=== PATIENT | female | born 1950 | race Caucasian/White ===

== ENCOUNTER 2019-03-30 08:56 | Outpatient (RCR) | payer MEDICARE, SELFPAY ==
--- NOTE | 2019-03-30 10:13 | PTOPEVAL ---
Thank you for referring this patient to [facility] [place]. Please review, sign, date and return this plan of care [facility]. I agree with and certify that the following plan of care is medically necessary. Referring Physician Date Admitting Provider: Attending Provider: Diomedes Ron MD Referring Provider: *PT Outpatient Evaluation Start: 03/30/19 09:13 Freq: Status: Active Protocol: Document 03/30/19 09:10 [facility] (Rec: 03/30/19 09:49 [facility] [id number]) Therapy Assessment Status Assessment Status Assessment Status Evaluation Evaluation Information Problem Diagnosis low back pain Onset 03/09/19 Additional Evaluation Detail oswestry = 26% Subjective Information patient reports she has been Query Text:As Reported By Patient/ having increased weakness in Family the low back since before her knee surgery back in August. she reports she had a great recovery, but has since been weak in the back with mild icnreased pain. she reports she has no symptoms in the low back. she reports she used to go to [email or web address], but was not going prior to her knee surgery due to the curves moving from town. Prior Level of Function Comments Additional Prior Level of Function patient has been noticing pain Comments since a little after August. she reports no imaging as of this date. she reports she has great difficulty standing and doing dishes/cooking. she reports she also has trouble keeping up with a 2 year old at home. Pain Assessment Timing of Pain Assessment Timing of Pain Assessment Assessment Pain Scale Pain Scale Used Numeric (1 - 10) Self Report Pain Assessment Lower Back Reported Pain Level 0 Greatest Pain Intensity 4 Pain Aggravating Factors Prolonged Position,Weight Bearing/Standing Upper Back Reported Pain Level 1 Pain Description Aching Greatest Pain Intensity 4 Pain Aggravating Factors Prolonged Position,Weight Bearing/Standing Pain Score Pain Score 1,0: Self Report Cervical and Lumbar ROM Lumbar ROM Lumbar Flexion Active Ankle Query Text:Hands to:
== END 2019-04-21 15:49 | disposition home or self-care (01) ==
LOC: CHSPT 08:56
PROVIDERS: PCP Internal Medicine; Visit Provider Internal Medicine
DX: M54.5 Low back pain (principal)
CPT/HCPCS: 97014; 97110; 97140; 97161; G0283

== ENCOUNTER 2020-11-29 08:50 | Outpatient (CLI) | payer MEDICARE, SELFPAY ==
--- NOTE | ~2020-11-29 | MR_ITS ---
EXAMINATION: MR lumbar spine wo con DATE: 11/29/2020 10:29 INDICATION: Chronic low back pain. TECHNIQUE: Magnetic resonance imaging (MRI) of the lumbar spine was performed without intravenous con trast. Sequences included sagittal T2-weighted FSE, sagittal T2-weighted FS FSE, sagittal T1-weighted FSE, and axial T2-weighted FSE. COMPARISON: Lumbar spine radiographs 11/29/2020 FINDINGS: There is 23 degrees levoscoliosis of lumbar spine. There is 4 mm anterolisthesis of L5 on S 1. There is mild chronic anterior wedging of T11 vertebral body. There is severely decreased disc hei ght from L1-L2 through L5-S1 with endplate remodeling. The distal spinal cord signal intensity is nor mal. The conus medullaris is at T12-L1. There is a 13 mm hemorrhagic cyst in right kidney. The follow ing disc levels are specifically discussed: L1-L2: The disc is bulging and has an annular fissure. There is severe right and mild left facet join t osteoarthritis. There is mild bilateral neural foraminal stenosis. There is mild central canal sten osis. L2-L3: The disc is bulging and has an annular fissure. There is severe bilateral facet joint osteoart hritis. There is mild bilateral neural foraminal stenosis. There is mild central canal stenosis. L3-L4: The disc is bulging and has an annular fissure. There is severe bilateral facet joint osteoart hritis. There is mild bilateral neural foraminal stenosis. There is mild central canal stenosis. L4-L5: The disc is bulging and has an annular fissure. There is moderate right and severe left facet joint osteoarthritis. There is mild right and moderate left neural foraminal stenosis. There is mild central canal stenosis. L5-S1: The disc is bulging and has an annular fissure. There is severe bilateral facet joint osteoart hritis. There is mild bilateral neural foraminal stenosis. There is mild central canal stenosis. IMPRESSION: 1. Severe lumbar spondylosis. 2. Lumbar levoscoliosis. Reviewed, dictated and finalized at location A.
--- NOTE | ~2020-11-29 | XR_ITS ---
EXAMINATION: XR lumbar spine 2-3V DATE: 11/29/2020 10:22 INDICATION: Chronic back pain. TECHNIQUE: 3 views of lumbar spine were obtained. COMPARISON: Lumbar spine MRI 11/29/2020 FINDINGS: There is 23 degrees levoscoliosis of lumbar spine. There is 4 mm anterolisthesis of L5 on S 1. There is mild chronic anterior wedging of T11 vertebral body. There is severely decreased disc hei ght from L1-L2 through L5-S1 with endplate remodeling. There is multilevel severe facet joint osteoar thritis. There are surgical clips in right abdomen. IMPRESSION: 1. Severe lumbar spondylosis. 2. Lumbar levoscoliosis. Reviewed, dictated and finalized at location A.
== END 2020-11-29 08:51 | disposition home or self-care (01) ==
LOC: CHSIMG 08:53
PROVIDERS: PCP Internal Medicine; Visit Provider Internal Medicine
DX: M54.50 Low back pain, unspecified (principal)
CPT/HCPCS: 72100; 72148

== ENCOUNTER 2020-12-06 09:09 | Outpatient (CLI) | payer MEDICARE, SELFPAY ==
--- NOTE | ~2020-12-06 | DEXA_ITS ---
Bone Density Report Name: Berenice Long Age: 70 Sex: Female Ethnicity: White Date of : 1950 Indication: postmenopausal; screening for osteoporosis; height loss; Referring Provider: Diomedes Ron Study: Bone densitometry was performed. Exam Date: December 06, 2020 Accession number: [id number] There is hypertrophic degenerative change of the lumbar spine, which results in higher than expected spine bone mineral density measurements. These spine BMD and T score and Z score measurements are not reflective of the patient's true general bone mineral density Bone Density: Region BMD T-score Z-score Classification AP Spine(L1, L2, L3) 0.973 -0.4 1.7 Normal Femoral Neck (Left) 0.555 -2.6 -0.8 Osteoporosis Total Hip (Left) 0.701 -2.0 -0.4 Osteopenia Femoral Neck (Right) 0.585 -2.4 -0.5 Osteopenia Total Hip (Right) 0.722 -1.8 -0.3 Osteopenia Femoral Neck Mean 0.570 -2.5 -0.7 Osteoporosis Total Hip Mean 0.711 -1.9 -0.4 Osteopenia World Health Organization criteria for BMD impression classify patients as: Normal (T-score at or above -1.0), Osteopenia (T-score between -1.0 and -2.5), or Osteoporosis (T-score at or below -2.5). 10-year Fracture Risk: FRAX not reported because: Some T-score for Spine Total or Hip Total or Femoral Neck at or below -2.5 Clinical Information Provided by Patient: Has used the following medications: Vitamin D, multi vit Patient maximum height was 64 Menopause Age: 56 No regular weight bearing exercise Drinks caffeinated beverages Onset of menses at age 12 Number of children 2 Impression: The patient has osteoporosis, based on the Left Femoral Neck T-score. There is hypertrophic degenerative change of the lumbar spine, which results in higher than expected spine bone mineral density measurements. These spine BMD and T score and Z score measurements are not reflective of the patient's true general bone mineral density. Discussion: INCREASED RISK OF FRACTURE. BONE DENSITY IS UNDESIRABLY LOW AT ONE OR MORE SKELETAL SITES, CONSISTENT WITH POSTMENOPAUSAL OSTEOPOROSIS. This patient's lowest T-score meets the World Health Organization's (WHO) criteria for osteoporosis at one or more sites (T-score -2.5 or below). In untreated patients, the risk of osteoporotic fracture increases approximately two-fold for each 1.0 SD decrease in T-score. Low bone density is not the only risk factor for fracture; also consider factors such as patient's age, frailty or poor health, risk of falling, risk of injury, previous osteoporotic fracture, family history of osteoporosis, cigarette smoking, low body weight, etc. Not everyone with low bone mineral density has osteoporosis; osteomalacia and other metabolic bone disorders should also be considered. Patients who have osteoporosis should be evaluated fo
--- NOTE | ~2020-12-06 | XR_ITS ---
EXAMINATION: XR wrist LT min 3V DATE: 12/06/2020 09:37 INDICATION: Ulnar sided left wrist pain. TECHNIQUE: 4 views of left wrist were obtained. COMPARISON: None. FINDINGS: Bone alignment is normal. No fracture. There are erosions of ulnar styloid. There is mild o steoarthritis of triscaphe joint and first carpometacarpal joint. There is degenerative cystic change in proximal lunate. There is chondrocalcinosis involving triangular fibrocartilage. There are periar ticular calcifications at radiocarpal joint. IMPRESSION: 1. Erosions of ulnar styloid, which may be seen with inflammatory arthropathy such as gout or rheumat oid arthritis. 2. Polyarticular osteoarthritis. Reviewed, dictated and finalized at location A. IMPRESSION: 1. Erosions of ulnar styloid, which may be seen with inflammatory arthropathy s uch as gout or rheumatoid arthritis. 2. Polyarticular osteoarthritis.
--- NOTE | ~2020-12-06 | MM_ITS ---
EXAMINATION: MM screening elvin BI w kirt HISTORY: Screening mammogram TECHNIQUE: Craniocaudal and mediolateral oblique 3-D tomosynthesis images were obtained and synthetic 2-D images were generated. CAD analysis was submitted and interpreted. COMPARISON: 01/2019, 05/2017, to bilateral digital screening mammogram examinations BREAST PARENCHYMAL COMPOSITION: There are scattered areas of fibroglandular density. FINDINGS: Scattered bilateral benign calcifications. There is no evidence of suspicious mass, calcifi cation, or architectural distortion to suggest malignancy in either breast. There has been no suspici ous interval change. IMPRESSION: 1. No mammographic evidence of malignancy. 2. Recommend routine screening mammography in one year. BI-RADS Category 2: Benign finding(s). Reviewed, dictated and finalized at location A.
== END 2020-12-06 09:10 | disposition home or self-care (01) ==
PROVIDERS: PCP Internal Medicine; Visit Provider Internal Medicine
DX: Z12.31 Encounter for screening mammogram for malignant neoplasm of breast (principal); M81.0 Age-related osteoporosis without current pathological fracture; M25.532 Pain in left wrist
CPT/HCPCS: 73110; 77063; 77067; 77080

== ENCOUNTER 2021-08-08 16:56 | Outpatient (RCR) | payer MEDICARE, SELFPAY ==
--- NOTE | 2021-08-09 09:14 | PTOPEVAL ---
Thank you for referring Berenice Long to [facility].? The patient is scheduled to be seen for therapy? ____x/week for ___ weeks. Please review, sign, date and return this plan of care JAREK. I agree with and certify that the following plan of care is medically necessary. Referring Physician Date Admitting Provider: Attending Provider: Diomedes Ron MD Referring Provider: *PT Outpatient Evaluation Start: 08/08/21 16:31 Freq: Status: Active Protocol: Document 08/08/21 17:00 [facility] (Rec: 08/08/21 18:03 [facility] [id number]) Therapy Assessment Status Assessment Status Assessment Status Evaluation Evaluation Information Problem Diagnosis Lumbar Spondylosis Onset 06/25/21 Additional Evaluation Detail Oswestry = 22% Functionally Declined Subjective Information Pt reports that in November, Query Text:As Reported By Patient/ she had a bit of back pain so Family she got an XRAY and MRI, which revealed severe arthritis. She has been having a grabbing feeling in the back of her L leg when walking for a prolonged period of time. When using stairs, she goes up the stairs sideways, with her R LE first. When going down the stairs, she uses her L LE first. She walks with a single point cane primarily due to her lack of confidence with her balance. Pain Assessment Timing of Pain Assessment Timing of Pain Assessment Pre-Treatment Pain Scale Pain Scale Used Numeric (1 - 10) Self Report Pain Assessment Lower Back Reported Pain Level 2 Lowest Pain Intensity 0 Greatest Pain Intensity 5 Pain Score Pain Score 2: Self Report Interventions Used Interventions Used By Clinicians Activity or ADL's,Education, Exercise Cervical and Lumbar ROM Lumbar ROM Lumbar Flexion Active Floor Query Text:Hands to: Lumbar Extension (0-40) 20 Query Text:Active in Degrees Lateral Flexion knee Query Text:Active Hands to: Lateral Rotation Right (0-45) 25 Query Text:Active in Degrees Lateral Rotation Left (0-45) 30 Query Text:Active in Degrees Lower Extremity Range of Motion Hip Range of Motion Right Hip Medial Rotation - Passive 30 Hip Lateral Rotation - Passive 45 Hip Range of Motion Comments ne
--- NOTE | 2021-09-19 21:07 | PTOPEVAL ---
Thank you for referring Berenice Long to [facility].? The patient is scheduled to be seen for therapy? ____x/week for ___ weeks. Please review, sign, date and return this plan of care JAREK. I agree with and certify that the following plan of care is medically necessary. Referring Physician Date Admitting Provider: Attending Provider: Diomedes Ron MD Referring Provider: *PT Outpatient Evaluation Start: 08/08/21 16:31 Freq: Status: Active Protocol: Document 09/12/21 11:00 [facility] (Rec: 09/19/21 21:07 [facility] filej) Therapy Assessment Status Assessment Status Assessment Status Discharge Evaluation Information Problem Diagnosis Lumbar Spondylosis Onset 06/25/21 Additional Evaluation Detail oswestry = 14% functionally declined Subjective Information patient reports she feels Query Text:As Reported By Patient/ Better overall. however, she Family reports she continues to feel the need to carry a cane with her for safety and stability. she reports improvements in standing, and lifting of mild to moderate weight around her house. she reports she is compliant with her exercise, and looking into continuing her exercise at a gym or a group class. she reports she used to attend [employer] frequently. Pain Assessment Timing of Pain Assessment Timing of Pain Assessment Assessment Pain Scale Pain Scale Used Numeric (1 - 10) Self Report Pain Assessment Lower Back Reported Pain Level 1 Pain Score Pain Score 1: Self Report Interventions Used Interventions Used By Clinicians Activity or ADL's,Electrical Stimulation,Exercise,Heat Cervical and Lumbar ROM Lumbar ROM Lumbar Flexion Active Floor Query Text:Hands to: Lumbar Extension (0-40) 25 Query Text:Active in Degrees Lumbar Lateral Flexion Right (0-40) 30 Query Text:Active in Degrees Lumbar Lateral Flexion Left (0-40) 30 Query Text:Active in Degrees Lateral Rotation Right (0-45) 35 Query Text:Active in Degrees Lateral Rotation Left (0-45) 35 Query Text:Active in Degrees Cervical and Lumbar Muscle Testing Lumbar Strength Upper Abdominal Strength 3+Fair+ Lower Abdominal Strength 3+Fair+ Lower Extremity Muscle Strength Testing Hip Strength Right Hip Flexion Strength 4+ Good +
== END 2021-09-12 10:02 | disposition home or self-care (01) ==
LOC: CHSPT 16:56
PROVIDERS: PCP Internal Medicine; Visit Provider Internal Medicine
DX: M54.50 Low back pain, unspecified (principal)
CPT/HCPCS: 97014; 97110; 97161; 97530; G0283

== ENCOUNTER 2022-06-17 09:03 | Outpatient (RCR) | payer MEDICARE, SELFPAY ==
--- NOTE | 2022-06-17 09:54 | PTOPEVAL1 ---
Assessment and note entered by Librado Levi Evaluation Information Assessment Status Evaluation Diagnosis impaired gait, impaird balance Onset 05/11/22 Subjective Information Pt. reports that she has been having difficulty since May. she states that she has a hx of severe arthritis in her back. She reports that since being diagnosed with arthritis she has noticed difficulty with walking. she reports she is uisng a cane on outdoor surface currently. she states that she does not use a cane in the home. She denies any recent falls, but notices that she will have an occasional LOB. She reports that she does have constant pain, but it is more severe with standing in one position. She reports that she does not do any formal exercise currently. She states that her goal is to be able to walk better. Reported Pain Level Pain Score 2: Self Report Assessment PT Clinical Summary Pt. is a 72 year old female who enters the clinic with impaired gait and balance, as well as low back pain. She presents with impaired gait, impaired balance, impaired postural awareness, l.e . weakness and pain. Continued skilled PT is indicated in order to improve these areas to allow the pt. to complete all IADL's with improved safety and comfrot. Plan of Care Interventions Electrical Stimulation,Gait Training,Hot Pack/Cold Pack,Manual Therapy,Therapeutic Activities, Therapeutic Exercise PT Services Indicated Yes Treatment Frequency and 2x/week x 10 visits Duration These treatments will address the objective and functional deficits as defined above. The patient will be advanced safely and appropriately in order for the patient to progress towards his/her prior level of function. Additional exercises will be introduced and as well as a comprehensive home exercise program upon discharge, if needed, ?to ensure carryover of functional gains achieved in the clinic. This treatment plan has been reviewed and agreement upon by the patient.
--- NOTE | 2022-07-19 11:47 | PTOPDC ---
Assessment and note entered by Aneta Titus, PT Evaluation Information Assessment Status Evaluation Diagnosis impaired gait and balance Onset 05/11/22 Subjective Information Berenice Long reports that she had increased pain yesterday [place] and then she did some housework as well. She notes low back pain will range from 0-5/10 and is usually provoked with standing to wash dishes. She does feel like she is improving with PT however, she is still fearful of falling and is limited with how long she can walk. She would like to continue PT for another 2 weeks to improve a little more before going on vacation in early August . Reported Pain Level Pain Score 1: Self Report Assessment PT Clinical Summary Berenice Long has completed 10 skilled PT visits for impaired gait and balance. She is reporting overall improvements since initiating PT however, she is still fearful of falling and notes weakness. She objectively demonstrates improved knee and ankle strength, improved lumbar flexion AROM, and improved Tinetti balance score. She continues to demonstrate bilateral hip and core weakness, impaired gait, decreased balance, and decreased endurance. She will continue to benefit from skilled PT to further address these limitations. Plan of Care PT Services Indicated Yes
--- NOTE | 2022-07-19 11:50 | PTOPPROG ---
Assessment and note entered by Aneta Titus, PT Evaluation Information Assessment Status Evaluation Diagnosis impaired gait and balance Onset 05/11/22 Subjective Information Berenice Long reports that she had increased pain yesterday after [place] and then she did some housework as well. She notes low back pain will range from 0-5/10 and is usually provoked with standing to wash dishes. She does feel like she is improving with PT however, she is still fearful of falling and is limited with how long she can walk. She would like to continue PT for another 2 weeks to improve a little more before going on vacation in early August . Assessment PT Clinical Summary Berenice Long has completed 10 skilled PT visits for impaired gait and balance. She is reporting overall improvements since initiating PT however, she is still fearful of falling and notes weakness. She objectively demonstrates improved knee and ankle strength, improved lumbar flexion AROM, and improved Tinetti balance score. She continues to demonstrate bilateral hip and core weakness, impaired gait, decreased balance, and decreased endurance. She will continue to benefit from skilled PT to further address these limitations. Plan of Care Interventions Neuro Re-education,Patient/Caregiver Educati, Therapeutic Activities,Therapeutic Exercise PT Services Indicated Yes Treatment Frequency and 2 times a week for 6 visits Duration These treatments will address the objective and functional deficits as defined above. The patient will be advanced safely and appropriately in order for the patient to progress towards his/her prior level of function. Additional exercises will be introduced and as well as a comprehensive home exercise program upon discharge, if needed, ?to ensure carryover of functional gains achieved in the clinic. This treatment plan has been reviewed and agreement upon by the patient.
--- NOTE | 2022-09-04 11:56 | PTOPDC ---
Assessment and note entered by JT File, PT Evaluation Information Assessment Status Discharge Diagnosis impaired gait and balance Onset 05/11/22 Subjective Information Pt reports no pain currently, she notes she has not experienced pain greater than 1/10 in the past week. She does note that she experiences weakness , particularly in the L knee today. She reports that during her recent trip to [place] she was able to use a scooter for mobility, but she also walked quite a bit which she noted difficulty with endurance for this activity. Reported Pain Level Pain Score 0: Self Report Assessment PT Clinical Summary Mrs. Long demonstrated improvement in LE strength today from previous assessments. Patient reports overall improvements in her gait and balance since start of physical therapy. Patient has fully met goals for pain levels and partially met goals for strength and balance. She continues to show impairments with overall endurance and high level balance activities. Patient to be discharged at this time with independent HEP and recommendation to attend a fall prevention class. Plan of Care PT Services Indicated No
== END 2022-09-04 20:00 | disposition home or self-care (01) ==
LOC: CHSPT 09:03
PROVIDERS: PCP Internal Medicine; Visit Provider Internal Medicine
DX: M54.50 Low back pain, unspecified (principal); R26.81 Unsteadiness on feet
CPT/HCPCS: 97110; 97112; 97150; 97161; 97530; 97750

== ENCOUNTER 2022-10-17 09:07 | Outpatient (CLI) | payer MEDICARE, SELFPAY ==
--- NOTE | ~2022-10-17 | MM_ITS ---
EXAMINATION: MM screening elvin BI w kirt HISTORY: Screening mammogram TECHNIQUE: Craniocaudal and mediolateral oblique 3-D tomosynthesis images were obtained and synthetic 2-D images were generated. CAD analysis was submitted and interpreted. COMPARISON: 12/06/2020, 01/2019 bilateral screening mammogram examinations BREAST PARENCHYMAL COMPOSITION: There are scattered areas of fibroglandular density. FINDINGS: Again noted are scattered bilateral benign calcifications. There is no evidence of suspicio us mass, calcification, or architectural distortion to suggest malignancy in either breast. There has been no suspicious interval change. IMPRESSION: 1. No mammographic evidence of malignancy. 2. Recommend routine screening mammography in one year. BI-RADS Category 2: Benign finding(s). Reviewed, dictated and finalized at location A.
--- NOTE | ~2022-10-17 | MR_ITS ---
MRI of the lumbar spine Clinical History: Back pain Technique: Axial T2-weighted images, and sagittal T1-weighted, T2-weighted, and T2 fat-sat images wer e acquired. COMPARISON: 11/29/2020 Findings: There is 26 degrees levoscoliosis of the lumbar spine. No fracture or suspicious bone marro w signal abnormality seen. Osseous alignment is similar to prior exam. At L1-L2, there is advanced degenerative disc narrowing. There is mild disc bulge with severe facet a rthropathy. No central canal stenosis. There is mild right neural foraminal narrowing. Left neural fo ramen preserved. At L2-L3, there is advanced degenerative disc narrowing. There is mild disc bulge with moderate to se luis facet arthropathy. No central canal stenosis. There is minimal right neural foraminal narrowing. At L3-L4, there is severe degenerative disc narrowing. There is disc bulge with severe facet arthropa thy. No candida central canal stenosis. There is severe right neural foraminal narrowing, and mild left neural foraminal narrowing. At L4-L5, there is advanced degenerative disc narrowing. There is disc bulge and moderate to severe f acet arthropathy, with left lateral recess stenosis. There is moderate to severe left neural foramina l narrowing. No candida central canal stenosis. Right neural foramen preserved. At L5-S1, there is diffuse disc bulge with severe facet arthropathy. There is mild to moderate bilate ral neural foraminal narrowing, left worse than right. Paravertebral soft tissues are unremarkable. Impression: Moderate degenerative spondylosis, as detailed above, with associated 26 degrees of levoscoliosis. Reviewed, dictated and finalized at location . Impression: Moderate degenerative spondylosis, as detailed above, with associated 26 degree s of levoscoliosis.
== END 2022-10-17 09:08 | disposition home or self-care (01) ==
LOC: CHSIMG 09:10
PROVIDERS: PCP Internal Medicine; Visit Provider Internal Medicine
DX: Z12.31 Encounter for screening mammogram for malignant neoplasm of breast (principal); M54.50 Low back pain, unspecified; M43.06 Spondylolysis, lumbar region; M41.86 Other forms of scoliosis, lumbar region
CPT/HCPCS: 72148; 77063; 77067

== ENCOUNTER 2023-02-25 10:39 | Outpatient (CLI) | payer MEDICARE, SELFPAY ==
--- NOTE | ~2023-02-25 | DEXA_ITS ---
Bone Density Report Name: XAVIER TSAI Age: 72 Sex: Female Ethnicity: White Date of : 1950 Indication: postmenopausal; screening for osteoporosis; height loss; hysterectomy; Referring Provider: Diomedes Ron Study: Bone densitometry was performed. Exam Date: February 25, 2023 Accession number: [id number] Bone Density: Region BMD T-score Z-score Classification AP Spine(L1, L2, L3) 1.025 0.1 2.3 Normal Femoral Neck (Left) 0.575 -2.5 -0.5 Osteoporosis Total Hip (Left) 0.679 -2.2 -0.5 Osteopenia Femoral Neck (Right) 0.634 -1.9 0.0 Osteopenia Total Hip (Right) 0.769 -1.4 0.2 Osteopenia Femoral Neck Mean 0.605 -2.2 -0.2 Osteopenia Total Hip Mean 0.724 -1.8 -0.1 Osteopenia World Health Organization criteria for BMD impression classify patients as: Normal (T-score at or above -1.0), Osteopenia (T-score between -1.0 and -2.5), or Osteoporosis (T-score at or below -2.5). 10-year Fracture Risk: FRAX not reported because: Some T-score for Spine Total or Hip Total or Femoral Neck at or below -2.5 Clinical Information Provided by Patient: Has used the following medications: Vitamin D, multi vit Has the following medical conditions: Hysterectomy Patient maximum height was 64 Menopause Age: 56 No regular weight bearing exercise Does not regularly consume dairy products Drinks caffeinated beverages Onset of menses at age 12 Number of children 2 Impression: The patient has osteoporosis, based on the Left Femoral Neck T-score. Discussion: INCREASED RISK OF FRACTURE. BONE DENSITY IS UNDESIRABLY LOW AT ONE OR MORE SKELETAL SITES, CONSISTENT WITH POSTMENOPAUSAL OSTEOPOROSIS. This patient's lowest T-score meets the World Health Organization's (WHO) criteria for osteoporosis at one or more sites (T-score -2.5 or below). In untreated patients, the risk of osteoporotic fracture increases approximately two-fold for each 1.0 SD decrease in T-score. Low bone density is not the only risk factor for fracture; also consider factors such as patient's age, frailty or poor health, risk of falling, risk of injury, previous osteoporotic fracture, family history of osteoporosis, cigarette smoking, low body weight, etc. Not everyone with low bone mineral density has osteoporosis; osteomalacia and other metabolic bone disorders should also be considered. Patients who have osteoporosis should be evaluated for specific diseases and conditions (secondary causes) that may cause or contribute to bone loss. The [place] [employer] (AACE) and National Osteoporosis Foundation (NOF) recommend pharmacologic intervention for all postmenopausal women whose T-score is in this range. The patient should follow a healthful lifestyle (good nutrition with adequate calcium and vitamin D, and appropriate weight-bearing exercise). Follow-Up: Consider a repeat BMD and Vertebral Fr
== END 2023-02-25 10:40 | disposition home or self-care (01) ==
PROVIDERS: PCP Internal Medicine; Visit Provider Internal Medicine
DX: Z78.0 Asymptomatic menopausal state (principal); M81.0 Age-related osteoporosis without current pathological fracture; M85.89 Other specified disorders of bone density and structure, multiple sites
CPT/HCPCS: 77080

== ENCOUNTER 2023-04-01 09:52 | Outpatient (CLI) | payer MEDICARE, SELFPAY ==
--- NOTE | ~2023-04-01 | CT_ITS ---
CT of the Abdomen and Pelvis: Indication: Abdominal pain Technique: 2.5 mm axial scans were obtained through the abdomen and pelvis following intravenous adm inistration of 100 cc of Omnipaque 350. Dose reduction technique was used on this scan by utilizing a utomated exposure control and iterative reconstruction technique. The dose-length product (DLP) was 7 67.05 mGy-cm. Findings: Scans through the lung bases are unremarkable. Probable diffuse fatty infiltration of liver noted. Cholecystectomy clips are present. The spleen, pa ncreas, adrenals and kidneys are within normal limits. There are atherosclerotic calcifications of th e aorta. No lymphadenopathy. No bowel obstruction or bowel wall thickening. There is a large, inferior ventral hernia containing m ultiple small bowel loops and large amount of mesenteric fat.. Images through the pelvis were performed. Urinary bladder unremarkable. No pelvic mass evident. No as cites. Impression: Very large inferior ventral hernia containing multiple small bowel loops and mesenteric fat. No bowel obstruction or bowel wall thickening evident. Probable diffuse fatty infiltration of the liver. Reviewed, dictated and finalized at location M. [facility] Impression: Very large inferior ventral hernia containing multiple small bowel loops and me senteric fat. No bowel obstruction or bowel wall thickening evident. Probable diffuse fatty infiltration of the liver.
[2023-04-01 10:30] LABS: Estimated Glomerular Filt Rate > 60
== END 2023-04-01 09:53 | disposition home or self-care (01) ==
LOC: CHSIMG 09:55
PROVIDERS: PCP Internal Medicine; Visit Provider Internal Medicine
DX: K43.9 Ventral hernia without obstruction or gangrene (principal); R10.9 Unspecified abdominal pain
CPT/HCPCS: 74177; Q9967

== ENCOUNTER 2023-04-30 09:15 | Outpatient (CLI) | payer MEDICARE, SELFPAY ==
--- NOTE | 2023-04-30 11:30 | NEURO_ITS ---
Impression: # Known mild diabetic complains of numbness of hands. # Mild sensory Carpal Tunnel Syndrome. # No ulnar neuropathy. # Normal needle/EMG exam. # Patient does have ulnar to median cross innervation. Nerve Conduction Studies Anti Sensory Summary Table Stim Site NR Peak (ms) P-T Amp (?V) Site1 Site2 Delta-P (ms) Dist (cm) Sathish (m/s) Left Median Anti Sensory (2-3nd Digit) Wrist 3.6 47.8 Wrist 2-3nd Digit 3.6 14.0 39 Wrist 3.6 17.2 Wrist 2-3nd Digit 3.6 14.0 39 Right Median Anti Sensory (2-3nd Digit) Wrist 3.0 54.8 Wrist 2-3nd Digit 3.0 14.0 47 Wrist 3.6 56.4 Wrist 2-3nd Digit 3.0 14.0 47 Left Radial Anti Sensory (Base 1st Digit) Wrist 1.8 23.9 Wrist Base 1st Digit 1.8 0.0 Right Radial Anti Sensory (Base 1st Digit) Wrist 2.1 25.9 Wrist Base 1st Digit 2.1 0.0 Left Ulnar Anti Sensory (5th Digit) Wrist 2.5 57.9 Wrist 5th Digit 2.5 14.0 56 Right Ulnar Anti Sensory (5th Digit) Wrist 2.3 32.9 Wrist 5th Digit 2.3 14.0 61 Motor Summary Table Stim Site NR Onset (ms) O-P Amp (mV) Site1 Site2 Delta-0 (ms) Dist (cm) Sathish (m/s) Left Median Motor (Abd Poll Brev) Wrist 3.1 6.7 Elbow Wrist 4.9 29.0 59 Elbow 8.0 6.3 Right Median Motor (Abd Poll Brev) Wrist 3.1 3.2 Elbow Wrist 5.3 29.0 55 Elbow 8.4 1.7 Left Ulnar Motor (Abd Dig Minimi) Wrist 2.5 8.2 A Elbow Wrist 4.9 29.0 59 A Elbow 7.4 6.6 B Elbow Wrist 5.5 0.0 B Elbow 8.0 1.3 Right Ulnar Motor (Abd Dig Minimi) Wrist 2.5 9.2 A Elbow Wrist 4.8 28.0 58 A Elbow 7.3 7.8 F Wave Studies NR F-Lat (ms) L-R F-Lat (ms) Left Median (Mrkrs) (Abd Poll Brev) 26.88 0.97 Right Median (Mrkrs) (Abd Poll Brev) 25.91 0.97 Left Ulnar (Mrkrs) (Abd Dig Min) 26.57 0.99 Right Ulnar (Mrkrs) (Abd Dig Min) 25.58 0.99 EMG Side Muscle Nerve Root Ins Act Fibs Amp Dur Recrt Comment Right 1stDorInt Ulnar C8-T1 Nml Nml Nml Nml Nml Right Ext Indicis Radial (Post Int) C7-8 Nml Nml Nml Nml Nml Right Ext Digitorum Radial (Post Int) C7-8 Nml Nml Nml Nml Nml Right BrachioRad Radial C5-6 Nml Nml Nml Nml Nml Right PronatorTeres Median C6-7 Nml Nml Nml Nml Nml Right Abd Poll Brev Median C8-T1 Nml Nml Nml Nml Nml Right ABD Dig Min Ulnar C8-T1 Nml Nml Nml Nml Nml Left 1stDorInt Ulnar C8-T1 Nml Nml Nml Nml Nml Left Ext Indicis Radial (Post Int) C7-8 Nml Nml Nml Nml Nml Left Ext Digitorum Radial (Post Int) C7-8 Nml Nml Nml Nml Nml Left BrachioRad Radial C5-6 Nml Nml Nml Nml Nml Left PronatorTeres Median C6-7 Nml Nml Nml Nml Nml Left Abd Poll Brev Median C8-T1 Nml Nml Nml Nml Nml Left ABD Dig Min Ulnar C8-T1 Nml Nml Nml Nml Nml MTDD
== END 2023-04-30 09:16 | disposition home or self-care (01) ==
LOC: ANHNEURO 09:21
PROVIDERS: PCP Internal Medicine; Visit Provider Plastic Surgery
DX: G56.03 Carpal tunnel syndrome, bilateral upper limbs (principal)
CPT/HCPCS: 95886; 95911

== ENCOUNTER 2023-05-08 09:58 | Outpatient (CLI) | payer MEDICARE, SELFPAY ==
--- NOTE | 2023-05-08 11:08 | ECG_ITS ---
Measurements Intervals [place] Rate: 73 P: 36 FL: 156 QRS: -33 QRSD: 134 T: 0 QT: 396 QTc: 437 Interpretive Statements SINUS RHYTHM WITH SINUS ARRHYTHMIA LEFT AXIS DEVIATION RIGHT BUNDLE BRANCH BLOCK VOLTAGE CRITERIA FOR LVH MINIMAL Q WAVES- HIGH LATERAL LEADS ABNORMAL ECG NO PREVIOUS ECG AVAILABLE FOR COMPARISON Electronically Signed On 05-08-2023 11:25:19 CDT by Xu Amaya D.O.
[2023-05-08 11:42] LABS: Hematocrit 41.7 % (37.0-47.0); Hemoglobin 13.8 g/dL (12.0-15.0)
[2023-05-08 11:54] LABS: Anion Gap 8 mmol/L (4-12); Blood Urea Nitrogen 28 mg/dL (7-17); Calcium 9.6 mg/dL (8.4-10.2); Carbon Dioxide 28 mmol/L (22-30); Chloride 104 mmol/L (98-107); Estimated Glomerular Filt Rate > 60; Glucose 109 mg/dL (65-110); Potassium 4.4 mmol/L (3.4-5.0); Sodium 140 mmol/L (137-145)
== END 2023-05-08 09:59 | disposition home or self-care (01) ==
LOC: ANHSURGERY 10:06
PROVIDERS: Anesthesiology; PCP Internal Medicine; Visit Provider Surgery
DX: E78.00 Pure hypercholesterolemia, unspecified (principal); E11.9 Type 2 diabetes mellitus without complications; K43.0 Incisional hernia with obstruction, without gangrene; Z01.818 Encounter for other preprocedural examination; I45.10 Unspecified right bundle-branch block
CPT/HCPCS: 36415; 80048; 85014; 85018; 93005

== ENCOUNTER 2023-05-19 17:56 | Inpatient (IN) | payer MEDICARE, SELFPAY ==
[2023-05-08 10:14] VITALS: BMI 33.0
--- NOTE | 2023-05-08 10:46 | PC.NURSE ---
Report to the Outpatient Waiting Room, entrance under the green pavilion located off [facility], at time _1000 on date __05/19/23 . Planned Procedure Time: ___1200 . Time changes happen often and if your time is changed the preop area will call you the afternoon before. - You and your visitor will be asked to self-screen and do not enter if you have any COVID symptoms. - A mask is optional within the hospital at this time. Patients may have clear liquids (water, carbonated beverages, clear teas, apple juice) until 3 hours prior to surgery (9:00 AM)with a maximum of 20 ounces. - No food from midnight until time of surgery - Infants may have breast milk until 4 hours before surgery, formula 6 hours prior to surgery. - Children will be allowed to drink immediately following surgery. If applicable, please bring a bottle or sippy cup to assist with drinking. Juice, water, soda, and popsicles are readily available. For infants on formula, please bring formula the day of surgery. Pacifiers are allowed. Take the following medications with a SIP of water the morning of surgery: __NONE DO NOT STOP ANY OF YOUR OTHER PRESCRIPTION MEDICATIONS PRIOR TO SURGERY ?EXCEPT THE FOLLOWING Medications to discontinue per physician ____HOLD VITAMINS AND SUPPLEMENTS 3 DAYS PRE OP.LAST DOSE 05/15/[address] LAGUNAS Please no make-up, nail solomon islander, hairspray, perfume, deodorant, or body powder the day of surgery. No jewelry (including any body piercings) or valuables the day of surgery, leave them at home. Please take a shower or bath the night before, or the morning of, surgery with an antibacterial soap. Wear comfortable, loose fitting clothing. Children are encouraged to wear pajamas. - Jewelry must be removed prior to entering the operating room. Rings and piercings that are not removed may be cut off. - The hospital will not accept responsibility for valuables. - Please leave all valuables, including medications, at home the day of surgery. If you are going home after surgery, a licensed tower truck driver must drive you home. - NO public transportation without another adult if you receive anesthesia. - We recommend that an adult stay with you for 24 hours following discharge. - We also recommend that you do not drive, make important decision, drink alcoholic beverages, or take any drugs that were not prescribed by your health care provider for at least 24 hours after your discharge time. Follow any additional instructions given to you from your surgeon. If you or anyone in your household have experienced Covid symptoms in the past week, please notify your surgeon or the nurse liaison at the phone number below for possible testing. VERBAL AND WRITTEN instructions given to __PATIENT AND SPOUSE and asked if any additional questions and then verbalized understanding. Patient advised to call surgeon office or pre surgery nurse liaison [phone] if any additional questions.
[2023-05-08 11:04] VITALS: BP 156/79; PULSE 82; RESP 18; TEMP 37.1; O2SAT 97
[2023-05-19] VITALS (12 sets, daily range): BP systolic 128–174; BP diastolic 61–81; PULSE 91–108; RESP 16–25; TEMP 36.8–37.1; O2SAT 92–96
--- NOTE | ~2023-05-19 | XR_ITS ---
EXAMINATION: XR chest 1V portable DATE: 05/24/2023 16:01 INDICATION: Worsening oxygenation. TECHNIQUE: A single frontal view of the chest was obtained. COMPARISON: Chest 2 views 05/21/2023, chest CT 05/22/2023 FINDINGS: The lung volumes are small. Again seen is relative elevation of right hemidiaphragm. There are airspace opacities in the mid and lower lung zones. No pleural effusion or pneumothorax. The hear t size is normal. IMPRESSION: 1. Stable small lung volumes with airspace opacities in the mid and lower lung zones, consistent with atelectasis versus pneumonia. Reviewed, dictated and finalized at location E.
--- NOTE | ~2023-05-19 | MR_ITS ---
EXAMINATION: MRA brain wo con DATE: 05/22/2023 12:50 INDICATION: Possible stroke with right-sided hemiparesis TECHNIQUE: Magnetic resonance angiography (MRA) of the brain was performed without intravenous contrast by the 3 D [id number] technique. COMPARISON: Brain CT angiogram dated 05/22/2023 FINDINGS: There is normal flow related signal seen within the vertebral, basilar and internal carotid arteries. Bilateral vertebral arteries are codominant. There is no proximal stenosis. There are no aneurysms identified. Both A1 and P1 segments are patent. Flow in the cerebral arteries is symmetric. IMPRESSION: 1. Normal cerebral MR angiogram. Reviewed, dictated and finalized at location B.
--- NOTE | ~2023-05-19 | CT_ITS ---
EXAMINATION: CT brain wo con DATE: 05/22/2023 09:41 INDICATION: Right-sided weakness TECHNIQUE: Computed tomography (CT) of the head was performed without intravenous contrast. Sagittal and coronal reconstructions were performed. The mA was adjusted according to patient size. Iterative reconstruction technique was employed. The dose-length product was 681.00 mGy-cm. COMPARISON: None FINDINGS: No acute intracranial hemorrhage, acute infarction or abnormal extra axial fluid collection. There is moderate scattered white matter hypoattenuation consistent with chronic small vessel ischemic diseas e. Ventricles are normal and symmetric. No mass/mass effect. The orbits, paranasal sinuses and masto id air cells are normal. IMPRESSION: 1. Moderate scattered white matter hypoattenuation consistent with chronic small vessel ischemic dise ase. No other acute intracranial process. Reviewed, dictated and finalized at location B. IMPRESSION: 1. Moderate scattered white matter hypoattenuation consistent with chronic smal l vessel ischemic disease. No other acute intracranial process.
--- NOTE | ~2023-05-19 | XR_ITS ---
Portable chest x-ray Comparison: 05/26/2023 Clinical History: Respiratory failure Findings: Discoid right basilar atelectasis is present. There is probable central congestive change and possible mild pulmonary edema pattern. Cardiomediastinal silhouette is stable. Bones and soft ti ssues are unremarkable. Impression: Central congestive change and possible minimal pulmonary edema pattern. Discoid right basilar atelect asis. Reviewed, dictated and finalized at location . Impression: Central congestive change and possible minimal pulmonary edema pattern. Discoid right basilar atelectasis.
--- NOTE | ~2023-05-19 | CT_ITS ---
EXAMINATION: CTA BRAIN/CAROTID DATE: 05/22/2023 13:10 INDICATION: Strokelike symptoms with right-sided hemiparesis TECHNIQUE: Computed tomographic angiography (CTA) of the head and neck was performed with 100 mL Omni paque-350 intravenous contrast. Multiplanar reconstructions and maximum intensity projection 3D-recon structions of the carotid arteries and of the intracranial arteries were created by the technologist on a separate workstation. Automated exposure control and iterative reconstruction technique were emp loyed.The dose-length product was 825.03 mGy-cm. COMPARISON: Head CT and brain MR dated 05/22/2023 FINDINGS: Carotid arteries: Small amount of nonhemodynamically significant atherosclerotic plaque along the visualized portion of the aortic arch which appears normal in caliber with no dissection. Portions of the great vessels ar ising from the arch are partially obscured by dense streak artifact from residual contrast in the lef t subclavian and brachiocephalic veins. There is small amount of atherosclerotic plaque with 0% steno sis of the right carotid bulb relative to normal distal artery lumen diameter (NASCET criteria). Ther e is also a small amount of atherosclerotic plaque with 0% stenosis of the left carotid bulb relative to normal distal artery lumen diameter. There is additional streak artifact resulting from multiple dental restorations which limits evaluation of portions of the bilateral cervical internal carotid ar teries distal to the level of the carotid bulbs resulting. Intracranial arteries Vertebral arteries are codominant. Scattered atherosclerosis at the bilateral carotid siphons without hemodynamically significant stenosis. There is no hemodynamically significant stenosis in the verteb ral, basilar and internal carotid arteries. There are no aneurysms identified. Both A1 and P1 segmen ts are patent. Cerebral arterial arborization appears symmetric. No abnormally enhancing brain lesion s. IMPRESSION: 1. 0% stenosis of the right and left carotid bulbs relative to normal distal artery lumen diameter (N ASCET criteria). 2. Small amount of nonhemodynamically significant atherosclerotic plaque at the bilateral carotid sip hons. Otherwise unremarkable cerebral CT angiogram with no hemodynamically significant stenosis or an eurysm. Reviewed, dictated and finalized at location B. IMPRESSION: 1. 0% stenosis of the right and left carotid bulbs relative to normal distal ar gus lumen diameter (NASCET criteria). 2. Small amount of nonhemodynamically significant atherosclerotic plaque at the bilateral carotid siphons. Otherwise unremarkable cerebral CT angiogram with n o hemodynamically significant stenosis or aneurysm.
--- NOTE | ~2023-05-19 | XR_ITS ---
XR abdomen/kub 1V 05/26/2023 08:23 Indication: Evaluate for obstruction. Procedure: KUB Comparison: CT dated 04/01/2023 Findings: Mildly dilated small bowel loops. There is moderate gas throughout the colon. There are lap arotomy staple lines. There are surgical clips in the right upper and lower abdomen as well. Impression: 1: Mildly dilated small bowel with moderate gas throughout the colon which may represent postoperativ e ileus or less likely partial obstruction. Reviewed, dictated and finalized at location A. Impression: 1: Mildly dilated small bowel with moderate gas throughout the colon which may represent postoperative ileus or less likely partial obstruction.
--- NOTE | ~2023-05-19 | XR_ITS ---
XR chest 2V 05/21/2023 17:39 Indication: Shortness of breath Procedure: 2 view chest Comparison: No prior studies for comparison. Findings: Shallow inspiration. Bibasilar airspace disease. Cardiomegaly. No pneumothorax. No acute os seous abnormality. No significant effusion. Impression: 1: Bibasilar airspace disease may represent pneumonia and/or atelectasis. Reviewed, dictated and finalized at location A. Impression: 1: Bibasilar airspace disease may represent pneumonia and/or atelectasis.
--- NOTE | ~2023-05-19 | MR_ITS ---
EXAMINATION: MRA neck wo/w con DATE: 05/22/2023 12:50 INDICATION: Possible stroke with right hemiparesis TECHNIQUE: Magnetic resonance angiography (MRA) of the neck was performed without and with 17 mL Mult ihance intravenous contrast. Sequences included axial 2D-time of flight T1-weighted FSPGR and coronal T1-weighted FSPGR without and with intravenous contrast. COMPARISON: None. FINDINGS: There is 0% stenosis of the right carotid bulb relative to normal distal artery lumen diameter (NASCE T criteria). There is 0% stenosis of the left carotid bulb relative to normal distal artery lumen di ameter. There appears to 20-30% stenosis of the cervical portion of the left vertebral artery immedia tely distal to the carotid bulb. Assessment of this region was limited on the prior CT angiogram due to significant streak artifact at this level. IMPRESSION: 1. 0% stenosis of the right and left carotid bulbs relative to normal distal artery lumen diameter (N ASCET criteria). 2. 20-30% stenosis along the cervical portion of the left vertebral artery immediately distal to the carotid bulb. Reviewed, dictated and finalized at location B. IMPRESSION: 1. 0% stenosis of the right and left carotid bulbs relative to normal distal ar gus lumen diameter (NASCET criteria). 2. 20-30% stenosis along the cervical portion of the left vertebral artery imme diately distal to the carotid bulb.
--- NOTE | ~2023-05-19 | XR_ITS ---
Portable chest x-ray Comparison: 05/24/2023 Clinical History: Pneumonia Findings: There is patchy bilateral airspace disease. No definite pleural effusion. Cardiomediastin al silhouette is stable. Bones and soft tissues are unremarkable. Impression: Patchy bilateral airspace disease. Correlate for bilateral pulmonary edema/atelectasis versus pneumon ia. Reviewed, dictated and finalized at [facility]. Impression: Patchy bilateral airspace disease. Correlate for bilateral pulmonary edema/atel ectasis versus pneumonia.
--- NOTE | ~2023-05-19 | MR_ITS ---
EXAMINATION: MR brain/brain stem wo/w con DATE: 05/22/2023 12:49 INDICATION: Possible stroke with right-sided hemiparesis TECHNIQUE: Magnetic resonance imaging (MRI) of the brain and brainstem was performed without and with 17 mL Multihance intravenous contrast. Sequences included sagittal and axial T1-weighted SE, axial d iffusion-weighted FS SE, axial T2*-weighted GRE, axial T2-weighted FLAIR, and axial T2-weighted FSE. Postcontrast axial and coronal T1-weighted SE was obtained. Apparent diffusion coefficient (ADC) maps were created. COMPARISON: Head CT dated 05/22/2023 FINDINGS: There are no areas of restricted diffusion to suggest acute infarction. No intracranial hemorrhage or abnormal intracranial mass lesion. There are scattered areas of nonspecific increased T2-weighted si gnal intensity in the cerebral white matter, predominantly involving the deep and periventricular whi te matter. There are no intraparenchymal signal abnormalities seen on the other pulse sequences. The ventricles are symmetric and normal in size. There are no abnormal extra-axial fluid collections. Shorty w voids are seen in the cerebral arteries on the T2-weighted sequences consistent with their expected patency. Visualized orbits and soft tissues are unremarkable. There are no areas of abnormal enhance ment on the post contrast images. IMPRESSION: 1. No acute intracranial process or abnormally enhancing brain lesions. 2. Moderate scattered nonspecific periventricular predominant white matter T2 hyperintensity which is within normal limits for age and likely sequela of chronic small vessel ischemic disease. Reviewed, dictated and finalized at location B. IMPRESSION: 1. No acute intracranial process or abnormally enhancing brain lesions. 2. Moderate scattered nonspecific periventricular predominant white matter T2 h yperintensity which is within normal limits for age and likely sequela of chron ic small vessel ischemic disease.
--- NOTE | ~2023-05-19 | CT_ITS ---
EXAMINATION: CT abdomen pelvis w con DATE: 05/26/2023 09:42 INDICATION: Nausea and vomiting TECHNIQUE: Computed tomography (CT) of the abdomen and pelvis was performed with 100 mL Omnipaque-350 intravenous contrast. Automated exposure control and iterative reconstruction technique were employe d. The dose-length product was 1209.55 mGy-cm. COMPARISON: 04/01/2023 FINDINGS: Lung volumes are decreased with peripheral consolidation in all lobes in the visualized lower lungs w ith appearance favoring atelectasis over pneumonia. Heart size is normal. Atherosclerotic coronary ar gus calcifications. No pericardial or pleural effusion. Visualized portion of the thoracic aorta is normal in caliber with no dissection. Cholecystectomy clips the gallbladder fossa. There is relativel y decreased attenuation the liver relative to the spleen consistent with diffuse hepatic steatosis al though specificities decreased by the presence of intravenous contrast. Small splenic calcific locati on consistent with old granulomatous disease. Pancreas, bilateral adrenal glands and left kidney are normal. 1.7 cm exophytic cyst at the lower pole of the right kidney. Bladder is normal. The uterus is not identified and has likely been surgically resected. There is prominent colonic diverticulosis wi th a sigmoid descending colon predominance but without adjacent inflammatory change to suggest divert iculitis. There multiple surgical clips in the right lower quadrant predominantly along the cecum pot entially related to prior appendectomy. Interval infraumbilical ventral hernia repair with surgical d rain within the subcutaneous fat at the operative bed in the anterior pelvic wall. There is an additi onal surgical drain extending into the anterior peritoneal cavity of the pelvis. Several fluid-filled loops of small bowel without candida dilation or transition point to suggest obstruction but which cou ld be seen with postoperative ileus. There is a small amount of ascites in the deep pelvis and along the anterior liver. S-shaped thoracic and lumbar scoliosis with severe spondylosis. IMPRESSION: 1. Several fluid-filled but not frankly dilated loops of small bowel likely related to postoperative ileus given the postoperative change of recent infraumbilical ventral hernia repair. 2. Diffuse hepatic steatosis. 3. Diverticulosis. 4. Volume loss and lungs with scattered peripheral consolidation in all lobes of the/lower lungs with appearance favoring atelectasis over pneumonia. Reviewed, dictated and finalized at location A. IMPRESSION: 1. Several fluid-filled but not frankly dilated loops of small bowel likely rel ated to postoperative ileus given the postoperative change of recent infraumbil ical ventral hernia repair. 2. Diffuse hepatic steatosis. 3. Diverticulosis. 4. Volume loss and lungs with scattered peripheral consolidation in all lobes o f the/lower lungs with appearance favoring atelectasis over pneumonia.
--- NOTE | ~2023-05-19 | CT_ITS ---
EXAMINATION: CTA chest PE protocol DATE: 05/22/2023 09:42 INDICATION: Shortness of breath. TECHNIQUE: Computed tomography angiography (CTA) of the chest was performed with 100 mL Omnipaque-350 intravenous contrast timed to evaluate the pulmonary arteries. Coronal maximum intensity projection 3D-reconstructions were created by the technologist. Automated exposure control and iterative reconst ruction technique were employed. The dose-length product was 836.09 mGy-cm. COMPARISON: None. FINDINGS: The lung volumes are small. There is moderate atelectasis bilaterally. No pleural effusion. The heart size is normal. There are coronary artery calcifications. No pericardial effusion. Calcifi ed left hilar and mediastinal lymph nodes are consistent with old granulomatous disease. There is no pulmonary embolus. There are changes of cholecystectomy. There is severe cervical and thoracic spondy losis. There is levoscoliosis of thoracic spine and dextroscoliosis of thoracolumbar spine. IMPRESSION: 1. No pulmonary embolus. Sensitivity is severely decreased by motion artifact. 2. Small lung volumes with moderate atelectasis bilaterally. Reviewed, dictated and finalized at location A.
[2023-05-19] MEDS: ACETAMINOPHEN 500 MG TABLET 1000 MG PO (10:49)
[2023-05-19] MEDS: KETOROLAC 15 MG/ML VIAL (*BKC) IV PUSH (11:00)
[2023-05-19 11:15] LABS: Glucose Point of Care 85 mg/dl (65-105)
--- NOTE | 2023-05-19 11:24 | WPDHPUPDATE1 ---
History and Physical Update Update Date/Time: 05/19/23 11:24 History and Physical has been reviewed, including an updated exam of the patient. There are NO changes in the patient's condition. Risks, benefits, and alternatives have been discussed and questions answered. Patient agrees to proceed with procedure.
--- NOTE | 2023-05-19 11:24 | PM.IMHP ---
H&P: HPI History of Present Illness Date/Time: 05/19/23 11:24 Chief Complaint: incisional hernia Narrative: 73 yo woman presents for incisional hernia repair. She has a large incisional hernia from hx of hysterectomy and through low Pfannenstiel incisions. A CT showed evidence of a large incisional hernia containing bowel. She now presents for repair. Review of Systems Review of Systems: All systems reviewed & are unremarkable except as noted in HPI and below Constitutional: Constitutional: Denies chills, Denies fever(s), Denies headache(s) and Denies weight loss Eyes: Eyes: Denies change in vision ENT: Denies dizziness, Denies headache(s), Denies neck mass and Denies throat swelling Cardiovascular: Cardiovascular: Denies chest pain, Denies lightheadedness and Denies dyspnea Respiratory: Respiratory: Denies cough, Denies dyspnea and Denies wheezing Gastrointestinal: Gastrointestinal: Denies abdominal pain, Denies change in bowel habits, Denies nausea and Denies vomiting Genitourinary: Genitourinary: Denies hematuria and Denies dysuria Musculoskeletal: Musculoskeletal: Reports as per HPI Integumentary/Breasts: Skin/Breast: Reports as per HPI Neurologic: Denies dizziness and Denies headache(s) Allergic/Immunologic: Allergic/Immunologic: Denies throat swelling and Denies wheezing [facility] Past Medical History Medical History (Updated 04/10/23 @ 09:43 by Mary Lou Neal Flor) Diabetes High cholesterol Surgical History Surgical History History of cholecystectomy History of hysterectomy History of knee replacement History of left inguinal hernia repair Previous section x2 Status post creation of urethral sling by suprapubic approach Family History Family History Father Pancreatic cancer Heart disease Mother Heart disease Diabetes mellitus Sibling Diabetes mellitus Social History Social History Smoking status: Never smoker Alcohol intake: never Substance use: never Substance use type: does not use Lack of Transportation: No Lack of Food: Never True Current Housing: I Have Housing Concerned About Future Housing: No Difficulty Paying Gas/Electric Bills: No Difficulty Paying for Meds: No Currently Unemployed: No Education: High School Diploma/GED Difficulty w/ Childcare or Family Care: No Living arrangements: with family Occupation/Education: 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: No Meds Home Medications and Allergies Home Medications Medication Instructions Recorded Confirmed Type hydrocodone 10 mg-acetaminophen 1 tablet PO Q8H PRN Pain 01/13/23 05/08/23 History 325 mg tablet meloxicam 15 mg tablet 15 mg PO DAILY 01/13/23 05/19/23 History metformin 500 mg tablet,extended 500 mg PO DAILY 01/13/23 05/19/23 History release 24 hr pantoprazole 40 mg tablet,delayed 40 mg PO QAM 01/13/23 05/19/23 History release pravastatin 20 mg tablet 20 mg PO QHS 01/13/23 05/19/23 History cinnamon 100 mg-chromium 100 1 cap PO DAILY 04/07/23 05/19/23 History ikz-NFR-egykpsa-ginseng-green tea capsule hjzqnalg-wbsl-buhlatl gluconate 9 15 ml PO DAILY 04/07/23 05/19/23 History mg iron/15 mL (15 mL) oral liquid (Centrum) alendronate 70 mg tablet 70 mg PO WEEKLY 05/08/23 05/19/23 History ascorbic acid (vitamin C) 500 mg 500 mg PO DAILY 05/08/23 05/19/23 History tablet cholecalciferol (vitamin D3) 25 25 mcg PO 2XW 05/08/23 05/19/23 History mcg (1,000 unit) tablet cranberry 400 mg capsule 400 mg PO DAILY 05/08/23 05/19/23 History cyanocobalamin (vitamin B-12) 1,000 mcg PO DAILY 05/08/23 05/19/23 History 1,000 mcg tablet glucosamine 750 jw-ftmpgzbudsl-aip 1 tablet PO BID 05/08/23 05/19/23 History no1 644 mg-C 30 mg-poncho 1 mg tablet (Osteo Bi-Flex Triple Strength) magnesium 500 mg tablet 500 mg PO DAILY 05/08/23 05/19/23 History potassium 99 mg tablet 99 mg PO DAILY 05/08/23 05/19/23 History travoprost 0.004 % eye drops 1 drp EACH EYE HS 05/08/23 05/19/23 History Allergies Allergy/AdvReac Type Severity Reaction Status Date / Time No Known Allergies Allergy Unknown Verified 05/19/23 10:44 Exam Const: General: no acute distress and alert Orientation/consciousness: patient oriented x3 HENMT: Head: normocephalic and atraumatic Ears: hearing grossly normal bilaterally Face/Nose/Sinus: Normal nares present Mouth: Yes Normal oral and palatal mucosa present Eyes: Periorbital: periorbital findings normal Sclera: sclerae normal EOM: EOMs intact bilaterally Neck: Neck: normal visual inspection, no lymphadenopathy and trachea midline Chest: Chest palpation & inspection: normal inspection of the chest Resp: Effort & Inspection: normal respiratory effort Auscultation: clear to auscultation bilaterally Cardio: Jugular venous distension: no JVD Rate: regular rate Rhythm: regular rhythm Heart sounds: S1 normal heart sound present and S2 normal heart sound present Peripheral pulses: Peripheral pulses 2+ throughout GI: Inspection: normal to inspection GI Palp: Yes Soft to palpation, No Tenderness to palpation present (GI), No Guarding due to palpation present (GI), Yes Hernia present incisional > 10 cm (12-14cm lower midline incisional hernia) and No Rebound tenderness present Percussion: Yes normal to percussion Auscultation: normal bowel sounds : General: Yes no CVA tenderness Back/Spine/Pelvis: Back: no CVA tenderness Neuro: General: patient oriented x3, no focal motor deficits and CN's II-XI intact bilaterally Cognition (Neuro): normal cognition Speech: normal speech Motor exam (neuro): 5/5 motor strength present throughout Extrem: General: capillary refill normal and no clubbing, cyanosis or edema Assessment and Plan Assessment and plan (1) Incarcerated incisional hernia: Code(s): K43.0 - Incisional hernia with obstruction, without gangrene Status: Acute Assessment and Plan: I have recommended open incarcerated incisional hernia repair with mesh, bilateral component separation. I have discussed the procedure, risks, benefits, and alternatives with the patient. All questions answered. No changes since last seen in office.
--- NOTE | 2023-05-19 11:49 | WPDANESEPPF ---
Anes - Initial Pre Proc Eval Procedure: Operation Date: 05/19/23 12:00 Proposed Procedures p Open Incarcerated Incisional Hernia Repair with Mesh Bilateral Component Separation - Roberto Durham DO Date/Time: 05/19/23 11:49 Surgeon: Roberto Durham DO Pre Op Diagnosis: Incarcerated Incisional Hernia Patient Data Age: 73 Gender: F Height: 1.6 m Weight: 84.7 kg Last Vital Signs Temp 98.2 F 05/19/23 10:02 Pulse 91 05/19/23 10:02 Resp 20 05/19/23 10:02 BP 174/81 H 05/19/23 10:02 Pulse Ox 95 05/19/23 10:02 O2 Del Method Room Air 05/19/23 10:02 Allergies Allergy/AdvReac Type Severity Reaction Status Date / Time No Known Allergies Allergy Unknown Verified 05/19/23 10:44 Home Medications Medication Instructions Recorded Confirmed Type hydrocodone 10 mg-acetaminophen 1 tablet PO Q8H PRN Pain 01/13/23 05/08/23 History 325 mg tablet meloxicam 15 mg tablet 15 mg PO DAILY 01/13/23 05/19/23 History metformin 500 mg tablet,extended 500 mg PO DAILY 01/13/23 05/19/23 History release 24 hr pantoprazole 40 mg tablet,delayed 40 mg PO QAM 01/13/23 05/19/23 History release pravastatin 20 mg tablet 20 mg PO QHS 01/13/23 05/19/23 History cinnamon 100 mg-chromium 100 1 cap PO DAILY 04/07/23 05/19/23 History vcb-NQG-bboqyyx-ginseng-green tea capsule epkneflx-bamc-fltsweh gluconate 9 15 ml PO DAILY 04/07/23 05/19/23 History mg iron/15 mL (15 mL) oral liquid (Centrum) alendronate 70 mg tablet 70 mg PO WEEKLY 05/08/23 05/19/23 History ascorbic acid (vitamin C) 500 mg 500 mg PO DAILY 05/08/23 05/19/23 History tablet cholecalciferol (vitamin D3) 25 25 mcg PO 2XW 05/08/23 05/19/23 History mcg (1,000 unit) tablet cranberry 400 mg capsule 400 mg PO DAILY 05/08/23 05/19/23 History cyanocobalamin (vitamin B-12) 1,000 mcg PO DAILY 05/08/23 05/19/23 History 1,000 mcg tablet glucosamine 750 uc-psjkfdhwusc-htt 1 tablet PO BID 05/08/23 05/19/23 History no1 644 mg-C 30 mg-poncho 1 mg tablet (Osteo Bi-Flex Triple Strength) magnesium 500 mg tablet 500 mg PO DAILY 05/08/23 05/19/23 History potassium 99 mg tablet 99 mg PO DAILY 05/08/23 05/19/23 History travoprost 0.004 % eye drops 1 drp EACH EYE HS 05/08/23 05/19/23 History Laboratory Tests 05/19/23 10:58 POC Capillary Glucose 85 mg/dl (65-105) Patient hx anesthesia problems: post op nausea/vomiting Family hx anesthesia problems: none Results Review: All pre-operative results and documents have been reviewed as part of the pre-operative evaluation. REPLACED BY [facility] Past Medical History Medical History (Updated 04/10/23 @ 09:43 by VALERY Ortiz) Diabetes High cholesterol Surgical History Surgical History History of cholecystectomy History of hysterectomy History of knee replacement History of left inguinal hernia repair Previous section x2 Status post creation of urethral sling by suprapubic approach Family History Family History Father Pancreatic cancer Heart disease Mother Heart disease Diabetes mellitus Sibling Diabetes mellitus Social History Social History Smoking status: Never smoker Alcohol intake: never Substance use: never Substance use type: does not use Lack of Transportation: No Lack of Food: Never True Current Housing: I Have Housing Concerned About Future Housing: No Difficulty Paying Gas/Electric Bills: No Difficulty Paying for Meds: No Currently Unemployed: No Education: High School Diploma/GED Difficulty w/ Childcare or Family Care: No Living arrangements: with family Occupation/Education: 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 Informed Consent: The patient's anesthetic plan and its attendant risks and benefits were discussed with the patient/family/POA. Questions were solicited and answers provided to the satisfaction of the patient/family/POA.
[2023-05-19] MEDS: SCOPOLAMINE 1 MG PATCH 1 PATCH TRANSDERM (11:50)
[2023-05-19] MEDS: ceFAZolin 2 GM/D5W 50 ML 2 GM/50 ML BAG IVPB (11:56)
[2023-05-19] MEDS: BUPIVACAINE/EPINEPHRINE 0.5% 10 ML VIAL 30 ML INFILTRATE (12:28)
[2023-05-19] MEDS: ceFAZolin SODIUM 1 GM VIAL 2 GM IV PUSH (15:58)
[2023-05-19] MEDS: LACTATED RINGERS 1,000 ML 30 ML IV CONT ×2 (16:46)
--- NOTE | 2023-05-19 16:56 | PM.OP ---
Procedure Note - Brief Procedure Note - Brief Date of procedure: 05/19/23 Incarcerated Incisional Hernia Post-op diagnosis: Other (Recurrent incarcerated incisional hernia) Procedure performed: Open recurrent incarcerated incisional hernia repair with mesh Bilateral myofascial release (Transversus abdominus release--5cm on right and 5cm on left) Removal of mesh foreign body Extensive adhesiolysis Surgeon: Roberto Durham DO Running Rigger: Long Mckeon MD Findings: Extensive adhesions involving the small bowel within the hernia. Adhesiolysis took greater than 50% of operative time. Bilateral component separation was performed to bring the fascia together in the midline. Implants: Bard soft mesh 30cm by 30cm Estimated blood loss (mL): 200 Pathology: Yes (hernia sac and mesh foreign body) Complications: No immediate complications Condition: Stable Disposition: Floor
[2023-05-19 17:03] LABS: Glucose Point of Care 193 mg/dl (65-105)
--- NOTE | 2023-05-19 17:58 | ADMGEN ---
This patient, Berenice Long, was admitted to [facility] Surg Room 326-01. Patient/family oriented to hospital policies and general routines including ID bracelet, bed and alarms, visiting hours, pain management, procedures, bathroom and other care routines, personal items, smoking policy, room service/diet, and visiting hours. Information on how to activate the Rapid Response Team has been discussed. Patient/Family are encouraged to report perceived risks to care and to ask questions if they do not understand what they are told or what they should do.
[2023-05-19] MEDS: IBUPROFEN IV 800 MG/200 ML 800 MG/200 ML BAG 400 MG IVPB (18:55)
[2023-05-19 20:44] LABS: Glucose Point of Care 209 mg/dl (65-105)
[2023-05-19] MEDS: oxyCODONE HCL (*CRX) 5 MG TAB IR PO (20:45)
[2023-05-19] MEDS: PRAVASTATIN SODIUM 20 MG TABLET PO (20:45)
[2023-05-19] MEDS: LACTATED RINGERS 1,000 ML 100 ML IV CONT (20:46)
[2023-05-19] MEDS: HYDROmorphone HCL INJ (*CRX) 1 MG/ML SYR IV PUSH (22:59)
[2023-05-20] VITALS (8 sets, daily range): BP systolic 108–138; BP diastolic 57–74; PULSE 92–103; RESP 18–26; TEMP 36.2–37.3; O2SAT 92–94
[2023-05-20] MEDS: IBUPROFEN IV 800 MG/200 ML 800 MG/200 ML BAG 400 MG IVPB ×3 (05:50→17:05)
[2023-05-20] MEDS: LACTATED RINGERS 1,000 ML 100 ML IV CONT (05:50)
[2023-05-20 06:25] LABS: Hematocrit 38.1 % (37.0-47.0); Hemoglobin 12.1 g/dL (12.0-15.0); Mean Corpuscular HGB Conc 31.8 g/dl (32-36); Mean Corpuscular Hemoglobin 33.4 pg (26-34); Mean Corpuscular Volume 105.2 fl (80-100); Mean Platelet Volume 10.3 fl (7.4-10.4); Platelet Count Result 244 k/mm3 (150-375); Red Blood Count 3.62 M/mm3 (4.2-5.4); Red Cell Distribution Width 12.7 % (11.5-14.5)
[2023-05-20 06:38] LABS: Anion Gap 10 mmol/L (4-12); Blood Urea Nitrogen 19 mg/dL (7-17); Calcium 8.5 mg/dL (8.4-10.2); Carbon Dioxide 24 mmol/L (22-30); Chloride 105 mmol/L (98-107); Estimated CRCL calculation 64 ml/min; Estimated Glomerular Filt Rate > 60; Glucose 191 mg/dL (65-110); Potassium 4.1 mmol/L (3.4-5.0); Sodium 139 mmol/L (137-145)
[2023-05-20] MEDS: metFORMIN HCL XR 500 MG TAB.SR.24H PO (08:04)
[2023-05-20] MEDS: MAGNESIUM 27 MG TABLET (500 MG MAG GLUCONATE) PO (08:04)
[2023-05-20] MEDS: PANTOPRAZOLE 40 MG TABLET PO (08:04)
[2023-05-20] MEDS: polyethylene glycoL 3350 17 GM POWD.PACK PO (08:04)
[2023-05-20] MEDS: ENOXAPARIN 40 MG/0.4 ML SYRINGE SUB-Q (08:14)
[2023-05-20 08:44] LABS: Glucose Point of Care 173 mg/dl (65-105)
--- NOTE | 2023-05-20 08:57 | W.PM.PROC2 ---
Procedure Note - Detailed Date of Procedure 05/20/23 Pre-op Diagnosis Incarcerated Incisional Hernia Post-op Diagnosis Other (12 cm Incarcerated recurrent incisional hernia) Procedure Performed 1. Open 12 cm incarcerated recurrent incisional hernia repair with mesh 2. Bilateral myofascial release (transversus abdominis release--5 cm on right and 5 cm on left) 3. Removal of mesh foreign body 4. Extensive adhesiolysis requiring greater than 50% of total operating time Surgeon Roberto Durham DO Parasitology Teacher Robert Mckeon M.D. Anesthesia General and Local (0.5% bupivacaine with epinephrine) Indications This is a 73-year-old woman who presented with a large bulge on her abdomen that had been present for about 10 years. Recently this has become larger and she is complaining of some discomfort with activity. She has a history of some sort of lower abdominal hernia repair with mesh that might have been an inguinal hernia or an incisional hernia. The surgery was done 24 years ago and the records are not available for review. She has a history of and hysterectomy through a low Pfannenstiel incisions. A CT of her abdomen and pelvis was performed and this showed a large lower midline hernia containing bowel and mesenteric fat. The rectus muscle appeared about 10-12 cm wide at the hernia on the CT. Discussions were made with the patient about treatment options and decision was made to proceed with open incisional hernia repair with mesh, bilateral component separation. Findings The patient was found to have a recurrent incisional hernia incarcerated with small bowel. Old mesh from a prior hernia repair was identified within the hernia defect. The hernia sac was very large extending along the lateral subcutaneous lower abdominal region. It extended much further lateral the left side than the right. The hernia sac contained multiple loops of small bowel which were densely adherent within the hernia sac. Extensive adhesiolysis requiring about 2-1/2 hours was performed. Some of this small bowel was densely adherent to the old mesh that was within the hernia sac. Once the bowel was dissected free I was then able to excise the old mesh as well as the hernia sac. The hernia defect measured about 12 cm wide. A retrorectus space was initially created but the fascia appeared too tight to bring together the midline therefore I had to perform a bilateral transversus abdominis release to mobilize enough fascia to bring together in midline. After performing a bilateral transversus abdominis release this allowed for about 5 cm of mobilization of the fascia towards midline on each side. This then allowed me to close the posterior rectus sheath without any significant tension. I then placed a Bard soft mesh 30 cm x 30 cm wide within the retrorectus space. The corners of the mesh were trimmed to allow for adequate placement within this space. I then closed the anterior fascia and hernia defect over the mesh. A retrorectus drain was placed as well as a subcutaneous drain. Dr. Mckeon assisted with the adhesiolysis, old mesh foreign body removal, retrorectus space development, transversus abdominis muscle release, and mesh placement. Description of Procedure Procedure as well as risks, benefits, and alternatives were discussed with the patient. Written consent was obtained and placed in chart prior to procedure. Patient was brought back to surgical suite. She was placed supine on operating table. Time-out was done to confirm patient and procedure. Patient was intubated by the anesthesia department. Her abdomen was was prepped and draped in sterile fashion using chlorhexidine prep. A 20 cm vertical midline incision was made in the lower abdomen extending just cephalad to the umbilicus using a 10 blade scalpel. Electrocautery was used for hemostasis and for dissection down through the subcutaneous tissue. The hernia defect was encountered and the hernia sac was carefully dissected free from the surrounding subcutaneous adhesions using electrocautery. The hernia sac was very wide and extended far to the left lower quadrant and partially over to the right lower quadrant as well. The midline linea alba was entered just cephalad to the hernia defect using electrocautery. I then entered in through the peritoneal cavity using electrocautery as well. I then finger swept underneath the fascia and ensured there were no loops of bowel adherent to the fascial edge at the hernia defect. The fascia was then incised all the way down to the hernia defect using electrocautery. I then carefully dissected the small bowel out from the hernia sac using electrocautery and sharp dissection with Metzenbaum scissors. Care was taken to carefully dissect all of the loops of small bowel out of the hernia defect and reduce it back into the abdominal cavity. I did not identify any bowel injuries after performing all of the adhesiolysis. Some of the small bowel was densely adherent to a piece of mesh within the hernia sac. The bowel was carefully dissected off of the old mesh and then the mesh was excised from the hernia sac using electrocautery. I then excised the remainder of the hernia sac using electrocautery. The fascial edges appeared very wide at the hernia defect. I was not able to bring the fascial edges together without tension. I then began performing a retrorectus release by incising the posterior rectus sheath over the rectus muscle. The retrorectus space was developed on each side using careful dissection with blunt dissection and electrocautery. This was then extended down into the space of Retzius to allow for adequate space for mesh placement. I then performed a transversus abdominis release on each side to allow for adequate mobilization of the fascia to midline. I started in the right lower quadrant about 1 cm medial to the lateral edge of the rectus muscle. A right angle clamp was carefully used to dissect within this space and transect the transversus abdominis muscle fibers and aponeurosis. This was extended up towards the costal margin. I then performed the same dissection and the left lower quadrant again using the right angle clamp and electrocautery. Once the transversus abdominis muscle fibers were dissected I was then able to mobilize the posterior rectus sheath more towards midline. This also allowed adequate mobilization of the anterior fascia towards the midline. I did have to transect the round ligament on each side to allow for adequate space for the mesh placement. This was performed using electrocautery and hemostasis appeared adequate. I now was able to bring the fascia together in midline without too much tension. There was about 5 cm of myofascial release on each side. There was 1 small hole in the peritoneum on the left lower side and this was closed using a 3-0 Vicryl [id number] suture. I then closed the posterior rectus sheath using 0 PDS running suture starting from each end and meeting in the middle. I then placed a 30 cm x 30 cm Bard soft mesh within the retrorectus space. The corners of the mesh were trimmed to allow for the mesh to be laying flat within the space. The mesh appeared to be in proper position centered on the hernia defect with adequate overlap beyond the pubic arch and up towards the xiphoid. A 19 round Justin drain was then placed within the retrorectus place and secured to the right lower quadrant skin using a 3-0 nylon drain stitch. The anterior fascia was then closed over the mesh using 0 PDS running suture starting from each end and meeting in the middle. A 15 round Justin drain was then placed in the left lower quadrant within the subcutaneous space and this was secured to the skin using a 3-0 nylon drain stitch. The skin edges were then closed using a skin stapler. Telfa, 4 x 4 gauze, drain sponge, and Medipore tape were then applied. The patient was then awakened from anesthesia, extubated, and transferred to recovery. Implants Bard soft mesh 30 cm x 30 cm Estimated Blood Loss 200 Drains Yes (19 round Justin drain retrorectus, 15 round Justin drain SQ) Pathology Yes (Hernia sac and mesh foreign body) Complications No immediate complications Condition Stable Disposition Floor [facility] Billing Surgery - Charge Forward: Surgery Billing
[2023-05-20 11:54] LABS: Glucose Point of Care 180 mg/dl (65-105)
--- NOTE | 2023-05-20 14:18 | P.PNGS_ITS ---
Progress Note: A&P Assessment and Plan (1) Incarcerated incisional hernia: Code(s): K43.0 - Incisional hernia with obstruction, without gangrene Status: Acute Assessment and Plan: * Postop day 1 and doing well * Advance to full liquids * Monitor TAYE drains * Up to chair and start increasing activity as tolerated. Hopefully, we can remove the Crabtree catheter once up and tolerating activity. Plan I have discussed the patient's case and plan of care with Dr. Durham. Subjective Subjective Date/Time Seen: 05/20/23 14:18 Post Op day: 1 (Open incarcerated recurrent incisional hernia repair with mesh, Bilateral myofascial release, Removal of mesh foreign body, Extensive adhesiolysis) Patient reports: tolerating liquids well, flatus and no bowel movement Interval history: Patient doing well today. She reports some postop incisional pain that is controlled. No nausea or vomiting. Doing well with clear liquids but eager to advance to fulls as she does not like the clears. Exam Const: General: comfortable and no acute distress GI: Inspection: non-distended, incision (dressing dry and intact) and other (TAYE drains x 2 with bloody drainage) GI Palp: Yes Soft to palpation, Yes Tenderness to palpation present (GI) (incisional) and No Guarding due to palpation present (GI) Auscultation: normal bowel sounds Neuro: General: moves all extremities and no focal motor deficits Extrem: General: no calf tenderness and no edema Psych: Mental Status: mental status grossly normal Insight: Good insight present (Psych) Objective Data Vital Signs Vital Signs: Vital Signs - 24 hr 05/19/23 16:46 05/19/23 17:00 05/19/23 17:15 Temperature 98.7 F Pulse Rate 94 94 99 Respiratory Rate 20 20 20 Blood Pressure 136/77 138/70 128/64 Pulse Oximetry 94 96 94 Oxygen Delivery Simple Face Mask Simple Face Mask Nasal Cannula Oxygen Flow Rate 8 8 2 Fraction of Inspired Oxygen 05/19/23 17:30 05/19/23 17:45 05/19/23 17:55 Temperature Pulse Rate 99 99 101 H Respiratory Rate 20 20 25 H Blood Pressure 133/63 141/71 H 144/72 H Pulse Oximetry 94 94 92 Oxygen Delivery Nasal Cannula Nasal Cannula Nasal Cannula Oxygen Flow Rate 2 2 2 Fraction of Inspired Oxygen 05/19/23 18:10 04/08/24 18:25 05/19/23 18:00 Temperature 98.6 F 98.3 F Pulse Rate 99 97 Respiratory Rate 16 18 Blood Pressure 137/70 139/67 Pulse Oximetry 92 93 94 Oxygen Delivery Nasal Cannula Oxygen Flow Rate 2 Fraction of Inspired Oxygen 05/19/23 19:55 05/19/23 23:44 05/20/23 04:22 Temperature 98.6 F 98.4 F 99.1 F Pulse Rate 104 H 108 H 100 Respiratory Rate 20 18 20 Blood Pressure 156/72 H 128/61 118/62 Pulse Oximetry 94 93 93 Oxygen Delivery Oxygen Flow Rate Fraction of Inspired Oxygen 05/20/23 09:19 05/20/23 08:05 05/20/23 07:41 Temperature 97.2 F L Pulse Rate 98 Respiratory Rate 18 Blood Pressure 115/66 Pulse Oximetry 93 93 94 Oxygen Delivery Nasal Cannula Nasal Cannula Oxygen Flow Rate 2 2 Fraction of Inspired Oxygen 28 05/20/23 11:41 Temperature 97.3 F L Pulse Rate 92 Respiratory Rate 18 Blood Pressure 122/66 Pulse Oximetry 94 Oxygen Delivery Oxygen Flow Rate Fraction of Inspired Oxygen Intake/Output Intake/Output: Intake & Output 05/17/23 05/18/23 05/19/23 05/20/23 23:59 23:59 23:59 23:59 Intake Total 450 1456.7 Output Total 392 505 Balance 58 951.7 Meds/Results Medications: Active Medications Generic Name Dose Route Start Last Admin Trade Name Freq PRN Reason Stop Dose Admin Acetaminophen 650 mg 05/19/23 17:56 Acetaminophen 325 Mg Tablet PO Q6H PRN Mild Pain (1-3) or Fever Enoxaparin Sodium 40 mg 05/20/23 09:00 05/20/23 08:14 Enoxaparin 40 Mg/0.4 Ml Syringe SUB-Q 40 mg DAILY BRANT Administration Hydromorphone HCl 0.5 mg 05/19/23 17:56 Hydromorphone Hcl Inj (*Crx) 1 Mg/Ml Syr IV PUSH Q2H PRN Pain Rated 4-6 Hydromorphone HCl 1 mg 05/19/23 17:56 05/19/23 22:59 Hydromorphone Hcl Inj (*Crx) 1 Mg/Ml Syr IV PUSH 1 mg Q2H PRN Administration Pain Rated 7-10 Lactated Ringer's 1,000 mls @ 100 mls/hr 05/19/23 17:56 05/20/23 05:50 Lr - Lactated Ringers Iv IV CONT 100 mls/hr .Q10H BRANT Administration Ibuprofen 800 mg in 200 mls @ 400 mls/hr 05/19/23 18:00 05/20/23 11:59 Caldolor 800 Mg/200 Ml IVPB 400 mls/hr Q6H [facility] Administration Latanoprost 1 drop 05/19/23 21:00 05/19/23 20:46 Latanoprost 0.005% Op Soln 2.5 Ml Btl EACH EYE Not Given HS BRANT Magnesium Gluconate 27 mg 05/20/23 09:00 05/20/23 08:04 Magnesium 27 Mg Tablet (500 Mg Mag Gluconate) PO 27 mg DAILY BRANT Administration Metformin HCl 500 mg 05/20/23 09:00 05/20/23 08:04 Metformin Hcl Xr 500 Mg Tab.Sr.24h PO 500 mg DAILY BRANT Administration Naloxone HCl 0.1 mg 05/19/23 17:56 Naloxone Hcl 0.4 Mg/Ml Vial IV PUSH Q2M PRN Opiate Reversal Ondansetron HCl 4 mg 05/19/23 17:56 Ondansetron Inj 4 Mg/2 Ml Vial IV PUSH Q4H PRN Nausea And Vomiting Oxycodone HCl 2.5 mg 05/19/23 17:56 Oxycodone Hcl (*Crx) 2.5 Mg Tab Ir PO Q4H PRN Pain Rated 4-6 Oxycodone HCl 5 mg 05/19/23 17:56 05/19/23 20:45 Oxycodone Hcl (*Crx) 5 Mg Tab Ir PO 5 mg Q4H PRN Administration Pain Rated 7-10 Pantoprazole Sodium 40 mg 05/20/23 09:00 05/20/23 08:04 Pantoprazole 40 Mg Tablet PO 40 mg QAM [facility] Administration Polyethylene Glycol 17 gm 05/20/23 09:00 05/20/23 08:04 Polyethylene Glycol 3350 17 Gm Powd.Pack PO 17 gm QAM [facility] Administration Pravastatin Sodium 20 mg 05/19/23 21:00 05/19/23 20:45 Pravastatin Sodium 20 Mg Tablet PO 20 mg QHS [facility] Administration Labs Labs: Laboratory Results - last 24 hr 05/19/23 05/19/23 05/20/23 17:01 19:53 05:54 WBC 19.0 H RBC 3.62 L Hgb 12.1 Hct 38.1 MCV 105.2 H MCH 33.4 MCHC 31.8 L RDW 12.7 Plt Count 244 MPV 10.3 Sodium 139 Potassium 4.1 Chloride 105 Carbon Dioxide 24 Anion Gap 10 BUN 19 H Creatinine 0.70 Estim Creat Clear Calc 64 Estimated GFR > 60 Glucose 191 H POC Capillary Glucose 193 H 209 H Calcium 8.5 05/20/23 05/20/23 08:06 11:51 WBC RBC Hgb Hct MCV MCH MCHC RDW Plt Count MPV Sodium Potassium Chloride Carbon Dioxide Anion Gap BUN Creatinine Estim Creat Clear Calc Estimated GFR Glucose POC Capillary Glucose 173 H 180 H Calcium
[2023-05-20] MEDS: ONDANSETRON INJ 4 MG/2 ML VIAL IV PUSH (15:18)
[2023-05-20] MEDS: oxyCODONE HCL (*CRX) 2.5 MG TAB IR PO (16:49)
[2023-05-20 16:57] LABS: Glucose Point of Care 202 mg/dl (65-105)
[2023-05-20 20:14] LABS: Glucose Point of Care 180 mg/dl (65-105)
[2023-05-20] MEDS: LATANOPROST 0.005% OP SOLN 2.5 ML BTL 1 DROP EACH EYE (21:32)
[2023-05-20] MEDS: PRAVASTATIN SODIUM 20 MG TABLET PO (21:32)
[2023-05-20] MEDS: HYDROmorphone HCL INJ (*CRX) 1 MG/ML SYR IV PUSH (22:16)
[2023-05-21 00:50] VITALS: BP 166/71; PULSE 99; RESP 24; TEMP 36.8; O2SAT 91
[2023-05-21 05:41] VITALS: BP 146/70; PULSE 114; RESP 22; TEMP 36.8; O2SAT 93
[2023-05-21] MEDS: IBUPROFEN IV 800 MG/200 ML 800 MG/200 ML BAG 400 MG IVPB ×3 (05:49→18:58)
[2023-05-21 06:15] LABS: Hematocrit 39.7 % (37.0-47.0); Hemoglobin 12.6 g/dL (12.0-15.0); Mean Corpuscular HGB Conc 31.7 g/dl (32-36); Mean Corpuscular Hemoglobin 33.5 pg (26-34); Mean Corpuscular Volume 105.6 fl (80-100); Platelet Count Result 276 k/mm3 (150-375); Red Blood Count 3.76 M/mm3 (4.2-5.4); Red Cell Distribution Width 12.7 % (11.5-14.5)
[2023-05-21 07:56] LABS: Glucose Point of Care 186 mg/dl (65-105)
[2023-05-21 08:55] LABS: Anion Gap 8 mmol/L (4-12); Blood Urea Nitrogen 24 mg/dL (7-17); Calcium 9.3 mg/dL (8.4-10.2); Carbon Dioxide 26 mmol/L (22-30); Chloride 104 mmol/L (98-107); Estimated CRCL calculation 56 ml/min; Estimated Glomerular Filt Rate > 60; Glucose 210 mg/dL (65-110); Potassium 3.9 mmol/L (3.4-5.0); Sodium 138 mmol/L (137-145)
[2023-05-21] MEDS: polyethylene glycoL 3350 17 GM POWD.PACK PO (10:26)
[2023-05-21] MEDS: ENOXAPARIN 40 MG/0.4 ML SYRINGE SUB-Q (10:26)
[2023-05-21] MEDS: metFORMIN HCL XR 500 MG TAB.SR.24H PO (10:28)
[2023-05-21] MEDS: MAGNESIUM 27 MG TABLET (500 MG MAG GLUCONATE) PO (10:28)
[2023-05-21] MEDS: PANTOPRAZOLE 40 MG TABLET PO (10:28)
[2023-05-21 10:30] VITALS: O2SAT 93
[2023-05-21 12:13] LABS: Glucose Point of Care 167 mg/dl (65-105)
[2023-05-21 14:05] VITALS: BP 143/70; PULSE 100; RESP 18; TEMP 36.6; O2SAT 93
--- NOTE | 2023-05-21 15:57 | P.PNGS_ITS ---
Progress Note: A&P Assessment and Plan (1) Incarcerated incisional hernia: Code(s): K43.0 - Incisional hernia with obstruction, without gangrene Status: Acute Assessment and Plan: * Patient needs to be up moving more and working with incentive spirometer. Will order PT Eval and ambulate with assistance 4 times per day. * Will consult Hospitalist as well. * Await return of bowel function. Subjective Subjective Date/Time Seen: 05/21/23 15:57 Interval history: Patient short of breath. Not using incentive spirometer. Not getting up much. Still has Crabtree. Passing flatus. No BM yet. Exam GI: Inspection: distended and other (TAYE's serosanguinous) GI Palp: Yes Soft to palpation, Yes Tenderness to palpation present (GI) (incisional) and No Guarding due to palpation present (GI) Auscultation: Hypoactive bowel sounds present Objective Data Vital Signs Vital Signs: Vital Signs - 24 hr 05/20/23 19:41 05/20/23 20:00 05/21/23 00:50 Temperature 36.8 C 36.8 C Pulse Rate 103 H 99 Respiratory Rate 26 H 24 H Blood Pressure 138/74 166/71 H Pulse Oximetry 92 92 91 Oxygen Delivery Nasal Cannula Oxygen Flow Rate 2 05/21/23 05:41 05/21/23 14:05 Temperature 36.8 C 36.6 C Pulse Rate 114 H 100 Respiratory Rate 22 H 18 Blood Pressure 146/70 H 143/70 H Pulse Oximetry 93 93 Oxygen Delivery Oxygen Flow Rate Intake/Output Intake/Output: Intake & Output 05/18/23 05/19/23 05/20/23 05/21/23 23:59 23:59 23:59 23:59 Intake Total 450 3096.7 320 Output Total 392 905 620 Balance 58 2191.7 -300 Meds/Results Medications: Active Medications Generic Name Dose Route Start Last Admin Trade Name Freq PRN Reason Stop Dose Admin Acetaminophen 650 mg 05/19/23 17:56 Acetaminophen 325 Mg Tablet PO Q6H PRN Mild Pain (1-3) or Fever Enoxaparin Sodium 40 mg 05/20/23 09:00 05/21/23 10:26 Enoxaparin 40 Mg/0.4 Ml Syringe SUB-Q 40 mg DAILY BRANT Administration Hydromorphone HCl 0.5 mg 05/19/23 17:56 Hydromorphone Hcl Inj (*Crx) 1 Mg/Ml Syr IV PUSH Q2H PRN Pain Rated 4-6 Hydromorphone HCl 1 mg 05/19/23 17:56 05/20/23 22:16 Hydromorphone Hcl Inj (*Crx) 1 Mg/Ml Syr IV PUSH 1 mg Q2H PRN Administration Pain Rated 7-10 Ibuprofen 800 mg in 200 mls @ 400 mls/hr 05/19/23 18:00 05/21/23 12:34 Caldolor 800 Mg/200 Ml IVPB 400 mls/hr Q6H [facility]ANT Administration Latanoprost 1 drop 05/19/23 21:00 05/20/23 21:32 Latanoprost 0.005% Op Soln 2.5 Ml Btl EACH EYE 1 drop HS BRANT Administration Magnesium Gluconate 27 mg 05/20/23 09:00 05/21/23 10:28 Magnesium 27 Mg Tablet (500 Mg Mag Gluconate) PO 27 mg DAILY BRANT Administration Metformin HCl 500 mg 05/20/23 09:00 05/21/23 10:28 Metformin Hcl Xr 500 Mg Tab.Sr.24h PO 500 mg DAILY BRANT Administration Naloxone HCl 0.1 mg 05/19/23 17:56 Naloxone Hcl 0.4 Mg/Ml Vial IV PUSH Q2M PRN Opiate Reversal Ondansetron HCl 4 mg 05/19/23 17:56 05/20/23 15:18 Ondansetron Inj 4 Mg/2 Ml Vial IV PUSH 4 mg Q4H PRN Administration Nausea And Vomiting Oxycodone HCl 2.5 mg 05/19/23 17:56 05/20/23 16:49 Oxycodone Hcl (*Crx) 2.5 Mg Tab Ir PO 2.5 mg Q4H PRN Administration Pain Rated 4-6 Oxycodone HCl 5 mg 05/19/23 17:56 05/19/23 20:45 Oxycodone Hcl (*Crx) 5 Mg Tab Ir PO 5 mg Q4H PRN Administration Pain Rated 7-10 Pantoprazole Sodium 40 mg 05/20/23 09:00 05/21/23 10:28 Pantoprazole 40 Mg Tablet PO 40 mg QAM [facility]ANT Administration Polyethylene Glycol 17 gm 05/20/23 09:00 05/21/23 10:26 Polyethylene Glycol 3350 17 Gm Powd.Pack PO 17 gm QAM [facility] Administration Pravastatin Sodium 20 mg 05/19/23 21:00 05/20/23 21:32 Pravastatin Sodium 20 Mg Tablet PO 20 mg QHS [facility] Administration Labs Labs: Laboratory Results - last 24 hr 05/20/23 05/20/23 05/21/23 16:52 20:12 05:59 WBC 19.0 H RBC 3.76 L Hgb 12.6 Hct 39.7 MCV 105.6 H MCH 33.5 MCHC 31.7 L RDW 12.7 Plt Count 276 MPV 10.0 Sodium 138 Potassium 3.9 Chloride 104 Carbon Dioxide 26 Anion Gap 8 BUN 24 H Creatinine 0.80 Estim Creat Clear Calc 56 Estimated GFR > 60 Glucose 210 H POC Capillary Glucose 202 H 180 H Calcium 9.3 05/21/23 05/21/23 07:54 12:10 WBC RBC Hgb Hct MCV MCH MCHC RDW Plt Count MPV Sodium Potassium Chloride Carbon Dioxide Anion Gap BUN Creatinine Estim Creat Clear Calc Estimated GFR Glucose POC Capillary Glucose 186 H 167 H Calcium
[2023-05-21 17:18] LABS: Glucose Point of Care 181 mg/dl (65-105)
[2023-05-21] MEDS: CEFEPIME 2 GM/NS 50 ML 2 GM/50 ML BAG IVPB (18:15)
[2023-05-21 19:36] LABS: Glucose Point of Care 203 mg/dl (65-105)
[2023-05-21 20:00] VITALS: O2SAT 92
[2023-05-21] MEDS: VANCOMYCIN 2,000 MG/NS 500 ML 2,000 MG/500 ML BAG 250 MG IVPB (20:33)
[2023-05-21] MEDS: PRAVASTATIN SODIUM 20 MG TABLET PO (20:33)
[2023-05-21] MEDS: LATANOPROST 0.005% OP SOLN 2.5 ML BTL 1 DROP EACH EYE (20:33)
[2023-05-21] MEDS: oxyCODONE HCL (*CRX) 5 MG TAB IR PO (20:33)
[2023-05-21 20:46] VITALS: BP 154/66; PULSE 103; RESP 26; TEMP 37.2; O2SAT 92
[2023-05-21] MEDS: ALPRAZolam (*CRX) 0.125 MG TABLET PO (23:59)
[2023-05-22] VITALS (9 sets, daily range): BP systolic 130–186; BP diastolic 50–74; PULSE 101–110; RESP 16–24; TEMP 35.7–36.6; O2SAT 91–99
[2023-05-22] MEDS: HYDROmorphone HCL INJ (*CRX) 1 MG/ML SYR 0.5 MG IV PUSH ×2 (02:49→22:50)
[2023-05-22] MEDS: CEFEPIME 2 GM/NS 50 ML 2 GM/50 ML BAG IVPB ×2 (05:21→17:28)
[2023-05-22] MEDS: IBUPROFEN IV 800 MG/200 ML 800 MG/200 ML BAG 400 MG IVPB ×3 (05:56→18:05)
[2023-05-22 07:26] LABS: Hematocrit 40.4 % (37.0-47.0); Hemoglobin 12.5 g/dL (12.0-15.0); Mean Corpuscular HGB Conc 30.9 g/dl (32-36); Mean Corpuscular Hemoglobin 33.6 pg (26-34); Mean Corpuscular Volume 108.6 fl (80-100); Platelet Count Result 280 k/mm3 (150-375); Red Blood Count 3.72 M/mm3 (4.2-5.4); Red Cell Distribution Width 12.5 % (11.5-14.5); White Blood Count 13.5 K/mm3 (4.5-10.0)
[2023-05-22 07:42] LABS: Glucose Point of Care 194 mg/dl (65-105)
[2023-05-22 07:55] LABS: Anion Gap 8 mmol/L (4-12); Blood Urea Nitrogen 31 mg/dL (7-17); Calcium 9.3 mg/dL (8.4-10.2); Carbon Dioxide 26 mmol/L (22-30); Chloride 103 mmol/L (98-107); Estimated CRCL calculation 64 ml/min; Estimated Glomerular Filt Rate > 60; Glucose 191 mg/dL (65-110); Potassium 4.2 mmol/L (3.4-5.0); Sodium 137 mmol/L (137-145)
--- NOTE | 2023-05-22 07:55 | ECG_ITS ---
SEE SCANNED COPY FOR CONFIRMED REPORT MTDD
[2023-05-22 08:25] LABS: Troponin I < 0.012 ng/mL (0.000-0.034)
--- NOTE | 2023-05-22 08:28 | PCPTNOTE ---
per RN, hold therapy for now, pt going for stat CT and acting funny , will follow
[2023-05-22 09:06] LABS: INR 1.1; Prothrombin Time 14.6 Seconds (11.1-14.7)
[2023-05-22] MEDS: PANTOPRAZOLE 40 MG TABLET PO (10:01)
[2023-05-22] MEDS: ENOXAPARIN 40 MG/0.4 ML SYRINGE SUB-Q (10:01)
[2023-05-22] MEDS: metFORMIN HCL XR 500 MG TAB.SR.24H PO (10:01)
[2023-05-22] MEDS: MAGNESIUM 27 MG TABLET (500 MG MAG GLUCONATE) PO (10:01)
[2023-05-22] MEDS: polyethylene glycoL 3350 17 GM POWD.PACK PO (10:01)
--- NOTE | 2023-05-22 10:37 | P.PNGS_ITS ---
Progress Note: A&P Assessment and Plan (1) Incarcerated incisional hernia: Code(s): K43.0 - Incisional hernia with obstruction, without gangrene Status: Acute Assessment and Plan: * Patient with shortness of breath and diaphoresis. She is also tachycardic. Troponin negative, but EKG not yet done. On exam, heart rate is slightly tachycardic but regular rhythm. CTA chest was ordered to rule out PE. Also added CT head given her right-sided weakness. * Discussed the case with the Hospitalist after my evaluation. Abdominal exam fairly benign. She is not having any nausea or vomiting and started passing flatus last night. She is tolerating her diet. Still awaiting return of bowel function. Labs this morning are unremarkable with her WBC count trending down. She is hemodynamically stable. Will await CT head and CTA chest and closely monitor. Plan I have discussed the patient's case and plan of care with Dr. Durham. Subjective Subjective Date/Time Seen: 05/22/23 08:37 Patient reports: no new complaints, flatus, no bowel movement and afebrile Interval history: Called to the patient's room by nursing this morning with concerns of diaphoresis, shortness of breath. Nursing also reports she was having a hard time grasping a pen this morning and was unable to write for consent. I came to the room and the patient was sitting in the chair. She was slightly diaphoretic, but appeared comfortable. She was alert and oriented x3. She reports feeling tired, but no other specific complaints. She denies abdominal pain, nausea, vomiting, bloating, chest pain, or any feelings of shortness of breath. She is on 1 L nasal cannula. She reports getting up to the chair well with standby assist. She reports only having some incisional pain when getting up out of bed, but otherwise has been comfortable. She has been tachycardic with a heart rate in the low 100s to 110s. Blood pressure stable. She is afebrile. She has good urine output with the Crabtree catheter still in place. She reports some flatus last night. No BM yet since surgery. Review of Systems Review of Systems: All systems reviewed & are unremarkable except as noted in HPI and below Exam Const: General: comfortable, alert, awake and diaphoretic Orientation/consciousness: patient oriented x3 HENMT: Ears: hearing grossly normal bilaterally Eyes: General: appearance normal, both eyes and all related structures Pupils: Equal, round and reactive pupils present EOM: EOMs intact bilaterally Neck: Neck: normal visual inspection and full ROM Chest: Chest palpation & inspection: normal inspection of the chest Resp: Effort & Inspection: no respiratory distress Auscultation: clear to auscultation bilaterally Cardio: Rate: tachycardic Rhythm: regular rhythm Heart sounds: S1 normal heart sound present and S2 normal heart sound present GI: Inspection: incision (Dry and bhargavi intact with no erythema) and other (Mildly distended) GI Palp: Yes Soft to palpation, Yes Tenderness to palpation present (GI) (Incisional), No Guarding due to palpation present (GI) and No Hernia present Auscultation: normal bowel sounds Other: TAYE drains with scant serosanguineous drainage Urinary Catheter: Urinary Catheter: patent and draining and urine clear Skin: General skin exam: pallor Neuro: General: moves all extremities Cranial nerves: Yes Equal, round and reactive pupils present, Yes Bilaterally intact EOM present, Yes Nystagmus not present, Yes Normal facial strength present, Yes facial symmetry and Yes Midline tongue present Speech: normal speech Gait exam (Neuro): Unable to assess gait Motor exam (neuro): Other motor observations present (Mild right upper extremity weakness) Extrem: General: no calf tenderness and edema bilateral (Trace bilateral pedal edema) Objective Data Vital Signs Vital Signs: Vital Signs - 24 hr 05/21/23 14:05 05/21/23 20:46 05/21/23 20:00 Temperature 97.8 F 99.0 F Pulse Rate 100 103 H Respiratory Rate 18 26 H Blood Pressure 143/70 H 154/66 H Pulse Oximetry 93 92 92 Oxygen Delivery Nasal Cannula Oxygen Flow Rate 2 05/22/23 03:33 05/22/23 06:00 05/22/23 08:34 Temperature 97.3 F L Pulse Rate 110 H 104 H Respiratory Rate 24 H Blood Pressure 180/74 H 130/50 L Pulse Oximetry 96 91 95 Oxygen Delivery Oxygen Flow Rate 1 Intake/Output Intake/Output: Intake & Output 05/19/23 05/20/23 05/21/23 05/22/23 23:59 23:59 23:59 23:59 Intake Total 450 3096.7 1110 250 Output Total 957 965 6419 520 Balance 58 2191.7 90 -270 Meds/Results Medications: Active Medications Generic Name Dose Route Start Last Admin Trade Name Freq PRN Reason Stop Dose Admin Acetaminophen 650 mg 05/19/23 17:56 Acetaminophen 325 Mg Tablet PO Q6H PRN Mild Pain (1-3) or Fever Enoxaparin Sodium 40 mg 05/20/23 09:00 05/22/23 10:01 Enoxaparin 40 Mg/0.4 Ml Syringe SUB-Q 40 mg DAILY BRANT Administration Hydromorphone HCl 0.5 mg 05/19/23 17:56 05/22/23 02:49 Hydromorphone Hcl Inj (*Crx) 1 Mg/Ml Syr IV PUSH 0.5 mg Q2H PRN Administration Pain Rated 4-6 Hydromorphone HCl 1 mg 05/19/23 17:56 05/20/23 22:16 Hydromorphone Hcl Inj (*Crx) 1 Mg/Ml Syr IV PUSH 1 mg Q2H PRN Administration Pain Rated 7-10 Ibuprofen 800 mg in 200 mls @ 400 mls/hr 05/19/23 18:00 05/22/23 05:56 Caldolor 800 Mg/200 Ml IVPB 400 mls/hr Q6H BRANT Administration Cefepime HCl 2 gm in 50 mls @ 100 mls/hr 05/21/23 18:00 05/22/23 05:21 Maxipime 2 Gm/Ns 50 Ml IVPB 100 mls/hr Q12H BRANT Administration Vancomycin HCl 1,500 mg in 500 mls @ 250 mls/hr 05/22/23 15:00 Vancomycin 1,500 Mg/Ns 500 Ml IVPB Q18H BRANT Latanoprost 1 drop 05/19/23 21:00 05/21/23 20:33 Latanoprost 0.005% Op Soln 2.5 Ml Btl EACH EYE 1 drop HS BRANT Administration Magnesium Gluconate 27 mg 05/20/23 09:00 05/22/23 10:01 Magnesium 27 Mg Tablet (500 Mg Mag Gluconate) PO 27 mg DAILY BRANT Administration Metformin HCl 500 mg 05/20/23 09:00 05/22/23 10:01 Metformin Hcl Xr 500 Mg Tab.Sr.24h PO 500 mg DAILY BRANT Administration Naloxone HCl 0.1 mg 05/19/23 17:56 Naloxone Hcl 0.4 Mg/Ml Vial IV PUSH Q2M PRN Opiate Reversal Ondansetron HCl 4 mg 05/19/23 17:56 05/20/23 15:18 Ondansetron Inj 4 Mg/2 Ml Vial IV PUSH 4 mg Q4H PRN Administration Nausea And Vomiting Oxycodone HCl 2.5 mg 05/19/23 17:56 05/20/23 16:49 Oxycodone Hcl (*Crx) 2.5 Mg Tab Ir PO 2.5 mg Q4H PRN Administration Pain Rated 4-6 Oxycodone HCl 5 mg 05/19/23 17:56 05/21/23 20:33 Oxycodone Hcl (*Crx) 5 Mg Tab Ir PO 5 mg Q4H PRN Administration Pain Rated 7-10 Pantoprazole Sodium 40 mg 05/20/23 09:00 05/22/23 10:01 Pantoprazole 40 Mg Tablet PO 40 mg QAM [facility] Administration Polyethylene Glycol 17 gm 05/20/23 09:00 05/22/23 10:01 Polyethylene Glycol 3350 17 Gm Powd.Pack PO 17 gm QAM [facility] Administration Pravastatin Sodium 20 mg 05/19/23 21:00 05/21/23 20:33 Pravastatin Sodium 20 Mg Tablet PO 20 mg QHS [facility] Administration Radiology Results: ITS Impressions Chest X-Ray 05/21/23 17:41 Impression: 1: Bibasilar airspace disease may represent pneumonia and/or atelectasis. Head CT 05/22/23 09:50 IMPRESSION: 1. Moderate scattered white matter hypoattenuation consistent with chronic small vessel ischemic disease. No other acute intracranial process. Chest CTA 05/22/23 09:51 IMPRESSION: 1. No pulmonary embolus. Sensitivity is severely decreased by motion artifact. 2. Small lung volumes with moderate atelectasis bilaterally. Labs Labs: Laboratory Results - last 24 hr 05/21/23 05/21/23 05/21/23 12:10 17:14 19:33 WBC RBC Hgb Hct MCV MCH MCHC RDW Plt Count MPV PT INR APTT Sodium Potassium Chloride Carbon Dioxide Anion Gap BUN Creatinine Estim Creat Clear Calc Estimated GFR Glucose POC Capillary Glucose 167 H 181 H 203 H Calcium Troponin I 05/22/23 05/22/23 05/22/23 07:11 07:33 08:36 WBC 13.5 H RBC 3.72 L Hgb 12.5 Hct 40.4 MCV 108.6 H MCH 33.6 MCHC 30.9 L RDW 12.5 Plt Count 280 MPV 10.0 PT 14.6 INR 1.1 APTT 25.0 Sodium 137 Potassium 4.2 Chloride 103 Carbon Dioxide 26 Anion Gap 8 BUN 31 H Creatinine 0.70 Estim Creat Clear Calc 64 Estimated GFR > 60 Glucose 191 H POC Capillary Glucose 194 H Calcium 9.3 Troponin I < 0.012
[2023-05-22 11:37] LABS: Glucose Point of Care 136 mg/dl (65-105)
[2023-05-22 11:50] LABS: Alveolar/Arterial O2 Gradient 49.1 mmHg; Base Excess ABG 1.7 mEq/l (+/-2.0); Fractional Inspired Oxygen 26 %; HCO3 ABG 28.9 mEq/l (22.0-26.0); Oxygen Content ABG 16.6 %vol (16.0-22.0); Oxyhemoglobin 91.6 % THb (90.0-100.0); PCO2 ABG 57.2 mmHg (35.0-45.0); PO2 ABG 68.5 mmHg (80.0-100.0); PO2 FiO2 Ratio Arterial Blood 2.63 %; Total Hemoglobin 12.9 g/dL (12.0-18.0); pH ABG 7.322 (7.350-7.450)
[2023-05-22 11:52] LABS: Device NASAL CANNULA; Liters per Minute 1.5 LPM; Modified Allen's Test Pass; Site Drawn LEFT RADIAL
[2023-05-22] MEDS: VANCOMYCIN 1,500 MG/NS 500 ML 1,500 MG/500 ML BAG 250 MG IVPB (14:34)
--- NOTE | 2023-05-22 15:10 | P.CONIM_ITS ---
Assessment and Plan Assessment and plan (1) Incarcerated incisional hernia: Code(s): K43.0 - Incisional hernia with obstruction, without gangrene Status: Acute Assessment and Plan: -Management per surgical team (2) Dyspnea: Code(s): R06.00 - Dyspnea, unspecified Status: Acute Assessment and Plan: 05/21: -patient had tachycardia tachypnea decreased oxygen sats and hypertension this morning. -Troponin was negative. -EKG showed sinus tachycardia rate 102 with left axis deviation QRS axis -35 and right bundle branch block QRS duration 133 QTC 397 no STEMI -chest x-ray atelectasis versus pneumonia -CTA small lung volumes with moderate atelectasis bilaterally, no PE -patient on supplemental oxygen titrated between 1 and 2 liters/minute -encourage use of incentive spirometer, continue IV antibiotics, and DC vancomycin if MRSA nares is negative -mobilize, ambulate with therapy tomorrow if at all possible (3) Acute respiratory failure with hypoxia and hypercapnia: Code(s): J96.01 - Acute respiratory failure with hypoxia; J96.02 - Acute respiratory failure with hypercapnia Status: Acute Assessment and Plan: -See Dyspnea above. -ABG pCO2 to 57.2, PO2 68.5 on 1.5 liters/minute nasal cannula -no history of respiratory failure, asthma, COPD, smoking -negative CTA PE protocol -possibly obesity related hypoventilation syndrome verses abdominal distension causing diaphragmatic compression -ApneaLink ordered (4) Diabetes: Qualifiers: Diabetes mellitus type: type 2 Diabetes mellitus long-term insulin use: without long-term use Diabetes mellitus complication status: with hyperglycemia Qualified Code(s): E11.65 - Type 2 diabetes mellitus with hyperglycemia Code(s): E11.9 - Type 2 diabetes mellitus without complications Status: Acute Assessment and Plan: 05/21: -ACHS fingerstick glucose with Moderate dose SSI. -Stop metformin due to IV contrast for CTA x2 on 05/21 -Recheck labs this afternoon as patient is on several medications that can be Neprhotoxic (5) Stroke-like symptoms: Code(s): R29.90 - Unspecified symptoms and signs involving the nervous system Status: Acute Assessment and Plan: 05/21: -Patient with confusion right upper extremity weakness word-finding difficulties repetitive vocalizations but negative CT, CTA, MRI/MRA of head neck. -described confusion has been present since at least 05/20 -Neurology is consulted as well -Consider metabolic encephalopathy or prolonged recovery from anesthesia HPI Date of Consult Consult date: 05/22/23 Requesting Physician: Roberto Durham DO Primary Care Provider: Diomedes Ron MD Consult Narrative Reason for consult: Shortness of Breath Narrative: Berenice Long is a 73 year old female admitted to the hospital by General surgery on 05/18 status post: 1. Open 12 cm incarcerated recurrent incisional hernia repair with mesh 2. Bilateral myofascial release (transversus abdominis release--5 cm on right and 5 cm on left) 3. Removal of mesh foreign body 4. Extensive adhesiolysis requiring greater than 50% of total operating time On 05/21/2023 patient developed shortness of breath and had not been using incentive spirometer. At that time a consult request to Hospitalist was entered. No hospitalist was able to see her until today. This morning nursing staff stated patient wasn't acting right. Surgery team saw patient and was concerned for Stroke. CT Brain, CTA chest, MRI Brain, MRA Brain and Neck ordered and Neurology consulted. Neurology also ordered CTA Head/Neck which led to double dose of IV contrast today. Patient appears confused and is repeating herself and seems to have some word finding difficulties. She also appears dyspneic on low flow nasal cannula. Patient has history of diabetes but is otherwise quite healthy. She was started on cefepime and vancomycin for concern for hospital acquired pneumonia last night. MRSA swab was ordered but not resulted. Ordered this as a repeat. Review of Systems Review of Systems: All systems reviewed & are unremarkable except as noted in HPI and below [facility] Past Medical History Medical History Diabetes High cholesterol Surgical History Surgical History History of cholecystectomy History of hysterectomy History of knee replacement History of left inguinal hernia repair Previous section x2 Status post creation of urethral sling by suprapubic approach Family History Family History Father Pancreatic cancer Heart disease Mother Heart disease Diabetes mellitus Sibling Diabetes mellitus Social History Social History Smoking status: Never smoker Alcohol intake: never Substance use: never Substance use type: does not use Do You Feel Safe in your Home?: Yes Lack of Transportation: No Lack of Food: Never True Current Housing: I Have Housing Concerned About Future Housing: No Difficulty Paying Gas/Electric Bills: No Difficulty Paying for Meds: No Currently Unemployed: No Education: High School Diploma/GED Difficulty w/ Childcare or Family Care: No Living arrangements: with family Occupation/Education: 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: No Meds Home Medications and Allergies Home Medications Medication Instructions Recorded Confirmed Type hydrocodone 10 mg-acetaminophen 1 tablet PO Q8H PRN Pain 01/13/23 05/08/23 History 325 mg tablet meloxicam 15 mg tablet 15 mg PO DAILY 01/13/23 05/19/23 History metformin 500 mg tablet,extended 500 mg PO DAILY 01/13/23 05/19/23 History release 24 hr pantoprazole 40 mg tablet,delayed 40 mg PO QAM 01/13/23 05/19/23 History release pravastatin 20 mg tablet 20 mg PO QHS 01/13/23 05/19/23 History cinnamon 100 mg-chromium 100 1 cap PO DAILY 04/07/23 05/19/23 History ncy-TAX-hjfoazr-ginseng-green tea capsule qsanuaqd-pxag-dltvdfs gluconate 9 15 ml PO DAILY 04/07/23 05/19/23 History mg iron/15 mL (15 mL) oral liquid (Centrum) alendronate 70 mg tablet 70 mg PO WEEKLY 05/08/23 05/19/23 History ascorbic acid (vitamin C) 500 mg 500 mg PO DAILY 05/08/23 05/19/23 History tablet cholecalciferol (vitamin D3) 25 25 mcg PO 2XW 05/08/23 05/19/23 History mcg (1,000 unit) tablet cranberry 400 mg capsule 400 mg PO DAILY 05/08/23 05/19/23 History cyanocobalamin (vitamin B-12) 1,000 mcg PO DAILY 05/08/23 05/19/23 History 1,000 mcg tablet glucosamine 750 st-ehqsnwqwfmo-ngk 1 tablet PO BID 05/08/23 05/19/23 History no1 644 mg-C 30 mg-poncho 1 mg tablet (Osteo Bi-Flex Triple Strength) magnesium 500 mg tablet 500 mg PO DAILY 05/08/23 05/19/23 History potassium 99 mg tablet 99 mg PO DAILY 05/08/23 05/19/23 History travoprost 0.004 % eye drops 1 drp EACH EYE HS 05/08/23 05/19/23 History Allergies Allergy/AdvReac Type Severity Reaction Status Date / Time No Known Allergies Allergy Unknown Verified 05/19/23 10:44 Vital Signs Vital Signs - 24 hr 05/21/23 20:46 05/21/23 20:00 05/22/23 03:33 Temperature 37.2 C Pulse Rate 103 H Respiratory Rate 26 H Blood Pressure 154/66 H Pulse Oximetry 92 92 96 Oxygen Delivery Nasal Cannula Oxygen Flow Rate 2 1 05/22/23 06:00 05/22/23 08:34 05/22/23 08:00 Temperature 36.3 C L Pulse Rate 110 H 104 H Respiratory Rate 24 H Blood Pressure 180/74 H 130/50 L Pulse Oximetry 91 95 95 Oxygen Delivery Nasal Cannula Oxygen Flow Rate 1.5 05/22/23 13:10 05/22/23 14:00 Temperature 35.7 C L Pulse Rate 101 H 104 H Respiratory Rate 20 16 Blood Pressure 172/56 H Pulse Oximetry 97 99 Oxygen Delivery Nasal Cannula Oxygen Flow Rate 1.5 Exam Narrative: GENERAL: Well-appearing, well-nourished, and in no acute distress. HEAD: Normocephalic, atraumatic. ENT:? Mucous membranes moist. CHEST: Mild increased work of breathing but clear to auscultation lung sounds, mild tachypnea, supplemental oxygen 1.5 liters/minute by nasal cannula HEART: Borderline tachycardic rate and regular rhythm. ? Normal peripheral pulses. ABDOMEN: Mildly distended appearing, TAYE drains in place, incision bandaged mildly tender to palpation along the incision line EXTREMITIES: Normal range of motion. No peripheral edema. SKIN: Warm dry normal color NEURO: Alert and oriented x3. Slight right upper extremity weakness, repeats herself seems to word-finding problems PSYCH: Normal mood and anxious affect Results Labs 05/22/23 07:11 05/22/23 07:11 Labs: Short CBC 05/22/23 Range/Units 07:11 WBC 13.5 H (4.5-10.0) K/mm3 Hgb 12.5 (12.0-15.0) g/dL Hct 40.4 (37.0-47.0) % Plt Count 280 (150-375) k/mm3 BMP 05/22/23 07:11 Sodium 137 Potassium 4.2 Chloride 103 Carbon Dioxide 26 BUN 31 H Creatinine 0.70 Glucose 191 H Calcium 9.3 Cardiac Enzymes 05/22/23 Range/Units 07:11 Troponin I < 0.012 (0.000-0.034) ng/mL ABG ABG results: PH 7.32, pCO2 57.2, PO2 68.5, HC03 28.9, oxyhemoglobin 91.6 on 1.5 liters/minute nasal cannula Interpretation: Respiratory acidosis with partial compensation and hypoxemia Pulse Oximetry SpO2 results: 95-99% on 1.5 liters/minute nasal cannula Attestation: I personally reviewed and interpreted this pulse oximetry as follows: Interpretation: Continue attempts to wean to room air Imaging Radiologist's impression: EXAMINATION: CT brain wo con DATE: 05/22/2023 09:41 INDICATION: Right-sided weakness TECHNIQUE: Computed tomography (CT) of the head was performed without intravenous contrast. Sagittal and coronal reconstructions were performed. The mA was adjusted according to patient size. Iterative reconstruction technique was employed. The dose-length product was 681.00 mGy-cm. COMPARISON: None FINDINGS: No acute intracranial hemorrhage, acute infarction or abnormal extra axial fluid collection. There is moderate scattered white matter hypoattenuation consistent with chronic small vessel ischemic disease.? Ventricles are normal and symmetric. No mass/mass effect. The orbits, paranasal sinuses and mastoid air cells are normal. IMPRESSION: 1. Moderate scattered white matter hypoattenuation consistent with chronic small vessel ischemic disease. No other acute intracranial process. Reviewed, dictated and finalized at location B. EXAMINATION: CTA chest PE protocol DATE: 05/22/2023 09:42 INDICATION: Shortness of breath. TECHNIQUE: Computed tomography angiography (CTA) of the chest was performed with 100 mL Omnipaque-350 intravenous contrast timed to evaluate the pulmonary arteries. Coronal maximum intensity projection 3D-reconstructions were created by the technologist. Automated exposure control and iterative reconstruction technique were employed. The dose-length product was 836.09 mGy-cm. COMPARISON: None. FINDINGS: The lung volumes are small. There is moderate atelectasis bilaterally. No pleural effusion. The heart size is normal. There are coronary artery calcifications. No pericardial effusion. Calcified left hilar and mediastinal lymph nodes are consistent with old granulomatous disease. There is no pulmonary embolus. There are changes of cholecystectomy. There is severe cervical and thoracic spondylosis. There is levoscoliosis of thoracic spine and dextroscoliosis of thoracolumbar spine. IMPRESSION: 1. No pulmonary embolus. Sensitivity is severely decreased by motion artifact. 2. Small lung volumes with moderate atelectasis bilaterally. Reviewed, dictated and finalized at location A. EXAMINATION: MR brain/brain stem wo/w con DATE: 05/22/2023 12:49 INDICATION: Possible stroke with right-sided hemiparesis TECHNIQUE: Magnetic resonance imaging (MRI) of the brain and brainstem was performed without and with 17 mL Multihance intravenous contrast. Sequences included sagittal and axial T1-weighted SE, axial diffusion-weighted FS SE, axial T2*-weighted GRE, axial T2-weighted FLAIR, and axial T2-weighted FSE. Postcontrast axial and coronal T1-weighted SE was obtained. Apparent diffusion coefficient (ADC) maps were created. COMPARISON: Head CT dated 05/22/2023 FINDINGS: There are no areas of restricted diffusion to suggest acute infarction. No intracranial hemorrhage or abnormal intracranial mass lesion. There are scattered areas of nonspecific increased T2-weighted signal intensity in the cerebral white matter, predominantly involving the deep and periventricular white matter. There are no intraparenchymal signal abnormalities seen on the other pulse sequences. The ventricles are symmetric and normal in size. There are no abnormal extra-axial fluid collections. Flow voids are seen in the cerebral arteries on the T2-weighted sequences consistent with their expected patency. Visualized orbits and soft tissues are unremarkable. There are no areas of abnormal enhancement on the post contrast images. IMPRESSION: 1. No acute intracranial process or abnormally enhancing brain lesions. 2. Moderate scattered nonspecific periventricular predominant white matter T2 hyperintensity which is within normal limits for age and likely sequela of chronic small vessel ischemic disease. Reviewed, dictated and finalized at location B. EXAMINATION: CTA BRAIN/CAROTID DATE: 05/22/2023 13:10 INDICATION: Strokelike symptoms with right-sided hemiparesis TECHNIQUE: Computed tomographic angiography (CTA) of the head and neck was performed with 100 mL Omnipaque-350 intravenous contrast. Multiplanar reconstructions and maximum intensity projection 3D-reconstructions of the carotid arteries and of the intracranial arteries were created by the technologist on a separate workstation. Automated exposure control and iterative reconstruction technique were employed.The dose-length product was 825.03 mGy- cm. COMPARISON: Head CT and brain MR dated 05/22/2023 ? FINDINGS: Carotid arteries: Small amount of nonhemodynamically significant atherosclerotic plaque along the visualized portion of the aortic arch which appears normal in caliber with no dissection. Portions of the great vessels arising from the arch are partially obscured by dense streak artifact from residual contrast in the left subclavian and brachiocephalic veins. There is small amount of atherosclerotic plaque with 0% stenosis of the right carotid bulb relative to normal distal artery lumen diameter (NASCET criteria). There is also a small amount of atherosclerotic plaque with 0% stenosis of the left carotid bulb relative to normal distal artery lumen diameter. There is additional streak artifact resulting from multi ple dental restorations which limits evaluation of portions of the bilateral cervical internal carotid arteries distal to the level of the carotid bulbs resulting. Intracranial arteries Vertebral arteries are codominant. Scattered atherosclerosis at the bilateral carotid siphons without hemodynamically significant stenosis. There is no hemodynamically significant stenosis in the vertebral, basilar and internal carotid arteries. There are no aneurysms identified.? Both A1 and P1 segments are patent. Cerebral arterial arborization appears symmetric. No abnormally enhancing brain lesions. IMPRESSION: 1. 0% stenosis of the right and left carotid bulbs relative to normal distal artery lumen diameter (NASCET criteria). 2. Small amount of nonhemodynamically significant atherosclerotic plaque at the bilateral carotid siphons. Otherwise unremarkable cerebral CT angiogram with no hemodynamically significant stenosis or aneurysm. Reviewed, dictated and finalized at location B. EXAMINATION: MRA brain wo con DATE: 05/22/2023 12:50 INDICATION: Possible stroke with right-sided hemiparesis TECHNIQUE: Magnetic resonance angiography (MRA) of the brain was performed without intravenous contrast by the 3D edbb-es-wzqewe technique. COMPARISON: Brain CT angiogram dated 05/22/2023 FINDINGS: There is normal flow related signal seen within the vertebral, basilar and internal carotid arteries. Bilateral vertebral arteries are codominant. There is no proximal stenosis.? There are no aneurysms identified.? Both A1 and P1 segments are patent.? Flow in the cerebral arteries is symmetric. IMPRESSION: 1. Normal cerebral MR angiogram. Reviewed, dictated and finalized at location B. EXAMINATION: MRA neck wo/w con DATE: 05/22/2023 12:50 INDICATION: Possible stroke with right hemiparesis TECHNIQUE: Magnetic resonance angiography (MRA) of the neck was performed without and with 17 mL Multihance intravenous contrast. Sequences included axial 2D-time of flight T1-weighted FSPGR and coronal T1-weighted FSPGR without and with intravenous contrast. COMPARISON: None. FINDINGS: There is 0% stenosis of the right carotid bulb relative to normal distal artery lumen diameter (NASCET criteria).? There is 0% stenosis of the left carotid bulb relative to normal distal artery lumen diameter. There appears to 20-30% stenosis of the cervical portion of the left vertebral artery immediately distal to the carotid bulb. Assessment of this region was limited on the prior CT angiogram due to significant streak artifact at this level. IMPRESSION: 1. 0% stenosis of the right and left carotid bulbs relative to normal distal artery lumen diameter (NASCET criteria). 2. 20-30% stenosis along the cervical portion of the left vertebral artery immediately distal to the carotid bulb. Reviewed, dictated and finalized at location B. Quality VTE Prophylaxis VTE prophylaxis: pharmacologic ordered Total time 85 minutes
[2023-05-22] MEDS: LIDOCAINE HCL 1% LOCAL INJ 2 ML AMPUL 5 ML INFILTRATE (15:45)
[2023-05-22 16:33] LABS: Glucose Point of Care 154 mg/dl (65-105)
[2023-05-22 19:09] LABS: MRSA (PCR) NOT DETECTED (NOT DETECTE)
[2023-05-22 20:08] LABS: Ammonia < 9 umol/L (9-30)
[2023-05-22 20:12] LABS: Alanine Aminotransferase 33 U/L (6-35); Albumin Level 4.1 g/dL (3.5-5.1); Alkaline Phosphatase 90 U/L (38-126); Anion Gap 9 mmol/L (4-12); Aspartate Amino Transferase 24 U/L (14-36); Bilirubin,Total 0.7 mg/dL (0.2-1.3); Blood Urea Nitrogen 30 mg/dL (7-17); Calcium 8.8 mg/dL (8.4-10.2); Carbon Dioxide 24 mmol/L (22-30); Chloride 102 mmol/L (98-107); Estimated CRCL calculation 56 ml/min; Estimated Glomerular Filt Rate > 60; Glucose 165 mg/dL (65-110); Sodium 135 mmol/L (137-145)
[2023-05-22 21:36] LABS: Glucose Point of Care 167 mg/dl (65-105)
[2023-05-22] MEDS: LATANOPROST 0.005% OP SOLN 2.5 ML BTL 1 DROP EACH EYE (21:37)
[2023-05-22] MEDS: PRAVASTATIN SODIUM 20 MG TABLET PO (21:37)
[2023-05-22] MEDS: SALINE LOCK FLUSH 10 ML IV PUSH (21:37)
[2023-05-22 21:46] LABS: Hemoglobin A1C 6.2 % (<5.7)
[2023-05-22] MEDS: ONDANSETRON INJ 4 MG/2 ML VIAL IV PUSH (21:58)
--- NOTE | 2023-05-23 | ECHO_ITS ---
Patient Info Name: Berenice Long Age: 73 years : 1950 Gender: Female Ht: 63 in Wt: 186 lbs BSA: 1.97 m2 HR: 94 bpm BP: 155 / 68 mmHg Technical Quality: Fair Exam Date: 05/23/2023 3:20 PM Exam Location: Echo Lab Patient Status: Inpatient Admit Date: 05/19/2023 Staff Ordering Physician: Blane Herman APRN [place]iver: Yg Deleon RDCS Attending Provider: Roberto Durham DO Referring Physician: Virgil LOBATO; Exam Type: CA echo doppler w bubble study Study Info Complete two-dimensional, color flow and Doppler transthoracic echocardiogram is performed. Summary 1. Complete two-dimensional, color flow and Doppler transthoracic echocardiogram is performed. 2. Left ventricular chamber dimension is normal. 3. Left ventricular systolic function is normal, estimated at 60-65%. 4. The left ventricular diastolic function is grade I diastolic dysfunction. 5. E/e' 13 is mildly elevated. 6. There is mild aortic valve sclerosis. 7. The mitral valve has mildly calcified annulus. 8. There is mild tricuspid valve regurgitation. 9. Mild pulmonary hypertension, estimated pulmonary arterial systolic pressure is 47 mmHg. 10. There is trace pulmonic regurgitation. Left Ventricle E/e' 13 is mildly elevated. Left ventricular chamber dimension is normal. Left ventricular systolic function is normal, estimated at 60-65%. The left ventricular diastolic function is grade I diastolic dysfunction. Right Ventricle Right ventricular systolic function is normal and with normal TAPSE 2.2 cm. Right ventricular chamber dimension is normal. Left Atria Left atrial chamber dimension is normal. Right Atria Right atrial chamber dimension is normal. Atrial Septum Agitated saline injection with and without valsalva maneuver opacified right side cardiac chambers without shunt to left side cardiac chambers. Intact interatrial septum visualized by 2D and agitated saline imaging. Aortic Valve The aortic valve is trileaflet. There is mild aortic valve sclerosis. There is no aortic valve stenosis. There is no aortic valve regurgitation. Pulmonic Valve There is trace pulmonic regurgitation. Mitral Valve The mitral valve has mildly calcified annulus. There is no mitral valve stenosis. There is no mitral valve regurgitation. Tricuspid Valve There is mild tricuspid valve regurgitation. Mild pulmonary hypertension, estimated pulmonary arterial systolic pressure is 47 mmHg. Pericardium/Pleural There is no pericardial effusion. Inferior Vena Cava Normal inferior vena cava with >50% collapse upon inspiration consistent with normal right atrial pressure, 5 mmHg. Aorta The aortic root size at the sinus of Valsalva is normal. Left Ventricular Outflow Tract Name Value Normal LVOT 2D LVOT Diameter 1.9 cm LVOT Doppler LVOT Peak Gradient 9 mmHg LVOT Mean Gradient 4 mmHg LVOT VTI 23 cm LVOT VTI/AV VTI Ratio 0.7 LVOT Stroke Volume 66 ml LVOT CO 5.9 l/min LVOT CI 3.0 l/min/m2 Pulmonic Valve Name Value Normal PV Doppler PV Peak Gradient 4 mmHg Mitral Valve Name Value Normal MV Doppler MV Decel [place] 561 cm/s2 MV PHT 59 ms MV Area (PHT) 3.7 cm2 4.0-5.0 MV Diastolic Function MV E Peak Velocity 114 cm/s MV A Peak Velocity 152 cm/s MV E/A 0.8 MV Decel Time 203 ms Tricuspid Valve Name Value Normal TV Regurgitation Doppler TR Peak Velocity 322 cm/s TR Peak Gradient 42 mmHg Estimated PAP/RSVP RA Pressure 5 mmHg <=5 PA Systolic Pressure 47 mmHg <36 RV Systolic Pressure 47 mmHg <36 Aorta Name Value Normal Ascending Aorta Ao Root Diameter (MM) 3.2 cm Ao Root Diam Index (MM) 1.6 cm/m2 Aortic Valve Name Value Normal AV Doppler AV Peak Velocity 190 cm/s AV Peak Gradient 14 mmHg AV Mean Gradient 7 mmHg AV VTI 32 cm AV Area (Cont Eq VTI) 2.1 cm2 >=3.0 AV Area (Cont Eq Sathish) 2.3 cm2 AV Regurgitation 2D LVOT Area 2.9 cm2 Ventricles Name Value Normal LV Dimensions 2D/MM IVS Diastolic Thickness (2D) 1.0 cm 0.6-1.0 IVS Diastole Thickness (MM) 1.0 cm 0.6-0.9 LVID Diastole (2D) 3.9 cm 3.8-5.2 LVID Diastole (MM) 5.3 cm 3.8-5.2 LVIW Diastolic Thickness (2D) 0.9 cm 0.6-0.9 LVIW Diastolic Thickness (MM) 1.0 cm 0.6-0.9 LVID Systole (2D) 2.5 cm 2.2-3.5 LVID Systole (MM) 3.5 cm 2.2-3.5 LVOT Diameter 1.9 cm LV Mass (2D Cubed) 115.91 g 67.00-162.00 LV Mass Index (2D Cubed) 59 g/m2 43-95 Relative Wall Thickness (2D) 0.46 LV Mass (MM Cubed) 195.43 g 67.00-162.00 LV Mass Index (MM Cubed) 99 g/m2 43-95 Relative Wall Thickness (MM) 0.36 LV Fractional Shortening/Ejection Fraction 2D/MM LV Fractional Shortening (2D) 37 % 27-45 LV Fractional Shortening (MM) 35 % 27-45 LV EF (MM Teicholz) 64 % 54-74 LV EF (2D Teicholz) 67 % 54-74 LV Diastolic Volume (4C MOD) 77 ml LV EF (4C MOD) 74 % LV Diastolic Volume (2C MOD) 39 ml LV EF (2C MOD) 41 % LV Diastolic Volume (BP MOD) 56 ml 46-106 LV Diastolic Volume Index (BP MOD) 28 ml/m2 29-61 LV Systolic Volume (BP MOD) 22 ml 14-42 LV Systolic Volume Index (BP MOD) 11 ml/m2 8-24 LV EF (BP MOD) 61 % 54-74 LV Diastolic Length (4C) 7.3 cm LV Systolic Length (4C) 6.1 cm LV Stroke Volume (4C MOD) 57 ml Atria Name Value Normal LA Dimensions LA Dimension (MM) 3.7 cm 2.7-3.8 LA Volume (4C A-L) 44 ml LA Volume (BP A-L) 43 ml RA Dimensions RA Area (4C) 10.3 cm2 <=18.0 Report Signatures
[2023-05-23] MEDS: IBUPROFEN IV 800 MG/200 ML 800 MG/200 ML BAG 400 MG IVPB ×5 (01:12→22:54)
[2023-05-23] MEDS: SALINE LOCK FLUSH 10 ML IV PUSH ×3 (05:11→21:05)
[2023-05-23 06:00] VITALS: BP 155/68; PULSE 103; RESP 24; TEMP 36.7; O2SAT 96
[2023-05-23] MEDS: CEFEPIME 2 GM/NS 50 ML 2 GM/50 ML BAG IVPB ×2 (06:16→17:13)
[2023-05-23 08:01] LABS: Glucose Point of Care 147 mg/dl (65-105)
[2023-05-23] MEDS: PANTOPRAZOLE 40 MG TABLET PO (08:29)
[2023-05-23] MEDS: ENOXAPARIN 40 MG/0.4 ML SYRINGE SUB-Q (08:29)
[2023-05-23] MEDS: MAGNESIUM 27 MG TABLET (500 MG MAG GLUCONATE) PO (08:29)
[2023-05-23] MEDS: polyethylene glycoL 3350 17 GM POWD.PACK PO (08:29)
[2023-05-23 08:30] VITALS: O2SAT 96
[2023-05-23 08:50] VITALS: O2SAT 95
--- NOTE | 2023-05-23 08:58 | PM.IMPN ---
Progress Note: A&P Assessment and Plan (1) Incarcerated incisional hernia: Code(s): K43.0 - Incisional hernia with obstruction, without gangrene Status: Acute Assessment and Plan: -Management per surgical team (2) Dyspnea: Code(s): R06.00 - Dyspnea, unspecified Status: Acute Assessment and Plan: 05/21: -patient had tachycardia tachypnea decreased oxygen sats and hypertension this morning. -Troponin was negative. -EKG showed sinus tachycardia rate 102 with left axis deviation QRS axis -35 and right bundle branch block QRS duration 133 QTC 397 no STEMI -chest x-ray atelectasis versus pneumonia -CTA small lung volumes with moderate atelectasis bilaterally, no PE -patient on supplemental oxygen titrated between 1 and 2 liters/minute -encourage use of incentive spirometer, continue IV antibiotics, and DC vancomycin if MRSA nares is negative -mobilize, ambulate with therapy tomorrow if at all possible 05/22: not significantly improved (3) Acute respiratory failure with hypoxia and hypercapnia: Code(s): J96.01 - Acute respiratory failure with hypoxia; J96.02 - Acute respiratory failure with hypercapnia Status: Acute Assessment and Plan: -See Dyspnea above. -ABG pCO2 to 57.2, PO2 68.5 on 1.5 liters/minute nasal cannula -no history of respiratory failure, asthma, COPD, smoking -negative CTA PE protocol -possibly obesity related hypoventilation syndrome verses abdominal distension causing diaphragmatic compression -ApneaLink ordered 05/22: ApneaLink indicates likely sleep apnea (4) Diabetes: Qualifiers: Diabetes mellitus type: type 2 Diabetes mellitus exterminator helper insulin use: without exterminator helper use Diabetes mellitus complication status: with hyperglycemia Qualified Code(s): E11.65 - Type 2 diabetes mellitus with hyperglycemia Code(s): E11.9 - Type 2 diabetes mellitus without complications Status: Acute Assessment and Plan: 05/21: -ACHS fingerstick glucose with Moderate dose SSI. -Stop metformin due to IV contrast for CTA x2 on 05/21 -Recheck labs this afternoon as patient is on several medications that can be Neprhotoxic (5) Stroke-like symptoms: Code(s): R29.90 - Unspecified symptoms and signs involving the nervous system Status: Acute Assessment and Plan: 05/21: -Patient with confusion right upper extremity weakness word-finding difficulties repetitive vocalizations but negative CT, CTA, MRI/MRA of head neck. -described confusion has been present since at least 05/20 -Neurology is consulted as well -Consider metabolic encephalopathy or prolonged recovery from anesthesia 05/22: added echocardiogram with bubble study lipid panel as requested by Neurology. Daily aspirin 81 mg when okay with surgery Time Spent With Patient Time with patient: Greater than 35 minutes Subjective Date/time seen: 05/23/23 08:58 Interval history: Patient still having confusion and dyspnea. Instructed physical therapy to work with patient, consulted OT. Neurology recommended echocardiogram with bubble study which has been ordered and lipid panel which has been ordered. Confusion seems to be encephalopathy post anesthesia that is lingering. Ammonia was low/normal. Patient believes this is intermittent panic attack. Review of Systems Review of Systems: All systems reviewed & are unremarkable except as noted in HPI and below Exam Narrative: GENERAL: Unwell appearing supplemental oxygen in place dyspnea noted HEAD: Normocephalic, atraumatic. ENT:? Mucous membranes moist. CHEST: Mild increased work of breathing but clear to auscultation lung sounds, mild tachypnea, supplemental oxygen 1.5 liters/minute by nasal cannula HEART: Borderline tachycardic rate and regular rhythm. ? Normal peripheral pulses. ABDOMEN: Mildly distended appearing, TAYE drains in place, incision bandaged mildly tender to palpation along the incision line EXTREMITIES: Normal range of motion. No peripheral edema. SKIN: Warm dry normal color NEURO: Alert and oriented x3. Slight right upper extremity weakness, not always following commands properly, confusion noted PSYCH: Normal mood and anxious affect Objective Data Vital Signs Vital Signs: Vital Signs - 24 hr 05/22/23 13:10 05/22/23 14:00 05/22/23 22:00 Temperature 35.7 C L 36.6 C Pulse Rate 101 H 104 H 104 H Respiratory Rate 20 16 24 H Blood Pressure 172/56 H 186/61 H Pulse Oximetry 97 99 94 Oxygen Delivery Nasal Cannula Oxygen Flow Rate 1.5 05/22/23 20:00 05/22/23 23:00 05/23/23 06:00 Temperature 36.7 C Pulse Rate 103 H Respiratory Rate 24 H Blood Pressure 155/68 H Pulse Oximetry 94 92 96 Oxygen Delivery Nasal Cannula Nasal Cannula Oxygen Flow Rate 1.5 1 05/23/23 08:50 Temperature Pulse Rate Respiratory Rate Blood Pressure Pulse Oximetry 95 Oxygen Delivery Nasal Cannula Oxygen Flow Rate 1 Intake/Output Intake/Output: Intake & Output 05/20/23 05/21/23 05/22/23 05/23/23 23:59 23:59 23:59 23:59 Intake Total 3096.7 1110 1310 200 Output Total 905 1020 1295 125 Balance 2191.7 90 15 75 Meds/Results Medications: Active Medications Generic Name Dose Route Start Last Admin Trade Name Freq PRN Reason Stop Dose Admin Acetaminophen 650 mg 05/19/23 17:56 Acetaminophen 325 Mg Tablet PO Q6H PRN Mild Pain (1-3) or Fever Dextrose 12.5 gm 05/22/23 17:43 Dextrose 50% 25 Gm/50 Ml Syringe IV PUSH PRN PRN Hypoglycemia Protocol Enoxaparin Sodium 40 mg 05/20/23 09:00 05/23/23 08:29 Enoxaparin 40 Mg/0.4 Ml Syringe SUB-Q 40 mg DAILY BRANT Administration Glucagon 1 mg 05/22/23 17:43 Glucagon For Inj 1 Mg Vial IM PRN PRN Hypoglycemia Protocol Glucose 15 gm 05/22/23 17:43 Glucose Oral Gel 15 Gm Of Glucse In 37.5 Gm Tube PO PRN PRN Hypoglycemia Protocol Hydromorphone HCl 0.5 mg 05/19/23 17:56 05/22/23 22:50 Hydromorphone Hcl Inj (*Crx) 1 Mg/Ml Syr IV PUSH 0.5 mg Q2H PRN Administration Pain Rated 4-6 Hydromorphone HCl 1 mg 05/19/23 17:56 05/20/23 22:16 Hydromorphone Hcl Inj (*Crx) 1 Mg/Ml Syr IV PUSH 1 mg Q2H PRN Administration Pain Rated 7-10 Ibuprofen 800 mg in 200 mls @ 400 mls/hr 05/19/23 18:00 05/23/23 05:11 Caldolor 800 Mg/200 Ml IVPB 400 mls/hr Q6H BRANT Administration Cefepime HCl 2 gm in 50 mls @ 100 mls/hr 05/21/23 18:00 05/23/23 06:16 Maxipime 2 Gm/Ns 50 Ml IVPB 100 mls/hr Q12H BRANT Administration Dextrose 1,000 mls @ 100 mls/hr 05/22/23 17:43 Dextrose 5% 1,000 Ml IVPB PRN PRN Hypoglycemia Protocol Insulin Aspart 1 - 3 units 05/22/23 21:00 05/22/23 21:37 Insulin Aspart (*Bkc) 100 Units/Ml SUB-Q Not Given HS BRANT Protocol Insulin Aspart 3 - 6 units 05/23/23 08:00 05/23/23 08:30 Insulin Aspart (*Bkc) 100 Units/Ml SUB-Q Not Given TIDWM BRANT Protocol Latanoprost 1 drop 05/19/23 21:00 05/22/23 21:37 Latanoprost 0.005% Op Soln 2.5 Ml Btl EACH EYE 1 drop HS BRANT Administration Magnesium Gluconate 27 mg 05/20/23 09:00 05/23/23 08:29 Magnesium 27 Mg Tablet (500 Mg Mag Gluconate) PO 27 mg DAILY BRANT Administration Naloxone HCl 0.1 mg 05/19/23 17:56 Naloxone Hcl 0.4 Mg/Ml Vial IV PUSH Q2M PRN Opiate Reversal Ondansetron HCl 4 mg 05/19/23 17:56 05/22/23 21:58 Ondansetron Inj 4 Mg/2 Ml Vial IV PUSH 4 mg Q4H PRN Administration Nausea And Vomiting Oxycodone HCl 2.5 mg 05/19/23 17:56 05/20/23 16:49 Oxycodone Hcl (*Crx) 2.5 Mg Tab Ir PO 2.5 mg Q4H PRN Administration Pain Rated 4-6 Oxycodone HCl 5 mg 05/19/23 17:56 05/21/23 20:33 Oxycodone Hcl (*Crx) 5 Mg Tab Ir PO 5 mg Q4H PRN Administration Pain Rated 7-10 Pantoprazole Sodium 40 mg 05/20/23 09:00 05/23/23 08:29 Pantoprazole 40 Mg Tablet PO 40 mg QAM BRANT Administration Polyethylene Glycol 17 gm 05/20/23 09:00 05/23/23 08:29 Polyethylene Glycol 3350 17 Gm Powd.Pack PO 17 gm QAM BRANT Administration Pravastatin Sodium 20 mg 05/19/23 21:00 05/22/23 21:37 Pravastatin Sodium 20 Mg Tablet PO 20 mg QHS BRANT Administration Sodium Chloride 10 ml 05/22/23 22:00 05/23/23 05:11 Saline Lock Flush IV PUSH 10 ml Q8HR BRANT Administration Sodium Chloride 10 ml 05/22/23 16:07 Saline Lock Flush IV PUSH PRN PRN Flush Sodium Chloride 20 ml 05/22/23 16:07 Saline Lock Flush IV PUSH PRN PRN after blood draws Radiology Results: ITS Impressions Chest X-Ray 05/21/23 17:41 Impression: 1: Bibasilar airspace disease may represent pneumonia and/or atelectasis. Head CT 05/22/23 09:50 IMPRESSION: 1. Moderate scattered white matter hypoattenuation consistent with chronic small vessel ischemic disease. No other acute intracranial process. Chest CTA 05/22/23 09:51 IMPRESSION: 1. No pulmonary embolus. Sensitivity is severely decreased by motion artifact. 2. Small lung volumes with moderate atelectasis bilaterally. Brain MRI 05/22/23 13:08 IMPRESSION: 1. No acute intracranial process or abnormally enhancing brain lesions. 2. Moderate scattered nonspecific periventricular predominant white matter T2 hyperintensity which is within normal limits for age and likely sequela of chronic small vessel ischemic disease. Head/Neck CTA 05/22/23 13:14 IMPRESSION: 1. 0% stenosis of the right and left carotid bulbs relative to normal distal artery lumen diameter (NASCET criteria). 2. Small amount of nonhemodynamically significant atherosclerotic plaque at the bilateral carotid siphons. Otherwise unremarkable cerebral CT angiogram with no hemodynamically significant stenosis or aneurysm. Brain MRA 05/22/23 13:36 IMPRESSION: 1. Normal cerebral MR angiogram. Neck MRA 05/22/23 13:37 IMPRESSION: 1. 0% stenosis of the right and left carotid bulbs relative to normal distal artery lumen diameter (NASCET criteria). 2. 20-30% stenosis along the cervical portion of the left vertebral artery immediately distal to the carotid bulb. Labs Labs: Laboratory Results - last 24 hr 05/22/23 05/22/23 05/22/23 08:36 11:34 11:35 PT 14.6 INR 1.1 APTT 25.0 Puncture Site Left radial ABG pH 7.322 L ABG pCO2 57.2 H ABG pO2 68.5 L ABG PO2/FiO2 Ratio 2.63 ABG HCO3 28.9 H ABG O2 Saturation 92.0 L ABG O2 Content 16.6 ABG Base Excess 1.7 A-a Gradient 49.1 Oxyhemoglobin 91.6 Total Hemoglobin 12.9 O2 Delivery Device Nasal cannula O2 Liters/Min 1.5 FiO2 26 Sodium Potassium Chloride Carbon Dioxide Anion Gap BUN Creatinine Estim Creat Clear Calc Estimated GFR Glucose POC Capillary Glucose 136 H Hemoglobin A1c Calcium Total Bilirubin AST ALT Alkaline Phosphatase Ammonia Total Protein Albumin Nasal MRSA (PCR) 05/22/23 05/22/23 05/22/23 16:25 17:19 19:47 PT INR APTT Puncture Site ABG pH ABG pCO2 ABG pO2 ABG PO2/FiO2 Ratio ABG HCO3 ABG O2 Saturation ABG O2 Content ABG Base Excess A-a Gradient Oxyhemoglobin Total Hemoglobin O2 Delivery Device O2 Liters/Min FiO2 Sodium 135 L Potassium 4.0 Chloride 102 Carbon Dioxide 24 Anion Gap 9 BUN 30 H Creatinine 0.80 Estim Creat Clear Calc 56 Estimated GFR > 60 Glucose 165 H POC Capillary Glucose 154 H Hemoglobin A1c 6.2 H Calcium 8.8 Total Bilirubin 0.7 AST 24 ALT 33 Alkaline Phosphatase 90 Ammonia < 9 L Total Protein 7.0 Albumin 4.1 Nasal MRSA (PCR) Not detected 05/22/23 05/23/23 21:31 07:58 PT INR APTT Puncture Site ABG pH ABG pCO2 ABG pO2 ABG PO2/FiO2 Ratio ABG HCO3 ABG O2 Saturation ABG O2 Content ABG Base Excess A-a Gradient Oxyhemoglobin Total Hemoglobin O2 Delivery Device O2 Liters/Min FiO2 Sodium Potassium Chloride Carbon Dioxide Anion Gap BUN Creatinine Estim Creat Clear Calc Estimated GFR Glucose POC Capillary Glucose 167 H 147 H Hemoglobin A1c Calcium Total Bilirubin AST ALT Alkaline Phosphatase Ammonia Total Protein Albumin Nasal MRSA (PCR) Pulse Oximetry SpO2 results: 95-96% on 1.5 liters/minute Attestation: I personally reviewed and interpreted this pulse oximetry as follows: Interpretation: continue to attempt to wean oxygen Quality VTE Prophylaxis VTE prophylaxis: pharmacologic ordered
[2023-05-23 10:05] LABS: Alanine Aminotransferase 30 U/L (6-35); Albumin Level 3.5 g/dL (3.5-5.1); Alkaline Phosphatase 79 U/L (38-126); Anion Gap 8 mmol/L (4-12); Aspartate Amino Transferase 24 U/L (14-36); Bilirubin,Total 0.6 mg/dL (0.2-1.3); Blood Urea Nitrogen 33 mg/dL (7-17); Calcium 8.2 mg/dL (8.4-10.2); Carbon Dioxide 24 mmol/L (22-30); Chloride 105 mmol/L (98-107); Estimated CRCL calculation 50 ml/min; Estimated Glomerular Filt Rate > 60; Glucose 144 mg/dL (65-110); Magnesium 2.5 mg/dL (1.6-2.3); Potassium 3.8 mmol/L (3.4-5.0); Sodium 137 mmol/L (137-145)
[2023-05-23 10:06] LABS: Basophils Absolute Auto 0.1 K/mm3 (0.0-0.1); Basophils Percent Auto 0.5 % (0.2-1.2); Eosinophils Absolute Auto 0.5 K/mm3 (0-0.3); Eosinophils Percent Auto 3.8 % (0-4.4); Hematocrit 38.5 % (37.0-47.0); Hemoglobin 11.6 g/dL (12.0-15.0); Immature Granulocyte Absolute 0.05 K/mm3 (0.00-0.031); Immature Granulocyte Percent A 0.4 % (0-0.5); Lymphocytes Absolute Auto 1.18 K/mm3 (0.9-3.2); Lymphocytes Percent Auto 9.5 % (18.3-44.2); Mean Corpuscular HGB Conc 30.1 g/dl (32-36); Mean Corpuscular Hemoglobin 33.2 pg (26-34); Mean Corpuscular Volume 110.3 fl (80-100); Mean Platelet Volume 10.2 fl (7.4-10.4); Monocytes Absolute Auto 1.7 K/mm3 (0.1-0.6); Monocytes Percent Auto 13.3 % (2.6-8.5); Neutrophils Absolute Auto 9.1 K/mm3 (1.3-6.7); Neutrophils Percent Auto 72.5 % (45.5-73.1); Platelet Count Result 253 k/mm3 (150-375); Red Blood Count 3.49 M/mm3 (4.2-5.4); Red Cell Distribution Width 12.2 % (11.5-14.5); White Blood Count 12.5 K/mm3 (4.5-10.0)
[2023-05-23 10:25] LABS: Anisocytosis 1+; Macrocytosis 1+ (NORMAL); Platelet Estimate Adequate (Adequate); Schistocytes None Seen
--- NOTE | 2023-05-23 11:19 | P.CONNEU_ITS ---
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 During admission developed transient episode of R hand weakness. 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 However, this would not explain speech/mental status changes. Considering TIA vs post surgical delirium. MRI brain and vessel imaging was unrevealing. - Obtain surface echo with bubble study - Check LDL and HgbA1c; goal LDL is <70 in setting of TIA. Statin will need to be adjusted accordingly - When safe from surgical standpoint, would consider starting aspirin 81mg daily Consult date: 05/23/23 Reason for consult: Concern for stroke HPI: Berenice Long is a 73 year old female with a history of diabetes, R carpal tunnel syndrome currently admitted for icarcerated hernia. Patient underwent surgery for this on 05/18. Yesterday, on 05/21 in the morning, patient was diaphoretic and short of breath per nurse. She was taken for Chest CTA to evalu ate for PE. While in CT, patient appeared to have weakness of the right hand. It's unclear exactly how long the weakness lasted, but it did eventually resolve. There were also reports that patient was confused, repeating herself, and having word finding difficulties. Her LKW is sometime the night prior to the episode. Per chart review, there is a history of carpal tunnel syndrome. She saw plastic surgery in Mar 2023 for R hand numbness/weakness with plans to do EMG/NCS for carpal tunnel/cubital tunnel syndrome. Her EMG/NCS from last month showed mild sensory R carpal tunnel syndrome. MRI brain, CTA brain/carotid were unrevealing. She is not on any antiplatelets. She does take pravastatin 20mg daily. Review of Systems Review of Systems: All systems reviewed & are unremarkable except as noted in HPI and below PMFSH Past Medical History Medical History Diabetes High cholesterol Surgical History Surgical History History of cholecystectomy History of hysterectomy History of knee replacement History of left inguinal hernia repair Previous section x2 Status post creation of urethral sling by suprapubic approach Family History Family History Father Pancreatic cancer Heart disease Mother Heart disease Diabetes mellitus Sibling Diabetes mellitus Social History Social History Smoking status: Never smoker Alcohol intake: never Substance use: never Substance use type: does not use Do You Feel Safe in your Home?: Yes Lack of Transportation: No Lack of Food: Never True Current Housing: I Have Housing Concerned About Future Housing: No Difficulty Paying Gas/Electric Bills: No Difficulty Paying for Meds: No Currently Unemployed: No Education: High School Diploma/GED Difficulty w/ Childcare or Family Care: No Living arrangements: with family Occupation/Education: 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: No Meds Home Medications and Allergies Home Medications Medication Instructions Recorded Confirmed Type hydrocodone 10 mg-acetaminophen 1 tablet PO Q8H PRN Pain 01/13/23 05/08/23 History 325 mg tablet meloxicam 15 mg tablet 15 mg PO DAILY 01/13/23 05/19/23 History metformin 500 mg tablet,extended 500 mg PO DAILY 01/13/23 05/19/23 History release 24 hr pantoprazole 40 mg tablet,delayed 40 mg PO QAM 01/13/23 05/19/23 History release pravastatin 20 mg tablet 20 mg PO QHS 01/13/23 05/19/23 History cinnamon 100 mg-chromium 100 1 cap PO DAILY 04/07/23 05/19/23 History vjm-XUM-ghkayva-ginseng-green tea capsule fieqwfye-jytz-pjxadoa gluconate 9 15 ml PO DAILY 04/07/23 05/19/23 History mg iron/15 mL (15 mL) oral liquid (Centrum) alendronate 70 mg tablet 70 mg PO WEEKLY 05/08/23 05/19/23 History ascorbic acid (vitamin C) 500 mg 500 mg PO DAILY 05/08/23 05/19/23 History tablet cholecalciferol (vitamin D3) 25 25 mcg PO 2XW 05/08/23 05/19/23 History mcg (1,000 unit) tablet cranberry 400 mg capsule 400 mg PO DAILY 05/08/23 05/19/23 History cyanocobalamin (vitamin B-12) 1,000 mcg PO DAILY 05/08/23 05/19/23 History 1,000 mcg tablet glucosamine 750 uf-dhtuzklcimk-bgf 1 tablet PO BID 05/08/23 05/19/23 History no1 644 mg-C 30 mg-poncho 1 mg tablet (Osteo Bi-Flex Triple Strength) magnesium 500 mg tablet 500 mg PO DAILY 05/08/23 05/19/23 History potassium 99 mg tablet 99 mg PO DAILY 05/08/23 05/19/23 History travoprost 0.004 % eye drops 1 drp EACH EYE HS 05/08/23 05/19/23 History Allergies Allergy/AdvReac Type Severity Reaction Status Date / Time No Known Allergies Allergy Unknown Verified 05/19/23 10:44 Vital Signs Vital Signs - 24 hr 05/22/23 13:10 05/22/23 14:00 05/22/23 22:00 Temperature 35.7 C L 36.6 C Pulse Rate 101 H 104 H 104 H Respiratory Rate 20 16 24 H Blood Pressure 172/56 H 186/61 H Pulse Oximetry 97 99 94 Oxygen Delivery Nasal Cannula Oxygen Flow Rate 1.5 05/22/23 20:00 05/22/23 23:00 05/23/23 06:00 Temperature 36.7 C Pulse Rate 103 H Respiratory Rate 24 H Blood Pressure 155/68 H Pulse Oximetry 94 92 96 Oxygen Delivery Nasal Cannula Nasal Cannula Oxygen Flow Rate 1.5 1 05/23/23 08:19 05/23/23 08:50 Temperature Pulse Rate Respiratory Rate Blood Pressure Pulse Oximetry 95 Oxygen Delivery Nasal Cannula Nasal Cannula Oxygen Flow Rate 1.5 1 Exam Const: General: comfortable and no acute distress HENMT: Mouth: Yes moist mucous membranes Eyes: Pupils: Equal, round and reactive pupils present EOM: EOMs intact bilaterally Resp: Effort & Inspection: normal respiratory effort Skin: General skin exam: normal color Neuro: Other: Alert, awake, Pupils equal and reactive bilaterally, EOMI, face symmetric, facial sensation intact, tongue protrudes midline, Strength is normal and symmetrical in the upper extremities, strength is equal in lower extremities with antigravity movement. Sensation is symmetric throughout. FNF normal bilaterally. Language comprehension and fluency intact. Gait deferred. Extrem: General: normal to inspection Psych: Affect: normal affect Results Labs 05/23/23 09:21 05/23/23 09:21 Labs: Short CBC 05/23/23 Range/Units 09:21 WBC 12.5 H (4.5-10.0) K/mm3 Hgb 11.6 L (12.0-15.0) g/dL Hct 38.5 (37.0-47.0) % Plt Count 253 (150-375) k/mm3 BMP 05/22/23 05/23/23 19:47 09:21 Sodium 135 L 137 Potassium 4.0 3.8 Chloride 102 105 Carbon Dioxide 24 24 BUN 30 H 33 H Creatinine 0.80 0.90 Glucose 165 H 144 H Calcium 8.8 8.2 L Liver Function 05/22/23 05/23/23 Range/Units 19:47 09:21 Total Bilirubin 0.7 0.6 (0.2-1.3) mg/dL AST 24 24 (14-36) U/L ALT 33 30 (6-35) U/L Alkaline Phosphatase 90 79 (38-126) U/L Albumin 4.1 3.5 (3.5-5.1) g/dL AMG Consult Billing Inpatient Consult Inpatient Consults: [id number] Consult Moderate
[2023-05-23 12:02] LABS: Glucose Point of Care 138 mg/dl (65-105)
[2023-05-23 14:00] VITALS: BP 143/61; PULSE 99; RESP 18; TEMP 36.8; O2SAT 98
[2023-05-23 15:54] LABS: Cholesterol 118 mg/dL (0-200); HDL Direct 32 mg/dL; Triglycerides 133 mg/dL (<150)
[2023-05-23 16:04] LABS: LDL Cholesterol Direct 69 mg/dL
[2023-05-23 16:28] LABS: Glucose Point of Care 153 mg/dl (65-105)
[2023-05-23] MEDS: LORazepam INJ (*CRX) 2 MG/ML VIAL 0.5 MG IV PUSH ×2 (17:13→22:54)
--- NOTE | 2023-05-23 17:23 | PM.PNGS ---
Progress Note: A&P Assessment and Plan (1) Incarcerated incisional hernia: Code(s): K43.0 - Incisional hernia with obstruction, without gangrene Status: Acute Assessment and Plan: doing well, cont routine postop care, encourage OOB/IS, add Ativan for anxiety (2) Acute respiratory failure with hypoxia and hypercapnia: Code(s): J96.01 - Acute respiratory failure with hypoxia; J96.02 - Acute respiratory failure with hypercapnia Status: Acute Assessment and Plan: will get pulmonary consult Subjective Subjective Date/Time Seen: 05/23/23 17:23 Interval history: feels ok but somewhat anxious, still c/o trouble breathing Review of Systems Review of Systems: All systems reviewed & are unremarkable except as noted in HPI and below Exam Const: General: cooperative and no acute distress Resp: Auscultation: diminished lung sounds Cardio: Rate: tachycardic Rhythm: regular rhythm GI: Inspection: normal to inspection, distended and incision GI Palp: Yes abdominal tenderness, Yes Soft to palpation, Yes Tenderness to palpation present (GI), No Guarding due to palpation present (GI) and No Rigid due to palpation Other: TAYE x 2 c s/s output Objective Data Vital Signs Vital Signs: Vital Signs - 24 hr 05/22/23 22:00 05/22/23 20:00 05/22/23 23:00 Temperature 36.6 C Pulse Rate 104 H Respiratory Rate 24 H Blood Pressure 186/61 H Pulse Oximetry 94 94 92 Oxygen Delivery Nasal Cannula Nasal Cannula Oxygen Flow Rate 1.5 1 05/23/23 06:00 05/23/23 08:19 05/23/23 08:50 Temperature 36.7 C Pulse Rate 103 H Respiratory Rate 24 H Blood Pressure 155/68 H Pulse Oximetry 96 95 Oxygen Delivery Nasal Cannula Nasal Cannula Oxygen Flow Rate 1.5 1 05/23/23 11:39 05/23/23 08:30 05/23/23 14:00 Temperature 36.8 C Pulse Rate 99 Respiratory Rate 18 Blood Pressure 143/61 H Pulse Oximetry 96 98 Oxygen Delivery Nasal Cannula Nasal Cannula Oxygen Flow Rate 1 1.5 Intake/Output Intake/Output: Intake & Output 05/20/23 05/21/23 05/22/23 05/23/23 23:59 23:59 23:59 23:59 Intake Total 3096.7 1110 1310 750 Output Total 905 1020 1295 625 Balance 2191.7 90 15 125 Meds/Results Medications: Active Medications Generic Name Dose Route Start Last Admin Trade Name Freq PRN Reason Stop Dose Admin Acetaminophen 650 mg 05/19/23 17:56 Acetaminophen 325 Mg Tablet PO Q6H PRN Mild Pain (1-3) or Fever Dextrose 12.5 gm 05/22/23 17:43 Dextrose 50% 25 Gm/50 Ml Syringe IV PUSH PRN PRN Hypoglycemia Protocol Enoxaparin Sodium 40 mg 05/20/23 09:00 05/23/23 08:29 Enoxaparin 40 Mg/0.4 Ml Syringe SUB-Q 40 mg DAILY BRANT Administration Glucagon 1 mg 05/22/23 17:43 Glucagon For Inj 1 Mg Vial IM PRN PRN Hypoglycemia Protocol Glucose 15 gm 05/22/23 17:43 Glucose Oral Gel 15 Gm Of Glucse In 37.5 Gm Tube PO PRN PRN Hypoglycemia Protocol Hydromorphone HCl 0.5 mg 05/19/23 17:56 05/22/23 22:50 Hydromorphone Hcl Inj (*Crx) 1 Mg/Ml Syr IV PUSH 0.5 mg Q2H PRN Administration Pain Rated 4-6 Hydromorphone HCl 1 mg 05/19/23 17:56 05/20/23 22:16 Hydromorphone Hcl Inj (*Crx) 1 Mg/Ml Syr IV PUSH 1 mg Q2H PRN Administration Pain Rated 7-10 Ibuprofen 800 mg in 200 mls @ 400 mls/hr 05/19/23 18:00 05/23/23 17:14 Caldolor 800 Mg/200 Ml IVPB 400 mls/hr Q6H BRANT Administration Cefepime HCl 2 gm in 50 mls @ 100 mls/hr 05/21/23 18:00 05/23/23 17:13 Maxipime 2 Gm/Ns 50 Ml IVPB 100 mls/hr Q12H BRANT Administration Dextrose 1,000 mls @ 100 mls/hr 05/22/23 17:43 Dextrose 5% 1,000 Ml IVPB PRN PRN Hypoglycemia Protocol Insulin Aspart 1 - 3 units 05/22/23 21:00 05/22/23 21:37 Insulin Aspart (*Bkc) 100 Units/Ml SUB-Q Not Given HS BRANT Protocol Insulin Aspart 3 - 6 units 05/23/23 08:00 05/23/23 16:36 Insulin Aspart (*Bkc) 100 Units/Ml SUB-Q Not Given TIDWM BRANT Protocol Latanoprost 1 drop 05/19/23 21:00 05/22/23 21:37 Latanoprost 0.005% Op Soln 2.5 Ml Btl EACH EYE 1 drop HS BRANT Administration Lorazepam 0.5 mg 05/23/23 16:41 05/23/23 17:13 Lorazepam Inj (*Crx) 2 Mg/Ml Vial IV PUSH 0.5 mg Q6H PRN Administration Anxiety Magnesium Gluconate 27 mg 05/20/23 09:00 05/23/23 08:29 Magnesium 27 Mg Tablet (500 Mg Mag Gluconate) PO 27 mg DAILY BRANT Administration Naloxone HCl 0.1 mg 05/19/23 17:56 Naloxone Hcl 0.4 Mg/Ml Vial IV PUSH Q2M PRN Opiate Reversal Ondansetron HCl 4 mg 05/19/23 17:56 05/22/23 21:58 Ondansetron Inj 4 Mg/2 Ml Vial IV PUSH 4 mg Q4H PRN Administration Nausea And Vomiting Oxycodone HCl 2.5 mg 05/19/23 17:56 05/20/23 16:49 Oxycodone Hcl (*Crx) 2.5 Mg Tab Ir PO 2.5 mg Q4H PRN Administration Pain Rated 4-6 Oxycodone HCl 5 mg 05/19/23 17:56 05/21/23 20:33 Oxycodone Hcl (*Crx) 5 Mg Tab Ir PO 5 mg Q4H PRN Administration Pain Rated 7-10 Pantoprazole Sodium 40 mg 05/20/23 09:00 05/23/23 08:29 Pantoprazole 40 Mg Tablet PO 40 mg QAM BRANT Administration Perflutren Lipid Microsphere 0 ml 05/23/23 12:51 Perflutren Lipid Microspheres 1.5 Ml Vial Diluted To 10 Ml Total Volume IV PUSH 05/26/23 12:51 ONCE PRN adequate visualization Protocol Polyethylene Glycol 17 gm 05/20/23 09:00 05/23/23 08:29 Polyethylene Glycol 3350 17 Gm Powd.Pack PO 17 gm QAM BRANT Administration Pravastatin Sodium 20 mg 05/19/23 21:00 05/22/23 21:37 Pravastatin Sodium 20 Mg Tablet PO 20 mg QHS BRANT Administration Sodium Chloride 10 ml 05/22/23 22:00 05/23/23 13:01 Saline Lock Flush IV PUSH 10 ml Q8HR BRANT Administration Sodium Chloride 10 ml 05/22/23 16:07 Saline Lock Flush IV PUSH PRN PRN Flush Sodium Chloride 20 ml 05/22/23 16:07 Saline Lock Flush IV PUSH PRN PRN after blood draws Radiology Results: ITS Impressions Chest X-Ray 05/21/23 17:41 Impression: 1: Bibasilar airspace disease may represent pneumonia and/or atelectasis. Head CT 05/22/23 09:50 IMPRESSION: 1. Moderate scattered white matter hypoattenuation consistent with chronic small vessel ischemic disease. No other acute intracranial process. Chest CTA 05/22/23 09:51 IMPRESSION: 1. No pulmonary embolus. Sensitivity is severely decreased by motion artifact. 2. Small lung volumes with moderate atelectasis bilaterally. Brain MRI 05/22/23 13:08 IMPRESSION: 1. No acute intracranial process or abnormally enhancing brain lesions. 2. Moderate scattered nonspecific periventricular predominant white matter T2 hyperintensity which is within normal limits for age and likely sequela of chronic small vessel ischemic disease. Head/Neck CTA 05/22/23 13:14 IMPRESSION: 1. 0% stenosis of the right and left carotid bulbs relative to normal distal artery lumen diameter (NASCET criteria). 2. Small amount of nonhemodynamically significant atherosclerotic plaque at the bilateral carotid siphons. Otherwise unremarkable cerebral CT angiogram with no hemodynamically significant stenosis or aneurysm. Brain MRA 05/22/23 13:36 IMPRESSION: 1. Normal cerebral MR angiogram. Neck MRA 05/22/23 13:37 IMPRESSION: 1. 0% stenosis of the right and left carotid bulbs relative to normal distal artery lumen diameter (NASCET criteria). 2. 20-30% stenosis along the cervical portion of the left vertebral artery immediately distal to the carotid bulb. Labs Labs: Laboratory Results - last 24 hr 05/22/23 05/22/23 05/22/23 17:19 19:47 21:31 WBC RBC Hgb Hct MCV MCH MCHC RDW Plt Count MPV Immature Gran % (Auto) Neut % (Auto) Lymph % (Auto) [place] % (Auto) Eos % (Auto) Baso % (Auto) Lymph # (Auto) [place] # (Auto) Eos # (Auto) Baso # (Auto) Abs Immat Gran (auto) Absolute Neuts (auto) Absolute Nucleated RBC Nucleated RBC % Platelet Estimate Anisocytosis Macrocytosis Schistocytes Sodium 135 L Potassium 4.0 Chloride 102 Carbon Dioxide 24 Anion Gap 9 BUN 30 H Creatinine 0.80 Estim Creat Clear Calc 56 Estimated GFR > 60 Glucose 165 H POC Capillary Glucose 167 H Hemoglobin A1c 6.2 H Calcium 8.8 Magnesium Total Bilirubin 0.7 AST 24 ALT 33 Alkaline Phosphatase 90 Ammonia < 9 L Total Protein 7.0 Albumin 4.1 Triglycerides Cholesterol LDL Cholesterol Direct HDL Direct Nasal MRSA (PCR) Not detected 05/23/23 05/23/23 05/23/23 07:58 09:21 11:55 WBC 12.5 H RBC 3.49 L Hgb 11.6 L Hct 38.5 MCV 110.3 H MCH 33.2 MCHC 30.1 L RDW 12.2 Plt Count 253 MPV 10.2 Immature Gran % (Auto) 0.4 Neut % (Auto) 72.5 Lymph % (Auto) 9.5 L [place] % (Auto) 13.3 H Eos % (Auto) 3.8 Baso % (Auto) 0.5 Lymph # (Auto) 1.18 [place] # (Auto) 1.7 H Eos # (Auto) 0.5 H Baso # (Auto) 0.1 Abs Immat Gran (auto) 0.05 H Absolute Neuts (auto) 9.1 H Absolute Nucleated RBC 0.000 Nucleated RBC % 0.0 Platelet Estimate Adequate Anisocytosis 1+ Macrocytosis 1+ Schistocytes None seen Sodium 137 Potassium 3.8 Chloride 105 Carbon Dioxide 24 Anion Gap 8 BUN 33 H Creatinine 0.90 Estim Creat Clear Calc 50 Estimated GFR > 60 Glucose 144 H POC Capillary Glucose 147 H 138 H Hemoglobin A1c Calcium 8.2 L Magnesium 2.5 H Total Bilirubin 0.6 AST 24 ALT 30 Alkaline Phosphatase 79 Ammonia Total Protein 6.0 L Albumin 3.5 Triglycerides 133 Cholesterol 118 LDL Cholesterol Direct 69 HDL Direct 32 Nasal MRSA (PCR) 05/23/23 16:23 WBC RBC Hgb Hct MCV MCH MCHC RDW Plt Count MPV Immature Gran % (Auto) Neut % (Auto) Lymph % (Auto) [place] % (Auto) Eos % (Auto) Baso % (Auto) Lymph # (Auto) [place] # (Auto) Eos # (Auto) Baso # (Auto) Abs Immat Gran (auto) Absolute Neuts (auto) Absolute Nucleated RBC Nucleated RBC % Platelet Estimate Anisocytosis Macrocytosis Schistocytes Sodium Potassium Chloride Carbon Dioxide Anion Gap BUN Creatinine Estim Creat Clear Calc Estimated GFR Glucose POC Capillary Glucose 153 H Hemoglobin A1c Calcium Magnesium Total Bilirubin AST ALT Alkaline Phosphatase Ammonia Total Protein Albumin Triglycerides Cholesterol LDL Cholesterol Direct HDL Direct Nasal MRSA (PCR)
[2023-05-23 20:00] VITALS: O2SAT 99
[2023-05-23] MEDS: PRAVASTATIN SODIUM 20 MG TABLET PO (21:05)
[2023-05-23] MEDS: LATANOPROST 0.005% OP SOLN 2.5 ML BTL 1 DROP EACH EYE (21:05)
[2023-05-23 21:12] LABS: Glucose Point of Care 157 mg/dl (65-105)
[2023-05-23 21:19] VITALS: BP 152/58; PULSE 92; RESP 20; TEMP 36.6; O2SAT 99
[2023-05-24] VITALS (17 sets, daily range): BP systolic 142–162; BP diastolic 61–72; PULSE 87–97; RESP 18–35; TEMP 36.4–37; O2SAT 91–100
[2023-05-24] MEDS: IBUPROFEN IV 800 MG/200 ML 800 MG/200 ML BAG 400 MG IVPB (05:22)
[2023-05-24] MEDS: SODIUM CHLORIDE 0.9% IV 250 ML (05:22)
[2023-05-24] MEDS: SALINE LOCK FLUSH 10 ML IV PUSH ×2 (06:18→16:27)
[2023-05-24] MEDS: CEFEPIME 2 GM/NS 50 ML 2 GM/50 ML BAG IVPB ×2 (06:18→17:09)
[2023-05-24 06:40] LABS: Basophils Absolute Auto 0.1 K/mm3 (0.0-0.1); Basophils Percent Auto 0.5 % (0.2-1.2); Eosinophils Absolute Auto 0.6 K/mm3 (0-0.3); Eosinophils Percent Auto 5.2 % (0-4.4); Hematocrit 33.1 % (37.0-47.0); Hemoglobin 10.4 g/dL (12.0-15.0); Immature Granulocyte Absolute 0.06 K/mm3 (0.00-0.031); Immature Granulocyte Percent A 0.5 % (0-0.5); Lymphocytes Absolute Auto 1.49 K/mm3 (0.9-3.2); Lymphocytes Percent Auto 12.4 % (18.3-44.2); Mean Corpuscular HGB Conc 31.4 g/dl (32-36); Mean Corpuscular Hemoglobin 33.8 pg (26-34); Mean Corpuscular Volume 107.5 fl (80-100); Mean Platelet Volume 10.1 fl (7.4-10.4); Monocytes Absolute Auto 1.2 K/mm3 (0.1-0.6); Monocytes Percent Auto 9.7 % (2.6-8.5); Neutrophils Absolute Auto 8.6 K/mm3 (1.3-6.7); Neutrophils Percent Auto 71.7 % (45.5-73.1); Platelet Count Result 257 k/mm3 (150-375); Red Blood Count 3.08 M/mm3 (4.2-5.4); Red Cell Distribution Width 12.3 % (11.5-14.5)
[2023-05-24 06:58] LABS: Alanine Aminotransferase 24 U/L (6-35); Albumin Level 3.2 g/dL (3.5-5.1); Alkaline Phosphatase 80 U/L (38-126); Anion Gap 2 mmol/L (4-12); Aspartate Amino Transferase 24 U/L (14-36); Bilirubin,Total 0.5 mg/dL (0.2-1.3); Blood Urea Nitrogen 36 mg/dL (7-17); Calcium 8.1 mg/dL (8.4-10.2); Carbon Dioxide 30 mmol/L (22-30); Chloride 103 mmol/L (98-107); Estimated CRCL calculation 42 ml/min; Estimated Glomerular Filt Rate 49; Glucose 127 mg/dL (65-110); Magnesium 2.5 mg/dL (1.6-2.3); Potassium 3.6 mmol/L (3.4-5.0); Sodium 135 mmol/L (137-145)
[2023-05-24] MEDS: LORazepam INJ (*CRX) 2 MG/ML VIAL 0.5 MG IV PUSH (07:05)
[2023-05-24] MEDS: SODIUM CHLORIDE 0.9% INJ 10 ML (07:05)
[2023-05-24 07:54] LABS: Platelet Estimate Adequate (Adequate); Schistocytes None Seen
[2023-05-24 08:09] LABS: Glucose Point of Care 144 mg/dl (65-105)
[2023-05-24] MEDS: MAGNESIUM 27 MG TABLET (500 MG MAG GLUCONATE) PO (09:28)
[2023-05-24] MEDS: guaiFENesin 12 HR 600 MG TABCR PO (09:28)
[2023-05-24] MEDS: polyethylene glycoL 3350 17 GM POWD.PACK PO (09:28)
[2023-05-24] MEDS: ENOXAPARIN 40 MG/0.4 ML SYRINGE SUB-Q (09:28)
[2023-05-24] MEDS: PANTOPRAZOLE 40 MG TABLET PO (09:28)
--- NOTE | 2023-05-24 10:10 | PM.IMPN ---
Progress Note: A&P Assessment and Plan (1) Incarcerated incisional hernia: Code(s): K43.0 - Incisional hernia with obstruction, without gangrene Status: Acute Assessment and Plan: -Management per surgical team (2) Dyspnea: Code(s): R06.00 - Dyspnea, unspecified Status: Acute Assessment and Plan: 05/21: -patient had tachycardia tachypnea decreased oxygen sats and hypertension this morning. -Troponin was negative. -EKG showed sinus tachycardia rate 102 with left axis deviation QRS axis -35 and right bundle branch block QRS duration 133 QTC 397 no STEMI -chest x-ray atelectasis versus pneumonia -CTA small lung volumes with moderate atelectasis bilaterally, no PE -patient on supplemental oxygen titrated between 1 and 2 liters/minute -encourage use of incentive spirometer, continue IV antibiotics, and DC vancomycin if MRSA nares is negative -mobilize, ambulate with therapy tomorrow if at all possible 05/22: not significantly improved 05/23: worsening dyspnea, full cycle wheezing and respiratory distress today. DuoNeb, Solu-Medrol, IV magnesium and BiPAP improving work of breathing (3) Acute respiratory failure with hypoxia and hypercapnia: Code(s): J96.01 - Acute respiratory failure with hypoxia; J96.02 - Acute respiratory failure with hypercapnia Status: Acute Assessment and Plan: -See Dyspnea above. -ABG pCO2 to 57.2, PO2 68.5 on 1.5 liters/minute nasal cannula -no history of respiratory failure, asthma, COPD, smoking -negative CTA PE protocol -possibly obesity related hypoventilation syndrome verses abdominal distension causing diaphragmatic compression -ApneaLink ordered 05/22: ApneaLink indicates likely sleep apnea 05/23: worsening dyspnea, full cycle wheezing and respiratory distress today. DuoNeb, Solu-Medrol, IV magnesium and BiPAP improving work of breathing (4) Diabetes: Qualifiers: Diabetes mellitus type: type 2 Diabetes mellitus halfway insulin use: without halfway use Diabetes mellitus complication status: with hyperglycemia Qualified Code(s): E11.65 - Type 2 diabetes mellitus with hyperglycemia Code(s): E11.9 - Type 2 diabetes mellitus without complications Status: Acute Assessment and Plan: 05/21: -ACHS fingerstick glucose with Moderate dose SSI. -Stop metformin due to IV contrast for CTA x2 on 05/21 -Recheck labs this afternoon as patient is on several medications that can be Neprhotoxic (5) Stroke-like symptoms: Code(s): R29.90 - Unspecified symptoms and signs involving the nervous system Status: Acute Assessment and Plan: 05/21: -Patient with confusion right upper extremity weakness word-finding difficulties repetitive vocalizations but negative CT, CTA, MRI/MRA of head neck. -described confusion has been present since at least 05/20 -Neurology is consulted as well -Consider metabolic encephalopathy or prolonged recovery from anesthesia 05/22: added echocardiogram with bubble study lipid panel as requested by Neurology. Daily aspirin 81 mg when okay with surgery Summary ? 1. Complete two-dimensional, color flow and Doppler transthoracic echocardiogram is performed. ? 2. Left ventricular chamber dimension is normal. ? 3. Left ventricular systolic function is normal, estimated at 60-65%. ? 4. The left ventricular diastolic function is grade I diastolic dysfunction. ? 5. E/e' 13 is mildly elevated. ? 6. There is mild aortic valve sclerosis. ? 7. The mitral valve has mildly calcified annulus. ? 8. There is mild tricuspid valve regurgitation. ? 9. Mild pulmonary hypertension, estimated pulmonary arterial systolic pressure is 47 mmHg. ? 10. There is trace pulmonic regurgitation. Plan Pulmonology consult, consider transfer to IMU Time Spent With Patient Time with patient: Greater than 35 minutes Subjective Date/time seen: 05/24/23 10:10 Interval history: Nursing staff notified me that patient was having significant wheezing tachypnea and dyspnea. On evaluation patient appeared to be in more respiratory distress with full cycle wheezing. She remains altered LOC /confused. Pulmonology has been consulted but has not yet seen the patient. Ordered DuoNeb, Solu-Medrol, IV magnesium and ABG. ABG was likely mixed blood per RT that yvonne the sample however there was worsening acidosis and consistently elevated pCO2. Patient placed on at 12/6 and 40%. Repeat ABG showing better oxygenation with slight improvement in pH but essentially unchanged pCO2. Patient appeared more comfortable after starting BiPAP. Review of Systems Review of Systems: All systems reviewed & are unremarkable except as noted in HPI and below Exam Narrative: GENERAL: Patient remains confused with tachypnea and audible wheezing HEAD: Normocephalic, atraumatic. ENT:? Mucous membranes moist. CHEST: increased work of breathing full cycle wheezing diminished air movement. Supplemental oxygenation in place HEART: Borderline tachycardic rate and regular rhythm. ? Normal peripheral pulses. ABDOMEN: Mildly distended appearing, TAYE drains in place-small amount of serous drainage, incision bandaged mildly tender to palpation along the incision line EXTREMITIES: Normal range of motion. No peripheral edema. SKIN: Warm dry normal color NEURO: Alert and oriented x3. Confusion and mild agitation noted moving all extremities but still holding a cup very well with right upper extremity PSYCH: Normal mood and anxious affect Objective Data Vital Signs Vital Signs: Vital Signs - 24 hr 05/23/23 11:39 05/23/23 14:00 05/23/23 21:19 Temperature 36.8 C 36.6 C Pulse Rate 99 92 Respiratory Rate 18 20 Blood Pressure 143/61 H 152/58 H Pulse Oximetry 98 99 Oxygen Delivery Nasal Cannula Oxygen Flow Rate 1 Fraction of Inspired Oxygen 05/23/23 20:00 05/24/23 05:43 Temperature 36.5 C Pulse Rate 91 Respiratory Rate 20 Blood Pressure 152/61 H Pulse Oximetry 99 99 Oxygen Delivery Nasal Cannula Oxygen Flow Rate 1 Fraction of Inspired Oxygen 28 Intake/Output Intake/Output: Intake & Output 05/21/23 05/22/23 05/23/23 05/24/23 23:59 23:59 23:59 23:59 Intake Total 1110 1310 1400 420 Output Total 1020 1295 790 65 Balance 90 15 610 355 Meds/Results Medications: Active Medications Generic Name Dose Route Start Last Admin Trade Name Freq PRN Reason Stop Dose Admin Acetaminophen 650 mg 05/19/23 17:56 Acetaminophen 325 Mg Tablet PO Q6H PRN Mild Pain (1-3) or Fever Dextrose 12.5 gm 05/22/23 17:43 Dextrose 50% 25 Gm/50 Ml Syringe IV PUSH PRN PRN Hypoglycemia Protocol Enoxaparin Sodium 40 mg 05/20/23 09:00 05/24/23 09:28 Enoxaparin 40 Mg/0.4 Ml Syringe SUB-Q 40 mg DAILY BRANT Administration Glucagon 1 mg 05/22/23 17:43 Glucagon For Inj 1 Mg Vial IM PRN PRN Hypoglycemia Protocol Glucose 15 gm 05/22/23 17:43 Glucose Oral Gel 15 Gm Of Glucse In 37.5 Gm Tube PO PRN PRN Hypoglycemia Protocol Guaifenesin 600 mg 05/24/23 09:00 04/13/24 09:28 Guaifenesin 12 Hr 600 Mg Tabcr PO 600 mg Q12HR BRANT Administration Hydromorphone HCl 0.5 mg 05/19/23 17:56 05/22/23 22:50 Hydromorphone Hcl Inj (*Crx) 1 Mg/Ml Syr IV PUSH 0.5 mg Q2H PRN Administration Pain Rated 4-6 Hydromorphone HCl 1 mg 05/19/23 17:56 05/20/23 22:16 Hydromorphone Hcl Inj (*Crx) 1 Mg/Ml Syr IV PUSH 1 mg Q2H PRN Administration Pain Rated 7-10 Ibuprofen 800 mg in 200 mls @ 400 mls/hr 05/19/23 18:00 05/24/23 05:22 Caldolor 800 Mg/200 Ml IVPB 400 mls/hr Q6H BRANT Administration Cefepime HCl 2 gm in 50 mls @ 100 mls/hr 05/21/23 18:00 05/24/23 06:18 Maxipime 2 Gm/Ns 50 Ml IVPB 100 mls/hr Q12H BRANT Administration Dextrose 1,000 mls @ 100 mls/hr 05/22/23 17:43 Dextrose 5% 1,000 Ml IVPB PRN PRN Hypoglycemia Protocol Insulin Aspart 1 - 3 units 05/22/23 21:00 05/23/23 20:57 Insulin Aspart (*Bkc) 100 Units/Ml SUB-Q Not Given HS BRANT Protocol Insulin Aspart 3 - 6 units 05/23/23 08:00 05/24/23 09:29 Insulin Aspart (*Bkc) 100 Units/Ml SUB-Q Not Given TIDWM [facility] Protocol Latanoprost 1 drop 05/19/23 21:00 05/23/23 21:05 Latanoprost 0.005% Op Soln 2.5 Ml Btl EACH EYE 1 drop HS BRANT Administration Lorazepam 0.5 mg 05/23/23 16:41 05/24/23 07:05 Lorazepam Inj (*Crx) 2 Mg/Ml Vial IV PUSH 0.5 mg Q6H PRN Administration Anxiety Magnesium Gluconate 27 mg 05/20/23 09:00 05/24/23 09:28 Magnesium 27 Mg Tablet (500 Mg Mag Gluconate) PO 27 mg DAILY BRANT Administration Naloxone HCl 0.1 mg 05/19/23 17:56 Naloxone Hcl 0.4 Mg/Ml Vial IV PUSH Q2M PRN Opiate Reversal Ondansetron HCl 4 mg 05/19/23 17:56 05/22/23 21:58 Ondansetron Inj 4 Mg/2 Ml Vial IV PUSH 4 mg Q4H PRN Administration Nausea And Vomiting Oxycodone HCl 2.5 mg 05/19/23 17:56 05/20/23 16:49 Oxycodone Hcl (*Crx) 2.5 Mg Tab Ir PO 2.5 mg Q4H PRN Administration Pain Rated 4-6 Oxycodone HCl 5 mg 05/19/23 17:56 05/21/23 20:33 Oxycodone Hcl (*Crx) 5 Mg Tab Ir PO 5 mg Q4H PRN Administration Pain Rated 7-10 Pantoprazole Sodium 40 mg 05/20/23 09:00 05/24/23 09:28 Pantoprazole 40 Mg Tablet PO 40 mg QAM BRANT Administration Perflutren Lipid Microsphere 0 ml 05/23/23 12:51 Perflutren Lipid Microspheres 1.5 Ml Vial Diluted To 10 Ml Total Volume IV PUSH 05/26/23 12:51 ONCE PRN adequate visualization Protocol Polyethylene Glycol 17 gm 05/20/23 09:00 05/24/23 09:28 Polyethylene Glycol 3350 17 Gm Powd.Pack PO 17 gm QAM BRANT Administration Pravastatin Sodium 20 mg 05/19/23 21:00 05/23/23 21:05 Pravastatin Sodium 20 Mg Tablet PO 20 mg QHS BRANT Administration Sodium Chloride 10 ml 05/22/23 22:00 05/24/23 06:18 Saline Lock Flush IV PUSH 10 ml Q8HR BRANT Administration Sodium Chloride 10 ml 05/22/23 16:07 Saline Lock Flush IV PUSH PRN PRN Flush Sodium Chloride 20 ml 05/22/23 16:07 Saline Lock Flush IV PUSH PRN PRN after blood draws Radiology Results: ITS Impressions Chest X-Ray 05/21/23 17:41 Impression: 1: Bibasilar airspace disease may represent pneumonia and/or atelectasis. Head CT 05/22/23 09:50 IMPRESSION: 1. Moderate scattered white matter hypoattenuation consistent with chronic small vessel ischemic disease. No other acute intracranial process. Chest CTA 05/22/23 09:51 IMPRESSION: 1. No pulmonary embolus. Sensitivity is severely decreased by motion artifact. 2. Small lung volumes with moderate atelectasis bilaterally. Brain MRI 05/22/23 13:08 IMPRESSION: 1. No acute intracranial process or abnormally enhancing brain lesions. 2. Moderate scattered nonspecific periventricular predominant white matter T2 hyperintensity which is within normal limits for age and likely sequela of chronic small vessel ischemic disease. Head/Neck CTA 05/22/23 13:14 IMPRESSION: 1. 0% stenosis of the right and left carotid bulbs relative to normal distal artery lumen diameter (NASCET criteria). 2. Small amount of nonhemodynamically significant atherosclerotic plaque at the bilateral carotid siphons. Otherwise unremarkable cerebral CT angiogram with no hemodynamically significant stenosis or aneurysm. Brain MRA 05/22/23 13:36 IMPRESSION: 1. Normal cerebral MR angiogram. Neck MRA 05/22/23 13:37 IMPRESSION: 1. 0% stenosis of the right and left carotid bulbs relative to normal distal artery lumen diameter (NASCET criteria). 2. 20-30% stenosis along the cervical portion of the left vertebral artery immediately distal to the carotid bulb. Labs Labs: Laboratory Results - last 24 hr 05/23/23 05/23/23 05/23/23 09:21 11:55 16:23 WBC 12.5 H RBC 3.49 L Hgb 11.6 L Hct 38.5 MCV 110.3 H MCH 33.2 MCHC 30.1 L RDW 12.2 Plt Count 253 MPV 10.2 Immature Gran % (Auto) 0.4 Neut % (Auto) 72.5 Lymph % (Auto) 9.5 L [place] % (Auto) 13.3 H Eos % (Auto) 3.8 Baso % (Auto) 0.5 Lymph # (Auto) 1.18 [place] # (Auto) 1.7 H Eos # (Auto) 0.5 H Baso # (Auto) 0.1 Abs Immat Gran (auto) 0.05 H Absolute Neuts (auto) 9.1 H Absolute Nucleated RBC 0.000 Nucleated RBC % 0.0 Platelet Estimate Adequate Anisocytosis 1+ Macrocytosis 1+ Schistocytes None seen Sodium Potassium Chloride Carbon Dioxide Anion Gap BUN Creatinine Estim Creat Clear Calc Estimated GFR Glucose POC Capillary Glucose 138 H 153 H Calcium Magnesium Total Bilirubin AST ALT Alkaline Phosphatase Total Protein Albumin Triglycerides 133 Cholesterol 118 LDL Cholesterol Direct 69 HDL Direct 32 05/23/23 05/24/23 05/24/23 20:49 05:59 07:56 WBC 12.0 H RBC 3.08 L Hgb 10.4 L Hct 33.1 L MCV 107.5 H MCH 33.8 MCHC 31.4 L RDW 12.3 Plt Count 257 MPV 10.1 Immature Gran % (Auto) 0.5 Neut % (Auto) 71.7 Lymph % (Auto) 12.4 L [place] % (Auto) 9.7 H Eos % (Auto) 5.2 H Baso % (Auto) 0.5 Lymph # (Auto) 1.49 [place] # (Auto) 1.2 H Eos # (Auto) 0.6 H Baso # (Auto) 0.1 Abs Immat Gran (auto) 0.06 H Absolute Neuts (auto) 8.6 H Absolute Nucleated RBC 0.000 Nucleated RBC % 0.0 Platelet Estimate Adequate Anisocytosis Macrocytosis Schistocytes None seen Sodium 135 L Potassium 3.6 Chloride 103 Carbon Dioxide 30 Anion Gap 2 L BUN 36 H Creatinine 1.10 H Estim Creat Clear Calc 42 Estimated GFR 49 L Glucose 127 H POC Capillary Glucose 157 H 144 H Calcium 8.1 L Magnesium 2.5 H Total Bilirubin 0.5 AST 24 ALT 24 Alkaline Phosphatase 80 Total Protein 6.0 L Albumin 3.2 L Triglycerides Cholesterol LDL Cholesterol Direct HDL Direct Pulse Oximetry SpO2 results: SpO2 not accurately documented but was reported to be in the 80s on room air per respiratory therapy and in the 90s on 2 L prior to initiation BiPAP Attestation: I personally reviewed and interpreted this pulse oximetry as follows: Interpretation: patient continues to need supplemental oxygenation and now noninvasive ventilation Quality VTE Prophylaxis VTE prophylaxis: pharmacologic ordered
[2023-05-24] MEDS: IPRATROPIUM 0.5 MG/ALBUTEROL SULFATE 2.5 MG AMPUL.NEB 3 ML INHALATION ×3 (10:39→20:31)
[2023-05-24 10:46] LABS: Alveolar/Arterial O2 Gradient 33.6 mmHg; Fractional Inspired Oxygen 21 %; HCO3 ABG 25.6 mEq/l (22.0-26.0); Oxygen Content ABG 14.4 %vol (16.0-22.0); PCO2 ABG 56.8 mmHg (35.0-45.0); PO2 FiO2 Ratio Arterial Blood 2.29 %; Total Hemoglobin 12.3 g/dL (12.0-18.0)
[2023-05-24 10:47] LABS: pH ABG 7.272 (7.350-7.450)
[2023-05-24 10:48] LABS: Oxygen Saturation ABG 77.7 % (95.0-100.0); Oxyhemoglobin 83.1 % THb (90.0-100.0); PO2 ABG 48.1 mmHg (80.0-100.0)
[2023-05-24 10:49] LABS: Device ROOM AIR; Site Drawn RIGHT BRACHIAL
[2023-05-24] MEDS: MAGNESIUM SULF 2 GM/WATER 50ML 2 GM/50 ML BAG IVPB (11:16)
[2023-05-24] MEDS: methylPREDNISolone SOD SUCC 125 MG VIAL IV PUSH (11:19)
[2023-05-24 12:04] LABS: Appearance Urine Clear (Clear); Bacteria Urine None Seen /hpf; Bilirubin Urine Negative (Negative); Blood Urine Negative (Negative); Color Urine Yellow (Yellow); Glucose Urine UA Negative (Negative); Granular Casts Urine Present /lpf; Ketones Urine Trace mg/dL (Negative); Leukocyte Esterase Ur Negative LEU/UL (Negative); Nitrate Urine Negative (Negative); Protein Urine 2+ mg/dL (Negative); Specific Grav Ur 1.026 (1.001-1.035); Squamous Epithelial Cell Urine Moderate /hpf (Few); Urobilinogen Urine 0.2 mg/dL (<2.0); pH Urine 5.5 (5.0-9.0)
[2023-05-24 12:05] LABS: Glucose Point of Care 152 mg/dl (65-105)
[2023-05-24 12:09] LABS: Add Urine Microscopic? YES
--- NOTE | 2023-05-24 12:25 | PCPTNOTE ---
RN stated to hold PT for today. Cont per POC
--- NOTE | 2023-05-24 12:44 | PCOTNOTE ---
Per RN, Pt is not medically appropriate at this time. Will continue per poc duration/frequency when medically appropriate.
--- NOTE | 2023-05-24 12:59 | PM.PNGS ---
Progress Note: A&P Assessment and Plan (1) Incarcerated incisional hernia: Code(s): K43.0 - Incisional hernia with obstruction, without gangrene Status: Acute Assessment and Plan: cont routine postop care, exam benign (2) Acute respiratory failure with hypoxia and hypercapnia: Code(s): J96.01 - Acute respiratory failure with hypoxia; J96.02 - Acute respiratory failure with hypercapnia Status: Acute Assessment and Plan: worsening MS likely secondary to hypoxia, await pulmonary input, repeat ABG later today Subjective Subjective Date/Time Seen: 05/24/23 12:59 Interval history: more confused and lethargic, denies abd pain Review of Systems Review of Systems: ROS unobtainable: Yes unobtainable due to mental status Exam Const: General: ill appearing, lethargic and tired appearing Resp: Auscultation: diminished lung sounds Cardio: Rate: regular rate Rhythm: regular rhythm GI: Inspection: normal to inspection, distended and incision GI Palp: Yes abdominal tenderness, Yes Soft to palpation, Yes Tenderness to palpation present (GI), No Guarding due to palpation present (GI) and No Rigid due to palpation Other: TAYE x 2 c s/s output Objective Data Vital Signs Vital Signs: Vital Signs - 24 hr 05/23/23 14:00 05/23/23 21:19 05/23/23 20:00 Temperature 36.8 C 36.6 C Pulse Rate 99 92 Respiratory Rate 18 20 Blood Pressure 143/61 H 152/58 H Pulse Oximetry 98 99 99 Oxygen Delivery Nasal Cannula Oxygen Flow Rate 1 Fraction of Inspired Oxygen 28 05/24/23 05:43 05/24/23 10:40 05/24/23 08:25 Temperature 36.5 C Pulse Rate 91 Respiratory Rate 20 22 H Blood Pressure 152/61 H Pulse Oximetry 99 91 Oxygen Delivery Room Air Oxygen Flow Rate Fraction of Inspired Oxygen 05/24/23 10:46 Temperature Pulse Rate Respiratory Rate 22 H Blood Pressure Pulse Oximetry Oxygen Delivery Oxygen Flow Rate Fraction of Inspired Oxygen Intake/Output Intake/Output: Intake & Output 05/21/23 05/22/23 05/23/23 05/24/23 23:59 23:59 23:59 23:59 Intake Total 1110 1310 1400 420 Output Total 1020 1295 790 125 Balance 90 15 610 295 Meds/Results Medications: Active Medications Generic Name Dose Route Start Last Admin Trade Name Freq PRN Reason Stop Dose Admin Acetaminophen 650 mg 05/19/23 17:56 Acetaminophen 325 Mg Tablet PO Q6H PRN Mild Pain (1-3) or Fever Albuterol/Ipratropium 3 ml 05/24/23 14:00 Ipratropium 0.5 Mg/Albuterol Sulfate 2.5 Mg Ampul.Neb 3 Ml INHALATION Q6HRT [facility] Ascorbic Acid 500 mg 05/25/23 09:00 Ascorbic Acid 500 Mg Tablet PO DAILY [facility] Azithromycin 500 mg 05/25/23 09:00 Azithromycin 250 Mg Tablet PO 05/28/23 10:00 DAILY [facility] Cyanocobalamin 1,000 mcg 05/25/23 09:00 Cyanocobalamin 1,000 Mcg Tablet PO DAILY [facility] Dextrose 12.5 gm 05/22/23 17:43 Dextrose 50% 25 Gm/50 Ml Syringe IV PUSH PRN PRN Hypoglycemia Protocol Enoxaparin Sodium 40 mg 05/20/23 09:00 05/24/23 09:28 Enoxaparin 40 Mg/0.4 Ml Syringe SUB-Q 40 mg DAILY [facility] Administration Glucagon 1 mg 05/22/23 17:43 Glucagon For Inj 1 Mg Vial IM PRN PRN Hypoglycemia Protocol Glucose 15 gm 05/22/23 17:43 Glucose Oral Gel 15 Gm Of Glucse In 37.5 Gm Tube PO PRN PRN Hypoglycemia Protocol Guaifenesin 600 mg 05/24/23 09:00 05/24/23 09:28 Guaifenesin 12 Hr 600 Mg Tabcr PO 600 mg Q12HR [facility] Administration Hydromorphone HCl 0.5 mg 05/19/23 17:56 05/22/23 22:50 Hydromorphone Hcl Inj (*Crx) 1 Mg/Ml Syr IV PUSH 0.5 mg Q2H PRN Administration Pain Rated 4-6 Hydromorphone HCl 1 mg 05/19/23 17:56 05/20/23 22:16 Hydromorphone Hcl Inj (*Crx) 1 Mg/Ml Syr IV PUSH 1 mg Q2H PRN Administration Pain Rated 7-10 Ibuprofen 800 mg in 200 mls @ 400 mls/hr 05/19/23 18:00 05/24/23 05:22 Caldolor 800 Mg/200 Ml IVPB 400 mls/hr Q6H [facility] Administration Cefepime HCl 2 gm in 50 mls @ 100 mls/hr 05/21/23 18:00 05/24/23 06:18 Maxipime 2 Gm/Ns 50 Ml IVPB 100 mls/hr Q12H [facility] Administration Dextrose 1,000 mls @ 100 mls/hr 05/22/23 17:43 Dextrose 5% 1,000 Ml IVPB PRN PRN Hypoglycemia Protocol Insulin Aspart 1 - 3 units 05/22/23 21:00 05/23/23 20:57 Insulin Aspart (*Bkc) 100 Units/Ml SUB-Q Not Given HS [facility] Protocol Insulin Aspart 3 - 6 units 05/23/23 08:00 05/24/23 09:29 Insulin Aspart (*Bkc) 100 Units/Ml SUB-Q Not Given TIDWM [facility] Protocol Latanoprost 1 drop 05/19/23 21:00 05/23/23 21:05 Latanoprost 0.005% Op Soln 2.5 Ml Btl EACH EYE 1 drop HS [facility] Administration Magnesium Gluconate 27 mg 05/20/23 09:00 05/24/23 09:28 Magnesium 27 Mg Tablet (500 Mg Mag Gluconate) PO 27 mg DAILY [facility] Administration Naloxone HCl 0.1 mg 05/19/23 17:56 Naloxone Hcl 0.4 Mg/Ml Vial IV PUSH Q2M PRN Opiate Reversal Ondansetron HCl 4 mg 05/19/23 17:56 05/22/23 21:58 Ondansetron Inj 4 Mg/2 Ml Vial IV PUSH 4 mg Q4H PRN Administration Nausea And Vomiting Oxycodone HCl 2.5 mg 05/19/23 17:56 05/20/23 16:49 Oxycodone Hcl (*Crx) 2.5 Mg Tab Ir PO 2.5 mg Q4H PRN Administration Pain Rated 4-6 Oxycodone HCl 5 mg 05/19/23 17:56 05/21/23 20:33 Oxycodone Hcl (*Crx) 5 Mg Tab Ir PO 5 mg Q4H PRN Administration Pain Rated 7-10 Pantoprazole Sodium 40 mg 05/20/23 09:00 05/24/23 09:28 Pantoprazole 40 Mg Tablet PO 40 mg QAM [facility] Administration Perflutren Lipid Microsphere 0 ml 05/23/23 12:51 Perflutren Lipid Microspheres 1.5 Ml Vial Diluted To 10 Ml Total Volume IV PUSH 05/26/23 12:51 ONCE PRN adequate visualization Protocol Polyethylene Glycol 17 gm 05/20/23 09:00 05/24/23 09:28 Polyethylene Glycol 3350 17 Gm Powd.Pack PO 17 gm QAM [facility] Administration Pravastatin Sodium 20 mg 05/19/23 21:00 05/23/23 21:05 Pravastatin Sodium 20 Mg Tablet PO 20 mg QHS [facility] Administration Sodium Chloride 10 ml 05/22/23 22:00 05/24/23 06:18 Saline Lock Flush IV PUSH 10 ml Q8HR [facility] Administration Sodium Chloride 10 ml 05/22/23 16:07 Saline Lock Flush IV PUSH PRN PRN Flush Sodium Chloride 20 ml 05/22/23 16:07 Saline Lock Flush IV PUSH PRN PRN after blood draws Vitamin D 1,000 units 05/25/23 09:00 Cholecalciferol 1,000 Units Tablet PO [id number]@[id number] [facility] Radiology Results: ITS Impressions Chest X-Ray 05/21/23 17:41 Impression: 1: Bibasilar airspace disease may represent pneumonia and/or atelectasis. Head CT 05/22/23 09:50 IMPRESSION: 1. Moderate scattered white matter hypoattenuation consistent with chronic small vessel ischemic disease. No other acute intracranial process. Chest CTA 05/22/23 09:51 IMPRESSION: 1. No pulmonary embolus. Sensitivity is severely decreased by motion artifact. 2. Small lung volumes with moderate atelectasis bilaterally. Brain MRI 05/22/23 13:08 IMPRESSION: 1. No acute intracranial process or abnormally enhancing brain lesions. 2. Moderate scattered nonspecific periventricular predominant white matter T2 hyperintensity which is within normal limits for age and likely sequela of chronic small vessel ischemic disease. Head/Neck CTA 05/22/23 13:14 IMPRESSION: 1. 0% stenosis of the right and left carotid bulbs relative to normal distal artery lumen diameter (NASCET criteria). 2. Small amount of nonhemodynamically significant atherosclerotic plaque at the bilateral carotid siphons. Otherwise unremarkable cerebral CT angiogram with no hemodynamically significant stenosis or aneurysm. Brain MRA 05/22/23 13:36 IMPRESSION: 1. Normal cerebral MR angiogram. Neck MRA 05/22/23 13:37 IMPRESSION: 1. 0% stenosis of the right and left carotid bulbs relative to normal distal artery lumen diameter (NASCET criteria). 2. 20-30% stenosis along the cervical portion of the left vertebral artery immediately distal to the carotid bulb. Labs Labs: Laboratory Results - last 24 hr 05/23/23 05/23/23 05/23/23 09:21 16:23 20:49 WBC RBC Hgb Hct MCV MCH MCHC RDW Plt Count MPV Immature Gran % (Auto) Neut % (Auto) Lymph % (Auto) [place] % (Auto) Eos % (Auto) Baso % (Auto) Lymph # (Auto) [place] # (Auto) Eos # (Auto) Baso # (Auto) Abs Immat Gran (auto) Absolute Neuts (auto) Absolute Nucleated RBC Nucleated RBC % Platelet Estimate Schistocytes Puncture Site ABG pH ABG pCO2 ABG pO2 ABG PO2/FiO2 Ratio ABG HCO3 ABG O2 Saturation ABG O2 Content ABG Base Excess A-a Gradient Oxyhemoglobin Total Hemoglobin O2 Delivery Device O2 Liters/Min FiO2 Sodium Potassium Chloride Carbon Dioxide Anion Gap BUN Creatinine Estim Creat Clear Calc Estimated GFR Glucose POC Capillary Glucose 153 H 157 H Calcium Magnesium Total Bilirubin AST ALT Alkaline Phosphatase Total Protein Albumin Triglycerides 133 Cholesterol 118 LDL Cholesterol Direct 69 HDL Direct 32 Urine Color Urine Appearance Urine pH Ur Specific [place] Urine Protein Urine Glucose (UA) Urine Ketones Ur Blood (Man) Urine Nitrate Urine Bilirubin Urine Urobilinogen Leukocyte Esterase Rfl Urine RBC Urine WBC Ur Squamous Epith Cells Urine Bacteria Urine Casts Granular Casts 05/24/23 05/24/23 05/24/23 05:59 07:56 10:39 WBC 12.0 H RBC 3.08 L Hgb 10.4 L Hct 33.1 L MCV 107.5 H MCH 33.8 MCHC 31.4 L RDW 12.3 Plt Count 257 MPV 10.1 Immature Gran % (Auto) 0.5 Neut % (Auto) 71.7 Lymph % (Auto) 12.4 L [place] % (Auto) 9.7 H Eos % (Auto) 5.2 H Baso % (Auto) 0.5 Lymph # (Auto) 1.49 [place] # (Auto) 1.2 H Eos # (Auto) 0.6 H Baso # (Auto) 0.1 Abs Immat Gran (auto) 0.06 H Absolute Neuts (auto) 8.6 H Absolute Nucleated RBC 0.000 Nucleated RBC % 0.0 Platelet Estimate Adequate Schistocytes None seen Puncture Site Right brachial ABG pH 7.272 L* ABG pCO2 56.8 H ABG pO2 48.1 L* ABG PO2/FiO2 Ratio 2.29 ABG HCO3 25.6 ABG O2 Saturation 77.7 L* ABG O2 Content 14.4 L ABG Base Excess -2.0 A-a Gradient 33.6 Oxyhemoglobin 83.1 L* Total Hemoglobin 12.3 O2 Delivery Device Room air O2 Liters/Min Not Reportable FiO2 21 Sodium 135 L Potassium 3.6 Chloride 103 Carbon Dioxide 30 Anion Gap 2 L BUN 36 H Creatinine 1.10 H Estim Creat Clear Calc 42 Estimated GFR 49 L Glucose 127 H POC Capillary Glucose 144 H Calcium 8.1 L Magnesium 2.5 H Total Bilirubin 0.5 AST 24 ALT 24 Alkaline Phosphatase 80 Total Protein 6.0 L Albumin 3.2 L Triglycerides Cholesterol LDL Cholesterol Direct HDL Direct Urine Color Urine Appearance Urine pH Ur Specific [place] Urine Protein Urine Glucose (UA) Urine Ketones Ur Blood (Man) Urine Nitrate Urine Bilirubin Urine Urobilinogen Leukocyte Esterase Rfl Urine RBC Urine WBC Ur Squamous Epith Cells Urine Bacteria Urine Casts Granular Casts 05/24/23 05/24/23 11:27 12:00 WBC RBC Hgb Hct MCV MCH MCHC RDW Plt Count MPV Immature Gran % (Auto) Neut % (Auto) Lymph % (Auto) [place] % (Auto) Eos % (Auto) Baso % (Auto) Lymph # (Auto) [place] # (Auto) Eos # (Auto) Baso # (Auto) Abs Immat Gran (auto) Absolute Neuts (auto) Absolute Nucleated RBC Nucleated RBC % Platelet Estimate Schistocytes Puncture Site ABG pH ABG pCO2 ABG pO2 ABG PO2/FiO2 Ratio ABG HCO3 ABG O2 Saturation ABG O2 Content ABG Base Excess A-a Gradient Oxyhemoglobin Total Hemoglobin O2 Delivery Device O2 Liters/Min FiO2 Sodium Potassium Chloride Carbon Dioxide Anion Gap BUN Creatinine Estim Creat Clear Calc Estimated GFR Glucose POC Capillary Glucose 152 H Calcium Magnesium Total Bilirubin AST ALT Alkaline Phosphatase Total Protein Albumin Triglycerides Cholesterol LDL Cholesterol Direct HDL Direct Urine Color Yellow Urine Appearance Clear Urine pH 5.5 Ur Specific [place] 1.026 Urine Protein 2+ H Urine Glucose (UA) Negative Urine Ketones Trace H Ur Blood (Man) Negative Urine Nitrate Negative Urine Bilirubin Negative Urine Urobilinogen 0.2 Leukocyte Esterase Rfl Negative Urine RBC 6-10 H Urine WBC 6-10 H Ur Squamous Epith Cells Moderate Urine Bacteria None seen Urine Casts 3-5 Granular Casts Present
[2023-05-24] MEDS: AZITHROMYCIN 250 MG TABLET 500 MG PO (13:03)
[2023-05-24 14:59] LABS: Alveolar/Arterial O2 Gradient 120.9 mmHg; Base Excess ABG 0.3 mEq/l (+/-2.0); Fractional Inspired Oxygen 40 %; HCO3 ABG 27.2 mEq/l (22.0-26.0); Oxygen Content ABG 16.7 %vol (16.0-22.0); Oxygen Saturation ABG 97.1 % (95.0-100.0); Oxyhemoglobin 96.3 % THb (90.0-100.0); PCO2 ABG 54.2 mmHg (35.0-45.0); PO2 FiO2 Ratio Arterial Blood 2.55 %; Total Hemoglobin 12.2 g/dL (12.0-18.0); pH ABG 7.318 (7.350-7.450)
[2023-05-24 15:01] LABS: Device NON-INVASIVE VENT; Modified Allen's Test Pass; Non-Invasive Expiratory Pressure 6 CMH2O; Non-Invasive Inspiratory Pressure 12 CMH2O; Non-Invasive Vent Rate 18 /MIN; Site Drawn RIGHT RADIAL
--- NOTE | 2023-05-24 15:02 | P.CONPL_ITS ---
Assessment and Plan Assessment and plan (1) Acute respiratory failure with hypoxia and hypercapnia: Code(s): J96.01 - Acute respiratory failure with hypoxia; J96.02 - Acute respiratory failure with hypercapnia Status: Acute Assessment and Plan: This is a combination of multiple factors, large abdominal incision which creates a restrictive impairment due to pain, pressure on the diaphragm, and she had underlying restrictive anatomy due to her dextroscoliosis, she has poor inspiratory effort, increasing atelectasis and she may have pulmonary vascular redistribution. Her chest x-ray from May 20 appears to have less cephalization. Her BUN and creatinine are increasing, her numbers appear dry 36 and 1.1 however her chest x-ray appears wet. Her white blood cell count is lower, does not appear to have pneumonia but she definitely has atelectasis. We will aggressively treat this with mucolytics, expiratory vibratory valve, increase tidal volume on BiPAP, incentive spirometer, and transfer to IMU for more monitoring. Plan Transfer to IMU for more nursing and RT care. Add Mucomyst 20% with lev-albuterol; she just had a nebulized treatment with albuterol, will try levalbuterol to avoid tachycardia. Add Cornet vibratory valve to clear secretions. pCXR, evaluate for atelectasis vs infiltrate; incentive spirometry to increase tidal volume and secretions clearance. Increase IPAP 14, continue EPAP 6, wean O2 35% Repeat ABG after transfer to IMU. Limit medications that alter sensorium. She received Ativan earlier today, family tells me that she was agitated afterwards. Stop hydromorphone and oxycodone. She has acetaminophen ordered. says she has not had pain since operation, has not needed pain meds. Increase mobility when she is not as likely to wobble and fall. She may like to get in a recliner. Increase her position to more upright to help clear secretions. She may need a modified barium swallow if this does not all clear in a few days, make sure she does not aspirate. I discussed with family and patient at the bedside after CXR was taken, 16:10. d/w hospitalist Noé Jimenez APRN, RN, History of Present Illness History of Present Illness Consult date: 05/24/23 Requesting physician: Abraham Farah MD Chief complaint: Incarcerated Incisional Hernia Narrative: patient was seen May 23 at 15:15 Room [address], patient's sister and patient's 2 sons @ bedside, gave history. NEW: Berenice Long is a 73-year-old woman who had an incarcerated incisional hernia repair FridayMay 18; this was an open incarcerated recurrent incisional hernia repair with mesh, Bilateral myofascial release, Removal of mesh foreign body, Extensive adhesiolysis; this lasted 5 hours which was longer than anticipated. She was fairly alert afterwards. 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 No occupational exposure, no ast hma, recurrent pneumonias, no lung disease. Over the next few days, she has had worsening mentation, was agitated today with Ativan, was trying to get out of the bed, was kept in bed by . She is requiring more O2, now on BiPAP 01/15 with 40% with ABG at 14:54 today pH 7.318, pCO2 53, pO2 102, HC03 27.2 saturation 97%. ABG earlier today showed pH 7.272, pCO2 57, PO2 48.1 saturation 99% on room air. This might have been a mixed venous blood gas. She had a cough with little sputum production yesterday, less today. Her mentation is less than optimal. PMH : DM; hyperlipidemia, hypertension, glaucoma, DATA * 05/22/23 CTA- IMPRESSION: No pulmonary embolus. Sensitivity is severely decreased by motion artifact. Small lung volumes with moderate atelectasis bilaterally. * 05/21 and 05/23 ABGs 05/21 05/23 10:39 05/23 14:54 pH 7.322 7.272 7.318 pCO2 57 57 53 pO2 68.5 48.1 102 HCO3 28.9 25.6 27.2 sat 92% 77% 97% O2 delivery nasal cannula bipap O2 1.5 L room air 40% rate IPAP 12 EPAP 6 * WBC initially on 05/20/23 was 19 k, lower now at 12 k on May 23. * 05/20/23 Initial BUN 19 with creatinine 0.7; May 23 BUN 36 creatinine 1.1 * 05/23/23 Complete two-dimensional, color flow and Doppler transthoracic echocardiogram is performed. ? 2. Left ventricular chamber dimension is normal. ? 3. Left ventricular systolic function is normal, estimated at 60-65%. ? 4. The left ventricular diastolic function is grade I diastolic dysfunction. ? 5. E/e' 13 is mildly elevated. ? 6. There is mild aortic valve sclerosis. ? 7. The mitral valve has mildly calcified annulus. ? 8. There is mild tricuspid valve regurgitation. ? 9. Mild pulmonary hypertension, estimated pulmonary arterial systolic pressure is 47 mmHg. ? 10. There is trace pulmonic regurgitation. * 05/24/23 pCXR today 16:02 = . Stable small lung volumes with airspace opacities in the mid and lower lung zones, consistent with atelectasis versus pneumonia. She has marked scoliosis and maybe right diaphragm elevation. This is contributing to her restrictive impairment, maybe was not appreciated before her surgery. * 05/21/23 CXR - Shallow inspiration. Bibasilar airspace disease. Cardiomegaly. No pneumothorax. No acute osseous abnormality. No significant effusion.Impression: IMPRESSION: Bibasilar airspace disease may represent pneumonia and/or atelectasis. Review of Systems Review of Systems: ROS unobtainable: Yes unobtainable due to mental status PMFSH Past Medical History Medical History Diabetes High cholesterol Surgical History Surgical History History of cholecystectomy History of hysterectomy History of knee replacement History of left inguinal hernia repair Previous section x2 Status post creation of urethral sling by suprapubic approach Family History Family History Father Pancreatic cancer Heart disease Mother Heart disease Diabetes mellitus Sibling Diabetes mellitus Social History Social History Smoking status: Never smoker Alcohol intake: never Substance use: never Substance use type: does not use Do You Feel Safe in your Home?: Yes Lack of Transportation: No Lack of Food: Never True Current Housing: I Have Housing Concerned About Future Housing: No Difficulty Paying Gas/Electric Bills: No Difficulty Paying for Meds: No Currently Unemployed: No Education: High School Diploma/GED Difficulty w/ Childcare or Family Care: No Living arrangements: with family Occupation/Education: 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: No Meds Home Medications and Allergies Home Medications Medication Instructions Recorded Confirmed Type hydrocodone 10 mg-acetaminophen 1 tablet PO Q8H PRN Pain 01/13/23 05/08/23 History 325 mg tablet meloxicam 15 mg tablet 15 mg PO DAILY 01/13/23 05/19/23 History metformin 500 mg tablet,extended 500 mg PO DAILY 01/13/23 05/19/23 History release 24 hr pantoprazole 40 mg tablet,delayed 40 mg PO QAM 01/13/23 05/19/23 History release pravastatin 20 mg tablet 20 mg PO QHS 01/13/23 05/19/23 History cinnamon 100 mg-chromium 100 1 cap PO DAILY 04/07/23 05/19/23 History wta-VID-ieppoxj-ginseng-green tea capsule nuzxmghj-vhho-inuwplx gluconate 9 15 ml PO DAILY 04/07/23 05/19/23 History mg iron/15 mL (15 mL) oral liquid (Centrum) alendronate 70 mg tablet 70 mg PO WEEKLY 05/08/23 05/19/23 History ascorbic acid (vitamin C) 500 mg 500 mg PO DAILY 05/08/23 05/19/23 History tablet cholecalciferol (vitamin D3) 25 25 mcg PO 2XW 05/08/23 05/19/23 History mcg (1,000 unit) tablet cranberry 400 mg capsule 400 mg PO DAILY 05/08/23 05/19/23 History cyanocobalamin (vitamin B-12) 1,000 mcg PO DAILY 05/08/23 05/19/23 History 1,000 mcg tablet glucosamine 750 sm-frixalyquip-tos 1 tablet PO BID 05/08/23 05/19/23 History no1 644 mg-C 30 mg-poncho 1 mg tablet (Osteo Bi-Flex Triple Strength) magnesium 500 mg tablet 500 mg PO DAILY 05/08/23 05/19/23 History potassium 99 mg tablet 99 mg PO DAILY 05/08/23 05/19/23 History travoprost 0.004 % eye drops 1 drp EACH EYE HS 05/08/23 05/19/23 History Allergies Allergy/AdvReac Type Severity Reaction Status Date / Time No Known Allergies Allergy Unknown Verified 05/19/23 10:44 Vital Signs Vital Signs - 24 hr 05/23/23 21:19 05/23/23 20:00 05/24/23 05:43 Temperature 36.6 C 36.5 C Pulse Rate 92 91 Respiratory Rate 20 20 Blood Pressure 152/58 H 152/61 H Pulse Oximetry 99 99 99 Oxygen Delivery Nasal Cannula Oxygen Flow Rate 1 Fraction of Inspired Oxygen 05/24/23 10:40 05/24/23 08:25 05/24/23 10:46 Temperature Pulse Rate Respiratory Rate 22 H 22 H Blood Pressure Pulse Oximetry 91 Oxygen Delivery Room Air Oxygen Flow Rate Fraction of Inspired Oxygen 05/24/23 13:30 05/24/23 13:25 05/24/23 13:41 Temperature Pulse Rate 87 Respiratory Rate 18 18 18 Blood Pressure Pulse Oximetry 99 Oxygen Delivery BiPAP Oxygen Flow Rate Fraction of Inspired Oxygen Exam Narrative: GEN: not easily arousable; obtunded, wearing BiPAP 12/6 and 40%, can open eyes, later asked, am I in a long term? HEENT: pupils are equal and reactive, symmetrical face; oral membranes cannot be seen, she is not following request to open her mouth, wearing PAP NECK: Trachea is midline CHEST: Equal air entry, symmetric excursion, harsh crackles both lung rehman CV: Regular S1S2 no m/g/r ABD : (+) bowel sounds Extremities : no clubbing, cyanosis, trace lower extremity edema PSYCH: obtunded, not \following commands, lethargic Results Laboratory Findings 05/24/23 05:59 05/24/23 05:59 ABG, PT/INR, D-dimer: ABG ABG pH 7.318 (7.350-7.450) L 05/24/23 14:54 ABG pCO2 54.2 mmHg (35.0-45.0) H 05/24/23 14:54 ABG pO2 102.0 mmHg (80.0-100.0) H 05/24/23 14:54 ABG O2 Saturation 97.1 % (95.0-100.0) 05/24/23 14:54 PT/INR, D-dimer PT 14.6 Seconds (11.1-14.7) 05/22/23 08:36 INR 1.1 05/22/23 08:36 Abnormal lab findings: Abnormal Labs 05/19/23 05/19/23 05/20/23 17:01 19:53 05:54 WBC 19.0 H RBC 3.62 L Hgb Hct MCV 105.2 H MCHC 31.8 L Lymph % (Auto) [place] % (Auto) Eos % (Auto) [place] # (Auto) Eos # (Auto) Abs Immat Gran (auto) Absolute Neuts (auto) ABG pH ABG pCO2 ABG pO2 ABG HCO3 ABG O2 Saturation ABG O2 Content Oxyhemoglobin Sodium Anion Gap BUN 19 H Creatinine Estimated GFR Glucose 191 H POC Capillary Glucose 193 H 209 H Hemoglobin A1c Calcium Magnesium Ammonia Total Protein Albumin Urine Protein Urine Ketones Urine RBC Urine WBC 05/20/23 05/20/23 05/20/23 08:06 11:51 16:52 WBC RBC Hgb Hct MCV MCHC Lymph % (Auto) [place] % (Auto) Eos % (Auto) [place] # (Auto) Eos # (Auto) Abs Immat Gran (auto) Absolute Neuts (auto) ABG pH ABG pCO2 ABG pO2 ABG HCO3 ABG O2 Saturation ABG O2 Content Oxyhemoglobin Sodium Anion Gap BUN Creatinine Estimated GFR Glucose POC Capillary Glucose 173 H 180 H 202 H Hemoglobin A1c Calcium Magnesium Ammonia Total Protein Albumin Urine Protein Urine Ketones Urine RBC Urine WBC 05/20/23 05/21/23 05/21/23 20:12 05:59 07:54 WBC 19.0 H RBC 3.76 L Hgb Hct MCV 105.6 H MCHC 31.7 L Lymph % (Auto) [place] % (Auto) Eos % (Auto) [place] # (Auto) Eos # (Auto) Abs Immat Gran (auto) Absolute Neuts (auto) ABG pH ABG pCO2 ABG pO2 ABG HCO3 ABG O2 Saturation ABG O2 Content Oxyhemoglobin Sodium Anion Gap BUN 24 H Creatinine Estimated GFR Glucose 210 H POC Capillary Glucose 180 H 186 H Hemoglobin A1c Calcium Magnesium Ammonia Total Protein Albumin Urine Protein Urine Ketones Urine RBC Urine WBC 05/21/23 05/21/23 05/21/23 12:10 17:14 19:33 WBC RBC Hgb Hct MCV MCHC Lymph % (Auto) [place] % (Auto) Eos % (Auto) [place] # (Auto) Eos # (Auto) Abs Immat Gran (auto) Absolute Neuts (auto) ABG pH ABG pCO2 ABG pO2 ABG HCO3 ABG O2 Saturation ABG O2 Content Oxyhemoglobin Sodium Anion Gap BUN Creatinine Estimated GFR Glucose POC Capillary Glucose 167 H 181 H 203 H Hemoglobin A1c Calcium Magnesium Ammonia Total Protein Albumin Urine Protein Urine Ketones Urine RBC Urine WBC 05/22/23 05/22/23 05/22/23 07:11 07:33 11:34 WBC 13.5 H RBC 3.72 L Hgb Hct MCV 108.6 H MCHC 30.9 L Lymph % (Auto) [place] % (Auto) Eos % (Auto) [place] # (Auto) Eos # (Auto) Abs Immat Gran (auto) Absolute Neuts (auto) ABG pH ABG pCO2 ABG pO2 ABG HCO3 ABG O2 Saturation ABG O2 Content Oxyhemoglobin Sodium Anion Gap BUN 31 H Creatinine Estimated GFR Glucose 191 H POC Capillary Glucose 194 H 136 H Hemoglobin A1c Calcium Magnesium Ammonia Total Protein Albumin Urine Protein Urine Ketones Urine RBC Urine WBC 05/22/23 05/22/23 05/22/23 11:35 16:25 19:47 WBC RBC Hgb Hct MCV MCHC Lymph % (Auto) [place] % (Auto) Eos % (Auto) [place] # (Auto) Eos # (Auto) Abs Immat Gran (auto) Absolute Neuts (auto) ABG pH 7.322 L ABG pCO2 57.2 H ABG pO2 68.5 L ABG HCO3 28.9 H ABG O2 Saturation 92.0 L ABG O2 Content Oxyhemoglobin Sodium 135 L Anion Gap BUN 30 H Creatinine Estimated GFR Glucose 165 H POC Capillary Glucose 154 H Hemoglobin A1c 6.2 H Calcium Magnesium Ammonia < 9 L Total Protein Albumin Urine Protein Urine Ketones Urine RBC Urine WBC 05/22/23 05/23/23 05/23/23 21:31 07:58 09:21 WBC 12.5 H RBC 3.49 L Hgb 11.6 L Hct MCV 110.3 H MCHC 30.1 L Lymph % (Auto) 9.5 L [place] % (Auto) 13.3 H Eos % (Auto) [place] # (Auto) 1.7 H Eos # (Auto) 0.5 H Abs Immat Gran (auto) 0.05 H Absolute Neuts (auto) 9.1 H ABG pH ABG pCO2 ABG pO2 ABG HCO3 ABG O2 Saturation ABG O2 Content Oxyhemoglobin Sodium Anion Gap BUN 33 H Creatinine Estimated GFR Glucose 144 H POC Capillary Glucose 167 H 147 H Hemoglobin A1c Calcium 8.2 L Magnesium 2.5 H Ammonia Total Protein 6.0 L Albumin Urine Protein Urine Ketones Urine RBC Urine WBC 05/23/23 05/23/23 05/23/23 11:55 16:23 20:49 WBC RBC Hgb Hct MCV MCHC Lymph % (Auto) [place] % (Auto) Eos % (Auto) [place] # (Auto) Eos # (Auto) Abs Immat Gran (auto) Absolute Neuts (auto) ABG pH ABG pCO2 ABG pO2 ABG HCO3 ABG O2 Saturation ABG O2 Content Oxyhemoglobin Sodium Anion Gap BUN Creatinine Estimated GFR Glucose POC Capillary Glucose 138 H 153 H 157 H Hemoglobin A1c Calcium Magnesium Ammonia Total Protein Albumin Urine Protein Urine Ketones Urine RBC Urine WBC 05/24/23 05/24/23 05/24/23 05:59 07:56 10:39 WBC 12.0 H RBC 3.08 L Hgb 10.4 L Hct 33.1 L MCV 107.5 H MCHC 31.4 L Lymph % (Auto) 12.4 L [place] % (Auto) 9.7 H Eos % (Auto) 5.2 H [place] # (Auto) 1.2 H Eos # (Auto) 0.6 H Abs Immat Gran (auto) 0.06 H Absolute Neuts (auto) 8.6 H ABG pH 7.272 L* ABG pCO2 56.8 H ABG pO2 48.1 L* ABG HCO3 ABG O2 Saturation 77.7 L* ABG O2 Content 14.4 L Oxyhemoglobin 83.1 L* Sodium 135 L Anion Gap 2 L BUN 36 H Creatinine 1.10 H Estimated GFR 49 L Glucose 127 H POC Capillary Glucose 144 H Hemoglobin A1c Calcium 8.1 L Magnesium 2.5 H Ammonia Total Protein 6.0 L Albumin 3.2 L Urine Protein Urine Ketones Urine RBC Urine WBC 05/24/23 05/24/23 05/24/23 11:27 12:00 14:54 WBC RBC Hgb Hct MCV MCHC Lymph % (Auto) [place] % (Auto) Eos % (Auto) [place] # (Auto) Eos # (Auto) Abs Immat Gran (auto) Absolute Neuts (auto) ABG pH 7.318 L ABG pCO2 54.2 H ABG pO2 102.0 H ABG HCO3 27.2 H ABG O2 Saturation ABG O2 Content Oxyhemoglobin Sodium Anion Gap BUN Creatinine Estimated GFR Glucose POC Capillary Glucose 152 H Hemoglobin A1c Calcium Magnesium Ammonia Total Protein Albumin Urine Protein 2+ H Urine Ketones Trace H Urine RBC 6-10 H Urine WBC 6-10 H AMG Consult Billing Inpatient Consult Inpatient Consults: [id number] Consult High
[2023-05-24] MEDS: ACETYLCYSTEINE 20% INHAL SOLN 800 MG/4 ML VIAL 200 MG INHALATION (16:42)
[2023-05-24] MEDS: LEVALBUTEROL NEB 1.25 MG/3 ML INHALATION (16:42)
[2023-05-24 17:04] LABS: Glucose Point of Care 168 mg/dl (65-105)
--- NOTE | 2023-05-24 19:49 | PC.NURSE ---
This patient, Berenice Long, was received from [facility] on 05/24/23 at 1840. Patient/family oriented to unit policies and routines. Bipap and continuous pulse ox applied, family educated on importance of pt remaining on bipap at this time.
[2023-05-24 21:00] LABS: Glucose Point of Care 194 mg/dl (65-105)
[2023-05-24] MEDS: LATANOPROST 0.005% OP SOLN 2.5 ML BTL 1 DROP EACH EYE (21:19)
[2023-05-25] VITALS (30 sets, daily range): BP systolic 145–167; BP diastolic 56–97; PULSE 82–100; RESP 18–28; TEMP 36.2–36.8; O2SAT 93–100
[2023-05-25] MEDS: IPRATROPIUM 0.5 MG/ALBUTEROL SULFATE 2.5 MG AMPUL.NEB 3 ML INHALATION ×4 (02:49→20:12)
[2023-05-25 04:55] LABS: Basophils Absolute Auto 0.1 K/mm3 (0.0-0.1); Basophils Percent Auto 0.5 % (0.2-1.2); Eosinophils Absolute Auto 0.2 K/mm3 (0-0.3); Eosinophils Percent Auto 1.9 % (0-4.4); Hematocrit 32.7 % (37.0-47.0); Hemoglobin 10.2 g/dL (12.0-15.0); Immature Granulocyte Absolute 0.15 K/mm3 (0.00-0.031); Immature Granulocyte Percent A 1.3 % (0-0.5); Lymphocytes Absolute Auto 1.22 K/mm3 (0.9-3.2); Lymphocytes Percent Auto 10.3 % (18.3-44.2); Mean Corpuscular HGB Conc 31.2 g/dl (32-36); Mean Corpuscular Hemoglobin 33.8 pg (26-34); Mean Corpuscular Volume 108.3 fl (80-100); Mean Platelet Volume 9.9 fl (7.4-10.4); Monocytes Absolute Auto 0.9 K/mm3 (0.1-0.6); Monocytes Percent Auto 7.5 % (2.6-8.5); Neutrophils Absolute Auto 9.3 K/mm3 (1.3-6.7); Neutrophils Percent Auto 78.5 % (45.5-73.1); Platelet Count Result 261 k/mm3 (150-375); Red Blood Count 3.02 M/mm3 (4.2-5.4); Red Cell Distribution Width 12.1 % (11.5-14.5); White Blood Count 11.8 K/mm3 (4.5-10.0)
[2023-05-25 05:02] LABS: Alanine Aminotransferase 26 U/L (6-35); Albumin Level 3.3 g/dL (3.5-5.1); Alkaline Phosphatase 74 U/L (38-126); Anion Gap 7 mmol/L (4-12); Aspartate Amino Transferase 26 U/L (14-36); Bilirubin,Total 0.5 mg/dL (0.2-1.3); Blood Urea Nitrogen 37 mg/dL (7-17); Calcium 8.5 mg/dL (8.4-10.2); Carbon Dioxide 25 mmol/L (22-30); Chloride 107 mmol/L (98-107); Estimated CRCL calculation 56 ml/min; Estimated Glomerular Filt Rate > 60; Glucose 139 mg/dL (65-110); Magnesium 2.8 mg/dL (1.6-2.3); Potassium 3.7 mmol/L (3.4-5.0); Sodium 139 mmol/L (137-145)
[2023-05-25 05:24] LABS: Large Platelets Present; Platelet Estimate Slightly Increased (Adequate); Schistocytes None Seen
[2023-05-25] MEDS: CEFEPIME 2 GM/NS 50 ML 2 GM/50 ML BAG IVPB ×2 (06:30→18:25)
[2023-05-25 08:01] LABS: Glucose Point of Care 136 mg/dl (65-105)
[2023-05-25] MEDS: polyethylene glycoL 3350 17 GM POWD.PACK PO (09:10)
[2023-05-25] MEDS: PANTOPRAZOLE 40 MG TABLET PO (09:10)
[2023-05-25] MEDS: ASCORBIC ACID 500 MG TABLET PO (09:11)
[2023-05-25] MEDS: CYANOCOBALAMIN 1,000 MCG TABLET 1000 MCG PO (09:11)
[2023-05-25] MEDS: ENOXAPARIN 40 MG/0.4 ML SYRINGE SUB-Q (09:11)
[2023-05-25] MEDS: AZITHROMYCIN 250 MG TABLET 500 MG PO (09:11)
[2023-05-25] MEDS: guaiFENesin 12 HR 600 MG TABCR PO ×2 (09:11→21:21)
[2023-05-25] MEDS: CHOLECALCIFEROL 1,000 UNITS TABLET 1000 UNITS PO (09:16)
--- NOTE | 2023-05-25 09:43 | PM.IMPN ---
Progress Note: A&P Assessment and Plan (1) Incarcerated incisional hernia: Code(s): K43.0 - Incisional hernia with obstruction, without gangrene Status: Acute Assessment and Plan: -Management per surgical team Will monitor closely. (2) Dyspnea: Code(s): R06.00 - Dyspnea, unspecified Status: Acute Assessment and Plan: 05/21: -patient had tachycardia tachypnea decreased oxygen sats and hypertension this morning. -Troponin was negative. -EKG showed sinus tachycardia rate 102 with left axis deviation QRS axis -35 and right bundle branch block QRS duration 133 QTC 397 no STEMI -chest x-ray atelectasis versus pneumonia -CTA small lung volumes with moderate atelectasis bilaterally, no PE -patient on supplemental oxygen titrated between 1 and 2 liters/minute -encourage use of incentive spirometer, continue IV antibiotics, and DC vancomycin if MRSA nares is negative -mobilize, ambulate with therapy tomorrow if at all possible 05/22: not significantly improved 05/23: worsening dyspnea, full cycle wheezing and respiratory distress today. DuoNeb, Solu-Medrol, IV magnesium and BiPAP improving work of breathing 05/25/2023 Will continue with BiPAP for now. Patient appears to be tolerating it very well. Repeat labs and ABG in the morning. (3) Acute respiratory failure with hypoxia and hypercapnia: Code(s): J96.01 - Acute respiratory failure with hypoxia; J96.02 - Acute respiratory failure with hypercapnia Status: Acute Assessment and Plan: -See Dyspnea above. -ABG pCO2 to 57.2, PO2 68.5 on 1.5 liters/minute nasal cannula -no history of respiratory failure, asthma, COPD, smoking -negative CTA PE protocol -possibly obesity related hypoventilation syndrome verses abdominal distension causing diaphragmatic compression -ApneaLink ordered 05/22: ApneaLink indicates likely sleep apnea 05/23: worsening dyspnea, full cycle wheezing and respiratory distress today. DuoNeb, Solu-Medrol, IV magnesium and BiPAP improving work of breathing 05/25/2023 Patient appears to more comfortable. Patient continue with BiPAP and monitor close (4) Diabetes: Qualifiers: Diabetes mellitus type: type 2 Diabetes mellitus parts counterman insulin use: without correction use Diabetes mellitus complication status: with hyperglycemia Qualified Code(s): E11.65 - Type 2 diabetes mellitus with hyperglycemia Code(s): E11.9 - Type 2 diabetes mellitus without complications Status: Acute Assessment and Plan: 05/25/2023 Stable on current medications, will continue current treatment. (5) Stroke-like symptoms: Code(s): R29.90 - Unspecified symptoms and signs involving the nervous system Status: Acute Assessment and Plan: 05/21: -Patient with confusion right upper extremity weakness word-finding difficulties repetitive vocalizations but negative CT, CTA, MRI/MRA of head neck. -described confusion has been present since at least 05/20 -Neurology is consulted as well -Consider metabolic encephalopathy or prolonged recovery from anesthesia 05/22: added echocardiogram with bubble study lipid panel as requested by Neurology. Daily aspirin 81 mg when okay with surgery Summary ? 1. Complete two-dimensional, color flow and Doppler transthoracic echocardiogram is performed. ? 2. Left ventricular chamber dimension is normal. ? 3. Left ventricular systolic function is normal, estimated at 60-65%. ? 4. The left ventricular diastolic function is grade I diastolic dysfunction. ? 5. E/e' 13 is mildly elevated. ? 6. There is mild aortic valve sclerosis. ? 7. The mitral valve has mildly calcified annulus. ? 8. There is mild tricuspid valve regurgitation. ? 9. Mild pulmonary hypertension, estimated pulmonary arterial systolic pressure is 47 mmHg. ? 10. There is trace pulmonic regurgitation. 05/25/2023 Workup negative so far. Will continue monitor closely. Plan Pulmonology consult noted. Continue BiPAP. Case discussed with family in detail. Agree with current plan of care and treatment. Subjective Date/time seen: 05/25/23 09:43 Interval history: Patient was seen during the morning rounds today. Patient remains on BiPAP. According to the family members bedside patient is more comfortable now. Pain control. Decreased shortness of breath. No chest pain. Abdominal pain is better controlled. Review of Systems Review of Systems: All systems reviewed & are unremarkable except as noted in HPI and below Exam Narrative: GENERAL: Patient remains confused with tachypnea and audible wheezing HEAD: Normocephalic, atraumatic. ENT:? Mucous membranes moist. CHEST: increased work of breathing full cycle wheezing diminished air movement. Supplemental oxygenation in place HEART: Borderline tachycardic rate and regular rhythm. ? Normal peripheral pulses. ABDOMEN: Mildly distended appearing, TAYE drains in place-small amount of serous drainage, incision bandaged mildly tender to palpation along the incision line EXTREMITIES: Normal range of motion. No peripheral edema. SKIN: Warm dry normal color NEURO: Alert and oriented x3. Confusion and mild agitation noted moving all extremities but still holding a cup very well with right upper extremity PSYCH: Normal mood and anxious affect Objective Data Vital Signs Vital Signs: Vital Signs - 24 hr 05/24/23 10:40 05/24/23 10:46 05/24/23 13:30 Temperature Pulse Rate 87 Respiratory Rate 22 H 22 H 18 Blood Pressure Pulse Oximetry 99 Oxygen Delivery BiPAP Fraction of Inspired Oxygen 05/24/23 13:25 05/24/23 13:41 05/24/23 14:00 Temperature 37.0 C Pulse Rate 97 Respiratory Rate 18 18 20 Blood Pressure 142/63 H Pulse Oximetry 99 Oxygen Delivery Fraction of Inspired Oxygen 05/24/23 17:30 05/24/23 19:36 05/24/23 20:17 Temperature 36.4 C L Pulse Rate 95 Respiratory Rate 22 H 23 H Blood Pressure 162/72 H Pulse Oximetry 97 98 100 Oxygen Delivery BiPAP BiPAP Fraction of Inspired Oxygen 35 05/24/23 20:32 05/24/23 20:37 05/24/23 20:00 Temperature Pulse Rate 96 95 95 Respiratory Rate 23 H 35 H 23 H Blood Pressure Pulse Oximetry 94 100 Oxygen Delivery BiPAP BiPAP Fraction of Inspired Oxygen 35 05/25/23 00:44 05/25/23 00:00 05/24/23 20:00 Temperature 36.4 C L Pulse Rate 95 95 95 Respiratory Rate 28 H 28 H Blood Pressure 151/56 H Pulse Oximetry 100 100 Oxygen Delivery BiPAP Fraction of Inspired Oxygen 35 05/24/23 22:00 05/25/23 00:00 05/25/23 02:00 Temperature Pulse Rate 93 93 89 Respiratory Rate Blood Pressure Pulse Oximetry Oxygen Delivery Fraction of Inspired Oxygen 05/25/23 02:49 05/25/23 02:53 05/25/23 03:21 Temperature 36.3 C L Pulse Rate 90 90 91 Respiratory Rate 20 20 20 Blood Pressure 159/72 H Pulse Oximetry 96 99 Oxygen Delivery BiPAP Fraction of Inspired Oxygen 05/25/23 04:00 05/25/23 04:00 05/25/23 06:00 Temperature Pulse Rate 86 91 92 Respiratory Rate 20 Blood Pressure Pulse Oximetry 99 Oxygen Delivery BiPAP Fraction of Inspired Oxygen 35 05/25/23 07:45 05/25/23 07:25 05/25/23 07:25 Temperature 36.2 C L Pulse Rate 92 92 92 Respiratory Rate 28 H 24 H 24 H Blood Pressure 167/64 H Pulse Oximetry 99 97 Oxygen Delivery BiPAP Fraction of Inspired Oxygen 05/25/23 07:35 Temperature Pulse Rate 94 Respiratory Rate 22 H Blood Pressure Pulse Oximetry Oxygen Delivery Fraction of Inspired Oxygen Intake/Output Intake/Output: Intake & Output 05/22/23 05/23/23 05/24/23 05/25/23 23:59 23:59 23:59 23:59 Intake Total 1310 1400 980 50 Output Total 1295 790 365 115 Balance 15 610 615 -65 Meds/Results Medications: Active Medications Generic Name Dose Route Start Last Admin Trade Name Freq PRN Reason Stop Dose Admin Acetaminophen 650 mg 05/19/23 17:56 Acetaminophen 325 Mg Tablet PO Q6H PRN Mild Pain (1-3) or Fever Albuterol/Ipratropium 3 ml 05/24/23 14:00 05/25/23 07:25 Ipratropium 0.5 Mg/Albuterol Sulfate 2.5 Mg Ampul.Neb 3 Ml INHALATION 3 ml Q6HRT BRANT Administration Ascorbic Acid 500 mg 05/25/23 09:00 05/25/23 09:11 Ascorbic Acid 500 Mg Tablet PO 500 mg DAILY BRANT Administration Azithromycin 500 mg 05/25/23 09:00 05/25/23 09:11 Azithromycin 250 Mg Tablet PO 05/28/23 10:00 500 mg DAILY BRANT Administration Cyanocobalamin 1,000 mcg 05/25/23 09:00 05/25/23 09:11 Cyanocobalamin 1,000 Mcg Tablet PO 1,000 mcg DAILY BRANT Administration Dextrose 12.5 gm 05/22/23 17:43 Dextrose 50% 25 Gm/50 Ml Syringe IV PUSH PRN PRN Hypoglycemia Protocol Enoxaparin Sodium 40 mg 05/20/23 09:00 05/25/23 09:11 Enoxaparin 40 Mg/0.4 Ml Syringe SUB-Q 40 mg DAILY BRANT Administration Glucagon 1 mg 05/22/23 17:43 Glucagon For Inj 1 Mg Vial IM PRN PRN Hypoglycemia Protocol Glucose 15 gm 05/22/23 17:43 Glucose Oral Gel 15 Gm Of Glucse In 37.5 Gm Tube PO PRN PRN Hypoglycemia Protocol Guaifenesin 600 mg 05/24/23 09:00 05/25/23 09:11 Guaifenesin 12 Hr 600 Mg Tabcr PO 600 mg Q12HR BRANT Administration Cefepime HCl 2 gm in 50 mls @ 100 mls/hr 05/21/23 18:00 05/25/23 07:01 Maxipime 2 Gm/Ns 50 Ml IVPB Infused Q12H BRANT Infusion Dextrose 1,000 mls @ 100 mls/hr 05/22/23 17:43 Dextrose 5% 1,000 Ml IVPB PRN PRN Hypoglycemia Protocol Insulin Aspart 1 - 3 units 05/22/23 21:00 05/24/23 21:18 Insulin Aspart (*Bkc) 100 Units/Ml SUB-Q Not Given HS BRANT Protocol Insulin Aspart 3 - 6 units 05/23/23 08:00 05/25/23 09:04 Insulin Aspart (*Bkc) 100 Units/Ml SUB-Q Not Given TIDWM BRANT Protocol Latanoprost 1 drop 05/19/23 21:00 05/24/23 21:19 Latanoprost 0.005% Op Soln 2.5 Ml Btl EACH EYE 1 drop HS BRANT Administration Levalbuterol HCl 1.25 mg 05/24/23 15:59 05/24/23 16:42 Levalbuterol Neb 1.25 Mg/3 Ml INHALATION 1.25 mg Q6HRT PRN Administration Wheezing Magnesium Gluconate 27 mg 05/20/23 09:00 05/24/23 09:28 Magnesium 27 Mg Tablet (500 Mg Mag Gluconate) PO 27 mg DAILY BRANT Administration Naloxone HCl 0.1 mg 05/19/23 17:56 Naloxone Hcl 0.4 Mg/Ml Vial IV PUSH Q2M PRN Opiate Reversal Ondansetron HCl 4 mg 05/19/23 17:56 05/22/23 21:58 Ondansetron Inj 4 Mg/2 Ml Vial IV PUSH 4 mg Q4H PRN Administration Nausea And Vomiting Pantoprazole Sodium 40 mg 05/20/23 09:00 05/25/23 09:10 Pantoprazole 40 Mg Tablet PO 40 mg QAM BRANT Administration Perflutren Lipid Microsphere 0 ml 05/23/23 12:51 Perflutren Lipid Microspheres 1.5 Ml Vial Diluted To 10 Ml Total Volume IV PUSH 05/26/23 12:51 ONCE PRN adequate visualization Protocol Polyethylene Glycol 17 gm 05/20/23 09:00 05/25/23 09:10 Polyethylene Glycol 3350 17 Gm Powd.Pack PO 17 gm QAM BRANT Administration Pravastatin Sodium 20 mg 05/19/23 21:00 05/24/23 21:21 Pravastatin Sodium 20 Mg Tablet PO Not Given QHS COUNTS INCLUDE 234 BEDS AT THE [facility] Vitamin D 1,000 units 05/25/23 09:00 05/25/23 09:16 Cholecalciferol 1,000 Units Tablet PO 1,000 units SuWe@0900 COUNTS INCLUDE 234 BEDS AT THE [facility] Administration Radiology Results: ITS Impressions Head CT 05/22/23 09:50 IMPRESSION: 1. Moderate scattered white matter hypoattenuation consistent with chronic small vessel ischemic disease. No other acute intracranial process. Chest CTA 05/22/23 09:51 IMPRESSION: 1. No pulmonary embolus. Sensitivity is severely decreased by motion artifact. 2. Small lung volumes with moderate atelectasis bilaterally. Brain MRI 05/22/23 13:08 IMPRESSION: 1. No acute intracranial process or abnormally enhancing brain lesions. 2. Moderate scattered nonspecific periventricular predominant white matter T2 hyperintensity which is within normal limits for age and likely sequela of chronic small vessel ischemic disease. Head/Neck CTA 05/22/23 13:14 IMPRESSION: 1. 0% stenosis of the right and left carotid bulbs relative to normal distal artery lumen diameter (NASCET criteria). 2. Small amount of nonhemodynamically significant atherosclerotic plaque at the bilateral carotid siphons. Otherwise unremarkable cerebral CT angiogram with no hemodynamically significant stenosis or aneurysm. Brain MRA 05/22/23 13:36 IMPRESSION: 1. Normal cerebral MR angiogram. Neck MRA 05/22/23 13:37 IMPRESSION: 1. 0% stenosis of the right and left carotid bulbs relative to normal distal artery lumen diameter (NASCET criteria). 2. 20-30% stenosis along the cervical portion of the left vertebral artery immediately distal to the carotid bulb. Chest X-Ray 05/24/23 16:02 IMPRESSION: 1. Stable small lung volumes with airspace opacities in the mid and lower lung zones, consistent with atelectasis versus pneumonia. Labs Labs: Laboratory Results - last 24 hr 05/24/23 05/24/23 05/24/23 10:39 11:27 12:00 WBC RBC Hgb Hct MCV MCH MCHC RDW Plt Count MPV Immature Gran % (Auto) Neut % (Auto) Lymph % (Auto) [place] % (Auto) Eos % (Auto) Baso % (Auto) Lymph # (Auto) [place] # (Auto) Eos # (Auto) Baso # (Auto) Abs Immat Gran (auto) Absolute Neuts (auto) Absolute Nucleated RBC Nucleated RBC % Platelet Estimate Large Platelets Schistocytes Puncture Site Right brachial ABG pH 7.272 L* ABG pCO2 56.8 H ABG pO2 48.1 L* ABG PO2/FiO2 Ratio 2.29 ABG HCO3 25.6 ABG O2 Saturation 77.7 L* ABG O2 Content 14.4 L ABG Base Excess -2.0 A-a Gradient 33.6 Oxyhemoglobin 83.1 L* Total Hemoglobin 12.3 O2 Delivery Device Room air O2 Liters/Min Not Reportable Vent Rate FiO2 21 Expiratory Pressure Inspiratory Pressure Sodium Potassium Chloride Carbon Dioxide Anion Gap BUN Creatinine Estim Creat Clear Calc Estimated GFR Glucose POC Capillary Glucose 152 H Calcium Magnesium Total Bilirubin AST ALT Alkaline Phosphatase Total Protein Albumin Urine Color Yellow Urine Appearance Clear Urine pH 5.5 Ur Specific [place] 1.026 Urine Protein 2+ H Urine Glucose (UA) Negative Urine Ketones Trace H Ur Blood (Man) Negative Urine Nitrate Negative Urine Bilirubin Negative Urine Urobilinogen 0.2 Leukocyte Esterase Rfl Negative Urine RBC 6-10 H Urine WBC 6-10 H Ur Squamous Epith Cells Moderate Urine Bacteria None seen Urine Casts 3-5 Granular Casts Present 05/24/23 05/24/23 05/24/23 14:54 17:01 20:38 WBC RBC Hgb Hct MCV MCH MCHC RDW Plt Count MPV Immature Gran % (Auto) Neut % (Auto) Lymph % (Auto) [place] % (Auto) Eos % (Auto) Baso % (Auto) Lymph # (Auto) [place] # (Auto) Eos # (Auto) Baso # (Auto) Abs Immat Gran (auto) Absolute Neuts (auto) Absolute Nucleated RBC Nucleated RBC % Platelet Estimate Large Platelets Schistocytes Puncture Site Right radial ABG pH 7.318 L ABG pCO2 54.2 H ABG pO2 102.0 H ABG PO2/FiO2 Ratio 2.55 ABG HCO3 27.2 H ABG O2 Saturation 97.1 ABG O2 Content 16.7 ABG Base Excess 0.3 A-a Gradient 120.9 Oxyhemoglobin 96.3 Total Hemoglobin 12.2 O2 Delivery Device Non-invasive vent O2 Liters/Min Not Reportable Vent Rate 18 FiO2 40 Expiratory Pressure 6 Inspiratory Pressure 12 Sodium Potassium Chloride Carbon Dioxide Anion Gap BUN Creatinine Estim Creat Clear Calc Estimated GFR Glucose POC Capillary Glucose 168 H 194 H Calcium Magnesium Total Bilirubin AST ALT Alkaline Phosphatase Total Protein Albumin Urine Color Urine Appearance Urine pH Ur Specific [place] Urine Protein Urine Glucose (UA) Urine Ketones Ur Blood (Man) Urine Nitrate Urine Bilirubin Urine Urobilinogen Leukocyte Esterase Rfl Urine RBC Urine WBC Ur Squamous Epith Cells Urine Bacteria Urine Casts Granular Casts 05/25/23 05/25/23 04:23 07:49 WBC 11.8 H RBC 3.02 L Hgb 10.2 L Hct 32.7 L MCV 108.3 H MCH 33.8 MCHC 31.2 L RDW 12.1 Plt Count 261 MPV 9.9 Immature Gran % (Auto) 1.3 H Neut % (Auto) 78.5 H Lymph % (Auto) 10.3 L [place] % (Auto) 7.5 Eos % (Auto) 1.9 Baso % (Auto) 0.5 Lymph # (Auto) 1.22 [place] # (Auto) 0.9 H Eos # (Auto) 0.2 Baso # (Auto) 0.1 Abs Immat Gran (auto) 0.15 H Absolute Neuts (auto) 9.3 H Absolute Nucleated RBC 0.000 Nucleated RBC % 0.0 Platelet Estimate Slightly increased Large Platelets Present Schistocytes None seen Puncture Site ABG pH ABG pCO2 ABG pO2 ABG PO2/FiO2 Ratio ABG HCO3 ABG O2 Saturation ABG O2 Content ABG Base Excess A-a Gradient Oxyhemoglobin Total Hemoglobin O2 Delivery Device O2 Liters/Min Vent Rate FiO2 Expiratory Pressure Inspiratory Pressure Sodium 139 Potassium 3.7 Chloride 107 Carbon Dioxide 25 Anion Gap 7 BUN 37 H Creatinine 0.80 Estim Creat Clear Calc 56 Estimated GFR > 60 Glucose 139 H POC Capillary Glucose 136 H Calcium 8.5 Magnesium 2.8 H Total Bilirubin 0.5 AST 26 ALT 26 Alkaline Phosphatase 74 Total Protein 6.0 L Albumin 3.3 L Urine Color Urine Appearance Urine pH Ur Specific [place] Urine Protein Urine Glucose (UA) Urine Ketones Ur Blood (Man) Urine Nitrate Urine Bilirubin Urine Urobilinogen Leukocyte Esterase Rfl Urine RBC Urine WBC Ur Squamous Epith Cells Urine Bacteria Urine Casts Granular Casts Quality VTE Prophylaxis VTE prophylaxis: pharmacologic ordered
[2023-05-25] MEDS: MAGNESIUM 27 MG TABLET (500 MG MAG GLUCONATE) PO (10:07)
--- NOTE | 2023-05-25 10:51 | PM.PNGS ---
Progress Note: A&P Assessment and Plan (1) Incarcerated incisional hernia: Code(s): K43.0 - Incisional hernia with obstruction, without gangrene Status: Acute Assessment and Plan: cont routine postop care, encourage OOB/IS, PT/OT (2) Acute respiratory failure with hypoxia and hypercapnia: Code(s): J96.01 - Acute respiratory failure with hypoxia; J96.02 - Acute respiratory failure with hypercapnia Status: Acute Assessment and Plan: much improved, appreciate pulmonary and medicine input and care Subjective Subjective Date/Time Seen: 05/25/23 10:51 Interval history: much improved today A+Ox3, eating breakfast this am, breathing improved Review of Systems Review of Systems: All systems reviewed & are unremarkable except as noted in HPI and below Exam Const: General: cooperative, comfortable, no acute distress, ill appearing and obese Resp: Auscultation: diminished lung sounds Cardio: Rate: regular rate Rhythm: regular rhythm GI: Inspection: normal to inspection, distended, incision and obesity GI Palp: Yes abdominal tenderness, Yes Soft to palpation, Yes Tenderness to palpation present (GI), No Guarding due to palpation present (GI) and No Rigid due to palpation Other: TAYE x 2 c s/s output Objective Data Vital Signs Vital Signs: Vital Signs - 24 hr 05/24/23 13:30 05/24/23 13:25 05/24/23 13:41 Temperature Pulse Rate 87 Respiratory Rate 18 18 18 Blood Pressure Pulse Oximetry 99 Oxygen Delivery BiPAP Fraction of Inspired Oxygen 05/24/23 14:00 05/24/23 17:30 05/24/23 19:36 Temperature 37.0 C Pulse Rate 97 Respiratory Rate 20 22 H Blood Pressure 142/63 H Pulse Oximetry 99 97 98 Oxygen Delivery BiPAP BiPAP Fraction of Inspired Oxygen 35 05/24/23 20:17 05/24/23 20:32 05/24/23 20:37 Temperature 36.4 C L Pulse Rate 95 96 95 Respiratory Rate 23 H 23 H 35 H Blood Pressure 162/72 H Pulse Oximetry 100 94 Oxygen Delivery BiPAP Fraction of Inspired Oxygen 05/24/23 20:00 05/25/23 00:44 05/25/23 00:00 Temperature 36.4 C L Pulse Rate 95 95 95 Respiratory Rate 23 H 28 H 28 H Blood Pressure 151/56 H Pulse Oximetry 100 100 100 Oxygen Delivery BiPAP BiPAP Fraction of Inspired Oxygen 35 35 05/24/23 20:00 05/24/23 22:00 05/25/23 00:00 Temperature Pulse Rate 95 93 93 Respiratory Rate Blood Pressure Pulse Oximetry Oxygen Delivery Fraction of Inspired Oxygen 05/25/23 02:00 05/25/23 02:49 05/25/23 02:53 Temperature Pulse Rate 89 90 90 Respiratory Rate 20 20 Blood Pressure Pulse Oximetry 96 Oxygen Delivery BiPAP Fraction of Inspired Oxygen 05/25/23 03:21 05/25/23 04:00 05/25/23 04:00 Temperature 36.3 C L Pulse Rate 91 86 91 Respiratory Rate 20 20 Blood Pressure 159/72 H Pulse Oximetry 99 99 Oxygen Delivery BiPAP Fraction of Inspired Oxygen 35 05/25/23 06:00 05/25/23 07:45 05/25/23 07:25 Temperature 36.2 C L Pulse Rate 92 92 92 Respiratory Rate 28 H 24 H Blood Pressure 167/64 H Pulse Oximetry 99 97 Oxygen Delivery BiPAP Fraction of Inspired Oxygen 05/25/23 07:25 05/25/23 07:35 Temperature Pulse Rate 92 94 Respiratory Rate 24 H 22 H Blood Pressure Pulse Oximetry Oxygen Delivery Fraction of Inspired Oxygen Intake/Output Intake/Output: Intake & Output 05/22/23 05/23/23 05/24/23 05/25/23 23:59 23:59 23:59 23:59 Intake Total 1310 1400 980 250 Output Total 1295 790 365 115 Balance 15 610 615 135 Meds/Results Medications: Active Medications Generic Name Dose Route Start Last Admin Trade Name Freq PRN Reason Stop Dose Admin Acetaminophen 650 mg 05/19/23 17:56 Acetaminophen 325 Mg Tablet PO Q6H PRN Mild Pain (1-3) or Fever Albuterol/Ipratropium 3 ml 05/24/23 14:00 05/25/23 07:25 Ipratropium 0.5 Mg/Albuterol Sulfate 2.5 Mg Ampul.Neb 3 Ml INHALATION 3 ml Q6HRT BRANT Administration Ascorbic Acid 500 mg 05/25/23 09:00 05/25/23 09:11 Ascorbic Acid 500 Mg Tablet PO 500 mg DAILY BRANT Administration Azithromycin 500 mg 05/25/23 09:00 05/25/23 09:11 Azithromycin 250 Mg Tablet PO 05/28/23 10:00 500 mg DAILY BRANT Administration Cyanocobalamin 1,000 mcg 05/25/23 09:00 05/25/23 09:11 Cyanocobalamin 1,000 Mcg Tablet PO 1,000 mcg DAILY BRANT Administration Dextrose 12.5 gm 05/22/23 17:43 Dextrose 50% 25 Gm/50 Ml Syringe IV PUSH PRN PRN Hypoglycemia Protocol Enoxaparin Sodium 40 mg 05/20/23 09:00 05/25/23 09:11 Enoxaparin 40 Mg/0.4 Ml Syringe SUB-Q 40 mg DAILY BRANT Administration Glucagon 1 mg 05/22/23 17:43 Glucagon For Inj 1 Mg Vial IM PRN PRN Hypoglycemia Protocol Glucose 15 gm 05/22/23 17:43 Glucose Oral Gel 15 Gm Of Glucse In 37.5 Gm Tube PO PRN PRN Hypoglycemia Protocol Guaifenesin 600 mg 05/24/23 09:00 05/25/23 09:11 Guaifenesin 12 Hr 600 Mg Tabcr PO 600 mg Q12HR BRANT Administration Cefepime HCl 2 gm in 50 mls @ 100 mls/hr 05/21/23 18:00 05/25/23 07:01 Maxipime 2 Gm/Ns 50 Ml IVPB Infused Q12H BRANT Infusion Dextrose 1,000 mls @ 100 mls/hr 05/22/23 17:43 Dextrose 5% 1,000 Ml IVPB PRN PRN Hypoglycemia Protocol Insulin Aspart 1 - 3 units 05/22/23 21:00 05/24/23 21:18 Insulin Aspart (*Bkc) 100 Units/Ml SUB-Q Not Given HS BRANT Protocol Insulin Aspart 3 - 6 units 05/23/23 08:00 05/25/23 09:04 Insulin Aspart (*Bkc) 100 Units/Ml SUB-Q Not Given TIDWM BRANT Protocol Latanoprost 1 drop 05/19/23 21:00 05/24/23 21:19 Latanoprost 0.005% Op Soln 2.5 Ml Btl EACH EYE 1 drop HS BRANT Administration Levalbuterol HCl 1.25 mg 05/24/23 15:59 05/24/23 16:42 Levalbuterol Neb 1.25 Mg/3 Ml INHALATION 1.25 mg Q6HRT PRN Administration Wheezing Magnesium Gluconate 27 mg 05/20/23 09:00 05/25/23 10:07 Magnesium 27 Mg Tablet (500 Mg Mag Gluconate) PO 27 mg DAILY BRANT Administration Naloxone HCl 0.1 mg 05/19/23 17:56 Naloxone Hcl 0.4 Mg/Ml Vial IV PUSH Q2M PRN Opiate Reversal Ondansetron HCl 4 mg 05/19/23 17:56 05/22/23 21:58 Ondansetron Inj 4 Mg/2 Ml Vial IV PUSH 4 mg Q4H PRN Administration Nausea And Vomiting Pantoprazole Sodium 40 mg 05/20/23 09:00 05/25/23 09:10 Pantoprazole 40 Mg Tablet PO 40 mg QAM BRANT Administration Perflutren Lipid Microsphere 0 ml 05/23/23 12:51 Perflutren Lipid Microspheres 1.5 Ml Vial Diluted To 10 Ml Total Volume IV PUSH 05/26/23 12:51 ONCE PRN adequate visualization Protocol Polyethylene Glycol 17 gm 05/20/23 09:00 05/25/23 09:10 Polyethylene Glycol 3350 17 Gm Powd.Pack PO 17 gm QAM BRANT Administration Pravastatin Sodium 20 mg 05/19/23 21:00 05/24/23 21:21 Pravastatin Sodium 20 Mg Tablet PO Not Given QHS [facility] Vitamin D 1,000 units 05/25/23 09:00 05/25/23 09:16 Cholecalciferol 1,000 Units Tablet PO 1,000 units [id number]@[id number] [facility] Administration Radiology Results: ITS Impressions Head CT 05/22/23 09:50 IMPRESSION: 1. Moderate scattered white matter hypoattenuation consistent with chronic small vessel ischemic disease. No other acute intracranial process. Chest CTA 05/22/23 09:51 IMPRESSION: 1. No pulmonary embolus. Sensitivity is severely decreased by motion artifact. 2. Small lung volumes with moderate atelectasis bilaterally. Brain MRI 05/22/23 13:08 IMPRESSION: 1. No acute intracranial process or abnormally enhancing brain lesions. 2. Moderate scattered nonspecific periventricular predominant white matter T2 hyperintensity which is within normal limits for age and likely sequela of chronic small vessel ischemic disease. Head/Neck CTA 05/22/23 13:14 IMPRESSION: 1. 0% stenosis of the right and left carotid bulbs relative to normal distal artery lumen diameter (NASCET criteria). 2. Small amount of nonhemodynamically significant atherosclerotic plaque at the bilateral carotid siphons. Otherwise unremarkable cerebral CT angiogram with no hemodynamically significant stenosis or aneurysm. Brain MRA 05/22/23 13:36 IMPRESSION: 1. Normal cerebral MR angiogram. Neck MRA 05/22/23 13:37 IMPRESSION: 1. 0% stenosis of the right and left carotid bulbs relative to normal distal artery lumen diameter (NASCET criteria). 2. 20-30% stenosis along the cervical portion of the left vertebral artery immediately distal to the carotid bulb. Chest X-Ray 05/24/23 16:02 IMPRESSION: 1. Stable small lung volumes with airspace opacities in the mid and lower lung zones, consistent with atelectasis versus pneumonia. Labs Labs: Laboratory Results - last 24 hr 05/24/23 05/24/23 05/24/23 11:27 12:00 14:54 WBC RBC Hgb Hct MCV MCH MCHC RDW Plt Count MPV Immature Gran % (Auto) Neut % (Auto) Lymph % (Auto) [place] % (Auto) Eos % (Auto) Baso % (Auto) Lymph # (Auto) [place] # (Auto) Eos # (Auto) Baso # (Auto) Abs Immat Gran (auto) Absolute Neuts (auto) Absolute Nucleated RBC Nucleated RBC % Platelet Estimate Large Platelets Schistocytes Puncture Site Right radial ABG pH 7.318 L ABG pCO2 54.2 H ABG pO2 102.0 H ABG PO2/FiO2 Ratio 2.55 ABG HCO3 27.2 H ABG O2 Saturation 97.1 ABG O2 Content 16.7 ABG Base Excess 0.3 A-a Gradient 120.9 Oxyhemoglobin 96.3 Total Hemoglobin 12.2 O2 Delivery Device Non-invasive vent O2 Liters/Min Not Reportable Vent Rate 18 FiO2 40 Expiratory Pressure 6 Inspiratory Pressure 12 Sodium Potassium Chloride Carbon Dioxide Anion Gap BUN Creatinine Estim Creat Clear Calc Estimated GFR Glucose POC Capillary Glucose 152 H Calcium Magnesium Total Bilirubin AST ALT Alkaline Phosphatase Total Protein Albumin Urine Color Yellow Urine Appearance Clear Urine pH 5.5 Ur Specific [place] 1.026 Urine Protein 2+ H Urine Glucose (UA) Negative Urine Ketones Trace H Ur Blood (Man) Negative Urine Nitrate Negative Urine Bilirubin Negative Urine Urobilinogen 0.2 Leukocyte Esterase Rfl Negative Urine RBC 6-10 H Urine WBC 6-10 H Ur Squamous Epith Cells Moderate Urine Bacteria None seen Urine Casts 3-5 Granular Casts Present 05/24/23 05/24/23 05/25/23 17:01 20:38 04:23 WBC 11.8 H RBC 3.02 L Hgb 10.2 L Hct 32.7 L MCV 108.3 H MCH 33.8 MCHC 31.2 L RDW 12.1 Plt Count 261 MPV 9.9 Immature Gran % (Auto) 1.3 H Neut % (Auto) 78.5 H Lymph % (Auto) 10.3 L [place] % (Auto) 7.5 Eos % (Auto) 1.9 Baso % (Auto) 0.5 Lymph # (Auto) 1.22 [place] # (Auto) 0.9 H Eos # (Auto) 0.2 Baso # (Auto) 0.1 Abs Immat Gran (auto) 0.15 H Absolute Neuts (auto) 9.3 H Absolute Nucleated RBC 0.000 Nucleated RBC % 0.0 Platelet Estimate Slightly increased Large Platelets Present Schistocytes None seen Puncture Site ABG pH ABG pCO2 ABG pO2 ABG PO2/FiO2 Ratio ABG HCO3 ABG O2 Saturation ABG O2 Content ABG Base Excess A-a Gradient Oxyhemoglobin Total Hemoglobin O2 Delivery Device O2 Liters/Min Vent Rate FiO2 Expiratory Pressure Inspiratory Pressure Sodium 139 Potassium 3.7 Chloride 107 Carbon Dioxide 25 Anion Gap 7 BUN 37 H Creatinine 0.80 Estim Creat Clear Calc 56 Estimated GFR > 60 Glucose 139 H POC Capillary Glucose 168 H 194 H Calcium 8.5 Magnesium 2.8 H Total Bilirubin 0.5 AST 26 ALT 26 Alkaline Phosphatase 74 Total Protein 6.0 L Albumin 3.3 L Urine Color Urine Appearance Urine pH Ur Specific [place] Urine Protein Urine Glucose (UA) Urine Ketones Ur Blood (Man) Urine Nitrate Urine Bilirubin Urine Urobilinogen Leukocyte Esterase Rfl Urine RBC Urine WBC Ur Squamous Epith Cells Urine Bacteria Urine Casts Granular Casts 05/25/23 07:49 WBC RBC Hgb Hct MCV MCH MCHC RDW Plt Count MPV Immature Gran % (Auto) Neut % (Auto) Lymph % (Auto) [place] % (Auto) Eos % (Auto) Baso % (Auto) Lymph # (Auto) [place] # (Auto) Eos # (Auto) Baso # (Auto) Abs Immat Gran (auto) Absolute Neuts (auto) Absolute Nucleated RBC Nucleated RBC % Platelet Estimate Large Platelets Schistocytes Puncture Site ABG pH ABG pCO2 ABG pO2 ABG PO2/FiO2 Ratio ABG HCO3 ABG O2 Saturation ABG O2 Content ABG Base Excess A-a Gradient Oxyhemoglobin Total Hemoglobin O2 Delivery Device O2 Liters/Min Vent Rate FiO2 Expiratory Pressure Inspiratory Pressure Sodium Potassium Chloride Carbon Dioxide Anion Gap BUN Creatinine Estim Creat Clear Calc Estimated GFR Glucose POC Capillary Glucose 136 H Calcium Magnesium Total Bilirubin AST ALT Alkaline Phosphatase Total Protein Albumin Urine Color Urine Appearance Urine pH Ur Specific [place] Urine Protein Urine Glucose (UA) Urine Ketones Ur Blood (Man) Urine Nitrate Urine Bilirubin Urine Urobilinogen Leukocyte Esterase Rfl Urine RBC Urine WBC Ur Squamous Epith Cells Urine Bacteria Urine Casts Granular Casts
[2023-05-25 12:07] LABS: Glucose Point of Care 187 mg/dl (65-105)
--- NOTE | 2023-05-25 14:00 | P.PNPL_ITS ---
Progress Note: A&P Assessment and Plan (1) Acute respiratory failure with hypoxia and hypercapnia: Code(s): J96.01 - Acute respiratory failure with hypoxia; J96.02 - Acute respiratory failure with hypercapnia Status: Acute Assessment and Plan: May 23 moved to IMU, increased IPAP and decreased FiO2, mucolytic, Cornet valve. Still coughs, getting discolored sputum; she is able to sit up in a chair which is a good place to be for respiratory status. This is a combination of multiple factors, large abdominal incision which creates a restrictive impairment due to pain, pressure on the diaphragm, and she had underlying restrictive anatomy due to her dextroscoliosis, she has poor inspiratory effort, increasing atelectasis and she may have pulmonary vascular redistribution. Her chest x-ray from May 20 appears to have less cephalization. Her BUN and creatinine are increasing, BUN 36 and 1.1 however her chest x-ray appears wet. Her white blood cell count is lower, does not appear to have pneumonia but she definitely has atelectasis. We will aggressively treat this with mucolytics, expiratory vibratory valve, increase tidal volume on BiPAP, incentive spirometer. 05/24: better, more alert, lower O2 need, continue pulmonary hygiene measures. Plan 05/25/23 Up in chair as long as she can tolerate. Scheduled Mucomyst 20% followed by Cornet valve use; she did respond to one dose yesterday, still has noisy lungs with secretions that need to be expectorated. Continue incentive spirometry to increase tidal volume and secretions clearance. Continue BiPAP IPAP 14, EPAP 6, with sleep. Continue PT. Add Ensure, she needs more oral intake. Consider modified barium swallow if this does not all clear in a few days, make sure she does not aspirate. Subjective Date/time seen: 05/25/23 14:00 Interval history: hospital follow up : 05/25/23 at 14:05, , sons and Ortega, the sitter are present. She was up in the chair several times today. Now, she is lying in bed on her left side, wants to get up to side of bed. Speaking more clearly, not completely oriented. Knows that she had surgery, on 3 L/min =94% saturation; wbc down 11.8 k. She is not taking much food, drinking is easier for her compared to eating. She told me she had a blood clot, not true. New consult May 23 -Berenice Long is a 73-year-old woman who had an incarcerated incisional hernia repair FridayMay 18; this was an open incarcerated recurrent incisional hernia repair with mesh, Bilateral myofascial release, Removal of mesh foreign body, Extensive adhesiolysis; this lasted 5 hours which was longer than anticipated. She was fairly alert afterwards. 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 No occupational exposure, no asthma, recurrent pneumonias, no lung disease. Over the next few days, she has had worsening mentation, was agitated today with Ativ an, was trying to get out of the bed, was kept in bed by . She is requiring more O2, now on BiPAP 01/15 with 40% with ABG at 14:54 today pH 7.318, pCO2 53, pO2 102, HC03 27.2 saturation 97%. ABG earlier today showed pH 7.272, pCO2 57, PO2 48.1 saturation 99% on room air. This might have been a mixed venous blood gas. She had a cough with little sputum production yesterday, less today. Her mentation is less than optimal. PMH : DM; hyperlipidemia, hypertension, glaucoma, DATA * 05/22/23 CTA- IMPRESSION: No pulmonary embolus. Sensitivity is severely decreased by motion artifact. Small lung volumes with moderate atelectasis bilaterally. * WBC initially on 05/20/23 was 19 k, lower now at 12 k on May 23. * 05/20/23 Initial BUN 19 with creatinine 0.7; May 23 BUN 36 creatinine 1.1 * 05/23/23 Complete two-dimensional, color flow and Doppler transthoracic echocardiogram is performed. 2. Left ventricular chamber dimension is normal. 3. Left ventricular systolic function is normal, estimated at 60-65%. 4. The left ventricular diastolic function is grade I diastolic dysfunction. 5. E/e' 13 is mildly elevated. 6. There is mild aortic valve sclerosis. 7. The mitral valve has mildly calcified annulus. 8. There is mild tricuspid valve regurgitation. 9. Mild pulmonary hypertension, estimated pulmonary arterial systolic pressure is 47 mmHg. 10. There is trace pulmonic regurgitation. * 05/24/23 pCXR 16:02 = Stable small lung volumes with airspace opacities in the mid and lower lung zones, consistent with atelectasis versus pneumonia. She has marked scoliosis and maybe right diaphragm elevation. This is contributing to her restrictive impairment, maybe was not appreciated before her surgery. * 05/21/23 CXR - Shallow inspiration. Bibasilar airspace disease. Cardiomegaly. No pneumothorax. No acute osseous abnormality. No significant effusion.Impression: IMPRESSION: Bibasilar airspace disease may represent pneumonia and/or atelectasis. Review of Systems Review of Systems: All systems reviewed & are unremarkable except as noted in HPI and below Exam Narrative: GEN: Awake, much better mental status. Wore BiPAP overnight, 14/ & 35%. Now on nasal cannula 3 L/min sat 93% HEENT: pupils are equal and reactive, symmetrical face NECK: Trachea is midline CHEST: Equal air entry, symmetric excursion, larger breaths, harsh crackles both lung rehman CV: Regular S1S2 no m/g/r ABD : (+) bowel sounds Extremities : no clubbing or cyanosis, trace lower extremity edema PSYCH: speaks, gets distracted, trying to pronounce Dr Durham's name several times, sitting on side of bed with lots of help sitting up Objective Data Vital Signs Vital Signs: Vital Signs - 24 hr 05/24/23 17:30 05/24/23 19:36 05/24/23 20:17 Temperature 36.4 C L Pulse Rate 95 Respiratory Rate 22 H 23 H Blood Pressure 162/72 H Pulse Oximetry 97 98 100 Oxygen Delivery BiPAP BiPAP Oxygen Flow Rate Fraction of Inspired Oxygen 35 05/24/23 20:32 05/24/23 20:37 05/24/23 20:00 Temperature Pulse Rate 96 95 95 Respiratory Rate 23 H 35 H 23 H Blood Pressure Pulse Oximetry 94 100 Oxygen Delivery BiPAP BiPAP Oxygen Flow Rate Fraction of Inspired Oxygen 35 05/25/23 00:44 05/25/23 00:00 05/24/23 20:00 Temperature 36.4 C L Pulse Rate 95 95 95 Respiratory Rate 28 H 28 H Blood Pressure 151/56 H Pulse Oximetry 100 100 Oxygen Delivery BiPAP Oxygen Flow Rate Fraction of Inspired Oxygen 35 05/24/23 22:00 05/25/23 00:00 05/25/23 02:00 Temperature Pulse Rate 93 93 89 Respiratory Rate Blood Pressure Pulse Oximetry Oxygen Delivery Oxygen Flow Rate Fraction of Inspired Oxygen 05/25/23 02:49 05/25/23 02:53 05/25/23 03:21 Temperature 36.3 C L Pulse Rate 90 90 91 Respiratory Rate 20 20 20 Blood Pressure 159/72 H Pulse Oximetry 96 99 Oxygen Delivery BiPAP Oxygen Flow Rate Fraction of Inspired Oxygen 05/25/23 04:00 05/25/23 04:00 05/25/23 06:00 Temperature Pulse Rate 86 91 92 Respiratory Rate 20 Blood Pressure Pulse Oximetry 99 Oxygen Delivery BiPAP Oxygen Flow Rate Fraction of Inspired Oxygen 35 05/25/23 07:45 05/25/23 07:25 05/25/23 07:25 Temperature 36.2 C L Pulse Rate 92 92 92 Respiratory Rate 28 H 24 H 24 H Blood Pressure 167/64 H Pulse Oximetry 99 97 Oxygen Delivery BiPAP Oxygen Flow Rate Fraction of Inspired Oxygen 05/25/23 07:35 05/25/23 09:00 05/25/23 11:00 Temperature Pulse Rate 94 93 Respiratory Rate 22 H 18 Blood Pressure Pulse Oximetry 98 98 Oxygen Delivery Nasal Cannula Oxygen Flow Rate 3 Fraction of Inspired Oxygen 05/25/23 12:00 05/25/23 08:00 05/25/23 12:00 Temperature 36.3 C L Pulse Rate 86 Respiratory Rate 22 H Blood Pressure 156/80 H Pulse Oximetry 96 93 94 Oxygen Delivery Nasal Cannula Nasal Cannula Oxygen Flow Rate 3 3 Fraction of Inspired Oxygen 05/25/23 13:15 05/25/23 13:30 Temperature Pulse Rate 97 100 Respiratory Rate 24 H 24 H Blood Pressure Pulse Oximetry Oxygen Delivery Oxygen Flow Rate Fraction of Inspired Oxygen Intake/Output Intake/Output: Intake & Output 05/22/23 05/23/23 05/24/23 05/25/23 23:59 23:59 23:59 23:59 Intake Total 1310 1400 980 250 Output Total 1295 790 365 190 Balance 15 610 615 60 Meds/Results Medications: Active Medications Generic Name Dose Route Start Last Admin Trade Name Freq PRN Reason Stop Dose Admin Acetaminophen 650 mg 05/19/23 17:56 Acetaminophen 325 Mg Tablet PO Q6H PRN Mild Pain (1-3) or Fever Albuterol/Ipratropium 3 ml 05/24/23 14:00 05/25/23 13:15 Ipratropium 0.5 Mg/Albuterol Sulfate 2.5 Mg Ampul.Neb 3 Ml INHALATION 3 ml Q6HRT BRANT Administration Ascorbic Acid 500 mg 05/25/23 09:00 05/25/23 09:11 Ascorbic Acid 500 Mg Tablet PO 500 mg DAILY BRANT Administration Azithromycin 500 mg 05/25/23 09:00 05/25/23 09:11 Azithromycin 250 Mg Tablet PO 05/28/23 10:00 500 mg DAILY BRANT Administration Cyanocobalamin 1,000 mcg 05/25/23 09:00 05/25/23 09:11 Cyanocobalamin 1,000 Mcg Tablet PO 1,000 mcg DAILY BRANT Administration Dextrose 12.5 gm 05/22/23 17:43 Dextrose 50% 25 Gm/50 Ml Syringe IV PUSH PRN PRN Hypoglycemia Protocol Enoxaparin Sodium 40 mg 05/20/23 09:00 05/25/23 09:11 Enoxaparin 40 Mg/0.4 Ml Syringe SUB-Q 40 mg DAILY BRANT Administration Glucagon 1 mg 05/22/23 17:43 Glucagon For Inj 1 Mg Vial IM PRN PRN Hypoglycemia Protocol Glucose 15 gm 05/22/23 17:43 Glucose Oral Gel 15 Gm Of Glucse In 37.5 Gm Tube PO PRN PRN Hypoglycemia Protocol Guaifenesin 600 mg 05/24/23 09:00 05/25/23 09:11 Guaifenesin 12 Hr 600 Mg Tabcr PO 600 mg Q12HR BRANT Administration Cefepime HCl 2 gm in 50 mls @ 100 mls/hr 05/21/23 18:00 05/25/23 07:01 Maxipime 2 Gm/Ns 50 Ml IVPB Infused Q12H BRANT Infusion Dextrose 1,000 mls @ 100 mls/hr 05/22/23 17:43 Dextrose 5% 1,000 Ml IVPB PRN PRN Hypoglycemia Protocol Insulin Aspart 1 - 3 units 05/22/23 21:00 05/24/23 21:18 Insulin Aspart (*Bkc) 100 Units/Ml SUB-Q Not Given HS BRANT Protocol Insulin Aspart 3 - 6 units 05/23/23 08:00 05/25/23 12:26 Insulin Aspart (*Bkc) 100 Units/Ml SUB-Q Not Given TIDWM BRANT Protocol Latanoprost 1 drop 05/19/23 21:00 05/24/23 21:19 Latanoprost 0.005% Op Soln 2.5 Ml Btl EACH EYE 1 drop HS BRANT Administration Levalbuterol HCl 1.25 mg 05/24/23 15:59 05/24/23 16:42 Levalbuterol Neb 1.25 Mg/3 Ml INHALATION 1.25 mg Q6HRT PRN Administration Wheezing Magnesium Gluconate 27 mg 05/20/23 09:00 05/25/23 10:07 Magnesium 27 Mg Tablet (500 Mg Mag Gluconate) PO 27 mg DAILY BRANT Administration Naloxone HCl 0.1 mg 05/19/23 17:56 Naloxone Hcl 0.4 Mg/Ml Vial IV PUSH Q2M PRN Opiate Reversal Ondansetron HCl 4 mg 05/19/23 17:56 05/22/23 21:58 Ondansetron Inj 4 Mg/2 Ml Vial IV PUSH 4 mg Q4H PRN Administration Nausea And Vomiting Pantoprazole Sodium 40 mg 05/20/23 09:00 05/25/23 09:10 Pantoprazole 40 Mg Tablet PO 40 mg QAM BRANT Administration Perflutren Lipid Microsphere 0 ml 05/23/23 12:51 Perflutren Lipid Microspheres 1.5 Ml Vial Diluted To 10 Ml Total Volume IV PUSH 05/26/23 12:51 ONCE PRN adequate visualization Protocol Polyethylene Glycol 17 gm 05/20/23 09:00 05/25/23 09:10 Polyethylene Glycol 3350 17 Gm Powd.Pack PO 17 gm QAM BRANT Administration Pravastatin Sodium 20 mg 05/19/23 21:00 05/24/23 21:21 Pravastatin Sodium 20 Mg Tablet PO Not Given QHS BRANT Vitamin D 1,000 units 05/25/23 09:00 05/25/23 09:16 Cholecalciferol 1,000 Units Tablet PO 1,000 units SuWe@0900 BRANT Administration Radiology Results: ITS Impressions Head CT 05/22/23 09:50 IMPRESSION: 1. Moderate scattered white matter hypoattenuation consistent with chronic small vessel ischemic disease. No other acute intracranial process. Chest CTA 05/22/23 09:51 IMPRESSION: 1. No pulmonary embolus. Sensitivity is severely decreased by motion artifact. 2. Small lung volumes with moderate atelectasis bilaterally. Brain MRI 05/22/23 13:08 IMPRESSION: 1. No acute intracranial process or abnormally enhancing brain lesions. 2. Moderate scattered nonspecific periventricular predominant white matter T2 hyperintensity which is within normal limits for age and likely sequela of chronic small vessel ischemic disease. Head/Neck CTA 05/22/23 13:14 IMPRESSION: 1. 0% stenosis of the right and left carotid bulbs relative to normal distal artery lumen diameter (NASCET criteria). 2. Small amount of nonhemodynamically significant atherosclerotic plaque at the bilateral carotid siphons. Otherwise unremarkable cerebral CT angiogram with no hemodynamically significant stenosis or aneurysm. Brain MRA 05/22/23 13:36 IMPRESSION: 1. Normal cerebral MR angiogram. Neck MRA 05/22/23 13:37 IMPRESSION: 1. 0% stenosis of the right and left carotid bulbs relative to normal distal artery lumen diameter (NASCET criteria). 2. 20-30% stenosis along the cervical portion of the left vertebral artery immediately distal to the carotid bulb. Chest X-Ray 05/24/23 16:02 IMPRESSION: 1. Stable small lung volumes with airspace opacities in the mid and lower lung zones, consistent with atelectasis versus pneumonia. Labs Labs: Laboratory Results - last 24 hr 05/24/23 05/24/23 05/24/23 14:54 17:01 20:38 WBC RBC Hgb Hct MCV MCH MCHC RDW Plt Count MPV Immature Gran % (Auto) Neut % (Auto) Lymph % (Auto) [place] % (Auto) Eos % (Auto) Baso % (Auto) Lymph # (Auto) [place] # (Auto) Eos # (Auto) Baso # (Auto) Abs Immat Gran (auto) Absolute Neuts (auto) Absolute Nucleated RBC Nucleated RBC % Platelet Estimate Large Platelets Schistocytes Puncture Site Right radial ABG pH 7.318 L ABG pCO2 54.2 H ABG pO2 102.0 H ABG PO2/FiO2 Ratio 2.55 ABG HCO3 27.2 H ABG O2 Saturation 97.1 ABG O2 Content 16.7 ABG Base Excess 0.3 A-a Gradient 120.9 Oxyhemoglobin 96.3 Total Hemoglobin 12.2 O2 Delivery Device Non-invasive vent O2 Liters/Min Not Reportable Vent Rate 18 FiO2 40 Expiratory Pressure 6 Inspiratory Pressure 12 Sodium Potassium Chloride Carbon Dioxide Anion Gap BUN Creatinine Estim Creat Clear Calc Estimated GFR Glucose POC Capillary Glucose 168 H 194 H Calcium Magnesium Total Bilirubin AST ALT Alkaline Phosphatase Total Protein Albumin 05/25/23 05/25/23 05/25/23 04:23 07:49 12:04 WBC 11.8 H RBC 3.02 L Hgb 10.2 L Hct 32.7 L MCV 108.3 H MCH 33.8 MCHC 31.2 L RDW 12.1 Plt Count 261 MPV 9.9 Immature Gran % (Auto) 1.3 H Neut % (Auto) 78.5 H Lymph % (Auto) 10.3 L [place] % (Auto) 7.5 Eos % (Auto) 1.9 Baso % (Auto) 0.5 Lymph # (Auto) 1.22 [place] # (Auto) 0.9 H Eos # (Auto) 0.2 Baso # (Auto) 0.1 Abs Immat Gran (auto) 0.15 H Absolute Neuts (auto) 9.3 H Absolute Nucleated RBC 0.000 Nucleated RBC % 0.0 Platelet Estimate Slightly increased Large Platelets Present Schistocytes None seen Puncture Site ABG pH ABG pCO2 ABG pO2 ABG PO2/FiO2 Ratio ABG HCO3 ABG O2 Saturation ABG O2 Content ABG Base Excess A-a Gradient Oxyhemoglobin Total Hemoglobin O2 Delivery Device O2 Liters/Min Vent Rate FiO2 Expiratory Pressure Inspiratory Pressure Sodium 139 Potassium 3.7 Chloride 107 Carbon Dioxide 25 Anion Gap 7 BUN 37 H Creatinine 0.80 Estim Creat Clear Calc 56 Estimated GFR > 60 Glucose 139 H POC Capillary Glucose 136 H 187 H Calcium 8.5 Magnesium 2.8 H Total Bilirubin 0.5 AST 26 ALT 26 Alkaline Phosphatase 74 Total Protein 6.0 L Albumin 3.3 L Amg Follow-up Billing [facility] Follow-up Hospital Follow-up: [id number] [facility]
--- NOTE | 2023-05-25 15:02 | PCPTNOTE ---
1500- attempted PT and pts family said that the pt had just fallen asleep and requested that she rest. Will cont per POC
[2023-05-25 16:38] LABS: Glucose Point of Care 147 mg/dl (65-105)
[2023-05-25 19:58] LABS: Glucose Point of Care 144 mg/dl (65-105)
[2023-05-25] MEDS: ACETYLCYSTEINE 20% INHAL SOLN 800 MG/4 ML VIAL 200 MG INHALATION (20:13)
[2023-05-25] MEDS: PRAVASTATIN SODIUM 20 MG TABLET PO (21:21)
[2023-05-25] MEDS: LATANOPROST 0.005% OP SOLN 2.5 ML BTL 1 DROP EACH EYE (21:21)
[2023-05-26] VITALS (28 sets, daily range): BP systolic 143–163; BP diastolic 54–73; PULSE 82–103; RESP 18–26; TEMP 36.5–36.9; O2SAT 95–99; BMI 33.0
[2023-05-26] MEDS: IPRATROPIUM 0.5 MG/ALBUTEROL SULFATE 2.5 MG AMPUL.NEB 3 ML INHALATION ×4 (02:52→20:44)
[2023-05-26] MEDS: ACETYLCYSTEINE 20% INHAL SOLN 800 MG/4 ML VIAL 200 MG INHALATION (02:52)
[2023-05-26 04:20] LABS: Basophils Absolute Auto 0.1 K/mm3 (0.0-0.1); Basophils Percent Auto 0.4 % (0.2-1.2); Eosinophils Absolute Auto 0.4 K/mm3 (0-0.3); Eosinophils Percent Auto 3.1 % (0-4.4); Hemoglobin 10.5 g/dL (12.0-15.0); Immature Granulocyte Absolute 0.17 K/mm3 (0.00-0.031); Immature Granulocyte Percent A 1.2 % (0-0.5); Lymphocytes Absolute Auto 1.64 K/mm3 (0.9-3.2); Lymphocytes Percent Auto 11.6 % (18.3-44.2); Mean Corpuscular HGB Conc 32.8 g/dl (32-36); Mean Corpuscular Hemoglobin 33.7 pg (26-34); Mean Corpuscular Volume 102.6 fl (80-100); Mean Platelet Volume 9.7 fl (7.4-10.4); Monocytes Absolute Auto 0.9 K/mm3 (0.1-0.6); Monocytes Percent Auto 6.1 % (2.6-8.5); Neutrophils Percent Auto 77.6 % (45.5-73.1); Platelet Count Result 275 k/mm3 (150-375); Red Blood Count 3.12 M/mm3 (4.2-5.4); White Blood Count 14.2 K/mm3 (4.5-10.0)
[2023-05-26 04:35] LABS: Alanine Aminotransferase 33 U/L (6-35); Albumin Level 3.4 g/dL (3.5-5.1); Alkaline Phosphatase 72 U/L (38-126); Anion Gap 4 mmol/L (4-12); Aspartate Amino Transferase 35 U/L (14-36); Bilirubin,Total 0.6 mg/dL (0.2-1.3); Blood Urea Nitrogen 30 mg/dL (7-17); Calcium 8.5 mg/dL (8.4-10.2); Carbon Dioxide 30 mmol/L (22-30); Chloride 103 mmol/L (98-107); Estimated CRCL calculation 64 ml/min; Estimated Glomerular Filt Rate > 60; Glucose 145 mg/dL (65-110); Magnesium 2.2 mg/dL (1.6-2.3); Potassium 3.3 mmol/L (3.4-5.0); Sodium 137 mmol/L (137-145)
[2023-05-26] MEDS: CEFEPIME 2 GM/NS 50 ML 2 GM/50 ML BAG IVPB ×2 (05:31→20:19)
[2023-05-26 05:54] LABS: Alveolar/Arterial O2 Gradient 98.8 mmHg; Fractional Inspired Oxygen 32 %; HCO3 ABG 27.1 mEq/l (22.0-26.0); Oxygen Content ABG 15.6 %vol (16.0-22.0); Oxygen Saturation ABG 96.6 % (95.0-100.0); Oxyhemoglobin 94.9 % THb (90.0-100.0); PCO2 ABG 39.6 mmHg (35.0-45.0); PO2 FiO2 Ratio Arterial Blood 2.59 %; Site Drawn RIGHT RADIAL; Total Hemoglobin 11.6 g/dL (12.0-18.0); pH ABG 7.453 (7.350-7.450)
[2023-05-26 05:55] LABS: Device NASAL CANNULA; Modified Allen's Test Pass
[2023-05-26 08:10] LABS: Glucose Point of Care 144 mg/dl (65-105)
--- NOTE | 2023-05-26 08:28 | PC.NURSE ---
0828-Notified Dr. Farah of patients status and husbands concerns. would like patient to be transferred. Attempted to notify Dr. Durham, no answer but left him a message. Patient had several tests (KUB, ABG, CXR) ordered this morning that have been completed.
--- NOTE | 2023-05-26 09:39 | PM.IMPN ---
Progress Note: A&P Assessment and Plan (1) Incarcerated incisional hernia: Code(s): K43.0 - Incisional hernia with obstruction, without gangrene Status: Acute Assessment and Plan: -Management per surgical team Post Operative ileus noted this is also poorly fitting from respiratory improvement Due to vomiting yesterday may benefit from NG placement and decompression. Await General surgery recommendation (2) Dyspnea: Code(s): R06.00 - Dyspnea, unspecified Status: Acute Assessment and Plan: 05/21: -patient had tachycardia tachypnea decreased oxygen sats and hypertension this morning. -Troponin was negative. -EKG showed sinus tachycardia rate 102 with left axis deviation QRS axis -35 and right bundle branch block QRS duration 133 QTC 397 no STEMI -chest x-ray atelectasis versus pneumonia -CTA small lung volumes with moderate atelectasis bilaterally, no PE -patient on supplemental oxygen titrated between 1 and 2 liters/minute -encourage use of incentive spirometer, continue IV antibiotics, and DC vancomycin if MRSA nares is negative -mobilize, ambulate with therapy tomorrow if at all possible 05/22: not significantly improved 05/23: worsening dyspnea, full cycle wheezing and respiratory distress today. DuoNeb, Solu-Medrol, IV magnesium and BiPAP improving work of breathing 05/25/2023 Will continue with BiPAP for now. Patient appears to be tolerating it very well. Repeat labs and ABG in the morning. 05/25: did not tolerate bipap and threw up. BiPAP has since been discontinued. Add Flagyl WBC slightly up today Cefepime and azithromycin as ordered (3) Acute respiratory failure with hypoxia and hypercapnia: Code(s): J96.01 - Acute respiratory failure with hypoxia; J96.02 - Acute respiratory failure with hypercapnia Status: Acute Assessment and Plan: -See Dyspnea above. -ABG pCO2 to 57.2, PO2 68.5 on 1.5 liters/minute nasal cannula -no history of respiratory failure, asthma, COPD, smoking -negative CTA PE protocol -possibly obesity related hypoventilation syndrome verses abdominal distension causing diaphragmatic compression -ApneaLink ordered 05/22: ApneaLink indicates likely sleep apnea 13: worsening dyspnea, full cycle wheezing and respiratory distress today. 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 (5) Stroke-like symptoms: Code(s): R29.90 - Unspecified symptoms and signs involving the nervous system Status: Acute Assessment and Plan: 05/21: -Patient with confusion right upper extremity weakness word-finding difficulties repetitive vocalizations but negative CT, CTA, MRI/MRA of head neck. -described confusion has been present since at least 05/20 -Neurology is consulted as well -Consider metabolic encephalopathy or prolonged recovery from anesthesia 05/22: added echocardiogram with bubble study lipid panel as requested by Neurology. Daily aspirin 81 mg when okay with surgery Summary ? 1. Complete two-dimensional, color flow and Doppler transthoracic echocardiogram is performed. ? 2. Left ventricular chamber dimension is normal. ? 3. Left ventricular systolic function is normal, estimated at 60-65%. ? 4. The left ventricular diastolic function is grade I diastolic dysfunction. ? 5. E/e' 13 is mildly elevated. ? 6. There is mild aortic valve sclerosis. ? 7. The mitral valve has mildly calcified annulus. ? 8. There is mild tricuspid valve regurgitation. ? 9. Mild pulmonary hypertension, estimated pulmonary arterial systolic pressure is 47 mmHg. ? 10. There is trace pulmonic regurgitation. 05/25/2023 Workup negative so far. Will continue monitor closely. Subjective Date/time seen: 05/26/23 09:39 Interval history: Patient was seen during the morning rounds today. threw up on bipap last night, off bipap now. She has been confused. Discussed with Pulmonary. Abdomen has been distended, drainage from abdominal wound noted. Review of Systems Review of Systems: All systems reviewed & are unremarkable except as noted in HPI and below Exam Narrative: GENERAL: Patient remains confused mildly tachypneic HEAD: Normocephalic, atraumatic. ENT:? Mucous membranes moist. CHEST: Coarse breath sound rhonchorous HEART: Regular rate and regular rhythm. ? Normal peripheral pulses. ABDOMEN: Soft Distended dressing soaked with serous drainage TAYE drain in place abdominal binder EXTREMITIES: Normal range of motion. No peripheral edema. SKIN: Warm dry normal color NEURO: Confused. Moving all extremities PSYCH: Normal mood and anxious affect Objective Data Vital Signs Vital Signs: Vital Signs - 24 hr 05/25/23 11:00 05/25/23 12:00 05/25/23 12:00 Temperature 97.4 F L Pulse Rate 93 86 Respiratory Rate 18 22 H Blood Pressure 156/80 H Pulse Oximetry 98 96 94 Oxygen Delivery Nasal Cannula Nasal Cannula Oxygen Flow Rate 3 3 Fraction of Inspired Oxygen 05/25/23 13:15 05/25/23 13:30 05/25/23 10:00 Temperature Pulse Rate 97 100 88 Respiratory Rate 24 H 24 H Blood Pressure Pulse Oximetry Oxygen Delivery Oxygen Flow Rate Fraction of Inspired Oxygen 05/25/23 12:00 05/25/23 14:00 05/25/23 15:50 Temperature 98.2 F Pulse Rate 93 86 88 Respiratory Rate 24 H Blood Pressure 145/97 H Pulse Oximetry 99 Oxygen Delivery Oxygen Flow Rate Fraction of Inspired Oxygen 05/25/23 16:00 05/25/23 16:00 05/25/23 18:00 Temperature Pulse Rate 91 90 Respiratory Rate Blood Pressure Pulse Oximetry 94 Oxygen Delivery Nasal Cannula Oxygen Flow Rate 3 Fraction of Inspired Oxygen 05/25/23 20:07 05/25/23 20:13 05/25/23 20:14 Temperature 98.1 F Pulse Rate 92 90 90 Respiratory Rate 20 20 22 H Blood Pressure 158/65 H Pulse Oximetry 97 97 Oxygen Delivery Nasal Cannula Oxygen Flow Rate 3 Fraction of Inspired Oxygen 05/25/23 20:59 05/25/23 20:00 05/25/23 20:00 Temperature Pulse Rate 94 92 87 Respiratory Rate 22 H 20 Blood Pressure Pulse Oximetry 97 Oxygen Delivery Nasal Cannula Oxygen Flow Rate 3 Fraction of Inspired Oxygen 05/25/23 22:00 05/25/23 23:40 05/26/23 00:00 Temperature 98.1 F Pulse Rate 86 82 82 Respiratory Rate 26 H 26 H Blood Pressure 152/63 H Pulse Oximetry 97 97 Oxygen Delivery BiPAP Oxygen Flow Rate Fraction of Inspired Oxygen 35 05/26/23 00:00 05/26/23 01:57 05/26/23 02:53 Temperature Pulse Rate 93 91 95 Respiratory Rate 23 H Blood Pressure Pulse Oximetry Oxygen Delivery Oxygen Flow Rate Fraction of Inspired Oxygen 05/26/23 03:15 05/25/23 21:45 05/26/23 04:43 Temperature 98.1 F Pulse Rate 99 89 90 Respiratory Rate 24 H 23 H 20 Blood Pressure 152/56 H Pulse Oximetry 96 99 Oxygen Delivery BiPAP Oxygen Flow Rate Fraction of Inspired Oxygen 05/26/23 04:00 05/26/23 04:00 05/26/23 05:42 Temperature Pulse Rate 90 90 82 Respiratory Rate 20 Blood Pressure Pulse Oximetry 99 Oxygen Delivery Nasal Cannula Oxygen Flow Rate 3 Fraction of Inspired Oxygen 05/26/23 07:58 05/26/23 08:38 05/26/23 08:38 Temperature 98.1 F Pulse Rate 89 90 Respiratory Rate 18 24 H Blood Pressure 158/72 H Pulse Oximetry 95 95 Oxygen Delivery Nasal Cannula Oxygen Flow Rate 3 Fraction of Inspired Oxygen 32 05/26/23 08:57 Temperature Pulse Rate 87 Respiratory Rate 23 H Blood Pressure Pulse Oximetry Oxygen Delivery Oxygen Flow Rate Fraction of Inspired Oxygen Intake/Output Intake/Output: Intake & Output 05/23/23 05/24/23 05/25/23 05/26/23 23:59 23:59 23:59 23:59 Intake Total 1400 980 700 350 Output Total 790 365 334 393 Balance 610 615 366 -43 Meds/Results Medications: Active Medications Generic Name Dose Route Start Last Admin Trade Name Cecilioq PRN Reason Stop Dose Admin Acetaminophen 650 mg 05/19/23 17:56 Acetaminophen 325 Mg Tablet PO Q6H PRN Mild Pain (1-3) or Fever Albuterol/Ipratropium 3 ml 05/24/23 14:00 05/26/23 08:38 Ipratropium 0.5 Mg/Albuterol Sulfate 2.5 Mg Ampul.Neb 3 Ml INHALATION 3 ml Q6HRT BRANT Administration Ascorbic Acid 500 mg 05/25/23 09:00 05/25/23 09:11 Ascorbic Acid 500 Mg Tablet PO 500 mg DAILY BRANT Administration Azithromycin 500 mg 05/25/23 09:00 05/25/23 09:11 Azithromycin 250 Mg Tablet PO 05/28/23 10:00 500 mg DAILY BRANT Administration Cyanocobalamin 1,000 mcg 05/25/23 09:00 05/25/23 09:11 Cyanocobalamin 1,000 Mcg Tablet PO 1,000 mcg DAILY BRANT Administration Dextrose 12.5 gm 05/22/23 17:43 Dextrose 50% 25 Gm/50 Ml Syringe IV PUSH PRN PRN Hypoglycemia Protocol Enoxaparin Sodium 40 mg 05/20/23 09:00 05/25/23 09:11 Enoxaparin 40 Mg/0.4 Ml Syringe SUB-Q 40 mg DAILY BRANT Administration Glucagon 1 mg 05/22/23 17:43 Glucagon For Inj 1 Mg Vial IM PRN PRN Hypoglycemia Protocol Glucose 15 gm 05/22/23 17:43 Glucose Oral Gel 15 Gm Of Glucse In 37.5 Gm Tube PO PRN PRN Hypoglycemia Protocol Guaifenesin 600 mg 05/24/23 09:00 05/25/23 21:21 Guaifenesin 12 Hr 600 Mg Tabcr PO 600 mg Q12HR BRANT Administration Cefepime HCl 2 gm in 50 mls @ 100 mls/hr 05/21/23 18:00 05/26/23 06:27 Maxipime 2 Gm/Ns 50 Ml IVPB Infused Q12H BRANT Infusion Dextrose 1,000 mls @ 100 mls/hr 05/22/23 17:43 Dextrose 5% 1,000 Ml IVPB PRN PRN Hypoglycemia Protocol Insulin Aspart 1 - 3 units 05/22/23 21:00 05/25/23 21:20 Insulin Aspart (*Bkc) 100 Units/Ml SUB-Q Not Given HS BRANT Protocol Insulin Aspart 3 - 6 units 05/23/23 08:00 05/25/23 18:12 Insulin Aspart (*Bkc) 100 Units/Ml SUB-Q Not Given TIDWM BRANT Protocol Latanoprost 1 drop 05/19/23 21:00 05/25/23 21:21 Latanoprost 0.005% Op Soln 2.5 Ml Btl EACH EYE 1 drop HS BRANT Administration Levalbuterol HCl 1.25 mg 05/24/23 15:59 05/24/23 16:42 Levalbuterol Neb 1.25 Mg/3 Ml INHALATION 1.25 mg Q6HRT PRN Administration Wheezing Magnesium Gluconate 27 mg 05/20/23 09:00 05/25/23 10:07 Magnesium 27 Mg Tablet (500 Mg Mag Gluconate) PO 27 mg DAILY BRANT Administration Naloxone HCl 0.1 mg 05/19/23 17:56 Naloxone Hcl 0.4 Mg/Ml Vial IV PUSH Q2M PRN Opiate Reversal Ondansetron HCl 4 mg 05/19/23 17:56 05/22/23 21:58 Ondansetron Inj 4 Mg/2 Ml Vial IV PUSH 4 mg Q4H PRN Administration Nausea And Vomiting Pantoprazole Sodium 40 mg 05/20/23 09:00 05/25/23 09:10 Pantoprazole 40 Mg Tablet PO 40 mg QAM BRANT Administration Perflutren Lipid Microsphere 0 ml 05/23/23 12:51 Perflutren Lipid Microspheres 1.5 Ml Vial Diluted To 10 Ml Total Volume IV PUSH 05/26/23 12:51 ONCE PRN adequate visualization Protocol Polyethylene Glycol 17 gm 05/20/23 09:00 05/25/23 09:10 Polyethylene Glycol 3350 17 Gm Powd.Pack PO 17 gm QAM BRANT Administration Pravastatin Sodium 20 mg 05/19/23 21:00 05/25/23 21:21 Pravastatin Sodium 20 Mg Tablet PO 20 mg QHS BRANT Administration Vitamin D 1,000 units 05/25/23 09:00 05/25/23 09:16 Cholecalciferol 1,000 Units Tablet PO 1,000 units SuWe@0900 BRANT Administration Radiology Results: ITS Impressions Head CT 05/22/23 09:50 IMPRESSION: 1. Moderate scattered white matter hypoattenuation consistent with chronic small vessel ischemic disease. No other acute intracranial process. Chest CTA 05/22/23 09:51 IMPRESSION: 1. No pulmonary embolus. Sensitivity is severely decreased by motion artifact. 2. Small lung volumes with moderate atelectasis bilaterally. Brain MRI 05/22/23 13:08 IMPRESSION: 1. No acute intracranial process or abnormally enhancing brain lesions. 2. Moderate scattered nonspecific periventricular predominant white matter T2 hyperintensity which is within normal limits for age and likely sequela of chronic small vessel ischemic disease. Head/Neck CTA 05/22/23 13:14 IMPRESSION: 1. 0% stenosis of the right and left carotid bulbs relative to normal distal artery lumen diameter (NASCET criteria). 2. Small amount of nonhemodynamically significant atherosclerotic plaque at the bilateral carotid siphons. Otherwise unremarkable cerebral CT angiogram with no hemodynamically significant stenosis or aneurysm. Brain MRA 05/22/23 13:36 IMPRESSION: 1. Normal cerebral MR angiogram. Neck MRA 05/22/23 13:37 IMPRESSION: 1. 0% stenosis of the right and left carotid bulbs relative to normal distal artery lumen diameter (NASCET criteria). 2. 20-30% stenosis along the cervical portion of the left vertebral artery immediately distal to the carotid bulb. Chest X-Ray 05/26/23 06:08 Impression: Patchy bilateral airspace disease. Correlate for bilateral pulmonary edema/atelectasis versus pneumonia. Abdomen X-Ray 05/26/23 08:25 Impression: 1: Mildly dilated small bowel with moderate gas throughout the colon which may represent postoperative ileus or less likely partial obstruction. Labs Labs: Laboratory Results - last 24 hr 05/25/23 05/25/23 05/25/23 12:04 16:30 19:55 WBC RBC Hgb Hct MCV MCH MCHC RDW Plt Count MPV Immature Gran % (Auto) Neut % (Auto) Lymph % (Auto) Barton % (Auto) Eos % (Auto) Baso % (Auto) Lymph # (Auto) Barton # (Auto) Eos # (Auto) Baso # (Auto) Abs Immat Gran (auto) Absolute Neuts (auto) Absolute Nucleated RBC Nucleated RBC % Puncture Site ABG pH ABG pCO2 ABG pO2 ABG PO2/FiO2 Ratio ABG HCO3 ABG O2 Saturation ABG O2 Content ABG Base Excess A-a Gradient Oxyhemoglobin Total Hemoglobin O2 Delivery Device O2 Liters/Min FiO2 Sodium Potassium Chloride Carbon Dioxide Anion Gap BUN Creatinine Estim Creat Clear Calc Estimated GFR Glucose POC Capillary Glucose 187 H 147 H 144 H Calcium Magnesium Total Bilirubin AST ALT Alkaline Phosphatase Total Protein Albumin 05/26/23 05/26/23 05/26/23 04:07 05:40 08:01 WBC 14.2 H RBC 3.12 L Hgb 10.5 L Hct 32.0 L MCV 102.6 H D MCH 33.7 MCHC 32.8 RDW 12.0 Plt Count 275 MPV 9.7 Immature Gran % (Auto) 1.2 H Neut % (Auto) 77.6 H Lymph % (Auto) 11.6 L Barton % (Auto) 6.1 Eos % (Auto) 3.1 Baso % (Auto) 0.4 Lymph # (Auto) 1.64 Barton # (Auto) 0.9 H Eos # (Auto) 0.4 H Baso # (Auto) 0.1 Abs Immat Gran (auto) 0.17 H Absolute Neuts (auto) 11.0 H Absolute Nucleated RBC 0.000 Nucleated RBC % 0.0 Puncture Site Right radial ABG pH 7.453 H ABG pCO2 39.6 ABG pO2 83.0 ABG PO2/FiO2 Ratio 2.59 ABG HCO3 27.1 H ABG O2 Saturation 96.6 ABG O2 Content 15.6 L ABG Base Excess 3.0 A-a Gradient 98.8 Oxyhemoglobin 94.9 Total Hemoglobin 11.6 L O2 Delivery Device Nasal cannula O2 Liters/Min 3.0 FiO2 32 Sodium 137 Potassium 3.3 L Chloride 103 Carbon Dioxide 30 Anion Gap 4 BUN 30 H Creatinine 0.70 Estim Creat Clear Calc 64 Estimated GFR > 60 Glucose 145 H POC Capillary Glucose 144 H Calcium 8.5 Magnesium 2.2 Total Bilirubin 0.6 AST 35 ALT 33 Alkaline Phosphatase 72 Total Protein 6.0 L Albumin 3.4 L
--- NOTE | 2023-05-26 09:47 | PM.PNPUL ---
Progress Note: A&P Assessment and Plan (1) Acute respiratory failure with hypoxia and hypercapnia: Code(s): J96.01 - Acute respiratory failure with hypoxia; J96.02 - Acute respiratory failure with hypercapnia Status: Acute Assessment and Plan: May 23 moved to IMU, increased IPAP and decreased FiO2, mucolytic, Cornet valve. Still coughs, getting discolored sputum; she is able to sit up in a chair which is a good place to be for respiratory status. This is a combination of multiple factors, large abdominal incision which creates a restrictive impairment due to pain, pressure on the diaphragm, and she had underlying restrictive anatomy due to her dextroscoliosis, she has poor inspiratory effort, increasing atelectasis and she may have pulmonary vascular redistribution. Her chest x-ray from May 20 appears to have less cephalization. Her BUN and creatinine are increasing, BUN 36 and 1.1 however her chest x-ray appears wet. Her white blood cell count is lower, does not appear to have pneumonia but she definitely has atelectasis. We will aggressively treat this with mucolytics, expiratory vibratory valve, increase tidal volume on BiPAP, incentive spirometer. 05/24: better, more alert, lower O2 need, continue pulmonary hygiene measures. Plan Up in chair as long as she can tolerate. Scheduled Mucomyst 20% followed by Cornet valve use; she did respond to one dose yesterday, still has noisy lungs with secretions that need to be expectorated. Continue incentive spirometry to increase tidal volume and secretions clearance. Continue BiPAP IPAP 14, EPAP 6, with sleep. Continue PT. Add Ensure, she needs more oral intake. Consider modified barium swallow if this does not all clear in a few days, make sure she does not aspirate. 05/25: Patient received Mucomyst nebulizer last night and then vomited into her BiPAP mask which was removed approximately 3:00 a.m.. Blood gas at 5:40 a.m. with a pH of 7.45/40/83 on 3 L nasal cannula. The patient denies abdominal pain. She has a very weak cough and is unable to expectorate. Currently she is on 3 L nasal cannula saturations 96%. She is afebrile. White blood cell count 14.2, creatinine 0.7. The tells me she had a 1 cup size chocolate pudding bowel movement yesterday. Patient is scheduled to get a CT scan of the abdomen today per surgery team. she is receiving EzPAP, peep therapy and attempting incentive spirometry but she can only pole 100 mL Etiology of patient's current respiratory symptoms include postoperative atelectasis, scoliosis, morbid obesity, status post recent abdominal surgery and possible pneumonia. She is a never smoker with no history of asthma, COPD or chronic bronchitis. Plan: the patient was off BiPAP and had a blood gas this morning on after 3 hours on 3 L nasal cannula with pH of 7.45/40/83. There is no evidence of hypercarbic respiratory failure. At this time I will change the BiPAP to p.r.n.. I have told the nurse that she should only wear it if there is evidence of respiratory distress. Most importantly the patient should get out of bed to a chair if she is cleared by the surgical team. I talked to the nurse and explained that this may take multiple healthcare providers and a Leigha lift. She is scheduled to get a CT of the abdomen today for minimal bowel movements. We will continue aggressive measures for pulmonary toilet including DuoNebs q.6 hours. Increasing guaifenesin to 1200 mg p.o. b.i.d., continue cefepime day 6, and azithromycin, day 2 for possible pneumonia, EzPAP treatment q.6 hours, Cornet flutter valve q.4 hours while awake, and incentive spirometry q.2 hours while awake. Discussed with Dr. Avila, will follow with you. Subjective Date/time seen: 05/26/23 09:47 Interval history: New consult May 23 -Berenice Long is a 73-year-old woman who had an incarcerated incisional hernia repair FridayMay 18; this was an open incarcerated recurrent incisional hernia repair with mesh, Bilateral myofascial release, Removal of mesh foreign body, Extensive adhesiolysis; this lasted 5 hours which was longer than anticipated. She was fairly alert afterwards. 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 No occupational exposure, no asthma, recurrent pneumonias, no lung disease. Over the next few days, she has had worsening mentation, was agitated today with Ativan, was trying to get out of the bed, was kept in bed by . She is requiring more O2, now on BiPAP 01/15 with 40% with ABG at 14:54 today pH 7.318, pCO2 53, pO2 102, HC03 27.2 saturation 97%. ABG earlier today showed pH 7.272, pCO2 57, PO2 48.1 saturation 99% on room air. This might have been a mixed venous blood gas. She had a cough with little sputum production yesterday, less today. Her mentation is less than optimal. PMH : DM; hyperlipidemia, hypertension, glaucoma, hospital follow up : 05/25/23 at 14:05, , sons and Ortega, the sitter are present. She was up in the chair several times today. Now, she is lying in bed on her left side, wants to get up to side of bed. Speaking more clearly, not completely oriented. Knows that she had surgery, on 3 L/min =94% saturation; wbc down 11.8 k. She is not taking much food, drinking is easier for her compared to eating. She told me she had a blood clot, not true. 05/25: Patient received Mucomyst nebulizer last night and then vomited into her BiPAP mask which was removed approximately 3:00 a.m.. Blood gas at 5:40 a.m. with a pH of 7.45/40/83 on 3 L nasal cannula. The patient denies abdominal pain. She has a very weak cough and is unable to expectorate. Currently she is on 3 L nasal cannula saturations 96%. She is afebrile. White blood cell count 14.2, creatinine 0.7. The tells me she had a 1 cup size chocolate pudding bowel movement yesterday. Patient is scheduled to get a CT scan of the abdomen today per surgery team. DATA * 05/22/23 CTA- IMPRESSION: No pulmonary embolus. Sensitivity is severely decreased by motion artifact. Small lung volumes with moderate atelectasis bilaterally. * WBC initially on 05/20/23 was 19 k, lower now at 12 k on May 23. * 05/20/23 Initial BUN 19 with creatinine 0.7; May 23 BUN 36 creatinine 1.1 * 05/23/23 Complete two-dimensional, color flow and Doppler transthoracic echocardiogram is performed. 2. Left ventricular chamber dimension is normal. 3. Left ventricular systolic function is normal, estimated at 60-65%. 4. The left ventricular diastolic function is grade I diastolic dysfunction. 5. E/e' 13 is mildly elevated. 6. There is mild aortic valve sclerosis. 7. The mitral valve has mildly calcified annulus. 8. There is mild tricuspid valve regurgitation. 9. Mild pulmonary hypertension, estimated pulmonary arterial systolic pressure is 47 mmHg. 10. There is trace pulmonic regurgitation. * 05/24/23 pCXR 16:02 = Stable small lung volumes with airspace opacities in the mid and lower lung zones, consistent with atelectasis versus pneumonia. She has marked scoliosis and maybe right diaphragm elevation. This is contributing to her restrictive impairment, maybe was not appreciated before her surgery. * 05/21/23 CXR - Shallow inspiration. Bibasilar airspace disease. Cardiomegaly. No pneumothorax. No acute osseous abnormality. No significant effusion.Impression: IMPRESSION: Bibasilar airspace disease may represent pneumonia and/or atelectasis. Review of Systems Constitutional: Constitutional: Reports no additional constitutional complaints Eyes: Eyes: Reports no additional eye complaints ENT: Reports system reviewed and no additional complaints, except as documented Cardiovascular: Cardiovascular: Reports no additional cardiovascular complaints Respiratory: Respiratory: Reports no additional respiratory complaints Gastrointestinal: Gastrointestinal: Reports no additional gastrointestinal complaints Musculoskeletal: Musculoskeletal: Reports no additional musculoskeletal complaints Neurologic: Reports system reviewed and no additional complaints, except as documented Psychiatric: Psychiatric: Reports no additional psychiatric complaints Endocrine: Endocrine: Reports no additional endocrine complaints Hematologic/Lymphatic: Hematologic/Lymphatic: Reports no additional hematologic/lymphatic complaints Allergic/Immunologic: Allergic/Immunologic: Reports no additional allergic/immunologic complaints Exam Const: General: cooperative, comfortable and no acute distress HENMT: Head: normal to inspection Ears: hearing grossly normal bilaterally Eyes: General: appearance normal, both eyes and all related structures Neck: Neck: normal visual inspection Chest: Chest palpation & inspection: normal inspection of the chest Resp: Effort & Inspection: normal respiratory effort and able to speak in complete sentences Auscultation: no crackles, no rales, rhonchi, no wheezes and diminished lung sounds Cardio: Jugular venous distension: no JVD GI: Inspection: distended GI Palp: No abdominal tenderness Skin: General skin exam: normal color Neuro: Other: Nonfocal Extrem: General: normal to inspection Psych: Appearance: grossly normal Objective Data Vital Signs Vital Signs: Vital Signs - 24 hr 05/25/23 11:00 05/25/23 12:00 05/25/23 12:00 Temperature 36.3 C L Pulse Rate 93 86 Respiratory Rate 18 22 H Blood Pressure 156/80 H Pulse Oximetry 98 96 94 Oxygen Delivery Nasal Cannula Nasal Cannula Oxygen Flow Rate 3 3 Fraction of Inspired Oxygen 05/25/23 13:15 05/25/23 13:30 05/25/23 10:00 Temperature Pulse Rate 97 100 88 Respiratory Rate 24 H 24 H Blood Pressure Pulse Oximetry Oxygen Delivery Oxygen Flow Rate Fraction of Inspired Oxygen 05/25/23 12:00 05/25/23 14:00 05/25/23 15:50 Temperature 36.8 C Pulse Rate 93 86 88 Respiratory Rate 24 H Blood Pressure 145/97 H Pulse Oximetry 99 Oxygen Delivery Oxygen Flow Rate Fraction of Inspired Oxygen 05/25/23 16:00 05/25/23 16:00 05/25/23 18:00 Temperature Pulse Rate 91 90 Respiratory Rate Blood Pressure Pulse Oximetry 94 Oxygen Delivery Nasal Cannula Oxygen Flow Rate 3 Fraction of Inspired Oxygen 05/25/23 20:07 05/25/23 20:13 05/25/23 20:14 Temperature 36.7 C Pulse Rate 92 90 90 Respiratory Rate 20 20 22 H Blood Pressure 158/65 H Pulse Oximetry 97 97 Oxygen Delivery Nasal Cannula Oxygen Flow Rate 3 Fraction of Inspired Oxygen 05/25/23 20:59 05/25/23 20:00 05/25/23 20:00 Temperature Pulse Rate 94 92 87 Respiratory Rate 22 H 20 Blood Pressure Pulse Oximetry 97 Oxygen Delivery Nasal Cannula Oxygen Flow Rate 3 Fraction of Inspired Oxygen 05/25/23 22:00 05/25/23 23:40 05/26/23 00:00 Temperature 36.7 C Pulse Rate 86 82 82 Respiratory Rate 26 H 26 H Blood Pressure 152/63 H Pulse Oximetry 97 97 Oxygen Delivery BiPAP Oxygen Flow Rate Fraction of Inspired Oxygen 35 05/26/23 00:00 05/26/23 01:57 05/26/23 02:53 Temperature Pulse Rate 93 91 95 Respiratory Rate 23 H Blood Pressure Pulse Oximetry Oxygen Delivery Oxygen Flow Rate Fraction of Inspired Oxygen 05/26/23 03:15 05/25/23 21:45 05/26/23 04:43 Temperature 36.7 C Pulse Rate 99 89 90 Respiratory Rate 24 H 23 H 20 Blood Pressure 152/56 H Pulse Oximetry 96 99 Oxygen Delivery BiPAP Oxygen Flow Rate Fraction of Inspired Oxygen 05/26/23 04:00 05/26/23 04:00 05/26/23 05:42 Temperature Pulse Rate 90 90 82 Respiratory Rate 20 Blood Pressure Pulse Oximetry 99 Oxygen Delivery Nasal Cannula Oxygen Flow Rate 3 Fraction of Inspired Oxygen 05/26/23 07:58 05/26/23 08:38 05/26/23 08:38 Temperature 36.7 C Pulse Rate 89 90 Respiratory Rate 18 24 H Blood Pressure 158/72 H Pulse Oximetry 95 95 Oxygen Delivery Nasal Cannula Oxygen Flow Rate 3 Fraction of Inspired Oxygen 32 05/26/23 08:57 Temperature Pulse Rate 87 Respiratory Rate 23 H Blood Pressure Pulse Oximetry Oxygen Delivery Oxygen Flow Rate Fraction of Inspired Oxygen Intake/Output Intake/Output: Intake & Output 05/23/23 05/24/23 05/25/23 05/26/23 23:59 23:59 23:59 23:59 Intake Total 1400 980 700 350 Output Total 790 365 334 393 Balance 610 615 366 -43 Meds/Results Medications: Active Medications Generic Name Dose Route Start Last Admin Trade Name Freq PRN Reason Stop Dose Admin Acetaminophen 650 mg 05/19/23 17:56 Acetaminophen 325 Mg Tablet PO Q6H PRN Mild Pain (1-3) or Fever Albuterol/Ipratropium 3 ml 05/24/23 14:00 05/26/23 08:38 Ipratropium 0.5 Mg/Albuterol Sulfate 2.5 Mg Ampul.Neb 3 Ml INHALATION 3 ml Q6HRT BRANT Administration Ascorbic Acid 500 mg 05/25/23 09:00 05/25/23 09:11 Ascorbic Acid 500 Mg Tablet PO 500 mg DAILY BRANT Administration Azithromycin 500 mg 05/25/23 09:00 05/25/23 09:11 Azithromycin 250 Mg Tablet PO 05/28/23 10:00 500 mg DAILY BRANT Administration Cyanocobalamin 1,000 mcg 05/25/23 09:00 05/25/23 09:11 Cyanocobalamin 1,000 Mcg Tablet PO 1,000 mcg DAILY BRANT Administration Dextrose 12.5 gm 05/22/23 17:43 Dextrose 50% 25 Gm/50 Ml Syringe IV PUSH PRN PRN Hypoglycemia Protocol Enoxaparin Sodium 40 mg 05/20/23 09:00 05/25/23 09:11 Enoxaparin 40 Mg/0.4 Ml Syringe SUB-Q 40 mg DAILY BRANT Administration Glucagon 1 mg 05/22/23 17:43 Glucagon For Inj 1 Mg Vial IM PRN PRN Hypoglycemia Protocol Glucose 15 gm 05/22/23 17:43 Glucose Oral Gel 15 Gm Of Glucse In 37.5 Gm Tube PO PRN PRN Hypoglycemia Protocol Guaifenesin 600 mg 05/24/23 09:00 05/25/23 21:21 Guaifenesin 12 Hr 600 Mg Tabcr PO 600 mg Q12HR BRANT Administration Cefepime HCl 2 gm in 50 mls @ 100 mls/hr 05/21/23 18:00 05/26/23 06:27 Maxipime 2 Gm/Ns 50 Ml IVPB Infused Q12H BRANT Infusion Dextrose 1,000 mls @ 100 mls/hr 05/22/23 17:43 Dextrose 5% 1,000 Ml IVPB PRN PRN Hypoglycemia Protocol Potassium Chloride 40 meq/ 520 mls @ 130 mls/hr 05/26/23 09:44 Sodium Chloride IVPB 05/26/23 13:43 ONCE ONE Insulin Aspart 1 - 3 units 05/22/23 21:00 05/25/23 21:20 Insulin Aspart (*Bkc) 100 Units/Ml SUB-Q Not Given HS BRANT Protocol Insulin Aspart 3 - 6 units 05/23/23 08:00 05/25/23 18:12 Insulin Aspart (*Bkc) 100 Units/Ml SUB-Q Not Given TIDWM BRANT Protocol Latanoprost 1 drop 05/19/23 21:00 05/25/23 21:21 Latanoprost 0.005% Op Soln 2.5 Ml Btl EACH EYE 1 drop HS BRANT Administration Levalbuterol HCl 1.25 mg 05/24/23 15:59 05/24/23 16:42 Levalbuterol Neb 1.25 Mg/3 Ml INHALATION 1.25 mg Q6HRT PRN Administration Wheezing Magnesium Gluconate 27 mg 05/20/23 09:00 05/25/23 10:07 Magnesium 27 Mg Tablet (500 Mg Mag Gluconate) PO 27 mg DAILY BRANT Administration Naloxone HCl 0.1 mg 05/19/23 17:56 Naloxone Hcl 0.4 Mg/Ml Vial IV PUSH Q2M PRN Opiate Reversal Ondansetron HCl 4 mg 05/19/23 17:56 05/22/23 21:58 Ondansetron Inj 4 Mg/2 Ml Vial IV PUSH 4 mg Q4H PRN Administration Nausea And Vomiting Pantoprazole Sodium 40 mg 05/20/23 09:00 05/25/23 09:10 Pantoprazole 40 Mg Tablet PO 40 mg QAM BRANT Administration Perflutren Lipid Microsphere 0 ml 05/23/23 12:51 Perflutren Lipid Microspheres 1.5 Ml Vial Diluted To 10 Ml Total Volume IV PUSH 05/26/23 12:51 ONCE PRN adequate visualization Protocol Polyethylene Glycol 17 gm 05/20/23 09:00 05/25/23 09:10 Polyethylene Glycol 3350 17 Gm Powd.Pack PO 17 gm QAM BRANT Administration Pravastatin Sodium 20 mg 05/19/23 21:00 05/25/23 21:21 Pravastatin Sodium 20 Mg Tablet PO 20 mg QHS BRANT Administration Vitamin D 1,000 units 05/25/23 09:00 05/25/23 09:16 Cholecalciferol 1,000 Units Tablet PO 1,000 units SuWe@0900 BRANT Administration Radiology Results: ITS Impressions Head CT 05/22/23 09:50 IMPRESSION: 1. Moderate scattered white matter hypoattenuation consistent with chronic small vessel ischemic disease. No other acute intracranial process. Chest CTA 05/22/23 09:51 IMPRESSION: 1. No pulmonary embolus. Sensitivity is severely decreased by motion artifact. 2. Small lung volumes with moderate atelectasis bilaterally. Brain MRI 05/22/23 13:08 IMPRESSION: 1. No acute intracranial process or abnormally enhancing brain lesions. 2. Moderate scattered nonspecific periventricular predominant white matter T2 hyperintensity which is within normal limits for age and likely sequela of chronic small vessel ischemic disease. Head/Neck CTA 05/22/23 13:14 IMPRESSION: 1. 0% stenosis of the right and left carotid bulbs relative to normal distal artery lumen diameter (NASCET criteria). 2. Small amount of nonhemodynamically significant atherosclerotic plaque at the bilateral carotid siphons. Otherwise unremarkable cerebral CT angiogram with no hemodynamically significant stenosis or aneurysm. Brain MRA 05/22/23 13:36 IMPRESSION: 1. Normal cerebral MR angiogram. Neck MRA 05/22/23 13:37 IMPRESSION: 1. 0% stenosis of the right and left carotid bulbs relative to normal distal artery lumen diameter (NASCET criteria). 2. 20-30% stenosis along the cervical portion of the left vertebral artery immediately distal to the carotid bulb. Chest X-Ray 05/26/23 06:08 Impression: Patchy bilateral airspace disease. Correlate for bilateral pulmonary edema/atelectasis versus pneumonia. Abdomen X-Ray 05/26/23 08:25 Impression: 1: Mildly dilated small bowel with moderate gas throughout the colon which may represent postoperative ileus or less likely partial obstruction. Labs Labs: Laboratory Results - last 24 hr 05/25/23 05/25/23 05/25/23 12:04 16:30 19:55 WBC RBC Hgb Hct MCV MCH MCHC RDW Plt Count MPV Immature Gran % (Auto) Neut % (Auto) Lymph % (Auto) [place] % (Auto) Eos % (Auto) Baso % (Auto) Lymph # (Auto) [place] # (Auto) Eos # (Auto) Baso # (Auto) Abs Immat Gran (auto) Absolute Neuts (auto) Absolute Nucleated RBC Nucleated RBC % Puncture Site ABG pH ABG pCO2 ABG pO2 ABG PO2/FiO2 Ratio ABG HCO3 ABG O2 Saturation ABG O2 Content ABG Base Excess A-a Gradient Oxyhemoglobin Total Hemoglobin O2 Delivery Device O2 Liters/Min FiO2 Sodium Potassium Chloride Carbon Dioxide Anion Gap BUN Creatinine Estim Creat Clear Calc Estimated GFR Glucose POC Capillary Glucose 187 H 147 H 144 H Calcium Magnesium Total Bilirubin AST ALT Alkaline Phosphatase Total Protein Albumin 05/26/23 05/26/23 05/26/23 04:07 05:40 08:01 WBC 14.2 H RBC 3.12 L Hgb 10.5 L Hct 32.0 L MCV 102.6 H D MCH 33.7 MCHC 32.8 RDW 12.0 Plt Count 275 MPV 9.7 Immature Gran % (Auto) 1.2 H Neut % (Auto) 77.6 H Lymph % (Auto) 11.[address] [place] % (Auto) 6.1 Eos % (Auto) 3.1 Baso % (Auto) 0.4 Lymph # (Auto) 1.64 [place] # (Auto) 0.9 H Eos # (Auto) 0.4 H Baso # (Auto) 0.1 Abs Immat Gran (auto) 0.17 H Absolute Neuts (auto) 11.0 H Absolute Nucleated RBC 0.000 Nucleated RBC % 0.0 Puncture Site Right radial ABG pH 7.453 H ABG pCO2 39.6 ABG pO2 83.0 ABG PO2/FiO2 Ratio 2.59 ABG HCO3 27.1 H ABG O2 Saturation 96.6 ABG O2 Content 15.6 L ABG Base Excess 3.0 A-a Gradient 98.8 Oxyhemoglobin 94.9 Total Hemoglobin 11.6 L O2 Delivery Device Nasal cannula O2 Liters/Min 3.0 FiO2 32 Sodium 137 Potassium 3.3 L Chloride 103 Carbon Dioxide 30 Anion Gap 4 BUN 30 H Creatinine 0.70 Estim Creat Clear Calc 64 Estimated GFR > 60 Glucose 145 H POC Capillary Glucose 144 H Calcium 8.5 Magnesium 2.2 Total Bilirubin 0.6 AST 35 ALT 33 Alkaline Phosphatase 72 Total Protein 6.0 L Albumin 3.4 L Amg Follow-up Billing Hospital Follow-up Hospital Follow-up: [id number] [facility] Mod
[2023-05-26] MEDS: AZITHROMYCIN 250 MG TABLET 500 MG PO (10:18)
[2023-05-26] MEDS: MAGNESIUM 27 MG TABLET (500 MG MAG GLUCONATE) PO (10:18)
[2023-05-26] MEDS: ASCORBIC ACID 500 MG TABLET PO (10:18)
[2023-05-26] MEDS: PANTOPRAZOLE 40 MG TABLET PO (10:18)
[2023-05-26] MEDS: CYANOCOBALAMIN 1,000 MCG TABLET 1000 MCG PO (10:18)
[2023-05-26] MEDS: metroNIDAZOLE 500 MG/ISO 100ML 500 MG/100 ML BAG 100 MG IVPB ×3 (10:19→21:55)
[2023-05-26] MEDS: guaiFENesin 12 HR 600 MG TABCR 1200 MG PO ×2 (10:19→20:20)
[2023-05-26] MEDS: ENOXAPARIN 40 MG/0.4 ML SYRINGE SUB-Q (10:19)
[2023-05-26 10:28] LABS: NT Pro B Type Natriuretic Pept 1870 pg/mL (19.9-100)
[2023-05-26] MEDS: POTASSIUM CHLORIDE INJ 40 MEQ in SODIUM CHLORIDE 0.9% IV 500 ML 130 MEQ IVPB (11:30)
[2023-05-26 12:07] LABS: Glucose Point of Care 153 mg/dl (65-105)
[2023-05-26] MEDS: BISACODYL 10 MG SUPPOSITORY RECTAL (12:17)
--- NOTE | 2023-05-26 13:22 | PM.PNGS ---
Progress Note: A&P Assessment and Plan (1) Incarcerated incisional hernia: Code(s): K43.0 - Incisional hernia with obstruction, without gangrene Status: Acute Assessment and Plan: Surgical stable but still dealing with a lot of respiratory issues and not having much appetite. Discussed with family encouraging eating and giving diet supplements. TPN could be considered, but has risks of fluid overload and worsening respiratory status. Continue PT/OT. Will stimulate bowels more with Reglan and Dulcolax suppository. (2) Acute respiratory failure with hypoxia and hypercapnia: Code(s): J96.01 - Acute respiratory failure with hypoxia; J96.02 - Acute respiratory failure with hypercapnia Status: Acute Subjective Subjective Date/Time Seen: 05/26/23 13:22 Interval history: Patient still not ambulating much. Not having much appetite. Had a BM yesterday. Vomited overnight while on her CPAP. No abdominal pain. Exam Resp: Other: Coarse breath sounds GI: Inspection: non-distended, incision (intact with bhargavi) and other (JPs serous) GI Palp: Yes Soft to palpation, No Tenderness to palpation present (GI) and No Guarding due to palpation present (GI) Objective Data Vital Signs Vital Signs: Vital Signs - 24 hr 05/25/23 13:30 05/25/23 14:00 05/25/23 15:50 Temperature 36.8 C Pulse Rate 100 86 88 Respiratory Rate 24 H 24 H Blood Pressure 145/97 H Pulse Oximetry 99 Oxygen Delivery Oxygen Flow Rate Fraction of Inspired Oxygen 05/25/23 16:00 05/25/23 16:00 05/25/23 18:00 Temperature Pulse Rate 91 90 Respiratory Rate Blood Pressure Pulse Oximetry 94 Oxygen Delivery Nasal Cannula Oxygen Flow Rate 3 Fraction of Inspired Oxygen 05/25/23 20:07 05/25/23 20:13 05/25/23 20:14 Temperature 36.7 C Pulse Rate 92 90 90 Respiratory Rate 20 20 22 H Blood Pressure 158/65 H Pulse Oximetry 97 97 Oxygen Delivery Nasal Cannula Oxygen Flow Rate 3 Fraction of Inspired Oxygen 05/25/23 20:59 05/25/23 20:00 05/25/23 20:00 Temperature Pulse Rate 94 92 87 Respiratory Rate 22 H 20 Blood Pressure Pulse Oximetry 97 Oxygen Delivery Nasal Cannula Oxygen Flow Rate 3 Fraction of Inspired Oxygen 05/25/23 22:00 05/25/23 23:40 05/26/23 00:00 Temperature 36.7 C Pulse Rate 86 82 82 Respiratory Rate 26 H 26 H Blood Pressure 152/63 H Pulse Oximetry 97 97 Oxygen Delivery BiPAP Oxygen Flow Rate Fraction of Inspired Oxygen 35 05/26/23 00:00 05/26/23 01:57 05/26/23 02:53 Temperature Pulse Rate 93 91 95 Respiratory Rate 23 H Blood Pressure Pulse Oximetry Oxygen Delivery Oxygen Flow Rate Fraction of Inspired Oxygen 05/26/23 03:15 05/25/23 21:45 05/26/23 04:43 Temperature 36.7 C Pulse Rate 99 89 90 Respiratory Rate 24 H 23 H 20 Blood Pressure 152/56 H Pulse Oximetry 96 99 Oxygen Delivery BiPAP Oxygen Flow Rate Fraction of Inspired Oxygen 05/26/23 04:00 05/26/23 04:00 05/26/23 05:42 Temperature Pulse Rate 90 90 82 Respiratory Rate 20 Blood Pressure Pulse Oximetry 99 Oxygen Delivery Nasal Cannula Oxygen Flow Rate 3 Fraction of Inspired Oxygen 05/26/23 07:58 05/26/23 08:38 05/26/23 08:38 Temperature 36.7 C Pulse Rate 89 90 Respiratory Rate 18 24 H Blood Pressure 158/72 H Pulse Oximetry 95 95 Oxygen Delivery Nasal Cannula Oxygen Flow Rate 3 Fraction of Inspired Oxygen 32 05/26/23 08:57 05/26/23 08:00 05/26/23 11:56 Temperature 36.9 C Pulse Rate 87 90 Respiratory Rate 23 H 19 Blood Pressure 163/73 H Pulse Oximetry 95 99 Oxygen Delivery Nasal Cannula Oxygen Flow Rate 3 Fraction of Inspired Oxygen Intake/Output Intake/Output: Intake & Output 05/23/23 05/24/23 05/25/23 05/26/23 23:59 23:59 23:59 23:59 Intake Total 1400 980 700 350 Output Total 790 365 334 543 Balance [phone] -798 Meds/Results Medications: Active Medications Generic Name Dose Route Start Last Admin Trade Name Freq PRN Reason Stop Dose Admin Acetaminophen 650 mg 05/19/23 17:56 Acetaminophen 325 Mg Tablet PO Q6H PRN Mild Pain (1-3) or Fever Albuterol/Ipratropium 3 ml 05/24/23 14:00 05/26/23 08:38 Ipratropium 0.5 Mg/Albuterol Sulfate 2.5 Mg Ampul.Neb 3 Ml INHALATION 3 ml Q6HRT BRANT Administration Ascorbic Acid 500 mg 05/25/23 09:00 05/26/23 10:18 Ascorbic Acid 500 Mg Tablet PO 500 mg DAILY BRANT Administration Azithromycin 500 mg 05/25/23 09:00 05/26/23 10:18 Azithromycin 250 Mg Tablet PO 05/28/23 10:00 500 mg DAILY BRANT Administration Cyanocobalamin 1,000 mcg 05/25/23 09:00 05/26/23 10:18 Cyanocobalamin 1,000 Mcg Tablet PO 1,000 mcg DAILY BRANT Administration Dextrose 12.5 gm 05/22/23 17:43 Dextrose 50% 25 Gm/50 Ml Syringe IV PUSH PRN PRN Hypoglycemia Protocol Enoxaparin Sodium 40 mg 05/20/23 09:00 05/26/23 10:19 Enoxaparin 40 Mg/0.4 Ml Syringe SUB-Q 40 mg DAILY BRANT Administration Glucagon 1 mg 05/22/23 17:43 Glucagon For Inj 1 Mg Vial IM PRN PRN Hypoglycemia Protocol Glucose 15 gm 05/22/23 17:43 Glucose Oral Gel 15 Gm Of Glucse In 37.5 Gm Tube PO PRN PRN Hypoglycemia Protocol Guaifenesin 1,200 mg 05/26/23 09:00 05/26/23 10:19 Guaifenesin 12 Hr 600 Mg Tabcr PO 1,200 mg Q12HR BRANT Administration Cefepime HCl 2 gm in 50 mls @ 100 mls/hr 05/21/23 18:00 05/26/23 06:27 Maxipime 2 Gm/Ns 50 Ml IVPB Infused Q12H [facility]ANT Infusion Dextrose 1,000 mls @ 100 mls/hr 05/22/23 17:43 Dextrose 5% 1,000 Ml IVPB PRN PRN Hypoglycemia Protocol Potassium Chloride 40 meq/ 520 mls @ 130 mls/hr 05/26/23 09:44 05/26/23 11:30 Sodium Chloride IVPB 05/26/23 13:43 130 mls/hr ONCE ONE Administration Metronidazole 500 mg in 100 mls @ 100 mls/hr 05/26/23 10:00 05/26/23 10:19 Flagyl 500 Mg/Iso Soln 100 Ml IVPB 100 mls/hr Q6H [facility]ANT Administration Insulin Aspart 1 - 3 units 05/22/23 21:00 05/25/23 21:20 Insulin Aspart (*Bkc) 100 Units/Ml SUB-Q Not Given HS [facility] Protocol Insulin Aspart 3 - 6 units 05/23/23 08:00 05/26/23 10:14 Insulin Aspart (*Bkc) 100 Units/Ml SUB-Q Not Given TIDWM [facility] Protocol Latanoprost 1 drop 05/19/23 21:00 05/25/23 21:21 Latanoprost 0.005% Op Soln 2.5 Ml Btl EACH EYE 1 drop HS [facility] Administration Magnesium Gluconate 27 mg 05/20/23 09:00 05/26/23 10:18 Magnesium 27 Mg Tablet (500 Mg Mag Gluconate) PO 27 mg DAILY BRANT Administration Metoclopramide HCl 10 mg 05/26/23 18:00 Metoclopramide Hcl Inj 10 Mg/2 Ml Vial IV PUSH Q6HR [facility]ANT Naloxone HCl 0.1 mg 05/19/23 17:56 Naloxone Hcl 0.4 Mg/Ml Vial IV PUSH Q2M PRN Opiate Reversal Ondansetron HCl 4 mg 05/19/23 17:56 05/22/23 21:58 Ondansetron Inj 4 Mg/2 Ml Vial IV PUSH 4 mg Q4H PRN Administration Nausea And Vomiting Pantoprazole Sodium 40 mg 05/20/23 09:00 05/26/23 10:18 Pantoprazole 40 Mg Tablet PO 40 mg QAM [facility] Administration Polyethylene Glycol 17 gm 05/20/23 09:00 05/25/23 09:10 Polyethylene Glycol 3350 17 Gm Powd.Pack PO 17 gm QAM [facility] Administration Pravastatin Sodium 20 mg 05/19/23 21:00 05/25/23 21:21 Pravastatin Sodium 20 Mg Tablet PO 20 mg QHS [facility] Administration Vitamin D 1,000 units 05/25/23 09:00 05/25/23 09:16 Cholecalciferol 1,000 Units Tablet PO 1,000 units SuWe@0900 [facility] Administration Radiology Results: ITS Impressions Head CT 05/22/23 09:50 IMPRESSION: 1. Moderate scattered white matter hypoattenuation consistent with chronic small vessel ischemic disease. No other acute intracranial process. Chest CTA 05/22/23 09:51 IMPRESSION: 1. No pulmonary embolus. Sensitivity is severely decreased by motion artifact. 2. Small lung volumes with moderate atelectasis bilaterally. Brain MRI 05/22/23 13:08 IMPRESSION: 1. No acute intracranial process or abnormally enhancing brain lesions. 2. Moderate scattered nonspecific periventricular predominant white matter T2 hyperintensity which is within normal limits for age and likely sequela of chronic small vessel ischemic disease. Head/Neck CTA 05/22/23 13:14 IMPRESSION: 1. 0% stenosis of the right and left carotid bulbs relative to normal distal artery lumen diameter (NASCET criteria). 2. Small amount of nonhemodynamically significant atherosclerotic plaque at the bilateral carotid siphons. Otherwise unremarkable cerebral CT angiogram with no hemodynamically significant stenosis or aneurysm. Brain MRA 05/22/23 13:36 IMPRESSION: 1. Normal cerebral MR angiogram. Neck MRA 05/22/23 13:37 IMPRESSION: 1. 0% stenosis of the right and left carotid bulbs relative to normal distal artery lumen diameter (NASCET criteria). 2. 20-30% stenosis along the cervical portion of the left vertebral artery immediately distal to the carotid bulb. Chest X-Ray 05/26/23 06:08 Impression: Patchy bilateral airspace disease. Correlate for bilateral pulmonary edema/atelectasis versus pneumonia. Abdomen X-Ray 05/26/23 08:25 Impression: 1: Mildly dilated small bowel with moderate gas throughout the colon which may represent postoperative ileus or less likely partial obstruction. Abdomen/Pelvis CT 05/26/23 09:45 IMPRESSION: 1. Several fluid-filled but not frankly dilated loops of small bowel likely related to postoperative ileus given the postoperative change of recent infraumbilical ventral hernia repair. 2. Diffuse hepatic steatosis. 3. Diverticulosis. 4. Volume loss and lungs with scattered peripheral consolidation in all lobes of the/lower lungs with appearance favoring atelectasis over pneumonia. Labs Labs: Laboratory Results - last 24 hr 05/25/23 05/25/23 05/26/23 16:30 19:55 04:02 WBC RBC Hgb Hct MCV MCH MCHC RDW Plt Count MPV Immature Gran % (Auto) Neut % (Auto) Lymph % (Auto) [place] % (Auto) Eos % (Auto) Baso % (Auto) Lymph # (Auto) [place] # (Auto) Eos # (Auto) Baso # (Auto) Abs Immat Gran (auto) Absolute Neuts (auto) Absolute Nucleated RBC Nucleated RBC % Puncture Site ABG pH ABG pCO2 ABG pO2 ABG PO2/FiO2 Ratio ABG HCO3 ABG O2 Saturation ABG O2 Content ABG Base Excess A-a Gradient Oxyhemoglobin Total Hemoglobin O2 Delivery Device O2 Liters/Min FiO2 Sodium Potassium Chloride Carbon Dioxide Anion Gap BUN Creatinine Estim Creat Clear Calc Estimated GFR Glucose POC Capillary Glucose 147 H 144 H Calcium Magnesium Total Bilirubin AST ALT Alkaline Phosphatase NT-Pro-B Natriuret Pep 1870 H Total Protein Albumin 05/26/23 05/26/23 05/26/23 04:07 05:40 08:01 WBC 14.2 H RBC 3.12 L Hgb 10.5 L Hct 32.0 L MCV 102.6 H D MCH 33.7 MCHC 32.8 RDW 12.0 Plt Count 275 MPV 9.7 Immature Gran % (Auto) 1.2 H Neut % (Auto) 77.6 H Lymph % (Auto) 11.6 L [place] % (Auto) 6.1 Eos % (Auto) 3.1 Baso % (Auto) 0.4 Lymph # (Auto) 1.64 [place] # (Auto) 0.9 H Eos # (Auto) 0.4 H Baso # (Auto) 0.1 Abs Immat Gran (auto) 0.17 H Absolute Neuts (auto) 11.0 H Absolute Nucleated RBC 0.000 Nucleated RBC % 0.0 Puncture Site Right radial ABG pH 7.453 H ABG pCO2 39.6 ABG pO2 83.0 ABG PO2/FiO2 Ratio 2.59 ABG HCO3 27.1 H ABG O2 Saturation 96.6 ABG O2 Content 15.6 L ABG Base Excess 3.0 A-a Gradient 98.8 Oxyhemoglobin 94.9 Total Hemoglobin 11.6 L O2 Delivery Device Nasal cannula O2 Liters/Min 3.0 FiO2 32 Sodium 137 Potassium 3.3 L Chloride 103 Carbon Dioxide 30 Anion Gap 4 BUN 30 H Creatinine 0.70 Estim Creat Clear Calc 64 Estimated GFR > 60 Glucose 145 H POC Capillary Glucose 144 H Calcium 8.5 Magnesium 2.2 Total Bilirubin 0.6 AST 35 ALT 33 Alkaline Phosphatase 72 NT-Pro-B Natriuret Pep Total Protein 6.0 L Albumin 3.4 L 05/26/23 11:28 WBC RBC Hgb Hct MCV MCH MCHC RDW Plt Count MPV Immature Gran % (Auto) Neut % (Auto) Lymph % (Auto) [place] % (Auto) Eos % (Auto) Baso % (Auto) Lymph # (Auto) [place] # (Auto) Eos # (Auto) Baso # (Auto) Abs Immat Gran (auto) Absolute Neuts (auto) Absolute Nucleated RBC Nucleated RBC % Puncture Site ABG pH ABG pCO2 ABG pO2 ABG PO2/FiO2 Ratio ABG HCO3 ABG O2 Saturation ABG O2 Content ABG Base Excess A-a Gradient Oxyhemoglobin Total Hemoglobin O2 Delivery Device O2 Liters/Min FiO2 Sodium Potassium Chloride Carbon Dioxide Anion Gap BUN Creatinine Estim Creat Clear Calc Estimated GFR Glucose POC Capillary Glucose 153 H Calcium Magnesium Total Bilirubin AST ALT Alkaline Phosphatase NT-Pro-B Natriuret Pep Total Protein Albumin
[2023-05-26] MEDS: polyethylene glycoL 3350 17 GM POWD.PACK PO (14:04)
[2023-05-26 17:09] LABS: Glucose Point of Care 159 mg/dl (65-105)
[2023-05-26 20:13] LABS: Glucose Point of Care 135 mg/dl (65-105)
[2023-05-26] MEDS: PRAVASTATIN SODIUM 20 MG TABLET PO (20:20)
[2023-05-26] MEDS: METOCLOPRAMIDE HCL INJ 10 MG/2 ML VIAL IV PUSH ×2 (20:20→23:31)
[2023-05-26] MEDS: LATANOPROST 0.005% OP SOLN 2.5 ML BTL 1 DROP EACH EYE (20:26)
[2023-05-27] VITALS (28 sets, daily range): BP systolic 151–183; BP diastolic 61–79; PULSE 71–96; RESP 18–28; TEMP 36.2–36.8; O2SAT 91–99
[2023-05-27] MEDS: IPRATROPIUM 0.5 MG/ALBUTEROL SULFATE 2.5 MG AMPUL.NEB 3 ML INHALATION ×4 (03:00→21:44)
[2023-05-27 03:03] LABS: Alveolar/Arterial O2 Gradient 98.8 mmHg; Base Excess ABG 2.2 mEq/l (+/-2.0); Fractional Inspired Oxygen 32 %; HCO3 ABG 25.3 mEq/l (22.0-26.0); Oxygen Content ABG 16.2 %vol (16.0-22.0); Oxygen Saturation ABG 97.4 % (95.0-100.0); Oxyhemoglobin 95.6 % THb (90.0-100.0); PCO2 ABG 34.4 mmHg (35.0-45.0); PO2 ABG 89.1 mmHg (80.0-100.0); PO2 FiO2 Ratio Arterial Blood 2.78 %; pH ABG 7.485 (7.350-7.450)
[2023-05-27 03:04] LABS: Device NASAL CANNULA; Modified Allen's Test Pass; Site Drawn RIGHT RADIAL
[2023-05-27] MEDS: metroNIDAZOLE 500 MG/ISO 100ML 500 MG/100 ML BAG 100 MG IVPB ×4 (03:15→23:11)
[2023-05-27 05:07] LABS: Basophils Absolute Auto 0.1 K/mm3 (0.0-0.1); Basophils Percent Auto 0.6 % (0.2-1.2); Eosinophils Absolute Auto 0.4 K/mm3 (0-0.3); Eosinophils Percent Auto 2.1 % (0-4.4); Hemoglobin 11.3 g/dL (12.0-15.0); Immature Granulocyte Absolute 0.32 K/mm3 (0.00-0.031); Immature Granulocyte Percent A 1.8 % (0-0.5); Lymphocytes Absolute Auto 1.98 K/mm3 (0.9-3.2); Lymphocytes Percent Auto 10.9 % (18.3-44.2); Mean Corpuscular HGB Conc 32.3 g/dl (32-36); Mean Corpuscular Hemoglobin 33.4 pg (26-34); Mean Corpuscular Volume 103.6 fl (80-100); Mean Platelet Volume 10.1 fl (7.4-10.4); Monocytes Absolute Auto 1.2 K/mm3 (0.1-0.6); Monocytes Percent Auto 6.3 % (2.6-8.5); Neutrophils Absolute Auto 14.2 K/mm3 (1.3-6.7); Neutrophils Percent Auto 78.3 % (45.5-73.1); Platelet Count Result 306 k/mm3 (150-375); Red Blood Count 3.38 M/mm3 (4.2-5.4); White Blood Count 18.2 K/mm3 (4.5-10.0)
[2023-05-27 05:20] LABS: Alanine Aminotransferase 32 U/L (6-35); Albumin Level 3.4 g/dL (3.5-5.1); Alkaline Phosphatase 70 U/L (38-126); Anion Gap 5 mmol/L (4-12); Aspartate Amino Transferase 36 U/L (14-36); Bilirubin,Total 0.6 mg/dL (0.2-1.3); Blood Urea Nitrogen 25 mg/dL (7-17); Calcium 8.3 mg/dL (8.4-10.2); Carbon Dioxide 28 mmol/L (22-30); Chloride 103 mmol/L (98-107); Estimated CRCL calculation 73 ml/min; Estimated Glomerular Filt Rate > 60; Glucose 138 mg/dL (65-110); Magnesium 2.1 mg/dL (1.6-2.3); Potassium 3.3 mmol/L (3.4-5.0); Sodium 136 mmol/L (137-145)
[2023-05-27] MEDS: METOCLOPRAMIDE HCL INJ 10 MG/2 ML VIAL IV PUSH ×4 (06:01→23:11)
--- NOTE | 2023-05-27 06:12 | PC.NURSE ---
Around 0255, patient was found to be diaphoretic, confused, and pulling off gown, telemetry, and dressing with feces all over self and the bed. Left TAYE bulb disconnected as patient had removed gown. Dr. Gunn notified and STAT ABG obtained as well as CXR. No critical ABG results noted. Patient answers all questions correctly but seems to have periods of intermittent confusion. Lung sounds auscultated and sound worse than previously in the shift. Increased coarse crackles noted as well as worsening wheezes bilaterally. Patient received scheduled breathing treatment and seems to show some improvement. No new orders at this time. Will continue to monitor.
[2023-05-27 08:18] LABS: Glucose Point of Care 132 mg/dl (65-105)
[2023-05-27] MEDS: AZITHROMYCIN 250 MG TABLET 500 MG PO (08:57)
[2023-05-27] MEDS: ENOXAPARIN 40 MG/0.4 ML SYRINGE SUB-Q (08:57)
[2023-05-27] MEDS: CYANOCOBALAMIN 1,000 MCG TABLET 1000 MCG PO (08:57)
[2023-05-27] MEDS: CEFEPIME 2 GM/NS 50 ML 2 GM/50 ML BAG IVPB ×2 (08:57→21:03)
[2023-05-27] MEDS: ASCORBIC ACID 500 MG TABLET PO (08:57)
[2023-05-27] MEDS: PANTOPRAZOLE 40 MG TABLET PO (08:58)
[2023-05-27] MEDS: polyethylene glycoL 3350 17 GM POWD.PACK PO (08:58)
[2023-05-27] MEDS: MAGNESIUM 27 MG TABLET (500 MG MAG GLUCONATE) PO (08:58)
[2023-05-27] MEDS: guaiFENesin 12 HR 600 MG TABCR 1200 MG PO ×2 (08:58→21:02)
--- NOTE | 2023-05-27 09:12 | P.PNPL_ITS ---
Progress Note: A&P Assessment and Plan (1) Acute respiratory failure with hypoxia and hypercapnia: Code(s): J96.01 - Acute respiratory failure with hypoxia; J96.02 - Acute respiratory failure with hypercapnia Status: Acute Assessment and Plan: May 23 moved to IMU, increased IPAP and decreased FiO2, mucolytic, Cornet valve. Still coughs, getting discolored sputum; she is able to sit up in a chair which is a good place to be for respiratory status. This is a combination of multiple factors, large abdominal incision which creates a restrictive impairment due to pain, pressure on the diaphragm, and she had underlying restrictive anatomy due to her dextroscoliosis, she has poor inspiratory effort, increasing atelectasis and she may have pulmonary vascular redistribution. Her chest x-ray from May 20 appears to have less cephalization. Her BUN and creatinine are increasing, BUN 36 and 1.1 however her chest x-ray appears wet. Her white blood cell count is lower, does not appear to have pneumonia but she definitely has atelectasis. We will aggressively treat this with mucolytics, expiratory vibratory valve, increase tidal volume on BiPAP, incentive spirometer. 05/24: better, more alert, lower O2 need, continue pulmonary hygiene measures. Plan Up in chair as long as she can tolerate. Scheduled Mucomyst 20% followed by Cornet valve use; she did respond to one dose yesterday, still has noisy lungs with secretions that need to be expectorated. Continue incentive spirometry to increase tidal volume and secretions clearance. Continue BiPAP IPAP 14, EPAP 6, with sleep. Continue PT. Add Ensure, she needs more oral intake. Consider modified barium swallow if this does not all clear in a few days, make sure she does not aspirate. 05/25: Patient received Mucomyst nebulizer last night and then vomited into her BiPAP mask which was removed approximately 3:00 a.m.. Blood gas at 5:40 a.m. with a pH of 7.45/40/83 on 3 L nasal cannula. The patient denies abdominal pain. She has a very weak cough and is unable to expectorate. Currently she is on 3 L nasal cannula saturations 96%. She is afebrile. White blood cell count 14.2, creatinine 0.7. The tells me she had a 1 cup size chocolate pudding bowel movement yesterday. Patient is scheduled to get a CT scan of the abdomen today per surgery team. she is receiving EzPAP, peep therapy and attempting incentive spirometry but she can only pole 100 mL Etiology of patient's current respiratory symptoms include postoperative atelectasis, scoliosis, morbid obesity, status post recent abdominal surgery and possible pneumonia. She is a never smoker with no history of asthma, COPD or chronic bronchitis. Plan: the patient was off BiPAP and had a blood gas this morning on after 3 hours on 3 L nasal cannula with pH of 7.45/40/83. There is no evidence of hypercarbic respiratory failure. At this time I will change the BiPAP to p.r.n.. I have told the nurse that she should only wear it if there is evidence of respiratory distress. Most importantly the patient should get out of bed to a chair if she is cleared by the surgical team. I talked to the nurse and explained that this may take multiple healthcare providers and a Leigha lift. She is scheduled to get a CT of the abdomen today for minimal bowel movements. We will continue aggressive measures for pulmonary toilet including DuoNebs q.6 hours. Increasing guaifenesin to 1200 mg p.o. b.i.d., continue cefepime day 6, and azithromycin, day 2 for possible pneumonia, EzPAP treatment q.6 hours, Cornet flutter valve q.4 hours while awake, and incentive spirometry q.2 hours while awake. 05/27/23: Patient said she slept well without the BiPAP last night. She feels pretty good. Overall she says she is breathing 50% back to her normal. She does have a cough with minimal phlegm production. She did incentive spirometry at 600 mL. When I entered the room she was on 3 L with saturations 96%. I decreased her to 2 L and her saturations were 95%. I decreased her to room air and her saturations were 93% after 8 minutes. Her white blood cell count is 18.2, creatinine 0.6. She walked 2 ft yesterday and sat up in the chair during the afternoon. Chest x-ray today shows decreased lung volumes with congestion. ABG this morning on 3 L nasal cannula 7.49/34/89. Plan: Stable off of BiPAP with no evidence of hypercarbic respiratory failure on 3 L nasal cannula. Wean oxygen for saturations 90-94%. Currently on room air with saturations 93%. Out of bed to chair and ambulation as tolerated. Continue DuoNebs q.6, guaifenesin 1200 p.o. b.i.d., incentive spirometry q.2 hours and Cornet flutter valve Q.4 hours and EzPAP Q 6 hours. patient is on cefepime day 7, azithromycin day 3 and Flagyl day 2 for possible pneumonia. If patient continues to improve from a respiratory perspective will consider discontinuation of antibiotics on 05/27 from a pulmonary perspective. Discussed with Dr. Farah, will follow with you. Subjective Date/time seen: 05/27/23 09:12 Interval history: New consult May 23 -Berenice Long is a 73-year-old woman who had an incarcerated incisional hernia repair FridayMay 18; this was an open incarcerated recurrent incisional hernia repair with mesh, Bilateral myofascial release, Removal of mesh foreign body, Extensive adhesiolysis; this lasted 5 hours which was longer than anticipated. She was fairly alert afterwards. 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 No occupational exposure, no asthma, recurrent pneumonias, no lung disease. Over the next few days, she has had worsening mentation, was agitated today with Ativan, was trying to get out of the bed, was kept in bed by . She is requiring more O2, now on BiPAP 01/15 with 40% with ABG at 14:54 today pH 7.318, pCO2 53, pO2 102, HC03 27.2 saturation 97%. ABG earlier today showed pH 7.272, pCO2 57, PO2 48.1 saturation 99% on room air. This might have been a mixed venous blood gas. She had a cough with little sputum production yesterday, less today. Her mentation is less than optimal. PMH : DM; hyperlipidemia, hypertension, glaucoma, hospital follow up : 05/25/23 at 14:05, , sons and Ortega, the sitter are present. She was up in the chair several times today. Now, she is lying in bed on her left side, wants to get up to side of bed. Speaking more clearly, not completely oriented. Knows that she had surgery, on 3 L/min =94% saturation; wbc down 11.8 k. She is not taking much food, drinking is easier for her compared to eating. She told me she had a blood clot, not true. 05/25: Patient received Mucomyst nebulizer last night and then vomited into her BiPAP mask which was removed approximately 3:00 a.m.. Blood gas at 5:40 a.m. with a pH of 7.45/40/83 on 3 L nasal cannula. The patient denies abdominal pain. She has a very weak cough and is unable to expectorate. Currently she is on 3 L nasal cannula saturations 96%. She is afebrile. White blood cell count 14.2, creatinine 0.7. The tells me she had a 1 cup size chocolate pudding bowel movement yesterday. Patient is scheduled to get a CT scan of the abdomen today per surgery team. CT scan abdomen later in the day demonstrated no pleural effusions, decreased lung volumes, bibasilar infiltrates favoring atelectasis. No focal consolidations. Dilated were not distended small bowel with air in the rectum. 05/27/23: Patient said she slept well without the BiPAP last night. She feels pretty good. Overall she says she is breathing 50% back to her normal. She does have a cough with minimal phlegm production. She did incentive spirometry at 600 mL. When I entered the room she was on 3 L with saturations 96%. I decreased her to 2 L and her saturations were 95%. I decreased her to room air and her saturations were 93% after 8 minutes. Her white blood cell count is 18.2, creatinine 0.6. She walked 2 ft yesterday and sat up in the chair during the afternoon. Chest x-ray today shows decreased lung volumes with congestion. ABG this morning on 3 L nasal cannula 7.49/34/89. DATA; 05/26/23: EXAMINATION: CT abdomen pelvis w con INDICATION: Nausea and vomiting COMPARISON: 04/01/2023 FINDINGS: Lung volumes are decreased with peripheral consolidation in all lobes in the visualized lower lungs with appearance favoring atelectasis over pneumonia. Heart size is normal. Atherosclerotic coronary artery calcifications. No pericardial or pleural effusion. Visualized portion of the thoracic aorta is normal in caliber with no dissection. Cholecystectomy clips the gallbladder fossa. There is relatively decreased attenuation the liver relative to the spleen consistent with diffuse hepatic steatosis although specificities decreased by the presence of intravenous contrast. Small splenic calcific location consistent with old granulomatous disease. Pancreas, bilateral adrenal glands and left kidney are normal. 1.7 cm exophytic cyst at the lower pole of the right kidney. Bladder is normal. The uterus is not identified and has likely been surgically resected. There is prominent colonic diverticulosis with a sigmoid descending colon predominance but without adjacent inflammatory change to suggest diverticulitis. There multiple surgical clips in the right lower quadrant predominantly along the cecum potentially related to prior appendectomy. Interval infraumbilical ventral hernia repair with surgical drain within the subcutaneous fat at the operative bed in the anterior pelvic wall. There is an additional surgical drain extending into the anterior peritoneal cavity of the pelvis. Several fluid-filled loops of small bowel without candida dilation or transition point to suggest obstruction but which could be seen with postoperative ileus. There is a small amount of ascites in the deep pelvis and along the anterior liver. S-shaped thoracic and lumbar scoliosis with severe spondylosis. IMPRESSION: 1. Several fluid-filled but not frankly dilated loops of small bowel likely related to postoperative ileus given the postoperative change of recent infraumbilical ventral hernia repair. 2. Diffuse hepatic steatosis. 3. Diverticulosis. 4. Volume loss and lungs with scattered peripheral consolidation in all lobes of the/lower lungs with appearance favoring atelectasis over pneumonia. * 05/22/23 CTA- IMPRESSION: No pulmonary embolus. Sensitivity is severely decreased by motion artifact. Small lung volumes with moderate atelectasis bilaterally. * WBC initially on 05/20/23 was 19 k, lower now at 12 k on May 23. * 05/20/23 Initial BUN 19 with creatinine 0.7; May 23 BUN 36 creatinine 1.1 * 05/23/23 Complete two-dimensional, color flow and Doppler transthoracic echocardiogram is performed. 2. Left ventricular chamber dimension is normal. 3. Left ventricular systolic function is normal, estimated at 60-65%. 4. The left ventricular diastolic function is grade I diastolic dysfunction. 5. E/e' 13 is mildly elevated. 6. There is mild aortic valve sclerosis. 7. The mitral valve has mildly calcified annulus. 8. There is mild tricuspid valve regurgitation. 9. Mild pulmonary hypertension, estimated pulmonary arterial systolic pressure is 47 mmHg. 10. There is trace pulmonic regurgitation. * 05/24/23 pCXR 16:02 = Stable small lung volumes with airspace opacities in the mid and lower lung zones, consistent with atelectasis versus pneumonia. She has marked scoliosis and maybe right diaphragm elevation. This is contributing to her restrictive impairment, maybe was not appreciated before her surgery. * 05/21/23 CXR - Shallow inspiration. Bibasilar airspace disease. Cardiomegaly. No pneumothorax. No acute osseous abnormality. No significant effusion.Impression: IMPRESSION: Bibasilar airspace disease may represent pneumonia and/or atelectasis. Review of Systems Review of Systems: All systems reviewed & are unremarkable except as noted in HPI and below ROS unobtainable: Yes unobtainable due to mental status Constitutional: Constitutional: Reports no additional constitutional complaints Eyes: Eyes: Reports no additional eye complaints ENT: Reports system reviewed and no additional complaints, except as documented Cardiovascular: Cardiovascular: Reports no additional cardiovascular complaints Respiratory: Respiratory: Reports no additional respiratory complaints Gastrointestinal: Gastrointestinal: Reports no additional gastrointestinal complaints Musculoskeletal: Musculoskeletal: Reports no additional musculoskeletal complaints Neurologic: Reports system reviewed and no additional complaints, except as documented Psychiatric: Psychiatric: Reports no additional psychiatric complaints Endocrine: Endocrine: Reports no additional endocrine complaints Hematologic/Lymphatic: Hematologic/Lymphatic: Reports no additional hematolo gic/lymphatic complaints Allergic/Immunologic: Allergic/Immunologic: Reports no additional allergic/immunologic complaints Exam Const: General: cooperative, comfortable and no acute distress HENMT: Head: normal to inspection Ears: hearing grossly normal bilaterally Eyes: General: appearance normal, both eyes and all related structures Neck: Neck: normal visual inspection Chest: Chest palpation & inspection: normal inspection of the chest Resp: Effort & Inspection: normal respiratory effort and able to speak in complete sentences Auscultation: no crackles, no rales, rhonchi, no wheezes and diminished lung sounds Other: improved rhonchi Cardio: Jugular venous distension: no JVD GI: Inspection: distended Skin: General skin exam: normal color Neuro: Other: Nonfocal Extrem: General: normal to inspection Psych: Appearance: grossly normal Objective Data Vital Signs Vital Signs: Vital Signs - 24 hr 05/26/23 11:56 05/26/23 13:50 05/26/23 14:03 Temperature 36.9 C Pulse Rate 90 89 90 Respiratory Rate 19 22 H 22 H Blood Pressure 163/73 H Pulse Oximetry 99 Oxygen Delivery Oxygen Flow Rate 05/26/23 12:00 05/26/23 10:00 05/26/23 12:00 Temperature Pulse Rate 90 89 Respiratory Rate Blood Pressure Pulse Oximetry 99 Oxygen Delivery Nasal Cannula Oxygen Flow Rate 3 05/26/23 14:00 05/26/23 15:35 05/26/23 16:00 Temperature 36.5 C Pulse Rate 93 89 Respiratory Rate 20 Blood Pressure 154/70 H Pulse Oximetry 99 99 Oxygen Delivery Nasal Cannula Oxygen Flow Rate 3 05/26/23 16:00 05/26/23 18:00 05/26/23 20:06 Temperature 36.8 C Pulse Rate 92 96 97 Respiratory Rate 18 Blood Pressure 154/55 H Pulse Oximetry 99 Oxygen Delivery Oxygen Flow Rate 05/26/23 20:00 05/26/23 20:45 05/26/23 20:48 Temperature Pulse Rate 97 96 Respiratory Rate 18 21 H Blood Pressure Pulse Oximetry 97 97 Oxygen Delivery Nasal Cannula Nasal Cannula Oxygen Flow Rate 3 3 05/26/23 20:56 05/26/23 20:00 05/26/23 22:00 Temperature Pulse Rate 93 94 103 H Respiratory Rate 21 H Blood Pressure Pulse Oximetry Oxygen Delivery Oxygen Flow Rate 05/26/23 23:35 05/26/23 23:57 05/27/23 00:00 Temperature 36.6 C Pulse Rate 93 93 82 Respiratory Rate 20 20 Blood Pressure 143/54 H Pulse Oximetry 99 99 Oxygen Delivery Nasal Cannula Oxygen Flow Rate 3 05/27/23 02:00 05/27/23 03:05 05/27/23 03:19 Temperature Pulse Rate 91 94 93 Respiratory Rate 21 H 20 Blood Pressure Pulse Oximetry Oxygen Delivery Oxygen Flow Rate 05/27/23 03:55 05/27/23 04:00 05/27/23 05:52 Temperature 36.4 C Pulse Rate 93 79 84 Respiratory Rate 20 20 Blood Pressure 155/61 H Pulse Oximetry 99 99 Oxygen Delivery Nasal Cannula Oxygen Flow Rate 3 05/27/23 06:00 05/27/23 08:16 05/27/23 08:20 Temperature Pulse Rate 92 95 95 Respiratory Rate 20 20 Blood Pressure Pulse Oximetry 96 Oxygen Delivery Nasal Cannula Oxygen Flow Rate 3 05/27/23 08:35 05/27/23 08:00 Temperature 36.6 C Pulse Rate 96 95 Respiratory Rate 20 22 H Blood Pressure 153/71 H Pulse Oximetry 97 Oxygen Delivery Oxygen Flow Rate Intake/Output Intake/Output: Intake & Output 05/24/23 05/25/23 05/26/23 05/27/23 23:59 23:59 23:59 23:59 Intake Total 980 700 700 350 Output Total 365 334 788 610 Balance 615 366 -88 -260 Meds/Results Medications: Active Medications Generic Name Dose Route Start Last Admin Trade Name Freq PRN Reason Stop Dose Admin Acetaminophen 650 mg 05/19/23 17:56 Acetaminophen 325 Mg Tablet PO Q6H PRN Mild Pain (1-3) or Fever Albuterol/Ipratropium 3 ml 05/24/23 14:00 05/27/23 08:16 Ipratropium 0.5 Mg/Albuterol Sulfate 2.5 Mg Ampul.Neb 3 Ml INHALATION 3 ml Q6HRT BRANT Administration Ascorbic Acid 500 mg 05/25/23 09:00 05/27/23 08:57 Ascorbic Acid 500 Mg Tablet PO 500 mg DAILY BRANT Administration Azithromycin 500 mg 05/25/23 09:00 05/27/23 08:57 Azithromycin 250 Mg Tablet PO 05/28/23 10:00 500 mg DAILY BRANT Administration Cyanocobalamin 1,000 mcg 05/25/23 09:00 05/27/23 08:57 Cyanocobalamin 1,000 Mcg Tablet PO 1,000 mcg DAILY BRANT Administration Dextrose 12.5 gm 05/22/23 17:43 Dextrose 50% 25 Gm/50 Ml Syringe IV PUSH PRN PRN Hypoglycemia Protocol Enoxaparin Sodium 40 mg 05/20/23 09:00 05/27/23 08:57 Enoxaparin 40 Mg/0.4 Ml Syringe SUB-Q 40 mg DAILY BRANT Administration Glucagon 1 mg 05/22/23 17:43 Glucagon For Inj 1 Mg Vial IM PRN PRN Hypoglycemia Protocol Glucose 15 gm 05/22/23 17:43 Glucose Oral Gel 15 Gm Of Glucse In 37.5 Gm Tube PO PRN PRN Hypoglycemia Protocol Guaifenesin 1,200 mg 05/26/23 09:00 05/27/23 08:58 Guaifenesin 12 Hr 600 Mg Tabcr PO 1,200 mg Q12HR BRANT Administration Dextrose 1,000 mls @ 100 mls/hr 05/22/23 17:43 Dextrose 5% 1,000 Ml IVPB PRN PRN Hypoglycemia Protocol Metronidazole 500 mg in 100 mls @ 100 mls/hr 05/26/23 10:00 05/27/23 04:15 Flagyl 500 Mg/Iso Soln 100 Ml IVPB Infused Q6H BRANT Infusion Cefepime HCl 2 gm in 50 mls @ 100 mls/hr 05/26/23 21:00 05/27/23 08:57 Maxipime 2 Gm/Ns 50 Ml IVPB 100 mls/hr Q12HR BRANT Administration Insulin Aspart 1 - 3 units 05/22/23 21:00 05/26/23 20:30 Insulin Aspart (*Bkc) 100 Units/Ml SUB-Q Not Given HS BRANT Protocol Insulin Aspart 3 - 6 units 05/23/23 08:00 05/27/23 08:51 Insulin Aspart (*Bkc) 100 Units/Ml SUB-Q Not Given TIDWM [facility] Protocol Latanoprost 1 drop 05/19/23 21:00 05/26/23 20:26 Latanoprost 0.005% Op Soln 2.5 Ml Btl EACH EYE 1 drop HS BRANT Administration Magnesium Gluconate 27 mg 05/20/23 09:00 05/27/23 08:58 Magnesium 27 Mg Tablet (500 Mg Mag Gluconate) PO 27 mg DAILY BRANT Administration Metoclopramide HCl 10 mg 05/26/23 18:00 05/27/23 06:01 Metoclopramide Hcl Inj 10 Mg/2 Ml Vial IV PUSH 10 mg Q6HR BRANT Administration Naloxone HCl 0.1 mg 05/19/23 17:56 Naloxone Hcl 0.4 Mg/Ml Vial IV PUSH Q2M PRN Opiate Reversal Ondansetron HCl 4 mg 05/19/23 17:56 05/22/23 21:58 Ondansetron Inj 4 Mg/2 Ml Vial IV PUSH 4 mg Q4H PRN Administration Nausea And Vomiting Pantoprazole Sodium 40 mg 05/20/23 09:00 05/27/23 08:58 Pantoprazole 40 Mg Tablet PO 40 mg QAM BRANT Administration Polyethylene Glycol 17 gm 05/20/23 09:00 05/27/23 08:58 Polyethylene Glycol 3350 17 Gm Powd.Pack PO 17 gm QAM BRANT Administration Pravastatin Sodium 20 mg 05/19/23 21:00 05/26/23 20:20 Pravastatin Sodium 20 Mg Tablet PO 20 mg QHS BRANT Administration Vitamin D 1,000 units 05/25/23 09:00 05/25/23 09:16 Cholecalciferol 1,000 Units Tablet PO 1,000 units SuWe@0900 [facility] Administration Radiology Results: ITS Impressions Head CT 05/22/23 09:50 IMPRESSION: 1. Moderate scattered white matter hypoattenuation consistent with chronic small vessel ischemic disease. No other acute intracranial process. Chest CTA 05/22/23 09:51 IMPRESSION: 1. No pulmonary embolus. Sensitivity is severely decreased by motion artifact. 2. Small lung volumes with moderate atelectasis bilaterally. Brain MRI 05/22/23 13:08 IMPRESSION: 1. No acute intracranial process or abnormally enhancing brain lesions. 2. Moderate scattered nonspecific periventricular predominant white matter T2 hyperintensity which is within normal limits for age and likely sequela of chronic small vessel ischemic disease. Head/Neck CTA 05/22/23 13:14 IMPRESSION: 1. 0% stenosis of the right and left carotid bulbs relative to normal distal artery lumen diameter (NASCET criteria). 2. Small amount of nonhemodynamically significant atherosclerotic plaque at the bilateral carotid siphons. Otherwise unremarkable cerebral CT angiogram with no hemodynamically significant stenosis or aneurysm. Brain MRA 05/22/23 13:36 IMPRESSION: 1. Normal cerebral MR angiogram. Neck MRA 05/22/23 13:37 IMPRESSION: 1. 0% stenosis of the right and left carotid bulbs relative to normal distal artery lumen diameter (NASCET criteria). 2. 20-30% stenosis along the cervical portion of the left vertebral artery immediately distal to the carotid bulb. Abdomen X-Ray 05/26/23 08:25 Impression: 1: Mildly dilated small bowel with moderate gas throughout the colon which may represent postoperative ileus or less likely partial obstruction. Abdomen/Pelvis CT 05/26/23 09:45 IMPRESSION: 1. Several fluid-filled but not frankly dilated loops of small bowel likely related to postoperative ileus given the postoperative change of recent infraumbilical ventral hernia repair. 2. Diffuse hepatic steatosis. 3. Diverticulosis. 4. Volume loss and lungs with scattered peripheral consolidation in all lobes of the/lower lungs with appearance favoring atelectasis over pneumonia. Chest X-Ray 05/27/23 05:49 Impression: Central congestive change and possible minimal pulmonary edema pattern. Discoid right basilar atelectasis. Labs Labs: Laboratory Results - last 24 hr 05/26/23 05/26/23 05/26/23 04:02 11:28 17:02 WBC RBC Hgb Hct MCV MCH MCHC RDW Plt Count MPV Immature Gran % (Auto) Neut % (Auto) Lymph % (Auto) [place] % (Auto) Eos % (Auto) Baso % (Auto) Lymph # (Auto) [place] # (Auto) Eos # (Auto) Baso # (Auto) Abs Immat Gran (auto) Absolute Neuts (auto) Absolute Nucleated RBC Nucleated RBC % Puncture Site ABG pH ABG pCO2 ABG pO2 ABG PO2/FiO2 Ratio ABG HCO3 ABG O2 Saturation ABG O2 Content ABG Base Excess A-a Gradient Oxyhemoglobin Total Hemoglobin O2 Delivery Device O2 Liters/Min FiO2 Sodium Potassium Chloride Carbon Dioxide Anion Gap BUN Creatinine Estim Creat Clear Calc Estimated GFR Glucose POC Capillary Glucose 153 H 159 H Calcium Magnesium Total Bilirubin AST ALT Alkaline Phosphatase NT-Pro-B Natriuret Pep 1870 H Total Protein Albumin 05/26/23 05/27/23 05/27/23 19:38 02:42 04:48 WBC 18.2 H RBC 3.38 L Hgb 11.3 L Hct 35.0 L MCV 103.6 H MCH 33.4 MCHC 32.3 RDW 12.0 Plt Count 306 MPV 10.1 Immature Gran % (Auto) 1.8 H Neut % (Auto) 78.3 H Lymph % (Auto) 10.9 L [place] % (Auto) 6.3 Eos % (Auto) 2.1 Baso % (Auto) 0.6 Lymph # (Auto) 1.98 [place] # (Auto) 1.2 H Eos # (Auto) 0.4 H Baso # (Auto) 0.1 Abs Immat Gran (auto) 0.32 H Absolute Neuts (auto) 14.2 H Absolute Nucleated RBC 0.000 Nucleated RBC % 0.0 Puncture Site Right radial ABG pH 7.485 H ABG pCO2 34.4 L ABG pO2 89.1 ABG PO2/FiO2 Ratio 2.78 ABG HCO3 25.3 ABG O2 Saturation 97.4 ABG O2 Content 16.2 ABG Base Excess 2.2 A-a Gradient 98.8 Oxyhemoglobin 95.6 Total Hemoglobin 12.0 O2 Delivery Device Nasal cannula O2 Liters/Min 3.0 FiO2 32 Sodium 136 L Potassium 3.3 L Chloride 103 Carbon Dioxide 28 Anion Gap 5 BUN 25 H Creatinine 0.60 L Estim Creat Clear Calc 73 Estimated GFR > 60 Glucose 138 H POC Capillary Glucose 135 H Calcium 8.3 L Magnesium 2.1 Total Bilirubin 0.6 AST 36 ALT 32 Alkaline Phosphatase 70 NT-Pro-B Natriuret Pep Total Protein 6.0 L Albumin 3.4 L 05/27/23 08:14 WBC RBC Hgb Hct MCV MCH MCHC RDW Plt Count MPV Immature Gran % (Auto) Neut % (Auto) Lymph % (Auto) [place] % (Auto) Eos % (Auto) Baso % (Auto) Lymph # (Auto) [place] # (Auto) Eos # (Auto) Baso # (Auto) Abs Immat Gran (auto) Absolute Neuts (auto) Absolute Nucleated RBC Nucleated RBC % Puncture Site ABG pH ABG pCO2 ABG pO2 ABG PO2/FiO2 Ratio ABG HCO3 ABG O2 Saturation ABG O2 Content ABG Base Excess A-a Gradient Oxyhemoglobin Total Hemoglobin O2 Delivery Device O2 Liters/Min FiO2 Sodium Potassium Chloride Carbon Dioxide Anion Gap BUN Creatinine Estim Creat Clear Calc Estimated GFR Glucose POC Capillary Glucose 132 H Calcium Magnesium Total Bilirubin AST ALT Alkaline Phosphatase NT-Pro-B Natriuret Pep Total Protein Albumin Amg Follow-up [facility] Follow-up Hospital Follow-up: [id number] [facility] Mod
[2023-05-27] MEDS: ACETAMINOPHEN 325 MG TABLET 650 MG PO (09:42)
[2023-05-27 11:59] LABS: Glucose Point of Care 160 mg/dl (65-105)
--- NOTE | 2023-05-27 12:32 | PM.PNGS ---
Progress Note: A&P Assessment and Plan (1) Incarcerated incisional hernia: Code(s): K43.0 - Incisional hernia with obstruction, without gangrene Status: Acute Assessment and Plan: Continue pulmonary regimen Increase activity with PT (2) Acute respiratory failure with hypoxia and hypercapnia: Code(s): J96.01 - Acute respiratory failure with hypoxia; J96.02 - Acute respiratory failure with hypercapnia Status: Acute Subjective Subjective Date/Time Seen: 05/27/23 12:32 Interval history: Doing a little better today. Breathing slightly improved. No abdominal pain. Bowels moving. Continuing to work with PT. Exam Resp: Other: Coarse breath sounds GI: Inspection: non-distended, incision (intact with bhargavi) and other (JPs serous) GI Palp: Yes Soft to palpation, No Tenderness to palpation present (GI) and No Guarding due to palpation present (GI) Objective Data Vital Signs Vital Signs: Vital Signs - 24 hr 05/26/23 13:50 05/26/23 14:03 05/26/23 14:00 Temperature Pulse Rate 89 90 93 Respiratory Rate 22 H 22 H Blood Pressure Pulse Oximetry Oxygen Delivery Oxygen Flow Rate 05/26/23 15:35 05/26/23 16:00 05/26/23 16:00 Temperature 36.5 C Pulse Rate 89 92 Respiratory Rate 20 Blood Pressure 154/70 H Pulse Oximetry 99 99 Oxygen Delivery Nasal Cannula Oxygen Flow Rate 3 05/26/23 18:00 05/26/23 20:06 05/26/23 20:00 Temperature 36.8 C Pulse Rate 96 97 97 Respiratory Rate 18 18 Blood Pressure 154/55 H Pulse Oximetry 99 97 Oxygen Delivery Nasal Cannula Oxygen Flow Rate 3 05/26/23 20:45 05/26/23 20:48 05/26/23 20:56 Temperature Pulse Rate 96 93 Respiratory Rate 21 H 21 H Blood Pressure Pulse Oximetry 97 Oxygen Delivery Nasal Cannula Oxygen Flow Rate 3 05/26/23 20:00 05/26/23 22:00 05/26/23 23:35 Temperature 36.6 C Pulse Rate 94 103 H 93 Respiratory Rate 20 Blood Pressure 143/54 H Pulse Oximetry 99 Oxygen Delivery Oxygen Flow Rate 05/26/23 23:57 05/27/23 00:00 05/27/23 02:00 Temperature Pulse Rate 93 82 91 Respiratory Rate 20 Blood Pressure Pulse Oximetry 99 Oxygen Delivery Nasal Cannula Oxygen Flow Rate 3 05/27/23 03:05 05/27/23 03:19 05/27/23 03:55 Temperature Pulse Rate 94 93 93 Respiratory Rate 21 H 20 20 Blood Pressure Pulse Oximetry 99 Oxygen Delivery Nasal Cannula Oxygen Flow Rate 3 05/27/23 04:00 05/27/23 05:52 05/27/23 06:00 Temperature 36.4 C Pulse Rate 79 84 92 Respiratory Rate 20 Blood Pressure 155/61 H Pulse Oximetry 99 Oxygen Delivery Oxygen Flow Rate 05/27/23 08:16 05/27/23 08:20 05/27/23 08:35 Temperature Pulse Rate 95 95 96 Respiratory Rate 20 20 20 Blood Pressure Pulse Oximetry 96 Oxygen Delivery Nasal Cannula Oxygen Flow Rate 3 05/27/23 08:00 05/27/23 08:00 05/27/23 08:00 Temperature 36.6 C Pulse Rate 95 84 Respiratory Rate 22 H Blood Pressure 153/71 H Pulse Oximetry 97 97 Oxygen Delivery Nasal Cannula Oxygen Flow Rate 3 05/27/23 10:00 05/27/23 12:00 Temperature 36.2 C L Pulse Rate 92 89 Respiratory Rate 28 H Blood Pressure 178/79 H Pulse Oximetry 96 Oxygen Delivery Oxygen Flow Rate Intake/Output Intake/Output: Intake & Output 05/24/23 05/25/23 05/26/23 05/27/23 23:59 23:59 23:59 23:59 Intake Total 980 700 700 400 Output Total 365 334 788 610 Balance 615 366 -88 -210 Meds/Results Medications: Active Medications Generic Name Dose Route Start Last Admin Trade Name Freq PRN Reason Stop Dose Admin Acetaminophen 650 mg 05/19/23 17:56 05/27/23 09:42 Acetaminophen 325 Mg Tablet PO 650 mg Q6H PRN Administration Mild Pain (1-3) or Fever Albuterol/Ipratropium 3 ml 05/24/23 14:00 05/27/23 08:16 Ipratropium 0.5 Mg/Albuterol Sulfate 2.5 Mg Ampul.Neb 3 Ml INHALATION 3 ml Q6HRT BRANT Administration Ascorbic Acid 500 mg 05/25/23 09:00 05/27/23 08:57 Ascorbic Acid 500 Mg Tablet PO 500 mg DAILY BRANT Administration Azithromycin 500 mg 05/25/23 09:00 05/27/23 08:57 Azithromycin 250 Mg Tablet PO 05/28/23 10:00 500 mg DAILY BRANT Administration Cyanocobalamin 1,000 mcg 05/25/23 09:00 05/27/23 08:57 Cyanocobalamin 1,000 Mcg Tablet PO 1,000 mcg DAILY BRANT Administration Dextrose 12.5 gm 05/22/23 17:43 Dextrose 50% 25 Gm/50 Ml Syringe IV PUSH PRN PRN Hypoglycemia Protocol Enoxaparin Sodium 40 mg 05/20/23 09:00 05/27/23 08:57 Enoxaparin 40 Mg/0.4 Ml Syringe SUB-Q 40 mg DAILY BRANT Administration Glucagon 1 mg 05/22/23 17:43 Glucagon For Inj 1 Mg Vial IM PRN PRN Hypoglycemia Protocol Glucose 15 gm 05/22/23 17:43 Glucose Oral Gel 15 Gm Of Glucse In 37.5 Gm Tube PO PRN PRN Hypoglycemia Protocol Guaifenesin 1,200 mg 05/26/23 09:00 05/27/23 08:58 Guaifenesin 12 Hr 600 Mg Tabcr PO 1,200 mg Q12HR BRANT Administration Dextrose 1,000 mls @ 100 mls/hr 05/22/23 17:43 Dextrose 5% 1,000 Ml IVPB PRN PRN Hypoglycemia Protocol Metronidazole 500 mg in 100 mls @ 100 mls/hr 05/26/23 10:00 05/27/23 11:44 Flagyl 500 Mg/Iso Soln 100 Ml IVPB 100 mls/hr Q6H BRANT Administration Cefepime HCl 2 gm in 50 mls @ 100 mls/hr 05/26/23 21:00 05/27/23 09:45 Maxipime 2 Gm/Ns 50 Ml IVPB Infused Q12HR BRANT Infusion Insulin Aspart 1 - 3 units 05/22/23 21:00 05/26/23 20:30 Insulin Aspart (*Bkc) 100 Units/Ml SUB-Q Not Given HS BRANT Protocol Insulin Aspart 3 - 6 units 05/23/23 08:00 05/27/23 11:54 Insulin Aspart (*Bkc) 100 Units/Ml SUB-Q Not Given TIDWM BRANT Protocol Latanoprost 1 drop 05/19/23 21:00 05/26/23 20:26 Latanoprost 0.005% Op Soln 2.5 Ml Btl EACH EYE 1 drop HS BRANT Administration Magnesium Gluconate 27 mg 05/20/23 09:00 05/27/23 08:58 Magnesium 27 Mg Tablet (500 Mg Mag Gluconate) PO 27 mg DAILY BRANT Administration Metoclopramide HCl 10 mg 05/26/23 18:00 05/27/23 11:45 Metoclopramide Hcl Inj 10 Mg/2 Ml Vial IV PUSH 10 mg Q6HR BRANT Administration Naloxone HCl 0.1 mg 05/19/23 17:56 Naloxone Hcl 0.4 Mg/Ml Vial IV PUSH Q2M PRN Opiate Reversal Ondansetron HCl 4 mg 05/19/23 17:56 05/22/23 21:58 Ondansetron Inj 4 Mg/2 Ml Vial IV PUSH 4 mg Q4H PRN Administration Nausea And Vomiting Pantoprazole Sodium 40 mg 05/20/23 09:00 05/27/23 08:58 Pantoprazole 40 Mg Tablet PO 40 mg QAM BRANT Administration Polyethylene Glycol 17 gm 05/20/23 09:00 05/27/23 08:58 Polyethylene Glycol 3350 17 Gm Powd.Pack PO 17 gm QAM BRANT Administration Pravastatin Sodium 20 mg 05/19/23 21:00 05/26/23 20:20 Pravastatin Sodium 20 Mg Tablet PO 20 mg QHS BRANT Administration Vitamin D 1,000 units 05/25/23 09:00 05/25/23 09:16 Cholecalciferol 1,000 Units Tablet PO 1,000 units [id number]@[id number] BRANT Administration Radiology Results: ITS Impressions Head CT 05/22/23 09:50 IMPRESSION: 1. Moderate scattered white matter hypoattenuation consistent with chronic small vessel ischemic disease. No other acute intracranial process. Chest CTA 05/22/23 09:51 IMPRESSION: 1. No pulmonary embolus. Sensitivity is severely decreased by motion artifact. 2. Small lung volumes with moderate atelectasis bilaterally. Brain MRI 05/22/23 13:08 IMPRESSION: 1. No acute intracranial process or abnormally enhancing brain lesions. 2. Moderate scattered nonspecific periventricular predominant white matter T2 hyperintensity which is within normal limits for age and likely sequela of chronic small vessel ischemic disease. Head/Neck CTA 05/22/23 13:14 IMPRESSION: 1. 0% stenosis of the right and left carotid bulbs relative to normal distal artery lumen diameter (NASCET criteria). 2. Small amount of nonhemodynamically significant atherosclerotic plaque at the bilateral carotid siphons. Otherwise unremarkable cerebral CT angiogram with no hemodynamically significant stenosis or aneurysm. Brain MRA 05/22/23 13:36 IMPRESSION: 1. Normal cerebral MR angiogram. Neck MRA 05/22/23 13:37 IMPRESSION: 1. 0% stenosis of the right and left carotid bulbs relative to normal distal artery lumen diameter (NASCET criteria). 2. 20-30% stenosis along the cervical portion of the left vertebral artery immediately distal to the carotid bulb. Abdomen X-Ray 05/26/23 08:25 Impression: 1: Mildly dilated small bowel with moderate gas throughout the colon which may represent postoperative ileus or less likely partial obstruction. Abdomen/Pelvis CT 05/26/23 09:45 IMPRESSION: 1. Several fluid-filled but not frankly dilated loops of small bowel likely related to postoperative ileus given the postoperative change of recent infraumbilical ventral hernia repair. 2. Diffuse hepatic steatosis. 3. Diverticulosis. 4. Volume loss and lungs with scattered peripheral consolidation in all lobes of the/lower lungs with appearance favoring atelectasis over pneumonia. Chest X-Ray 05/27/23 05:49 Impression: Central congestive change and possible minimal pulmonary edema pattern. Discoid right basilar atelectasis. Labs Labs: Laboratory Results - last 24 hr 05/26/23 05/26/23 05/27/23 17:02 19:38 02:42 WBC RBC Hgb Hct MCV MCH MCHC RDW Plt Count MPV Immature Gran % (Auto) Neut % (Auto) Lymph % (Auto) [place] % (Auto) Eos % (Auto) Baso % (Auto) Lymph # (Auto) [place] # (Auto) Eos # (Auto) Baso # (Auto) Abs Immat Gran (auto) Absolute Neuts (auto) Absolute Nucleated RBC Nucleated RBC % Puncture Site Right radial ABG pH 7.485 H ABG pCO2 34.4 L ABG pO2 89.1 ABG PO2/FiO2 Ratio 2.78 ABG HCO3 25.3 ABG O2 Saturation 97.4 ABG O2 Content 16.2 ABG Base Excess 2.2 A-a Gradient 98.8 Oxyhemoglobin 95.6 Total Hemoglobin 12.0 O2 Delivery Device Nasal cannula O2 Liters/Min 3.0 FiO2 32 Sodium Potassium Chloride Carbon Dioxide Anion Gap BUN Creatinine Estim Creat Clear Calc Estimated GFR Glucose POC Capillary Glucose 159 H 135 H Calcium Magnesium Total Bilirubin AST ALT Alkaline Phosphatase Total Protein Albumin 05/27/23 05/27/23 05/27/23 04:48 08:14 11:52 WBC 18.2 H RBC 3.38 L Hgb 11.3 L Hct 35.0 L MCV 103.6 H MCH 33.4 MCHC 32.3 RDW 12.0 Plt Count 306 MPV 10.1 Immature Gran % (Auto) 1.8 H Neut % (Auto) 78.3 H Lymph % (Auto) 10.9 L [place] % (Auto) 6.3 Eos % (Auto) 2.1 Baso % (Auto) 0.6 Lymph # (Auto) 1.98 [place]ster # (Auto) 1.2 H Eos # (Auto) 0.4 H Baso # (Auto) 0.1 Abs Immat Gran (auto) 0.32 H Absolute Neuts (auto) 14.2 H Absolute Nucleated RBC 0.000 Nucleated RBC % 0.0 Puncture Site ABG pH ABG pCO2 ABG pO2 ABG PO2/FiO2 Ratio ABG HCO3 ABG O2 Saturation ABG O2 Content ABG Base Excess A-a Gradient Oxyhemoglobin Total Hemoglobin O2 Delivery Device O2 Liters/Min FiO2 Sodium 136 L Potassium 3.3 L Chloride 103 Carbon Dioxide 28 Anion Gap 5 BUN 25 H Creatinine 0.60 L Estim Creat Clear Calc 73 Estimated GFR > 60 Glucose 138 H POC Capillary Glucose 132 H 160 H Calcium 8.3 L Magnesium 2.1 Total Bilirubin 0.6 AST 36 ALT 32 Alkaline Phosphatase 70 Total Protein 6.0 L Albumin 3.4 L
--- NOTE | 2023-05-27 15:59 | PM.IMPN ---
Progress Note: A&P Assessment and Plan (1) Incarcerated incisional hernia: Code(s): K43.0 - Incisional hernia with obstruction, without gangrene Status: Acute Assessment and Plan: -Management per surgical team Post Operative ileus noted this is also poorly fitting from respiratory improvement Due to vomiting yesterday may benefit from NG placement and decompression. Await General surgery recommendation 05/27/23: Managed by General surgery Patient had a postop ileus, with nausea vomiting Continue with PT and OT Patient needs to be up ambulating in the hallway and be up out of bed for meals the chair. Patient did not require an NG tube, and bowels were noted to be moving (2) Dyspnea: Code(s): R06.00 - Dyspnea, unspecified Status: Acute Assessment and Plan: 05/21: -patient had tachycardia tachypnea decreased oxygen sats and hypertension this morning. -Troponin was negative. -EKG showed sinus tachycardia rate 102 with left axis deviation QRS axis -35 and right bundle branch block QRS duration 133 QTC 397 no STEMI -chest x-ray atelectasis versus pneumonia -CTA small lung volumes with moderate atelectasis bilaterally, no PE -patient on supplemental oxygen titrated between 1 and 2 liters/minute -encourage use of incentive spirometer, continue IV antibiotics, and DC vancomycin if MRSA nares is negative -mobilize, ambulate with therapy tomorrow if at all possible 05/22: not significantly improved 05/23: worsening dyspnea, full cycle wheezing and respiratory distress today. DuoNeb, Solu-Medrol, IV magnesium and BiPAP improving work of breathing 05/25/2023 Will continue with BiPAP for now. Patient appears to be tolerating it very well. Repeat labs and ABG in the morning. 05/25: did not tolerate bipap and threw up. BiPAP has since been discontinued. Add Flagyl WBC slightly up today Cefepime and azithromycin as ordered 05/27/23: Continue with cefepime, azithromycin, Flagyl Pulmonology following Likely will change to oral antibiotics tomorrow (3) Acute respiratory failure with hypoxia and hypercapnia: Code(s): J96.01 - Acute respiratory failure with hypoxia; J96.02 - Acute respiratory failure with hypercapnia Status: Acute Assessment and Plan: -See Dyspnea above. -ABG pCO2 to 57.2, PO2 68.5 on 1.5 liters/minute nasal cannula -no history of respiratory failure, asthma, COPD, smoking -negative CTA PE protocol -possibly obesity related hypoventilation syndrome verses abdominal distension causing diaphragmatic compression -ApneaLink ordered 05/22: ApneaLink indicates likely sleep apnea 05/23: worsening dyspnea, full cycle wheezing and respiratory distress today. DuoNeb, Solu-Medrol, IV magnesium and BiPAP improving work of breathing BiPAP has since discontinued due to vomiting Continue oxygen supplementation ABG reasonable today 05/27/23: Pulmonology following Continue antibiotics Continue DuoNebs, Solu-Medrol, pep therapy, incentive spirometer, chest PT Continue PT and OT Continue to wean oxygen for an oxygen sat greater than 92% BiPAP discontinued due to episodes of vomiting Continue PAP therapy Continue chest PT (4) Diabetes: Qualifiers: Diabetes mellitus complication status: with hyperglycemia Diabetes mellitus buttermaker insulin use: without buttermaker use Diabetes mellitus type: type 2 Qualified Code(s): E11.65 - Type 2 diabetes mellitus with hyperglycemia Code(s): E11.9 - Type 2 diabetes mellitus without complications Status: Acute Assessment and Plan: Stable on current medications, will continue current treatment. 05/27/23: Blood sugars ranging 138-160 Hemoglobin A1c 6.2 Continue moderate dose sliding scale insulin Continue to hold metformin Hypoglycemic protocol in place Accu-Cheks AC and HS Diabetic diet (5) Stroke-like symptoms: Code(s): R29.90 - Unspecified symptoms and signs involving the nervous system Status: Acute Assessment and Plan: 05/21: -Patient with confusion right upper extremity weakness word-finding difficulties repetitive vocalizations but negative CT, CTA, MRI/MRA of head neck. -described confusion has been present since at least 05/20 -Neurology is consulted as well -Consider metabolic encephalopathy or prolonged recovery from anesthesia 05/22: added echocardiogram with bubble study lipid panel as requested by Neurology. Daily aspirin 81 mg when okay with surgery Summary ? 1. Complete two-dimensional, color flow and Doppler transthoracic echocardiogram is performed. ? 2. Left ventricular chamber dimension is normal. ? 3. Left ventricular systolic function is normal, estimated at 60-65%. ? 4. The left ventricular diastolic function is grade I diastolic dysfunction. ? 5. E/e' 13 is mildly elevated. ? 6. There is mild aortic valve sclerosis. ? 7. The mitral valve has mildly calcified annulus. ? 8. There is mild tricuspid valve regurgitation. ? 9. Mild pulmonary hypertension, estimated pulmonary arterial systolic pressure is 47 mmHg. ? 10. There is trace pulmonic regurgitation. 05/25/2023 Workup negative so far. Will continue monitor closely. 05/27/23: Neurology signed off on 05/23/2023 Continue with current treatment plan Workup has been negative Time Spent With Patient Time with patient: Greater than 35 minutes Subjective Date/time seen: 05/27/23 15:59 Interval history: This is a 73-year-old male any who presented to the hospital on 05/19/2023 for an elective incisional hernia repair with General surgery Services. She went to surgery on 05/20/2023 and had an open 12 cm incarcerated recurrent incisional hernia repair with mesh, bilateral myofascial release 5 cm on the right and 5 cm on the left, removal of old mesh, and extensive lysis of adhesions which took 50% of the total operating time. We were consulted for medical management on 05/22/2023. On 05/22/2023 patient was tachycardic, tachypneic, hypertensive, hypoxic. Chest x-ray on 05/21 showed atelectasis versus pneumonia. CTA of the chest was negative for PE. Patient was confused with right upper extremity weakness, word-finding as well. CT of the brain shown moderate scattered white matter hypoattenuation consistent with chronic small-vessel ischemic disease. Chest CTA was negative for PE. Patient had MRI of the brain which was negative for any acute intracranial process, showed age-related changes. Head and neck CTA did not show any stenosis in either carotid artery, there was some significant atherosclerotic plaque at the bilateral carotid siphons. Brain MRA was normal. Neck MRA shown 0% stenosis of bilateral carotid bulbs, 20-30% stenosis along with cervical portion of the left vertebral artery immediately distal to the carotid bulb. Abdominal x-ray showing mildly dilated small bowel with moderate gas throughout the colon representing a postoperative ileus or less likely partial obstruction. CT of the abdomen pelvis on 05/26/2023 showed several fluid-filled dilated loops of small bowel likely representing a postoperative ileus, diffuse hepatic steatosis, diverticulosis, volume loss in lung consolidation in all lobes. Chest x-ray on 05/27/2023 showed central congestive changes and possible pulmonary edema. Pulmonology and Neurology was consulted. Urine culture showing no growth on final read. On examination today patient is alert to voice and oriented x3, lying in the bed. is at the bedside. She will has been working with therapy today which is the 2nd day she has worked with therapy and has walked to and from the bathroom. Her lungs sound coarse to auscultation, she is currently on 2 L nasal cannula with the oxygen sat of 97% labs today show a white blood cell count of 18.2 which is increased from yesterday, hemoglobin 11.3, sodium 136, potassium 3.3, and calcium 8.3, albumin 3.4. Patient will need to continue with physical therapy and occupational therapy as well as chest PT, pep therapy, incentive spirometer. prefers that she comes home with home health versus going to an SNF I will talk with Case Management tomorrow about this. Review of Systems Review of Systems: All systems reviewed & are unremarkable except as noted in HPI and below Constitutional: Constitutional: Reports as per HPI and Reports no additional constitutional complaints Eyes: Eyes: Reports as per HPI and Reports no additional eye complaints ENT: Reports system reviewed and no additional complaints, except as documented and Reports as per HPI Cardiovascular: Cardiovascular: Reports as per HPI and Reports no additional cardiovascular complaints Respiratory: Respiratory: Reports as per HPI and Reports no additional respiratory complaints Gastrointestinal: Gastrointestinal: Reports as per HPI and Reports no additional gastrointestinal complaints Genitourinary: Genitourinary: Reports no additional female genitourinary complaints and Reports as per HPI Musculoskeletal: Musculoskeletal: Reports no additional musculoskeletal complaints and Reports as per HPI Integumentary/Breasts: Skin/Breast: Reports system reviewed and no additional complaints, except as docu and Reports as per HPI Neurologic: Reports system reviewed and no additional complaints, except as documented and Reports as per HPI Psychiatric: Psychiatric: Reports no additional psychiatric complaints and Reports as per HPI Exam Narrative: General: In no acute distress, well nourished Head: atraumatic, no encephalopathy Eyes: EOMI, PERRLA, sclera clear ENT: moist mucous membranes, nasal passages clear Neck: supple, no JVD, no adenopathy, trachea midline Cardiac: Normal S1 and S2. No murmur, gallops or friction rubs, peripheral pulses intact. Respiratory: Coarse to auscultation bilaterally, she is currently on 2 L nasal cannula, no adventitious lung sounds noted Gastrointestinal: soft, distended, non-tender, normoactive bowel sounds. : voiding without difficulty. Extremities: moves all extremities well, no edema Skin: Midline incision with bhargavi, TAYE on the right draining some serous drainage, TAYE on the left draining serous drainage, right TAYE puts out more than that left TAYE per nursing Neuro: Alert to voice and oriented x3, cranial nerves intact, no neuro deficits. Psych: normal mood, normal affect, minimally interactive Objective Data Vital Signs Vital Signs: Vital Signs - 24 hr 05/26/23 16:00 05/26/23 16:00 05/26/23 18:00 Temperature Pulse Rate 92 96 Respiratory Rate Blood Pressure Pulse Oximetry 99 Oxygen Delivery Nasal Cannula Oxygen Flow Rate 3 05/26/23 20:06 05/26/23 20:00 05/26/23 20:45 Temperature 98.2 F Pulse Rate 97 97 96 Respiratory Rate 18 18 21 H Blood Pressure 154/55 H Pulse Oximetry 99 97 Oxygen Delivery Nasal Cannula Oxygen Flow Rate 3 05/26/23 20:48 05/26/23 20:56 05/26/23 20:00 Temperature Pulse Rate 93 94 Respiratory Rate 21 H Blood Pressure Pulse Oximetry 97 Oxygen Delivery Nasal Cannula Oxygen Flow Rate 3 05/26/23 22:00 05/26/23 23:35 05/26/23 23:57 Temperature 98 F Pulse Rate 103 H 93 93 Respiratory Rate 20 20 Blood Pressure 143/54 H Pulse Oximetry 99 99 Oxygen Delivery Nasal Cannula Oxygen Flow Rate 3 05/27/23 00:00 05/27/23 02:00 05/27/23 03:05 Temperature Pulse Rate 82 91 94 Respiratory Rate 21 H Blood Pressure Pulse Oximetry Oxygen Delivery Oxygen Flow Rate 05/27/23 03:19 05/27/23 03:55 05/27/23 04:00 Temperature Pulse Rate 93 93 79 Respiratory Rate 20 20 Blood Pressure Pulse Oximetry 99 Oxygen Delivery Nasal Cannula Oxygen Flow Rate 3 05/27/23 05:52 05/27/23 06:00 05/27/23 08:16 Temperature 97.6 F Pulse Rate 84 92 95 Respiratory Rate 20 20 Blood Pressure 155/61 H Pulse Oximetry 99 Oxygen Delivery Oxygen Flow Rate 05/27/23 08:20 05/27/23 08:35 05/27/23 08:00 Temperature 97.8 F Pulse Rate 95 96 95 Respiratory Rate 20 20 22 H Blood Pressure 153/71 H Pulse Oximetry 96 97 Oxygen Delivery Nasal Cannula Oxygen Flow Rate 3 05/27/23 08:00 05/27/23 08:00 05/27/23 10:00 Temperature Pulse Rate 84 92 Respiratory Rate Blood Pressure Pulse Oximetry 97 Oxygen Delivery Nasal Cannula Oxygen Flow Rate 3 05/27/23 12:00 05/27/23 14:55 05/27/23 14:58 Temperature 97.2 F L Pulse Rate 89 86 87 Respiratory Rate 28 H 22 H 22 H Blood Pressure 178/79 H Pulse Oximetry 96 91 Oxygen Delivery Room Air Oxygen Flow Rate 05/27/23 15:16 Temperature Pulse Rate 89 Respiratory Rate 20 Blood Pressure Pulse Oximetry Oxygen Delivery Oxygen Flow Rate Intake/Output Intake/Output: Intake & Output 05/24/23 05/25/23 05/26/23 05/27/23 23:59 23:59 23:59 23:59 Intake Total 980 700 700 400 Output Total 365 334 788 610 Balance 615 366 -88 -210 Meds/Results Medications: Active Medications Generic Name Dose Route Start Last Admin Trade Name Freq PRN Reason Stop Dose Admin Acetaminophen 650 mg 05/19/23 17:56 05/27/23 09:42 Acetaminophen 325 Mg Tablet PO 650 mg Q6H PRN Administration Mild Pain (1-3) or Fever Albuterol/Ipratropium 3 ml 05/24/23 14:00 05/27/23 14:54 Ipratropium 0.5 Mg/Albuterol Sulfate 2.5 Mg Ampul.Neb 3 Ml INHALATION 3 ml Q6HRT BRANT Administration Ascorbic Acid 500 mg 05/25/23 09:00 05/27/23 08:57 Ascorbic Acid 500 Mg Tablet PO 500 mg DAILY BRANT Administration Azithromycin 500 mg 05/25/23 09:00 05/27/23 08:57 Azithromycin 250 Mg Tablet PO 05/28/23 10:00 500 mg DAILY BRANT Administration Cyanocobalamin 1,000 mcg 05/25/23 09:00 05/27/23 08:57 Cyanocobalamin 1,000 Mcg Tablet PO 1,000 mcg DAILY BRANT Administration Dextrose 12.5 gm 05/22/23 17:43 Dextrose 50% 25 Gm/50 Ml Syringe IV PUSH PRN PRN Hypoglycemia Protocol Enoxaparin Sodium 40 mg 05/20/23 09:00 05/27/23 08:57 Enoxaparin 40 Mg/0.4 Ml Syringe SUB-Q 40 mg DAILY BRANT Administration Glucagon 1 mg 05/22/23 17:43 Glucagon For Inj 1 Mg Vial IM PRN PRN Hypoglycemia Protocol Glucose 15 gm 05/22/23 17:43 Glucose Oral Gel 15 Gm Of Glucse In 37.5 Gm Tube PO PRN PRN Hypoglycemia Protocol Guaifenesin 1,200 mg 05/26/23 09:00 05/27/23 08:58 Guaifenesin 12 Hr 600 Mg Tabcr PO 1,200 mg Q12HR BRANT Administration Dextrose 1,000 mls @ 100 mls/hr 05/22/23 17:43 Dextrose 5% 1,000 Ml IVPB PRN PRN Hypoglycemia Protocol Metronidazole 500 mg in 100 mls @ 100 mls/hr 05/26/23 10:00 05/27/23 11:44 Flagyl 500 Mg/Iso Soln 100 Ml IVPB 100 mls/hr Q6H BRANT Administration Cefepime HCl 2 gm in 50 mls @ 100 mls/hr 05/26/23 21:00 05/27/23 09:45 Maxipime 2 Gm/Ns 50 Ml IVPB Infused Q12HR BRANT Infusion Insulin Aspart 1 - 3 units 05/22/23 21:00 05/26/23 20:30 Insulin Aspart (*Bkc) 100 Units/Ml SUB-Q Not Given HS [facility] Protocol Insulin Aspart 3 - 6 units 05/23/23 08:00 05/27/23 11:54 Insulin Aspart (*Bkc) 100 Units/Ml SUB-Q Not Given TIDWM [facility] Protocol Latanoprost 1 drop 05/19/23 21:00 05/26/23 20:26 Latanoprost 0.005% Op Soln 2.5 Ml Btl EACH EYE 1 drop HS BRANT Administration Magnesium Gluconate 27 mg 05/20/23 09:00 05/27/23 08:58 Magnesium 27 Mg Tablet (500 Mg Mag Gluconate) PO 27 mg DAILY BRANT Administration Metoclopramide HCl 10 mg 05/26/23 18:00 05/27/23 11:45 Metoclopramide Hcl Inj 10 Mg/2 Ml Vial IV PUSH 10 mg Q6HR BRANT Administration Naloxone HCl 0.1 mg 05/19/23 17:56 Naloxone Hcl 0.4 Mg/Ml Vial IV PUSH Q2M PRN Opiate Reversal Ondansetron HCl 4 mg 05/19/23 17:56 05/22/23 21:58 Ondansetron Inj 4 Mg/2 Ml Vial IV PUSH 4 mg Q4H PRN Administration Nausea And Vomiting Pantoprazole Sodium 40 mg 05/20/23 09:00 05/27/23 08:58 Pantoprazole 40 Mg Tablet PO 40 mg QAM BRANT Administration Polyethylene Glycol 17 gm 05/20/23 09:00 05/27/23 08:58 Polyethylene Glycol 3350 17 Gm Powd.Pack PO 17 gm QAM BRANT Administration Pravastatin Sodium 20 mg 05/19/23 21:00 05/26/23 20:20 Pravastatin Sodium 20 Mg Tablet PO 20 mg QHS BRANT Administration Vitamin D 1,000 units 05/25/23 09:00 05/25/23 09:16 Cholecalciferol 1,000 Units Tablet PO 1,000 units SuWe@0900 [facility] Administration Radiology Results: ITS Impressions Head CT 05/22/23 09:50 IMPRESSION: 1. Moderate scattered white matter hypoattenuation consistent with chronic small vessel ischemic disease. No other acute intracranial process. Chest CTA 05/22/23 09:51 IMPRESSION: 1. No pulmonary embolus. Sensitivity is severely decreased by motion artifact. 2. Small lung volumes with moderate atelectasis bilaterally. Brain MRI 05/22/23 13:08 IMPRESSION: 1. No acute intracranial process or abnormally enhancing brain lesions. 2. Moderate scattered nonspecific periventricular predominant white matter T2 hyperintensity which is within normal limits for age and likely sequela of chronic small vessel ischemic disease. Head/Neck CTA 05/22/23 13:14 IMPRESSION: 1. 0% stenosis of the right and left carotid bulbs relative to normal distal artery lumen diameter (NASCET criteria). 2. Small amount of nonhemodynamically significant atherosclerotic plaque at the bilateral carotid siphons. Otherwise unremarkable cerebral CT angiogram with no hemodynamically significant stenosis or aneurysm. Brain MRA 05/22/23 13:36 IMPRESSION: 1. Normal cerebral MR angiogram. Neck MRA 05/22/23 13:37 IMPRESSION: 1. 0% stenosis of the right and left carotid bulbs relative to normal distal artery lumen diameter (NASCET criteria). 2. 20-30% stenosis along the cervical portion of the left vertebral artery immediately distal to the carotid bulb. Abdomen X-Ray 05/26/23 08:25 Impression: 1: Mildly dilated small bowel with moderate gas throughout the colon which may represent postoperative ileus or less likely partial obstruction. Abdomen/Pelvis CT 05/26/23 09:45 IMPRESSION: 1. Several fluid-filled but not frankly dilated loops of small bowel likely related to postoperative ileus given the postoperative change of recent infraumbilical ventral hernia repair. 2. Diffuse hepatic steatosis. 3. Diverticulosis. 4. Volume loss and lungs with scattered peripheral consolidation in all lobes of the/lower lungs with appearance favoring atelectasis over pneumonia. Chest X-Ray 05/27/23 05:49 Impression: Central congestive change and possible minimal pulmonary edema pattern. Discoid right basilar atelectasis. Labs Labs: Laboratory Results - last 24 hr 05/26/23 05/26/23 05/27/23 17:02 19:38 02:42 WBC RBC Hgb Hct MCV MCH MCHC RDW Plt Count MPV Immature Gran % (Auto) Neut % (Auto) Lymph % (Auto) Pierce % (Auto) Eos % (Auto) Baso % (Auto) Lymph # (Auto) Pierce # (Auto) Eos # (Auto) Baso # (Auto) Abs Immat Gran (auto) Absolute Neuts (auto) Absolute Nucleated RBC Nucleated RBC % Puncture Site Right radial ABG pH 7.485 H ABG pCO2 34.4 L ABG pO2 89.1 ABG PO2/FiO2 Ratio 2.78 ABG HCO3 25.3 ABG O2 Saturation 97.4 ABG O2 Content 16.2 ABG Base Excess 2.2 A-a Gradient 98.8 Oxyhemoglobin 95.6 Total Hemoglobin 12.0 O2 Delivery Device Nasal cannula O2 Liters/Min 3.0 FiO2 32 Sodium Potassium Chloride Carbon Dioxide Anion Gap BUN Creatinine Estim Creat Clear Calc Estimated GFR Glucose POC Capillary Glucose 159 H 135 H Calcium Magnesium Total Bilirubin AST ALT Alkaline Phosphatase Total Protein Albumin 05/27/23 05/27/23 05/27/23 04:48 08:14 11:52 WBC 18.2 H RBC 3.38 L Hgb 11.3 L Hct 35.0 L MCV 103.6 H MCH 33.4 MCHC 32.3 RDW 12.0 Plt Count 306 MPV 10.1 Immature Gran % (Auto) 1.8 H Neut % (Auto) 78.3 H Lymph % (Auto) 10.9 L Pierce % (Auto) 6.3 Eos % (Auto) 2.1 Baso % (Auto) 0.6 Lymph # (Auto) 1.98 Pierce # (Auto) 1.2 H Eos # (Auto) 0.4 H Baso # (Auto) 0.1 Abs Immat Gran (auto) 0.32 H Absolute Neuts (auto) 14.2 H Absolute Nucleated RBC 0.000 Nucleated RBC % 0.0 Puncture Site ABG pH ABG pCO2 ABG pO2 ABG PO2/FiO2 Ratio ABG HCO3 ABG O2 Saturation ABG O2 Content ABG Base Excess A-a Gradient Oxyhemoglobin Total Hemoglobin O2 Delivery Device O2 Liters/Min FiO2 Sodium 136 L Potassium 3.3 L Chloride 103 Carbon Dioxide 28 Anion Gap 5 BUN 25 H Creatinine 0.60 L Estim Creat Clear Calc 73 Estimated GFR > 60 Glucose 138 H POC Capillary Glucose 132 H 160 H Calcium 8.3 L Magnesium 2.1 Total Bilirubin 0.6 AST 36 ALT 32 Alkaline Phosphatase 70 Total Protein 6.0 L Albumin 3.4 L Quality VTE Prophylaxis VTE prophylaxis: pharmacologic ordered
[2023-05-27 17:08] LABS: Glucose Point of Care 150 mg/dl (65-105)
[2023-05-27] MEDS: POTASSIUM CHLORIDE 20 MEQ ER TABLET 40 MEQ PO (18:29)
[2023-05-27 20:46] LABS: Glucose Point of Care 180 mg/dl (65-105)
[2023-05-27] MEDS: LATANOPROST 0.005% OP SOLN 2.5 ML BTL 1 DROP EACH EYE (21:02)
[2023-05-27] MEDS: PRAVASTATIN SODIUM 20 MG TABLET PO (21:02)
[2023-05-28] VITALS (31 sets, daily range): BP systolic 124–175; BP diastolic 47–75; PULSE 79–96; RESP 18–28; TEMP 36.2–36.8; O2SAT 90–98
[2023-05-28] MEDS: IPRATROPIUM 0.5 MG/ALBUTEROL SULFATE 2.5 MG AMPUL.NEB 3 ML INHALATION ×5 (02:23→20:09)
[2023-05-28 04:50] LABS: Basophils Absolute Auto 0.1 K/mm3 (0.0-0.1); Basophils Percent Auto 0.6 % (0.2-1.2); Eosinophils Absolute Auto 0.5 K/mm3 (0-0.3); Eosinophils Percent Auto 2.6 % (0-4.4); Hematocrit 34.9 % (37.0-47.0); Hemoglobin 11.7 g/dL (12.0-15.0); Immature Granulocyte Absolute 0.31 K/mm3 (0.00-0.031); Immature Granulocyte Percent A 1.6 % (0-0.5); Lymphocytes Absolute Auto 2.52 K/mm3 (0.9-3.2); Lymphocytes Percent Auto 13.2 % (18.3-44.2); Mean Corpuscular HGB Conc 33.5 g/dl (32-36); Mean Corpuscular Hemoglobin 33.9 pg (26-34); Mean Corpuscular Volume 101.2 fl (80-100); Monocytes Absolute Auto 1.2 K/mm3 (0.1-0.6); Monocytes Percent Auto 6.3 % (2.6-8.5); Neutrophils Absolute Auto 14.5 K/mm3 (1.3-6.7); Neutrophils Percent Auto 75.7 % (45.5-73.1); Platelet Count Result 329 k/mm3 (150-375); Red Blood Count 3.45 M/mm3 (4.2-5.4); Red Cell Distribution Width 12.3 % (11.5-14.5); White Blood Count 19.1 K/mm3 (4.5-10.0)
[2023-05-28] MEDS: metroNIDAZOLE 500 MG/ISO 100ML 500 MG/100 ML BAG 100 MG IVPB (04:56)
[2023-05-28] MEDS: METOCLOPRAMIDE HCL INJ 10 MG/2 ML VIAL IV PUSH ×4 (04:56→23:08)
[2023-05-28 05:02] LABS: Alanine Aminotransferase 30 U/L (6-35); Albumin Level 3.5 g/dL (3.5-5.1); Alkaline Phosphatase 72 U/L (38-126); Anion Gap 5 mmol/L (4-12); Aspartate Amino Transferase 30 U/L (14-36); Bilirubin,Total 0.6 mg/dL (0.2-1.3); Blood Urea Nitrogen 24 mg/dL (7-17); Calcium 8.7 mg/dL (8.4-10.2); Carbon Dioxide 26 mmol/L (22-30); Chloride 102 mmol/L (98-107); Estimated CRCL calculation 71 ml/min; Estimated Glomerular Filt Rate > 60; Glucose 150 mg/dL (65-110); Magnesium 2.1 mg/dL (1.6-2.3); Potassium 3.5 mmol/L (3.4-5.0); Sodium 133 mmol/L (137-145)
[2023-05-28 07:49] LABS: Procalcitonin 0.2 ng/mL
--- NOTE | 2023-05-28 07:54 | P.PNPL_ITS ---
Progress Note: A&P Assessment and Plan (1) Acute respiratory failure with hypoxia and hypercapnia: Code(s): J96.01 - Acute respiratory failure with hypoxia; J96.02 - Acute respiratory failure with hypercapnia Status: Acute Assessment and Plan: May 23 moved to IMU, increased IPAP and decreased FiO2, mucolytic, Cornet valve. Still coughs, getting discolored sputum; she is able to sit up in a chair which is a good place to be for respiratory status. This is a combination of multiple factors, large abdominal incision which creates a restrictive impairment due to pain, pressure on the diaphragm, and she had underlying restrictive anatomy due to her dextroscoliosis, she has poor inspiratory effort, increasing atelectasis and she may have pulmonary vascular redistribution. Her chest x-ray from May 20 appears to have less cephalization. Her BUN and creatinine are increasing, BUN 36 and 1.1 however her chest x-ray appears wet. Her white blood cell count is lower, does not appear to have pneumonia but she definitely has atelectasis. We will aggressively treat this with mucolytics, expiratory vibratory valve, increase tidal volume on BiPAP, incentive spirometer. 05/24: better, more alert, lower O2 need, continue pulmonary hygiene measures. Plan Up in chair as long as she can tolerate. Scheduled Mucomyst 20% followed by Cornet valve use; she did respond to one dose yesterday, still has noisy lungs with secretions that need to be expectorated. Continue incentive spirometry to increase tidal volume and secretions clearance. Continue BiPAP IPAP 14, EPAP 6, with sleep. Continue PT. Add Ensure, she needs more oral intake. Consider modified barium swallow if this does not all clear in a few days, make sure she does not aspirate. 05/25: Patient received Mucomyst nebulizer last night and then vomited into her BiPAP mask which was removed approximately 3:00 a.m.. Blood gas at 5:40 a.m. with a pH of 7.45/40/83 on 3 L nasal cannula. The patient denies abdominal pain. She has a very weak cough and is unable to expectorate. Currently she is on 3 L nasal cannula saturations 96%. She is afebrile. White blood cell count 14.2, creatinine 0.7. The tells me she had a 1 cup size chocolate pudding bowel movement yesterday. Patient is scheduled to get a CT scan of the abdomen today per surgery team. she is receiving EzPAP, peep therapy and attempting incentive spirometry but she can only pole 100 mL Etiology of patient's current respiratory symptoms include postoperative atelectasis, scoliosis, morbid obesity, status post recent abdominal surgery and possible pneumonia. She is a never smoker with no history of asthma, COPD or chronic bronchitis. Plan: the patient was off BiPAP and had a blood gas this morning on after 3 hours on 3 L nasal cannula with pH of 7.45/40/83. There is no evidence of hypercarbic respiratory failure. At this time I will change the BiPAP to p.r.n.. I have told the nurse that she should only wear it if there is evidence of respiratory distress. Most importantly the patient should get out of bed to a chair if she is cleared by the surgical team. I talked to the nurse and explained that this may take multiple healthcare providers and a Leigha lift. She is scheduled to get a CT of the abdomen today for minimal bowel movements. We will continue aggressive measures for pulmonary toilet including DuoNebs q.6 hours. Increasing guaifenesin to 1200 mg p.o. b.i.d., continue cefepime day 6, and azithromycin, day 3 for possible pneumonia, EzPAP treatment q.6 hours, Cornet flutter valve q.4 hours while awake, and incentive spirometry q.2 hours while awake. 05/27/23: Patient said she slept well without the BiPAP last night. She feels pretty good. Overall she says she is breathing 50% back to her normal. She does have a cough with minimal phlegm production. She did incentive spirometry at 600 mL. When I entered the room she was on 3 L with saturations 96%. I decreased her to 2 L and her saturations were 95%. I decreased her to room air and her saturations were 93% after 8 minutes. Her white blood cell count is 18.2, creatinine 0.6. She walked 2 ft yesterday and sat up in the chair during the afternoon. Chest x-ray today shows decreased lung volumes with congestion. ABG this morning on 3 L nasal cannula 7.49/34/89. Plan: Stable off of BiPAP with no evidence of hypercarbic respiratory failure on 3 L nasal cannula. Wean oxygen for saturations 90-94%. Currently on room air with saturations 93%. Out of bed to chair and ambulation as tolerated. Continue DuoNebs q.6, guaifenesin 1200 p.o. b.i.d., incentive spirometry q.2 hours and Cornet flutter valve Q.4 hours and EzPAP Q 6 hours. patient is on cefepime day 7, azithromycin day 4 and Flagyl day 2 for possible pneumonia. If patient continues to improve from a respiratory perspective will consider discontinuation of antibiotics on 05/27 from a pulmonary perspective. 05/28/23: Patient slept poorly night on 2 L nasal cannula. she could not get comfortable. Yesterday she was out of the chair to the bed most of the day and was on room air until about 3 in the afternoon and then was placed on 2 L nasal cannula. Overall she still is short of breath at rest and with ambulation. She did walk to the bathroom yesterday x2. White blood cell count 19.1, creatinine 0.6, afebrile. Procalcitonin 0.2. When I entered the room she was on 2 L nasal cannula saturations 96%. I turned her to room air and after 13 minutes her saturations were 92%. Incentive spirometry while she is in bed is poor at 600 mL. Plan: Stable off of BiPAP for 48 hours. Oxygenation slowly improving, goal saturation 90-94% and wean oxygen as tolerated. Patient is afebrile with a leukocytosis and a procalcitonin that is 0.2 on cefepime day 8, azithromycin day 5 [address] scan more consistent with atelectasis. If the patient had pneumonia she should be adequately treated and recommend no antibiotics from a pulmonary perspective. Continue guaifenesin 1200 mg p.o. b.i.d. Continue DuoNebs and will change to q.4 hours while awake, continue EzPAP q.i.d., continue incentive spirometry and Cornet flutter valve q.2 hours while awake. out of bed and ambulation as tolerated. Discussed with Ailin Loza, will follow with you. Subjective Date/time seen: 05/28/23 07:54 Interval history: New consult May 23 -Berenice Long is a 73-year-old woman who had an incarcerated incisional hernia repair FridayMay 18; this was an open incarcerated recurrent incisional hernia repair with mesh, Bilateral myofascial release, Removal of mesh foreign body, Extensive adhesiolysis; this lasted 5 hours which was longer than anticipated. She was fairly alert afterwards. 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 No occupational exposure, no asthma, recurrent pneumonias, no lung disease. Over the next few days, she has had worsening mentation, was agitated today with Ativan, was trying to get out of the bed, was kept in bed by . She is requiring more O2, now on BiPAP 12/6 with 40% with ABG at 14:54 today pH 7.318, pCO2 53, pO2 102, HC03 27.2 saturation 97%. ABG earlier today showed pH 7.272, pCO2 57, PO2 48.1 saturation 99% on room air. This might have been a mixed venous blood gas. She had a cough with little sputum production yesterday, less today. Her mentation is less than optimal. PMH : DM; hyperlipidemia, hypertension, glaucoma, hospital follow up : 05/25/23 at 14:05, , sons and Ortega, the sitter are present. She was up in the chair several times today. Now, she is lying in bed on her left side, wants to get up to side of bed. Speaking more clearly, not completely oriented. Knows that she had surgery, on 3 L/min =94% saturation; wbc down 11.8 k. She is not taking much food, drinking is easier for her compared to eating. She told me she had a blood clot, not true. 05/25: Patient received Mucomyst nebulizer last night and then vomited into her BiPAP mask which was removed approximately 3:00 a.m.. Blood gas at 5:40 a.m. with a pH of 7.45/40/83 on 3 L nasal cannula. The patient denies abdominal pain. She has a very weak cough and is unable to expectorate. Currently she is on 3 L nasal cannula saturations 96%. She is afebrile. White blood cell count 14.2, creatinine 0.7. The tells me she had a 1 cup size chocolate pudding bowel movement yesterday. Patient is scheduled to get a CT scan of the abdomen today per surgery team. CT scan abdomen later in the day demonstrated no pleural effusions, decreased lung volumes, bibasilar infiltrates favoring atelectasis. No focal consolidations. Dilated were not distended small bowel with air in the rectum. 05/27/23: Patient said she slept well without the BiPAP last night. She feels pretty good. Overall she says she is breathing 50% back to her normal. She does have a cough with minimal phlegm production. She did incentive spirometry at 600 mL. When I entered the room she was on 3 L with saturations 96%. I decreased her to 2 L and her saturations were 95%. I decreased her to room air and her saturations were 93% after 8 minutes. Her white blood cell count is 18.2, creatinine 0.6. She walked 2 ft yesterday and sat up in the chair during the afternoon. Chest x-ray today shows decreased lung volumes with congestion. ABG this morning on 3 L nasal cannula 7.49/34/89. 05/28/23: Patient slept poorly night on 2 L nasal cannula. she could not get comfortable. Yesterday she was out of the chair to the bed most of the day and was on room air until about 3 in the afternoon and then was placed on 2 L nasal cannula. Overall she still is short of breath at rest and with ambulation. She did walk to the bathroom yesterday x2. White blood cell count 19.1, creatinine 0.6, afebrile. Procalcitonin 0.2. When I entered the room she was on 2 L nasal cannula saturations 96%. I turned her to room air and after 13 minutes her saturations were 92%. DATA; 05/26/23: EXAMINATION: CT abdomen pelvis w con INDICATION: Nausea and vomiting COMPARISON: 04/01/2023 FINDINGS: Lung volumes are decreased with peripheral consolidation in all lobes in the visualized lower lungs with appearance favoring atelectasis over pneumonia. Heart size is normal. Atherosclerotic coronary artery calcifications. No pericardial or pleural effusion. Visualized portion of the thoracic aorta is normal in caliber with no dissection. Cholecystectomy clips the gallbladder fossa. There is relatively decreased attenuation the liver relative to the spleen consistent with diffuse hepatic steatosis although specificities decreased by the presence of intravenous contrast. Small splenic calcific location consistent with old granulomatous disease. Pancreas, bilateral adrenal glands and left kidney are normal. 1.7 cm exophytic cyst at the lower pole of the right kidney. Bladder is normal. The uterus is not identified and has likely been surgically resected. There is prominent colonic diverticulosis with a sigmoid descending colon predominance but without adjacent inflammatory change to suggest diverticulitis. There multiple surgical clips in the right lower quadrant predominantly along the cecum potentially related to prior appendectomy. Interval infraumbilical ventral hernia repair with surgical drain within the subcutaneous fat at the operative bed in the anterior pelvic wall. There is an additional surgical drain extending into the anterior peritoneal cavity of the pelvis. Several fluid-filled loops of small bowel without candida dilation or transition point to suggest obstruction but which could be seen with postoperative ileus. There is a small amount of ascites in the deep pelvis and along the anterior liver. S-shaped thoracic and lumbar scoliosis with severe spondylosis. IMPRESSION: 1. Several fluid-filled but not frankly dilated loops of small bowel likely related to postoperative ileus given the postoperative change of recent infraumbilical ventral hernia repair. 2. Diffuse hepatic steatosis. 3. Diverticulosis. 4. Volume loss and lungs with scattered peripheral consolidation in all lobes of the/lower lungs with appearance favoring atelectasis over pneumonia. * 05/22/23 CTA- IMPRESSION: No pulmonary embolus. Sensitivity is severely decreased by motion artifact. Small lung volumes with moderate atelectasis bilaterally. * WBC initially on 05/20/23 was 19 k, lower now at 12 k on May 23. * 05/20/23 Initial BUN 19 with creatinine 0.7; May 23 BUN 36 creatinine 1.1 * 05/23/23 Complete two-dimensional, color flow and Doppler transthoracic echocardiogram is performed. 2. Left ventricular chamber dimension is normal. 3. Left ventricular systolic function is normal, estimated at 60-65%. 4. The left ventricular diastolic function is grade I diastolic dysfunction. 5. E/e' 13 is mildly elevated. 6. There is mild aortic valve sclerosis. 7. The mitral valve has mildly calcified annulus. 8. There is mild tricuspid valve regurgitation. 9. Mild pulmonary hypertension, estimated pulmonary arterial systolic pressure is 47 mmHg. 10. There is trace pulmonic regurgitation. * 05/24/23 pCXR 16:02 = Stable small lung volumes with airspace opacities in the mid and lower lung zones, consistent with atelectasis versus pneumonia. She has marked scoliosis and maybe right diaphragm elevation. This is contributing to her restrictive impairment, maybe was not appreciated before her surgery. * 05/21/23 CXR - Shallow inspiration. Bibasilar airspace disease. Cardiomegaly. No pneumothorax. No acute osseous abnormality. No significant effusion.Impression: IMPRESSION: Bibasilar airspace disease may represent pneumonia and/or atelectasis. Review of Systems Review of Systems: All systems reviewed & are unremarkable except as noted in HPI and below ROS unobtainable: Yes unobtainable due to mental status Constitutional: Constitutional: Reports no additional constitutional complaints Eyes: Eyes: Reports no additional eye complaints ENT: Reports system reviewed and no additional complaints, except as documented Cardiovascular: Cardiovascular: Reports no additional cardiovascular complaints Respiratory: Respiratory: Reports no additional respiratory complaints Gastrointestinal: Gastrointestinal: Reports no additional gastrointestinal complaints Musculoskeletal: Musculoskeletal: Reports no additional musculoskeletal complaints Neurologic: Reports system reviewed and no additional complaints, except as documented Psychiatric: Psychiatric: Reports no additional psychiatric complaints Endocrine: Endocrine: Reports no additional endocrine complaints Hematologic/Lymphatic: Hematologic/Lymphatic: Reports no additional hematologic/lymphatic complaints Allergic/Immunologic: Allergic/Immunologic: Reports no additional allergic/immunologic complaints Exam Const: General: cooperative, comfortable and no acute distress HENMT: Head: normal to inspection Ears: hearing grossly normal bilaterally Eyes: General: appearance normal, both eyes and all related structures Neck: Neck: normal visual inspection Chest: Chest palpation & inspection: normal inspection of the chest Resp: Effort & Inspection: normal respiratory effort and able to speak in complete sentences Auscultation: no crackles, no rales, rhonchi, no wheezes and diminished lung sounds Other: course rhonchi Cardio: Jugular venous distension: no JVD GI: Inspection: distended Skin: General skin exam: normal color Neuro: Other: Nonfocal Extrem: General: normal to inspection Psych: Appearance: grossly normal Objective Data Vital Signs Vital Signs: Vital Signs - 24 hr 05/27/23 08:16 05/27/23 08:20 05/27/23 08:35 Temperature Pulse Rate 95 95 96 Respiratory Rate 20 20 20 Blood Pressure Pulse Oximetry 96 Oxygen Delivery Nasal Cannula Oxygen Flow Rate 3 05/27/23 08:00 05/27/23 08:00 05/27/23 08:00 Temperature 36.6 C Pulse Rate 95 84 Respiratory Rate 22 H Blood Pressure 153/71 H Pulse Oximetry 97 97 Oxygen Delivery Nasal Cannula Oxygen Flow Rate 3 05/27/23 10:00 05/27/23 12:00 05/27/23 14:55 Temperature 36.2 C L Pulse Rate 92 89 86 Respiratory Rate 28 H 22 H Blood Pressure 178/79 H Pulse Oximetry 96 Oxygen Delivery Oxygen Flow Rate 05/27/23 14:58 05/27/23 15:16 05/27/23 17:05 Temperature Pulse Rate 87 89 Respiratory Rate 22 H 20 Blood Pressure Pulse Oximetry 91 96 Oxygen Delivery Room Air Nasal Cannula Oxygen Flow Rate 2 05/27/23 16:00 05/27/23 12:00 05/27/23 14:00 Temperature 36.2 C L Pulse Rate 71 86 94 Respiratory Rate 24 H Blood Pressure 183/73 H Pulse Oximetry 99 Oxygen Delivery Oxygen Flow Rate 05/27/23 16:00 05/27/23 12:00 05/27/23 16:00 Temperature Pulse Rate 85 Respiratory Rate Blood Pressure Pulse Oximetry 99 Oxygen Delivery Room Air Nasal Cannula Oxygen Flow Rate 3 05/27/23 18:00 05/27/23 20:32 05/27/23 20:00 Temperature 36.8 C Pulse Rate 92 87 88 Respiratory Rate 18 Blood Pressure 151/70 H Pulse Oximetry 97 Oxygen Delivery Oxygen Flow Rate 05/27/23 21:05 05/27/23 21:45 05/27/23 21:50 Temperature Pulse Rate 87 85 85 Respiratory Rate 18 22 H Blood Pressure Pulse Oximetry 97 96 Oxygen Delivery Nasal Cannula Nasal Cannula Oxygen Flow Rate 2 2 05/27/23 22:00 05/27/23 22:05 05/28/23 00:00 Temperature Pulse Rate 88 86 86 Respiratory Rate 20 20 Blood Pressure Pulse Oximetry 96 Oxygen Delivery Nasal Cannula Oxygen Flow Rate 2 05/28/23 00:00 05/28/23 01:07 05/28/23 02:23 Temperature 36.5 C Pulse Rate 91 85 95 Respiratory Rate 18 20 Blood Pressure 170/70 H Pulse Oximetry 97 Oxygen Delivery Oxygen Flow Rate 05/28/23 02:30 05/28/23 02:00 05/28/23 04:00 Temperature Pulse Rate 92 82 85 Respiratory Rate 20 Blood Pressure Pulse Oximetry Oxygen Delivery Oxygen Flow Rate 05/28/23 04:20 05/28/23 04:40 05/28/23 06:00 Temperature 36.8 C Pulse Rate 85 90 83 Respiratory Rate 20 22 H Blood Pressure 175/72 H Pulse Oximetry 97 96 Oxygen Delivery Nasal Cannula Oxygen Flow Rate 2 Intake/Output Intake/Output: Intake & Output 05/25/23 05/26/23 05/27/23 05/28/23 23:59 23:59 23:59 23:59 Intake Total 868 804 6050 200 Output Total 974 777 7199 190 Balance 366 -50 -623 10 Meds/Results Medications: Active Medications Generic Name Dose Route Start Last Admin Trade Name Freq PRN Reason Stop Dose Admin Acetaminophen 650 mg 05/19/23 17:56 05/27/23 09:42 Acetaminophen 325 Mg Tablet PO 650 mg Q6H PRN Administration Mild Pain (1-3) or Fever Albuterol/Ipratropium 3 ml 05/24/23 14:00 05/28/23 02:23 Ipratropium 0.5 Mg/Albuterol Sulfate 2.5 Mg Ampul.Neb 3 Ml INHALATION 3 ml Q6HRT BRANT Administration Ascorbic Acid 500 mg 05/25/23 09:00 05/27/23 08:57 Ascorbic Acid 500 Mg Tablet PO 500 mg DAILY BRANT Administration Azithromycin 500 mg 05/25/23 09:00 05/27/23 08:57 Azithromycin 250 Mg Tablet PO 05/28/23 10:00 500 mg DAILY BRANT Administration Cyanocobalamin 1,000 mcg 05/25/23 09:00 05/27/23 08:57 Cyanocobalamin 1,000 Mcg Tablet PO 1,000 mcg DAILY BRANT Administration Dextrose 12.5 gm 05/22/23 17:43 Dextrose 50% 25 Gm/50 Ml Syringe IV PUSH PRN PRN Hypoglycemia Protocol Enoxaparin Sodium 40 mg 05/20/23 09:00 05/27/23 08:57 Enoxaparin 40 Mg/0.4 Ml Syringe SUB-Q 40 mg DAILY BRANT Administration Glucagon 1 mg 05/22/23 17:43 Glucagon For Inj 1 Mg Vial IM PRN PRN Hypoglycemia Protocol Glucose 15 gm 05/22/23 17:43 Glucose Oral Gel 15 Gm Of Glucse In 37.5 Gm Tube PO PRN PRN Hypoglycemia Protocol Guaifenesin 1,200 mg 05/26/23 09:00 05/27/23 21:02 Guaifenesin 12 Hr 600 Mg Tabcr PO 1,200 mg Q12HR BRANT Administration Dextrose 1,000 mls @ 100 mls/hr 05/22/23 17:43 Dextrose 5% 1,000 Ml IVPB PRN PRN Hypoglycemia Protocol Metronidazole 500 mg in 100 mls @ 100 mls/hr 05/26/23 10:00 05/28/23 05:56 Flagyl 500 Mg/Iso Soln 100 Ml IVPB Infused Q6H BRANT Infusion Cefepime HCl 2 gm in 50 mls @ 100 mls/hr 05/26/23 21:00 05/27/23 21:33 Maxipime 2 Gm/Ns 50 Ml IVPB Infused Q12HR BRANT Infusion Insulin Aspart 1 - 3 units 05/22/23 21:00 05/27/23 20:59 Insulin Aspart (*Bkc) 100 Units/Ml SUB-Q Not Given HS BRANT Protocol Insulin Aspart 3 - 6 units 05/23/23 08:00 05/27/23 18:26 Insulin Aspart (*Bkc) 100 Units/Ml SUB-Q Not Given TIDWM BRANT Protocol Latanoprost 1 drop 05/19/23 21:00 05/27/23 21:02 Latanoprost 0.005% Op Soln 2.5 Ml Btl EACH EYE 1 drop HS BRANT Administration Magnesium Gluconate 27 mg 05/20/23 09:00 05/27/23 08:58 Magnesium 27 Mg Tablet (500 Mg Mag Gluconate) PO 27 mg DAILY BRANT Administration Metoclopramide HCl 10 mg 05/26/23 18:00 05/28/23 04:56 Metoclopramide Hcl Inj 10 Mg/2 Ml Vial IV PUSH 10 mg Q6HR BRANT Administration Naloxone HCl 0.1 mg 05/19/23 17:56 Naloxone Hcl 0.4 Mg/Ml Vial IV PUSH Q2M PRN Opiate Reversal Ondansetron HCl 4 mg 05/19/23 17:56 05/22/23 21:58 Ondansetron Inj 4 Mg/2 Ml Vial IV PUSH 4 mg Q4H PRN Administration Nausea And Vomiting Pantoprazole Sodium 40 mg 05/20/23 09:00 05/27/23 08:58 Pantoprazole 40 Mg Tablet PO 40 mg QAM BRANT Administration Polyethylene Glycol 17 gm 05/20/23 09:00 05/27/23 08:58 Polyethylene Glycol 3350 17 Gm Powd.Pack PO 17 gm QAM BRANT Administration Pravastatin Sodium 20 mg 05/19/23 21:00 05/27/23 21:02 Pravastatin Sodium 20 Mg Tablet PO 20 mg QHS BRANT Administration Vitamin D 1,000 units 05/25/23 09:00 05/25/23 09:16 Cholecalciferol 1,000 Units Tablet PO 1,000 units SuWe@0900 BRANT Administration Radiology Results: ITS Impressions Head CT 05/22/23 09:50 IMPRESSION: 1. Moderate scattered white matter hypoattenuation consistent with chronic small vessel ischemic disease. No other acute intracranial process. Chest CTA 05/22/23 09:51 IMPRESSION: 1. No pulmonary embolus. Sensitivity is severely decreased by motion artifact. 2. Small lung volumes with moderate atelectasis bilaterally. Brain MRI 05/22/23 13:08 IMPRESSION: 1. No acute intracranial process or abnormally enhancing brain lesions. 2. Moderate scattered nonspecific periventricular predominant white matter T2 hyperintensity which is within normal limits for age and likely sequela of chronic small vessel ischemic disease. Head/Neck CTA 05/22/23 13:14 IMPRESSION: 1. 0% stenosis of the right and left carotid bulbs relative to normal distal artery lumen diameter (NASCET criteria). 2. Small amount of nonhemodynamically significant atherosclerotic plaque at the bilateral carotid siphons. Otherwise unremarkable cerebral CT angiogram with no hemodynamically significant stenosis or aneurysm. Brain MRA 05/22/23 13:36 IMPRESSION: 1. Normal cerebral MR angiogram. Neck MRA 05/22/23 13:37 IMPRESSION: 1. 0% stenosis of the right and left carotid bulbs relative to normal distal artery lumen diameter (NASCET criteria). 2. 20-30% stenosis along the cervical portion of the left vertebral artery immediately distal to the carotid bulb. Abdomen X-Ray 05/26/23 08:25 Impression: 1: Mildly dilated small bowel with moderate gas throughout the colon which may represent postoperative ileus or less likely partial obstruction. Abdomen/Pelvis CT 05/26/23 09:45 IMPRESSION: 1. Several fluid-filled but not frankly dilated loops of small bowel likely related to postoperative ileus given the postoperative change of recent infraumbilical ventral hernia repair. 2. Diffuse hepatic steatosis. 3. Diverticulosis. 4. Volume loss and lungs with scattered peripheral consolidation in all lobes of the/lower lungs with appearance favoring atelectasis over pneumonia. Chest X-Ray 05/27/23 05:49 Impression: Central congestive change and possible minimal pulmonary edema pattern. Discoid right basilar atelectasis. Labs Labs: Laboratory Results - last 24 hr 05/27/23 05/27/23 05/27/23 08:14 11:52 16:58 WBC RBC Hgb Hct MCV MCH MCHC RDW Plt Count MPV Immature Gran % (Auto) Neut % (Auto) Lymph % (Auto) [place] % (Auto) Eos % (Auto) Baso % (Auto) Lymph # (Auto) [place] # (Auto) Eos # (Auto) Baso # (Auto) Abs Immat Gran (auto) Absolute Neuts (auto) Absolute Nucleated RBC Nucleated RBC % Sodium Potassium Chloride Carbon Dioxide Anion Gap BUN Creatinine Estim Creat Clear Calc Estimated GFR Glucose POC Capillary Glucose 132 H 160 H 150 H Calcium Magnesium Total Bilirubin AST ALT Alkaline Phosphatase Total Protein Albumin Procalcitonin 05/27/23 05/28/23 05/28/23 20:22 04:28 04:32 WBC 19.1 H RBC 3.45 L Hgb 11.7 L Hct 34.9 L MCV 101.2 H MCH 33.9 MCHC 33.5 RDW 12.3 Plt Count 329 MPV 10.0 Immature Gran % (Auto) 1.6 H Neut % (Auto) 75.7 H Lymph % (Auto) 13.2 L [place] % (Auto) 6.3 Eos % (Auto) 2.6 Baso % (Auto) 0.6 Lymph # (Auto) 2.52 [place] # (Auto) 1.2 H Eos # (Auto) 0.5 H Baso # (Auto) 0.1 Abs Immat Gran (auto) 0.31 H Absolute Neuts (auto) 14.5 H Absolute Nucleated RBC 0.000 Nucleated RBC % 0.0 Sodium 133 L Potassium 3.5 Chloride 102 Carbon Dioxide 26 Anion Gap 5 BUN 24 H Creatinine 0.60 L Estim Creat Clear Calc 71 Estimated GFR > 60 Glucose 150 H POC Capillary Glucose 180 H Calcium 8.7 Magnesium 2.1 Total Bilirubin 0.6 AST 30 ALT 30 Alkaline Phosphatase 72 Total Protein 6.0 L Albumin 3.5 Procalcitonin 0.2 Amg Follow[facility]up Billing [facility] Follow-up Hospital Follow-up: [id number] [facility]
--- NOTE | 2023-05-28 08:15 | P.PNIM_ITS ---
Progress Note: A&P Assessment and Plan (1) Incarcerated incisional hernia: Code(s): K43.0 - Incisional hernia with obstruction, without gangrene Status: Acute Assessment and Plan: -Management per surgical team Post Operative ileus noted this is also poorly fitting from respiratory improvement Due to vomiting yesterday may benefit from NG placement and decompression. Await General surgery recommendation 05/27/23: * Managed by General surgery * Patient had a postop ileus, with nausea vomiting * Continue with PT and OT * Patient needs to be up ambulating in the hallway and be up out of bed for meals the chair. * Patient did not require an NG tube, and bowels were noted to be moving 05/28/23: * Continue with PT and OT * Patient needs to be up ambulating in the hallway and out of bed for all meals today * Continue with incentive spirometry, pep therapy, chest PT (2) Dyspnea: Code(s): R06.00 - Dyspnea, unspecified Status: Acute Assessment and Plan: 05/21: -patient had tachycardia tachypnea decreased oxygen sats and hypertension this morning. -Troponin was negative. -EKG showed sinus tachycardia rate 102 with left axis deviation QRS axis -35 and right bundle branch block QRS duration 133 QTC 397 no STEMI -chest x-ray atelectasis versus pneumonia -CTA small lung volumes with moderate atelectasis bilaterally, no PE -patient on supplemental oxygen titrated between 1 and 2 liters/minute -encourage use of incentive spirometer, continue IV antibiotics, and DC vancomycin if MRSA nares is negative -mobilize, ambulate with therapy tomorrow if at all possible 05/22: not significantly improved 05/23: worsening dyspnea, full cycle wheezing and respiratory distress today. DuoNeb, Solu-Medrol, IV magnesium and BiPAP improving work of breathing 05/25/2023 Will continue with BiPAP for now. Patient appears to be tolerating it very well. Repeat labs and ABG in the morning. 05/25: did not tolerate bipap and threw up. BiPAP has since been discontinued. Add Flagyl WBC slightly up today Cefepime and azithromycin as ordered 05/27/23: * Continue with cefepime, azithromycin, Flagyl * Pulmonology following * Likely will change to oral antibiotics tomorrow 05/28/23: * IV antibiotics DC today, per pulmonology * Procalcitonin 0.2 * No need for oral antibiotics at this time. (3) Acute respiratory failure with hypoxia and hypercapnia: Code(s): J96.01 - Acute respiratory failure with hypoxia; J96.02 - Acute respiratory failure with hypercapnia Status: Acute Assessment and Plan: -See Dyspnea above. -ABG pCO2 to 57.2, PO2 68.5 on 1.5 liters/minute nasal cannula -no history of respiratory failure, asthma, COPD, smoking -negative CTA PE protocol -possibly obesity related hypoventilation syndrome verses abdominal distension causing diaphragmatic compression -ApneaLink ordered 05/22: ApneaLink indicates likely sleep apnea 05/23: worsening dyspnea, full cycle wheezing and respiratory distress today. DuoNeb, Solu-Medrol, IV magnesium and BiPAP improving work of breathing BiPAP has since discontinued due to vomiting Continue oxygen supplementation ABG reasonable today 05/27/23: * Pulmonology following * Continue antibiotics * Continue DuoNebs, Solu-Medrol, pep therapy, incentive spirometer, chest PT * Continue PT and OT * Continue to wean oxygen for an oxygen sat greater than 92% * BiPAP discontinued due to episodes of vomiting * Continue PAP therapy * Continue chest PT 05/28/23: * Pulmonology following * IV antibiotics discontinued * Continue chest PT, pep therapy, PT and OT, DuoNebs, steroids * Will give a 1 time dose of 20 mg IV Lasix today * ProBNP 844 (4) Diabetes: Qualifiers: Diabetes mellitus complication status: with hyperglycemia Diabetes mellitus intermediate manager insulin use: without long-term use Diabetes mellitus type: type 2 Qualified Code(s): E11.65 - Type 2 diabetes mellitus with hyperglycemia Code(s): E11.9 - Type 2 diabetes mellitus without complications Status: Acute Assessment and Plan: Stable on current medications, will continue current treatment. 05/27/23: * Blood sugars ranging 138-160 * Hemoglobin A1c 6.2 * Continue moderate dose sliding scale insulin * Continue to hold metformin * Hypoglycemic protocol in place * Accu-Cheks AC and HS * Diabetic diet 05/28/23: * Blood glucose ranging 150-180 * Continue with current treatment (5) Stroke-like symptoms: Code(s): R29.90 - Unspecified symptoms and signs involving the nervous system Status: Acute Assessment and Plan: 05/21: -Patient with confusion right upper extremity weakness word-finding difficulties repetitive vocalizations but negative CT, CTA, MRI/MRA of head neck. -described confusion has been present since at least 05/20 -Neurology is consulted as well -Consider metabolic encephalopathy or prolonged recovery from anesthesia 05/22: added echocardiogram with bubble study lipid panel as requested by Neurology. Daily aspirin 81 mg when okay with surgery Summary ? 1. Complete two-dimensional, color flow and Doppler transthoracic echocardiogram is performed. ? 2. Left ventricular chamber dimension is normal. ? 3. Left ventricular systolic function is normal, estimated at 60-65%. ? 4. The left ventricular diastolic function is grade I diastolic dysfunction. ? 5. E/e' 13 is mildly elevated. ? 6. There is mild aortic valve sclerosis. ? 7. The mitral valve has mildly calcified annulus. ? 8. There is mild tricuspid valve regurgitation. ? 9. Mild pulmonary hypertension, estimated pulmonary arterial systolic pressure is 47 mmHg. ? 10. There is trace pulmonic regurgitation. 05/25/2023 Workup negative so far. Will continue monitor closely. 05/27/23: * Neurology signed off on 05/23/2023 * Continue with current treatment plan * Workup has been negative 05/28/23: * Resolved Time Spent With Patient Time with patient: 25 - 35 minutes Subjective Date/time seen: 05/28/23 08:15 Interval history: 05/27/23: This is a 73-year-old male any who presented to the hospital on 05/19/2023 for an elective incisional hernia repair with General surgery Services. She went to surgery on 05/20/2023 and had an open 12 cm incarcerated recurrent incisional hernia repair with mesh, bilateral myofascial release 5 cm on the right and 5 cm on the left, removal of old mesh, and extensive lysis of adhesions which took 50% of the total operating time. We were consulted for medical management on 05/22/2023. On 05/22/2023 patient was tachycardic, tachypneic, hypertensive, hypoxic. Chest x-ray on 05/21 showed atelectasis versus pneumonia. CTA of the chest was negative for PE. Patient was confused with right upper extremity weakness, word-finding as well. CT of the brain shown moderate scattered white matter hypoattenuation consistent with chronic small-vessel ischemic disease. Chest CTA was negative for PE. Patient had MRI of the brain which was negative for any acute intracranial process, showed age-related changes. Head and neck CTA did not show any stenosis in either carotid artery, there was some significant atherosclerotic plaque at the bilateral carotid siphons. Brain MRA was normal. Neck MRA shown 0% stenosis of bilateral carotid bulbs, 20-30% stenosis along with cervical portion of the left vertebral artery immediately distal to the carotid bulb. Abdominal x-ray showing mildly dilated small bowel with moderate gas throughout the colon representing a postoperative ileus or less likely partial obstruction. CT of the abdomen pelvis on 05/26/2023 showed several fluid-filled dilated loops of small bowel likely representing a postoperative ileus, diffuse hepatic steatosis, diverticulosis, volume loss in lung consolidation in all lobes. Chest x-ray on 05/27/2023 showed central con gestive changes and possible pulmonary edema. Pulmonology and Neurology was consulted. Urine culture showing no growth on final read. On examination today patient is alert to voice and oriented x3, lying in the bed. is at the bedside. She will has been working with therapy today which is the 2nd day she has worked with therapy and has walked to and from the bathroom. Her lungs sound coarse to auscultation, she is currently on 2 L nasal cannula with the oxygen sat of 97% labs today show a white blood cell count of 18.2 which is increased from yesterday, hemoglobin 11.3, sodium 136, potassium 3.3, and calcium 8.3, albumin 3.4. Patient will need to continue with physical therapy and occupational therapy as well as chest PT, pep therapy, incentive spirometer. prefers that she comes home with home health versus going to an SNF I will talk with Case Management tomorrow about this. 05/28/23: On examination today patient is alert to voice and oriented x3, sitting in the chair. is at the bedside. Labs today revealed a white blood cell count of 19.1, hemoglobin 11.7 sodium 133 blood sugars ranging 150-180 procalcitonin 0.2, BNP 844. We will go ahead and deescalate antibiotics today. This was discussed with Dr. Smart, distribution center supervisor. We will give 20 mg IV Lasix today. She will continue to work with PT and OT. She will also continue with PAP therapy, DuoNebs, and chest PT. Lasix 20 mg IV x1 given today. Review of Systems Review of Systems: All systems reviewed & are unremarkable except as noted in HPI and below Constitutional: Constitutional: Reports as per HPI and Reports no additional constitutional complaints Eyes: Eyes: Reports as per HPI and Reports no additional eye complaints ENT: Reports system reviewed and no additional complaints, except as documented and Reports as per HPI Cardiovascular: Cardiovascular: Reports as per HPI and Reports no additional cardiovascular complaints Respiratory: Respiratory: Reports as per HPI and Reports no additional respiratory complaints Gastrointestinal: Gastrointestinal: Reports as per HPI and Reports no additional gastrointestinal complaints Genitourinary: Genitourinary: Reports no additional female genitourinary complaints and Reports as per HPI Musculoskeletal: Musculoskeletal: Reports no additional musculoskeletal complaints and Reports as per HPI Integumentary/Breasts: Skin/Breast: Reports system reviewed and no additional complaints, except as docu and Reports as per HPI Neurologic: Reports system reviewed and no additional complaints, except as documented and Reports as per HPI Psychiatric: Psychiatric: Reports no additional psychiatric complaints and Reports as per HPI Exam Narrative: General: In no acute distress, well nourished, weak appearing Head: atraumatic, no encephalopathy Eyes: EOMI, PERRLA, sclera clear ENT: moist mucous membranes, nasal passages clear Neck: supple, no JVD, no adenopathy, trachea midline Cardiac: Normal S1 and S2. No murmur, gallops or friction rubs, peripheral pulses intact. Respiratory: Coarse to auscultation bilaterally, Rhonchi, currently on room air Gastrointestinal: soft, distended, non-tender, normoactive bowel sounds. : voiding without difficulty. Extremities: moves all extremities well, no edema Skin: Midline incision with bhargavi, TAYE on the right draining some serous drainage, TAYE on the left draining serous drainage, right TAYE puts out more than that left TAYE per nursing Neuro: Alert to voice and oriented x3, cranial nerves intact, no neuro deficits. Psych: normal mood, normal affect, minimally interactive Objective Data Vital Signs Vital Signs: Vital Signs - 24 hr 05/27/23 08:16 05/27/23 08:20 05/27/23 08:35 Temperature Pulse Rate 95 95 96 Respiratory Rate 20 20 20 Blood Pressure Pulse Oximetry 96 Oxygen Delivery Nasal Cannula Oxygen Flow Rate 3 05/27/23 10:00 05/27/23 12:00 05/27/23 14:55 Temperature 97.2 F L Pulse Rate 92 89 86 Respiratory Rate 28 H 22 H Blood Pressure 178/79 H Pulse Oximetry 96 Oxygen Delivery Oxygen Flow Rate 05/27/23 14:58 05/27/23 15:16 05/27/23 17:05 Temperature Pulse Rate 87 89 Respiratory Rate 22 H 20 Blood Pressure Pulse Oximetry 91 96 Oxygen Delivery Room Air Nasal Cannula Oxygen Flow Rate 2 05/27/23 16:00 05/27/23 12:00 05/27/23 14:00 Temperature 97.1 F L Pulse Rate 71 86 94 Respiratory Rate 24 H Blood Pressure 183/73 H Pulse Oximetry 99 Oxygen Delivery Oxygen Flow Rate 05/27/23 16:00 05/27/23 12:00 05/27/23 16:00 Temperature Pulse Rate 85 Respiratory Rate Blood Pressure Pulse Oximetry 99 Oxygen Delivery Room Air Nasal Cannula Oxygen Flow Rate 3 05/27/23 18:00 05/27/23 20:32 05/27/23 20:00 Temperature 98.2 F Pulse Rate 92 87 88 Respiratory Rate 18 Blood Pressure 151/70 H Pulse Oximetry 97 Oxygen Delivery Oxygen Flow Rate 05/27/23 21:05 05/27/23 21:45 05/27/23 21:50 Temperature Pulse Rate 87 85 85 Respiratory Rate 18 22 H Blood Pressure Pulse Oximetry 97 96 Oxygen Delivery Nasal Cannula Nasal Cannula Oxygen Flow Rate 2 2 05/27/23 22:00 05/27/23 22:05 05/28/23 00:00 Temperature Pulse Rate 88 86 86 Respiratory Rate 20 20 Blood Pressure Pulse Oximetry 96 Oxygen Delivery Nasal Cannula Oxygen Flow Rate 2 05/28/23 00:00 05/28/23 01:07 05/28/23 02:23 Temperature 97.7 F Pulse Rate 91 85 95 Respiratory Rate 18 20 Blood Pressure 170/70 H Pulse Oximetry 97 Oxygen Delivery Oxygen Flow Rate 05/28/23 02:30 05/28/23 02:00 05/28/23 04:00 Temperature Pulse Rate 92 82 85 Respiratory Rate 20 Blood Pressure Pulse Oximetry Oxygen Delivery Oxygen Flow Rate 05/28/23 04:20 05/28/23 04:40 05/28/23 06:00 Temperature 98.2 F Pulse Rate 85 90 83 Respiratory Rate 20 22 H Blood Pressure 175/72 H Pulse Oximetry 97 96 Oxygen Delivery Nasal Cannula Oxygen Flow Rate 2 Intake/Output Intake/Output: Intake & Output 05/25/23 05/26/23 05/27/23 05/28/23 23:59 23:59 23:59 23:59 Intake Total 593 825 2247 200 Output Total 559 860 0959 190 Balance 828 -90 -321 10 Meds/Results Medications: Active Medications Generic Name Dose Route Start Last Admin Trade Name Freq PRN Reason Stop Dose Admin Acetaminophen 650 mg 05/19/23 17:56 05/27/23 09:42 Acetaminophen 325 Mg Tablet PO 650 mg Q6H PRN Administration Mild Pain (1-3) or Fever Albuterol/Ipratropium 3 ml 05/28/23 08:00 05/28/23 08:15 Ipratropium 0.5 Mg/Albuterol Sulfate 2.5 Mg Ampul.Neb 3 Ml INHALATION 3 ml [id number] BRANT Administration Ascorbic Acid 500 mg 05/25/23 09:00 05/27/23 08:57 Ascorbic Acid 500 Mg Tablet PO 500 mg DAILY BRANT Administration Azithromycin 500 mg 05/25/23 09:00 05/27/23 08:57 Azithromycin 250 Mg Tablet PO 05/28/23 10:00 500 mg DAILY BRANT Administration Cyanocobalamin 1,000 mcg 05/25/23 09:00 05/27/23 08:57 Cyanocobalamin 1,000 Mcg Tablet PO 1,000 mcg DAILY BRANT Administration Dextrose 12.5 gm 05/22/23 17:43 Dextrose 50% 25 Gm/50 Ml Syringe IV PUSH PRN PRN Hypoglycemia Protocol Enoxaparin Sodium 40 mg 05/20/23 09:00 05/27/23 08:57 Enoxaparin 40 Mg/0.4 Ml Syringe SUB-Q 40 mg DAILY BRANT Administration Glucagon 1 mg 05/22/23 17:43 Glucagon For Inj 1 Mg Vial IM PRN PRN Hypoglycemia Protocol Glucose 15 gm 05/22/23 17:43 Glucose Oral Gel 15 Gm Of Glucse In 37.5 Gm Tube PO PRN PRN Hypoglycemia Protocol Guaifenesin 1,200 mg 05/26/23 09:00 05/27/23 21:02 Guaifenesin 12 Hr 600 Mg Tabcr PO 1,200 mg Q12HR BRANT Administration Dextrose 1,000 mls @ 100 mls/hr 05/22/23 17:43 Dextrose 5% 1,000 Ml IVPB PRN PRN Hypoglycemia Protocol Insulin Aspart 1 - 3 units 05/22/23 21:00 05/27/23 20:59 Insulin Aspart (*Bkc) 100 Units/Ml SUB-Q Not Given HS [facility] Protocol Insulin Aspart 3 - 6 units 05/23/23 08:00 05/27/23 18:26 Insulin Aspart (*Bkc) 100 Units/Ml SUB-Q Not Given TIDWM [facility] Protocol Latanoprost 1 drop 05/19/23 21:00 05/27/23 21:02 Latanoprost 0.005% Op Soln 2.5 Ml Btl EACH EYE 1 drop HS [facility] Administration Magnesium Gluconate 27 mg 05/20/23 09:00 05/27/23 08:58 Magnesium 27 Mg Tablet (500 Mg Mag Gluconate) PO 27 mg DAILY BRANT Administration Metoclopramide HCl 10 mg 05/26/23 18:00 05/28/23 04:56 Metoclopramide Hcl Inj 10 Mg/2 Ml Vial IV PUSH 10 mg Q6HR BRANT Administration Naloxone HCl 0.1 mg 05/19/23 17:56 Naloxone Hcl 0.4 Mg/Ml Vial IV PUSH Q2M PRN Opiate Reversal Ondansetron HCl 4 mg 05/19/23 17:56 05/22/23 21:58 Ondansetron Inj 4 Mg/2 Ml Vial IV PUSH 4 mg Q4H PRN Administration Nausea And Vomiting Pantoprazole Sodium 40 mg 05/20/23 09:00 05/27/23 08:58 Pantoprazole 40 Mg Tablet PO 40 mg QAM BRANT Administration Polyethylene Glycol 17 gm 05/20/23 09:00 05/27/23 08:58 Polyethylene Glycol 3350 17 Gm Powd.Pack PO 17 gm QAM [facility] Administration Pravastatin Sodium 20 mg 05/19/23 21:00 05/27/23 21:02 Pravastatin Sodium 20 Mg Tablet PO 20 mg QHS [facility] Administration Vitamin D 1,000 units 05/25/23 09:00 05/25/23 09:16 Cholecalciferol 1,000 Units Tablet PO 1,000 units SuWe@0900 [facility] Administration Radiology Results: ITS Impressions Head CT 05/22/23 09:50 IMPRESSION: 1. Moderate scattered white matter hypoattenuation consistent with chronic small vessel ischemic disease. No other acute intracranial process. Chest CTA 05/22/23 09:51 IMPRESSION: 1. No pulmonary embolus. Sensitivity is severely decreased by motion artifact. 2. Small lung volumes with moderate atelectasis bilaterally. Brain MRI 05/22/23 13:08 IMPRESSION: 1. No acute intracranial process or abnormally enhancing brain lesions. 2. Moderate scattered nonspecific periventricular predominant white matter T2 hyperintensity which is within normal limits for age and likely sequela of chronic small vessel ischemic disease. Head/Neck CTA 05/22/23 13:14 IMPRESSION: 1. 0% stenosis of the right and left carotid bulbs relative to normal distal artery lumen diameter (NASCET criteria). 2. Small amount of nonhemodynamically significant atherosclerotic plaque at the bilateral carotid siphons. Otherwise unremarkable cerebral CT angiogram with no hemodynamically significant stenosis or aneurysm. Brain MRA 05/22/23 13:36 IMPRESSION: 1. Normal cerebral MR angiogram. Neck MRA 05/22/23 13:37 IMPRESSION: 1. 0% stenosis of the right and left carotid bulbs relative to normal distal artery lumen diameter (NASCET criteria). 2. 20-30% stenosis along the cervical portion of the left vertebral artery immediately distal to the carotid bulb. Abdomen X-Ray 05/26/23 08:25 Impression: 1: Mildly dilated small bowel with moderate gas throughout the colon which may represent postoperative ileus or less likely partial obstruction. Abdomen/Pelvis CT 05/26/23 09:45 IMPRESSION: 1. Several fluid-filled but not frankly dilated loops of small bowel likely related to postoperative ileus given the postoperative change of recent infraumbilical ventral hernia repair. 2. Diffuse hepatic steatosis. 3. Diverticulosis. 4. Volume loss and lungs with scattered peripheral consolidation in all lobes of the/lower lungs with appearance favoring atelectasis over pneumonia. Chest X-Ray 05/27/23 05:49 Impression: Central congestive change and possible minimal pulmonary edema pattern. Discoid right basilar atelectasis. Labs Labs: Laboratory Results - last 24 hr 05/27/23 05/27/23 05/27/23 08:14 11:52 16:58 WBC RBC Hgb Hct MCV MCH MCHC RDW Plt Count MPV Immature Gran % (Auto) Neut % (Auto) Lymph % (Auto) [place] % (Auto) Eos % (Auto) Baso % (Auto) Lymph # (Auto) [place] # (Auto) Eos # (Auto) Baso # (Auto) Abs Immat Gran (auto) Absolute Neuts (auto) Absolute Nucleated RBC Nucleated RBC % Sodium Potassium Chloride Carbon Dioxide Anion Gap BUN Creatinine Estim Creat Clear Calc Estimated GFR Glucose POC Capillary Glucose 132 H 160 H 150 H Calcium Magnesium Total Bilirubin AST ALT Alkaline Phosphatase Total Protein Albumin Procalcitonin 05/27/23 05/28/23 05/28/23 20:22 04:28 04:32 WBC 19.1 H RBC 3.45 L Hgb 11.7 L Hct 34.9 L MCV 101.2 H MCH 33.9 MCHC 33.5 RDW 12.3 Plt Count 329 MPV 10.0 Immature Gran % (Auto) 1.6 H Neut % (Auto) 75.7 H Lymph % (Auto) 13.2 L [place] % (Auto) 6.3 Eos % (Auto) 2.6 Baso % (Auto) 0.6 Lymph # (Auto) 2.52 [place] # (Auto) 1.2 H Eos # (Auto) 0.5 H Baso # (Auto) 0.1 Abs Immat Gran (auto) 0.31 H Absolute Neuts (auto) 14.5 H Absolute Nucleated RBC 0.000 Nucleated RBC % 0.0 Sodium 133 L Potassium 3.5 Chloride 102 Carbon Dioxide 26 Anion Gap 5 BUN 24 H Creatinine 0.60 L Estim Creat Clear Calc 71 Estimated GFR > 60 Glucose 150 H POC Capillary Glucose 180 H Calcium 8.7 Magnesium 2.1 Total Bilirubin 0.6 AST 30 ALT 30 Alkaline Phosphatase 72 Total Protein 6.0 L Albumin 3.5 Procalcitonin 0.2 Quality VTE Prophylaxis VTE prophylaxis: pharmacologic ordered
[2023-05-28 08:47] LABS: NT Pro B Type Natriuretic Pept 844 pg/mL (19.9-100)
[2023-05-28 08:52] LABS: Glucose Point of Care 140 mg/dl (65-105)
[2023-05-28] MEDS: MAGNESIUM 27 MG TABLET (500 MG MAG GLUCONATE) PO (08:52)
[2023-05-28] MEDS: CYANOCOBALAMIN 1,000 MCG TABLET 1000 MCG PO (08:52)
[2023-05-28] MEDS: ENOXAPARIN 40 MG/0.4 ML SYRINGE SUB-Q (08:52)
[2023-05-28] MEDS: AZITHROMYCIN 250 MG TABLET 500 MG PO (08:52)
[2023-05-28] MEDS: polyethylene glycoL 3350 17 GM POWD.PACK PO (08:52)
[2023-05-28] MEDS: ASCORBIC ACID 500 MG TABLET PO (08:52)
[2023-05-28] MEDS: guaiFENesin 12 HR 600 MG TABCR 1200 MG PO ×2 (08:53→22:07)
[2023-05-28] MEDS: PANTOPRAZOLE 40 MG TABLET PO (08:53)
[2023-05-28] MEDS: CHOLECALCIFEROL 1,000 UNITS TABLET 1000 UNITS PO (08:56)
[2023-05-28 12:38] LABS: Glucose Point of Care 221 mg/dl (65-105)
[2023-05-28] MEDS: INSULIN ASPART (*BKC) 100 UNITS/ML SUB-Q ×2 (12:40→18:12)
[2023-05-28] MEDS: FUROSEMIDE INJ 40 MG/4 ML VIAL 20 MG IV PUSH (12:40)
[2023-05-28 16:11] LABS: Glucose Point of Care 208 mg/dl (65-105)
--- NOTE | 2023-05-28 16:16 | P.PNGS_ITS ---
Progress Note: A&P Assessment and Plan (1) Incarcerated incisional hernia: Code(s): K43.0 - Incisional hernia with obstruction, without gangrene Status: Acute Assessment and Plan: * Doing well surgically. Incision healing well. * Increase activity with PT. * TAYE drain output high, appears serous, continue to monitor (2) Acute respiratory failure with hypoxia and hypercapnia: Code(s): J96.01 - Acute respiratory failure with hypoxia; J96.02 - Acute respiratory failure with hypercapnia Status: Acute Assessment and Plan: * Continue pulmonary regimen, Pulmonology following. Off oxygen today. Plan I have discussed the patient's case and plan of care with Dr. Durham. Subjective Subjective Date/Time Seen: 05/28/23 16:16 Post Op day: 8 Interval history: Chart reviewed since last seen. She feels like her breathing is better today. They took her off of oxygen earlier today and her oxygen saturations have been stable. Therapy is working with her. She is sitting up in the chair. Tolerating a diet and bowels are moving. Exam Const: General: comfortable and awake Resp: Effort & Inspection: no respiratory distress Auscultation: rhonchi and diminished lung sounds GI: Inspection: non-distended, incision (intact with bhargavi, no erythema) and other (JPs serous) GI Palp: Yes Soft to palpation and No Tenderness to palpation present (GI) Auscultation: normal bowel sounds Other: TAYE x 2 c s/s output Extrem: General: no calf tenderness and no edema Objective Data Vital Signs Vital Signs: Vital Signs - 24 hr 05/27/23 17:05 05/27/23 18:00 05/27/23 20:32 Temperature 98.2 F Pulse Rate 92 87 Respiratory Rate 18 Blood Pressure 151/70 H Pulse Oximetry 96 97 Oxygen Delivery Nasal Cannula Oxygen Flow Rate 2 05/27/23 20:00 05/27/23 21:05 05/27/23 21:45 Temperature Pulse Rate 88 87 85 Respiratory Rate 18 22 H Blood Pressure Pulse Oximetry 97 Oxygen Delivery Nasal Cannula Oxygen Flow Rate 2 05/27/23 21:50 05/27/23 22:00 05/27/23 22:05 Temperature Pulse Rate 85 88 86 Respiratory Rate 20 Blood Pressure Pulse Oximetry 96 Oxygen Delivery Nasal Cannula Oxygen Flow Rate 2 05/28/23 00:00 05/28/23 00:00 05/28/23 01:07 Temperature 97.7 F Pulse Rate 86 91 85 Respiratory Rate 20 18 Blood Pressure 170/70 H Pulse Oximetry 96 97 Oxygen Delivery Nasal Cannula Oxygen Flow Rate 2 05/28/23 02:23 05/28/23 02:30 05/28/23 02:00 Temperature Pulse Rate 95 92 82 Respiratory Rate 20 20 Blood Pressure Pulse Oximetry Oxygen Delivery Oxygen Flow Rate 05/28/23 04:00 05/28/23 04:20 05/28/23 04:40 Temperature 98.2 F Pulse Rate 85 85 90 Respiratory Rate 20 22 H Blood Pressure 175/72 H Pulse Oximetry 97 96 Oxygen Delivery Nasal Cannula Oxygen Flow Rate 2 05/28/23 06:00 05/28/23 08:27 05/28/23 08:28 Temperature Pulse Rate 83 81 Respiratory Rate 18 Blood Pressure Pulse Oximetry 98 Oxygen Delivery Nasal Cannula Oxygen Flow Rate 2 05/28/23 08:36 05/28/23 08:56 05/28/23 11:20 Temperature 98.2 F Pulse Rate 96 84 93 Respiratory Rate 20 22 H 20 Blood Pressure 171/72 H Pulse Oximetry 93 Oxygen Delivery Oxygen Flow Rate 05/28/23 11:26 05/28/23 08:00 05/28/23 11:41 Temperature 97.2 F L Pulse Rate 91 89 Respiratory Rate 20 20 Blood Pressure 152/75 H Pulse Oximetry 96 95 Oxygen Delivery Nasal Cannula Oxygen Flow Rate 2 05/28/23 08:00 05/28/23 10:00 05/28/23 12:37 Temperature 97.1 F L Pulse Rate 93 79 88 Respiratory Rate 24 H Blood Pressure 141/58 H Pulse Oximetry 95 Oxygen Delivery Oxygen Flow Rate 05/28/23 15:53 05/28/23 16:06 Temperature Pulse Rate 89 90 Respiratory Rate 20 Blood Pressure Pulse Oximetry Oxygen Delivery Oxygen Flow Rate Intake/Output Intake/Output: Intake & Output 05/25/23 05/26/23 05/27/23 05/28/23 23:59 23:59 23:59 23:59 Intake Total 965 476 8876 440 Output Total 359 927 2126 501 Balance 366 -88 -620 -61 Meds/Results Medications: Active Medications Generic Name Dose Route Start Last Admin Trade Name Freq PRN Reason Stop Dose Admin Acetaminophen 650 mg 05/19/23 17:56 05/27/23 09:42 Acetaminophen 325 Mg Tablet PO 650 mg Q6H PRN Administration Mild Pain (1-3) or Fever Albuterol/Ipratropium 3 ml 05/28/23 08:00 05/28/23 15:53 Ipratropium 0.5 Mg/Albuterol Sulfate 2.5 Mg Ampul.Neb 3 Ml INHALATION 3 ml [id number] BRANT Administration Ascorbic Acid 500 mg 05/25/23 09:00 05/28/23 08:52 Ascorbic Acid 500 Mg Tablet PO 500 mg DAILY BRANT Administration Cyanocobalamin 1,000 mcg 05/25/23 09:00 05/28/23 08:52 Cyanocobalamin 1,000 Mcg Tablet PO 1,000 mcg DAILY BRANT Administration Dextrose 12.5 gm 05/22/23 17:43 Dextrose 50% 25 Gm/50 Ml Syringe IV PUSH PRN PRN Hypoglycemia Protocol Enoxaparin Sodium 40 mg 05/20/23 09:00 05/28/23 08:52 Enoxaparin 40 Mg/0.4 Ml Syringe SUB-Q 40 mg DAILY BRANT Administration Glucagon 1 mg 05/22/23 17:43 Glucagon For Inj 1 Mg Vial IM PRN PRN Hypoglycemia Protocol Glucose 15 gm 05/22/23 17:43 Glucose Oral Gel 15 Gm Of Glucse In 37.5 Gm Tube PO PRN PRN Hypoglycemia Protocol Guaifenesin 1,200 mg 05/26/23 09:00 05/28/23 08:53 Guaifenesin 12 Hr 600 Mg Tabcr PO 1,200 mg Q12HR BRANT Administration Dextrose 1,000 mls @ 100 mls/hr 05/22/23 17:43 Dextrose 5% 1,000 Ml IVPB PRN PRN Hypoglycemia Protocol Insulin Aspart 1 - 3 units 05/22/23 21:00 05/27/23 20:59 Insulin Aspart (*Bkc) 100 Units/Ml SUB-Q Not Given HS BRANT Protocol Insulin Aspart 3 - 6 units 05/23/23 08:00 05/28/23 12:40 Insulin Aspart (*Bkc) 100 Units/Ml SUB-Q 3 units TIDWM BRANT Administration Protocol Latanoprost 1 drop 05/19/23 21:00 05/27/23 21:02 Latanoprost 0.005% Op Soln 2.5 Ml Btl EACH EYE 1 drop HS BRANT Administration Magnesium Gluconate 27 mg 05/20/23 09:00 05/28/23 08:52 Magnesium 27 Mg Tablet (500 Mg Mag Gluconate) PO 27 mg DAILY BRANT Administration Metoclopramide HCl 10 mg 05/26/23 18:00 05/28/23 12:42 Metoclopramide Hcl Inj 10 Mg/2 Ml Vial IV PUSH 10 mg Q6HR BRANT Administration Naloxone HCl 0.1 mg 05/19/23 17:56 Naloxone Hcl 0.4 Mg/Ml Vial IV PUSH Q2M PRN Opiate Reversal Ondansetron HCl 4 mg 05/19/23 17:56 05/22/23 21:58 Ondansetron Inj 4 Mg/2 Ml Vial IV PUSH 4 mg Q4H PRN Administration Nausea And Vomiting Pantoprazole Sodium 40 mg 05/20/23 09:00 05/28/23 08:53 Pantoprazole 40 Mg Tablet PO 40 mg QAM BRANT Administration Polyethylene Glycol 17 gm 05/20/23 09:00 05/28/23 08:52 Polyethylene Glycol 3350 17 Gm Powd.Pack PO 17 gm QAM BRANT Administration Pravastatin Sodium 20 mg 05/19/23 21:00 05/27/23 21:02 Pravastatin Sodium 20 Mg Tablet PO 20 mg QHS [facility] Administration Vitamin D 1,000 units 05/25/23 09:00 05/28/23 08:56 Cholecalciferol 1,000 Units Tablet PO 1,000 units SuWe@0900 BRANT Administration Radiology Results: ITS Impressions Head CT 05/22/23 09:50 IMPRESSION: 1. Moderate scattered white matter hypoattenuation consistent with chronic small vessel ischemic disease. No other acute intracranial process. Chest CTA 05/22/23 09:51 IMPRESSION: 1. No pulmonary embolus. Sensitivity is severely decreased by motion artifact. 2. Small lung volumes with moderate atelectasis bilaterally. Brain MRI 05/22/23 13:08 IMPRESSION: 1. No acute intracranial process or abnormally enhancing brain lesions. 2. Moderate scattered nonspecific periventricular predominant white matter T2 hyperintensity which is within normal limits for age and likely sequela of chronic small vessel ischemic disease. Head/Neck CTA 05/22/23 13:14 IMPRESSION: 1. 0% stenosis of the right and left carotid bulbs relative to normal distal artery lumen diameter (NASCET criteria). 2. Small amount of nonhemodynamically significant atherosclerotic plaque at the bilateral carotid siphons. Otherwise unremarkable cerebral CT angiogram with no hemodynamically significant stenosis or aneurysm. Brain MRA 05/22/23 13:36 IMPRESSION: 1. Normal cerebral MR angiogram. Neck MRA 05/22/23 13:37 IMPRESSION: 1. 0% stenosis of the right and left carotid bulbs relative to normal distal artery lumen diameter (NASCET criteria). 2. 20-30% stenosis along the cervical portion of the left vertebral artery immediately distal to the carotid bulb. Abdomen X-Ray 05/26/23 08:25 Impression: 1: Mildly dilated small bowel with moderate gas throughout the colon which may represent postoperative ileus or less likely partial obstruction. Abdomen/Pelvis CT 05/26/23 09:45 IMPRESSION: 1. Several fluid-filled but not frankly dilated loops of small bowel likely related to postoperative ileus given the postoperative change of recent infraumbilical ventral hernia repair. 2. Diffuse hepatic steatosis. 3. Diverticulosis. 4. Volume loss and lungs with scattered peripheral consolidation in all lobes of the/lower lungs with appearance favoring atelectasis over pneumonia. Chest X-Ray 05/27/23 05:49 Impression: Central congestive change and possible minimal pulmonary edema pattern. Discoid right basilar atelectasis. Labs Labs: Laboratory Results - last 24 hr 05/27/23 05/27/23 05/28/23 16:58 20:22 04:28 WBC RBC Hgb Hct MCV MCH MCHC RDW Plt Count MPV Immature Gran % (Auto) Neut % (Auto) Lymph % (Auto) [place] % (Auto) Eos % (Auto) Baso % (Auto) Lymph # (Auto) [place] # (Auto) Eos # (Auto) Baso # (Auto) Abs Immat Gran (auto) Absolute Neuts (auto) Absolute Nucleated RBC Nucleated RBC % Sodium Potassium Chloride Carbon Dioxide Anion Gap BUN Creatinine Estim Creat Clear Calc Estimated GFR Glucose POC Capillary Glucose 150 H 180 H Calcium Magnesium Total Bilirubin AST ALT Alkaline Phosphatase NT-Pro-B Natriuret Pep 844 H Total Protein Albumin Procalcitonin 0.2 05/28/23 05/28/23 05/28/23 04:32 08:15 11:50 WBC 19.1 H RBC 3.45 L Hgb 11.7 L Hct 34.9 L MCV 101.2 H MCH 33.9 MCHC 33.5 RDW 12.3 Plt Count 329 MPV 10.0 Immature Gran % (Auto) 1.6 H Neut % (Auto) 75.7 H Lymph % (Auto) 13.2 L [place] % (Auto) 6.3 Eos % (Auto) 2.6 Baso % (Auto) 0.6 Lymph # (Auto) 2.52 [place] # (Auto) 1.2 H Eos # (Auto) 0.5 H Baso # (Auto) 0.1 Abs Immat Gran (auto) 0.31 H Absolute Neuts (auto) 14.5 H Absolute Nucleated RBC 0.000 Nucleated RBC % 0.0 Sodium 133 L Potassium 3.5 Chloride 102 Carbon Dioxide 26 Anion Gap 5 BUN 24 H Creatinine 0.60 L Estim Creat Clear Calc 71 Estimated GFR > 60 Glucose 150 H POC Capillary Glucose 140 H 221 H Calcium 8.7 Magnesium 2.1 Total Bilirubin 0.6 AST 30 ALT 30 Alkaline Phosphatase 72 NT-Pro-B Natriuret Pep Total Protein 6.0 L Albumin 3.5 Procalcitonin 05/28/23 16:02 WBC RBC Hgb Hct MCV MCH MCHC RDW Plt Count MPV Immature Gran % (Auto) Neut % (Auto) Lymph % (Auto) [place] % (Auto) Eos % (Auto) Baso % (Auto) Lymph # (Auto) [place] # (Auto) Eos # (Auto) Baso # (Auto) Abs Immat Gran (auto) Absolute Neuts (auto) Absolute Nucleated RBC Nucleated RBC % Sodium Potassium Chloride Carbon Dioxide Anion Gap BUN Creatinine Estim Creat Clear Calc Estimated GFR Glucose POC Capillary Glucose 208 H Calcium Magnesium Total Bilirubin AST ALT Alkaline Phosphatase NT-Pro-B Natriuret Pep Total Protein Albumin Procalcitonin
[2023-05-28 20:00] LABS: Glucose Point of Care 164 mg/dl (65-105)
[2023-05-28] MEDS: PRAVASTATIN SODIUM 20 MG TABLET PO (22:08)
[2023-05-28] MEDS: LATANOPROST 0.005% OP SOLN 2.5 ML BTL 1 DROP EACH EYE (22:08)
[2023-05-29] VITALS (15 sets, daily range): BP systolic 125–141; BP diastolic 45–66; PULSE 76–91; RESP 18–24; TEMP 35.9–36.6; O2SAT 92–96
[2023-05-29] MEDS: METOCLOPRAMIDE HCL INJ 10 MG/2 ML VIAL IV PUSH ×3 (04:54→17:11)
[2023-05-29 05:07] LABS: Basophils Absolute Auto 0.1 K/mm3 (0.0-0.1); Basophils Percent Auto 0.4 % (0.2-1.2); Eosinophils Absolute Auto 0.6 K/mm3 (0-0.3); Eosinophils Percent Auto 3.2 % (0-4.4); Hemoglobin 11.5 g/dL (12.0-15.0); Immature Granulocyte Absolute 0.26 K/mm3 (0.00-0.031); Immature Granulocyte Percent A 1.3 % (0-0.5); Immature Platelet Fraction Pct 7.3 % (0.9-11.2); Lymphocytes Percent Auto 15.8 % (18.3-44.2); Mean Corpuscular HGB Conc 32.9 g/dl (32-36); Mean Corpuscular Hemoglobin 33.4 pg (26-34); Mean Corpuscular Volume 101.7 fl (80-100); Mean Platelet Volume 11.5 fl (7.4-10.4); Monocytes Absolute Auto 1.3 K/mm3 (0.1-0.6); Monocytes Percent Auto 6.5 % (2.6-8.5); Neutrophils Absolute Auto 14.3 K/mm3 (1.3-6.7); Neutrophils Percent Auto 72.8 % (45.5-73.1); Platelet Count Result 273 k/mm3 (150-375); Red Blood Count 3.44 M/mm3 (4.2-5.4); Red Cell Distribution Width 12.3 % (11.5-14.5); White Blood Count 19.6 K/mm3 (4.5-10.0)
[2023-05-29 05:26] LABS: Alanine Aminotransferase 28 U/L (6-35); Albumin Level 3.2 g/dL (3.5-5.1); Alkaline Phosphatase 66 U/L (38-126); Anion Gap 6 mmol/L (4-12); Aspartate Amino Transferase 32 U/L (14-36); Bilirubin,Total 0.5 mg/dL (0.2-1.3); Blood Urea Nitrogen 25 mg/dL (7-17); Calcium 8.5 mg/dL (8.4-10.2); Carbon Dioxide 28 mmol/L (22-30); Chloride 100 mmol/L (98-107); Estimated CRCL calculation 67 ml/min; Estimated Glomerular Filt Rate > 60; Glucose 147 mg/dL (65-110); Magnesium 2.1 mg/dL (1.6-2.3); Potassium 3.4 mmol/L (3.4-5.0); Sodium 134 mmol/L (137-145)
[2023-05-29] MEDS: IPRATROPIUM 0.5 MG/ALBUTEROL SULFATE 2.5 MG AMPUL.NEB 3 ML INHALATION ×4 (07:45→20:40)
[2023-05-29 07:49] LABS: Glucose Point of Care 149 mg/dl (65-105)
--- NOTE | 2023-05-29 08:39 | P.PNPL_ITS ---
Progress Note: A&P Assessment and Plan (1) Acute respiratory failure with hypoxia and hypercapnia: Code(s): J96.01 - Acute respiratory failure with hypoxia; J96.02 - Acute respiratory failure with hypercapnia Status: Acute Assessment and Plan: May 23 moved to IMU, increased IPAP and decreased FiO2, mucolytic, Cornet valve. Still coughs, getting discolored sputum; she is able to sit up in a chair which is a good place to be for respiratory status. This is a combination of multiple factors, large abdominal incision which creates a restrictive impairment due to pain, pressure on the diaphragm, and she had underlying restrictive anatomy due to her dextroscoliosis, she has poor inspiratory effort, increasing atelectasis and she may have pulmonary vascular redistribution. Her chest x-ray from May 20 appears to have less cephalization. Her BUN and creatinine are increasing, BUN 36 and 1.1 however her chest x-ray appears wet. Her white blood cell count is lower, does not appear to have pneumonia but she definitely has atelectasis. We will aggressively treat this with mucolytics, expiratory vibratory valve, increase tidal volume on BiPAP, incentive spirometer. 05/24: better, more alert, lower O2 need, continue pulmonary hygiene measures. Plan Up in chair as long as she can tolerate. Scheduled Mucomyst 20% followed by Cornet valve use; she did respond to one dose yesterday, still has noisy lungs with secretions that need to be expectorated. Continue incentive spirometry to increase tidal volume and secretions clearance. Continue BiPAP IPAP 14, EPAP 6, with sleep. Continue PT. Add Ensure, she needs more oral intake. Consider modified barium swallow if this does not all clear in a few days, make sure she does not aspirate. 05/25: Patient received Mucomyst nebulizer last night and then vomited into her BiPAP mask which was removed approximately 3:00 a.m.. Blood gas at 5:40 a.m. with a pH of 7.45/40/83 on 3 L nasal cannula. The patient denies abdominal pain. She has a very weak cough and is unable to expectorate. Currently she is on 3 L nasal cannula saturations 96%. She is afebrile. White blood cell count 14.2, creatinine 0.7. The tells me she had a 1 cup size chocolate pudding bowel movement yesterday. Patient is scheduled to get a CT scan of the abdomen today per surgery team. she is receiving EzPAP, peep therapy and attempting incentive spirometry but she can only pole 100 mL Etiology of patient's current respiratory symptoms include postoperative atelectasis, scoliosis, morbid obesity, status post recent abdominal surgery and possible pneumonia. She is a never smoker with no history of asthma, COPD or chronic bronchitis. Plan: the patient was off BiPAP and had a blood gas this morning on after 3 hours on 3 L nasal cannula with pH of 7.45/40/83. There is no evidence of hypercarbic respiratory failure. At this time I will change the BiPAP to p.r.n.. I have told the nurse that she should only wear it if there is evidence of respiratory distress. Most importantly the patient should get out of bed to a chair if she is cleared by the surgical team. I talked to the nurse and explained that this may take multiple healthcare providers and a Leigha lift. She is scheduled to get a CT of the abdomen today for minimal bowel movements. We will continue aggressive measures for pulmonary toilet including DuoNebs q.6 hours. Increasing guaifenesin to 1200 mg p.o. b.i.d., continue cefepime day 6, and azithromycin, day 3 for possible pneumonia, EzPAP treatment q.6 hours, Cornet flutter valve q.4 hours while awake, and incentive spirometry q.2 hours while awake. 05/27/23: Patient said she slept well without the BiPAP last night. She feels pretty good. Overall she says she is breathing 50% back to her normal. She does have a cough with minimal phlegm production. She did incentive spirometry at 600 mL. When I entered the room she was on 3 L with saturations 96%. I decreased her to 2 L and her saturations were 95%. I decreased her to room air and her saturations were 93% after 8 minutes. Her white blood cell count is 18.2, creatinine 0.6. She walked 2 ft yesterday and sat up in the chair during the afternoon. Chest x-ray today shows decreased lung volumes with congestion. ABG this morning on 3 L nasal cannula 7.49/34/89. Plan: Stable off of BiPAP with no evidence of hypercarbic respiratory failure on 3 L nasal cannula. Wean oxygen for saturations 90-94%. Currently on room air with saturations 93%. Out of bed to chair and ambulation as tolerated. Continue DuoNebs q.6, guaifenesin 1200 p.o. b.i.d., incentive spirometry q.2 hours and Cornet flutter valve Q.4 hours and EzPAP Q 6 hours. patient is on cefepime day 7, azithromycin day 4 and Flagyl day 2 for possible pneumonia. If patient continues to improve from a respiratory perspective will consider discontinuation of antibiotics on 05/27 from a pulmonary perspective. 05/28/23: Patient slept poorly night on 2 L nasal cannula. she could not get comfortable. Yesterday she was out of the chair to the bed most of the day and was on room air until about 3 in the afternoon and then was placed on 2 L nasal cannula. Overall she still is short of breath at rest and with ambulation. She did walk to the bathroom yesterday x2. White blood cell count 19.1, creatinine 0.6, afebrile. Procalcitonin 0.2. When I entered the room she was on 2 L nasal cannula saturations 96%. I turned her to room air and after 13 minutes her saturations were 92%. Incentive spirometry while she is in bed is poor at 600 mL. Plan: Stable off of BiPAP for 48 hours. Oxygenation slowly improving, goal saturation 90-94% and wean oxygen as tolerated. Patient is afebrile with a leukocytosis and a procalcitonin that is 0.2 on cefepime day 8, azithromycin day 5 [address] scan more consistent with atelectasis. If the patient had pneumonia she should be adequately treated and recommend no antibiotics from a pulmonary perspective. Continue guaifenesin 1200 mg p.o. b.i.d. Continue DuoNebs and will change to q.4 hours while awake, continue EzPAP q.i.d., continue incentive spirometry and Cornet flutter valve q.2 hours while awake. out of bed and ambulation as tolerated. Lasix 20 given. 05/29/23: The patient said she got some sleep last night. Overall the patient is slowly improving. She has less cough and less congestion in the concurs. White blood cell count is 19.6, creatinine is 0.7. Patient is on 2 L nasal cannula saturations 95%. I decreased her to room air and her saturations were 92%. She is sitting up in a chair currently and is less congested. Her weight today is 91.5 kg down from 92.3 yesterday. incentive spirometry mildly improved to 700. Plan: Continue DuoNebs Q 4 while awake, continue guaifenesin 1200 p.o. b.i.d., incentive spirometry, EzPAP and Cornet flutter valve. I have written for 20 of Lasix IV. I will check an overnight oximetry tonight on room air. Discussed with Dr Dumont, will follow with you. Subjective Date/time seen: 05/29/23 08:39 Interval history: 05/24/23: New consult Berenice Long is a 73-year-old woman who had an incarcerated incisional hernia repair FridayMay 18; this was an open incarcerated recurrent incisional hernia repair with mesh, Bilateral myofascial release, Removal of mesh foreign body, Extensive adhesiolysis; this lasted 5 hours which was longer than anticipated. She was fairly alert afterwards. 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 No occupational exposure, no asthma, recurrent pneumonias, no lung disease. Over the next few days, she has had worsening mentation, was agitated today with Ativan, was trying to get out of the bed, was kept in bed by . She is requiring more O2, now on BiPAP 01/15 with 40% with ABG at 14:54 today pH 7.318, pCO2 53, pO2 102, HC03 27.2 saturation 97%. ABG earlier today showed pH 7.272, pCO2 57, PO2 48.1 saturation 99% on room air. This might have been a mixed venous blood gas. She had a cough with little sputum production yesterday, less today. Her mentation is less than optimal. PMH : DM; hyperlipidemia, hypertension, glaucoma, 05/24 hospital follow up : 05/25/23 at 14:05, , sons and Ortega, the sitter are present. She was up in the chair several times today. Now, she is lying in bed on her left side, wants to get up to side of bed. Speaking more clearly, not completely oriented. Knows that she had surgery, on 3 L/min =94% saturation; wbc down 11.8 k. She is not taking much food, drinking is easier for her compared to eating. She told me she had a blood clot, not true. 05/25: Patient received Mucomyst nebulizer last night and then vomited into her BiPAP mask which was removed approximately 3:00 a.m.. Blood gas at 5:40 a.m. with a pH of 7.45/40/83 on 3 L nasal cannula. The patient denies abdominal pain. She has a very weak cough and is unable to expectorate. Currently she is on 3 L nasal cannula saturations 96%. She is afebrile. White blood cell count 14.2, creatinine 0.7. The tells me she had a 1 cup size chocolate pudding bowel movement yesterday. Patient is scheduled to get a CT scan of the abdomen today per surgery team. CT scan abdomen later in the day demonstrated no pleural effusions, decreased lung volumes, bibasilar infiltrates favoring atelectasis. No focal consolidations. Dilated were not distended small bowel with air in the rectum. 05/27/23: Patient said she slept well without the BiPAP last night. She feels pretty good. Overall she says she is breathing 50% back to her normal. She does have a cough with minimal phlegm production. She did incentive spirometry at 600 mL. When I entered the room she was on 3 L with saturations 96%. I decreased her to 2 L and her saturations were 95%. I decreased her to room air and her saturations were 93% after 8 minutes. Her white blood cell count is 18.2, creatinine 0.6. She walked 2 ft yesterday and sat up in the chair during the afternoon. Chest x-ray today shows decreased lung volumes with congestion. ABG this morning on 3 L nasal cannula 7.49/34/89. 05/28/23: Patient slept poorly night on 2 L nasal cannula. she could not get comfortable. Yesterday she was out of the chair to the bed most of the day and was on room air until about 3 in the afternoon and then was placed on 2 L nasal cannula. Overall she still is short of breath at rest and with ambulation. She did walk to the bathroom yesterday x2. White blood cell count 19.1, creatinine 0.6, afebrile. Procalcitonin 0.2. When I entered the room she was on 2 L nasal cannula saturations 96%. I turned her to room air and after 13 minutes her saturations were 92%. rs.lasix 20 IV given. 05/29/23: The patient said she got some sleep last night. Overall the patient is slowly improving. She has less cough and less congestion in the concurs. White blood cell count is 19.6, creatinine is 0.7. Patient is on 2 L nasal cannula saturations 95%. I decreased her to room air and her saturations were 92%. She is sitting up in a chair currently and is less congested. DATA; 05/26/23: EXAMINATION: CT abdomen pelvis w con INDICATION: Nausea and vomiting COMPARISON: 04/01/2023 FINDINGS: Lung volumes are decreased with peripheral consolidation in all lobes in the visualized lower lungs with appearance favoring atelectasis over pneumonia. Heart size is normal. Atherosclerotic coronary artery calcifications. No pericardial or pleural effusion. Visualized portion of the thoracic aorta is normal in caliber with no dissection. Cholecystectomy clips the gallbladder fossa. There is relatively decreased attenuation the liver relative to the spleen consistent with diffuse hepatic steatosis although specificities decreased by the presence of intravenous contrast. Small splenic calcific location consistent with old granulomatous disease. Pancreas, bilateral adrenal glands and left kidney are normal. 1.7 cm exophytic cyst at the lower pole of the right kidney. Bladder is normal. The uterus is not identified and has likely been surgically resected. There is prominent colonic diverticulosis with a sigmoid descending colon predominance but without adjacent inflammatory change to suggest diverticulitis. There multiple surgical clips in the right lower quadrant predominantly along the cecum potentially related to prior appendectomy. Interval infraumbilical ventral hernia repair with surgical drain within the subcutaneous fat at the operative bed in the anterior pelvic wall. There is an additional surgical drain extending into the anterior peritoneal cavity of the pelvis. Several fluid-filled loops of small bowel without candida dilation or transition point to suggest obstruction but which could be seen with postoperative ileus. There is a small amount of ascites in the deep pelvis and along the anterior liver. S-shaped thoracic and lumbar scoliosis with severe spondylosis. IMPRESSION: 1. Several fluid-filled but not frankly dilated loops of small bowel likely related to postoperative ileus given the postoperative change of recent infraumbilical ventral hernia repair. 2. Diffuse hepatic steatosis. 3. Diverticulosis. 4. Volume loss and lungs with scattered peripheral consolidation in all lobes of the/lower lungs with appearance favoring atelectasis over pneumonia. * 05/22/23 CTA- IMPRESSION: No pulmonary embolus. Sensitivity is severely decreased by motion artifact. Small lung volumes with moderate atelectasis b ilaterally. * WBC initially on 05/20/23 was 19 k, lower now at 12 k on May 23. * 05/20/23 Initial BUN 19 with creatinine 0.7; May 23 BUN 36 creatinine 1.1 * 05/23/23 Complete two-dimensional, color flow and Doppler transthoracic echocardiogram is performed. 2. Left ventricular chamber dimension is normal. 3. Left ventricular systolic function is normal, estimated at 60-65%. 4. The left ventricular diastolic function is grade I diastolic dysfunction. 5. E/e' 13 is mildly elevated. 6. There is mild aortic valve sclerosis. 7. The mitral valve has mildly calcified annulus. 8. There is mild tricuspid valve regurgitation. 9. Mild pulmonary hypertension, estimated pulmonary arterial systolic pressure is 47 mmHg. 10. There is trace pulmonic regurgitation. * 05/24/23 pCXR 16:02 = Stable small lung volumes with airspace opacities in the mid and lower lung zones, consistent with atelectasis versus pneumonia. She has marked scoliosis and maybe right diaphragm elevation. This is contributing to her restrictive impairment, maybe was not appreciated before her surgery. * 05/21/23 CXR - Shallow inspiration. Bibasilar airspace disease. Cardiomegaly. No pneumothorax. No acute osseous abnormality. No significant effusion.Impression: IMPRESSION: Bibasilar airspace disease may represent pneumonia and/or atelectasis. Review of Systems Review of Systems: All systems reviewed & are unremarkable except as noted in HPI and below ROS unobtainable: Yes unobtainable due to mental status Constitutional: Constitutional: Reports no additional constitutional complaints Eyes: Eyes: Reports no additional eye complaints ENT: Reports system reviewed and no additional complaints, except as documented Cardiovascular: Cardiovascular: Reports no additional cardiovascular complaints Respiratory: Respiratory: Reports no additional respiratory complaints Gastrointestinal: Gastrointestinal: Reports no additional gastrointestinal complaints Musculoskeletal: Musculoskeletal: Reports no additional musculoskeletal complaints Neurologic: Reports system reviewed and no additional complaints, except as documented Psychiatric: Psychiatric: Reports no additional psychiatric complaints Endocrine: Endocrine: Reports no additional endocrine complaints Hematologic/Lymphatic: Hematologic/Lymphatic: Reports no additional hematologic/lymphatic complaints Allergic/Immunologic: Allergic/Immunologic: Reports no additional allergic/immunologic complaints Exam Const: General: cooperative, comfortable and no acute distress HENMT: Head: normal to inspection Ears: hearing grossly normal bilaterally Eyes: General: appearance normal, both eyes and all related structures Neck: Neck: normal visual inspection Chest: Chest palpation & inspection: normal inspection of the chest Resp: Effort & Inspection: normal respiratory effort and able to speak in complete sentences Auscultation: no crackles, no rales, rhonchi, no wheezes and diminished lung sounds Other: course rhonchi. improved Cardio: Jugular venous distension: no JVD GI: Inspection: distended Skin: General skin exam: normal color Neuro: Other: Nonfocal Extrem: General: normal to inspection Psych: Appearance: grossly normal Objective Data Vital Signs Vital Signs: Vital Signs - 24 hr 05/28/23 08:56 05/28/23 11:20 05/28/23 11:26 Temperature 36.8 C Pulse Rate 84 93 91 Respiratory Rate 22 H 20 20 Blood Pressure 171/72 H Pulse Oximetry 93 Oxygen Delivery Oxygen Flow Rate 05/28/23 11:41 05/28/23 10:00 05/28/23 12:37 Temperature 36.2 C L 36.2 C L Pulse Rate 89 79 88 Respiratory Rate 20 24 H Blood Pressure 152/75 H 141/58 H Pulse Oximetry 95 95 Oxygen Delivery Oxygen Flow Rate 05/28/23 15:53 05/28/23 16:06 05/28/23 16:00 Temperature 36.2 C L Pulse Rate 89 90 87 Respiratory Rate 20 28 H Blood Pressure 124/47 L Pulse Oximetry 96 Oxygen Delivery Oxygen Flow Rate 05/28/23 12:00 05/28/23 12:00 05/28/23 14:00 Temperature Pulse Rate 82 87 Respiratory Rate Blood Pressure Pulse Oximetry 96 Oxygen Delivery Nasal Cannula Oxygen Flow Rate 2 05/28/23 18:00 05/28/23 16:00 05/28/23 16:00 Temperature Pulse Rate 84 90 Respiratory Rate Blood Pressure Pulse Oximetry 96 Oxygen Delivery Nasal Cannula Oxygen Flow Rate 2 05/28/23 20:10 05/28/23 20:10 05/28/23 20:16 Temperature 36.6 C Pulse Rate 86 85 Respiratory Rate 18 22 H Blood Pressure 147/54 H Pulse Oximetry 96 90 Oxygen Delivery Room Air Oxygen Flow Rate 05/28/23 20:17 05/28/23 21:55 05/28/23 20:00 Temperature Pulse Rate 86 86 82 Respiratory Rate 18 18 Blood Pressure Pulse Oximetry 90 Oxygen Delivery Nasal Cannula Oxygen Flow Rate 2 05/28/23 23:41 05/29/23 00:00 05/29/23 04:00 Temperature 36.4 C L Pulse Rate 82 86 76 Respiratory Rate 22 H Blood Pressure 142/50 H Pulse Oximetry 94 Oxygen Delivery Oxygen Flow Rate 05/29/23 07:45 05/29/23 07:45 05/29/23 07:59 Temperature Pulse Rate 85 78 Respiratory Rate 18 20 Blood Pressure Pulse Oximetry 95 Oxygen Delivery Nasal Cannula Oxygen Flow Rate 2 05/29/23 08:00 05/29/23 08:00 05/29/23 08:21 Temperature 36.6 C Pulse Rate 79 Respiratory Rate 24 H Blood Pressure 127/66 Pulse Oximetry 92 96 92 Oxygen Delivery Room Air Room Air Oxygen Flow Rate Intake/Output Intake/Output: Intake & Output 05/26/23 05/27/23 05/28/23 05/29/23 23:59 23:59 23:59 23:59 Intake Total 700 1670 1320 350 Output Total 788 2290 501 120 Balance -88 -620 819 230 Meds/Results Medications: Active Medications Generic Name Dose Route Start Last Admin Trade Name Freq PRN Reason Stop Dose Admin Acetaminophen 650 mg 05/19/23 17:56 05/27/23 09:42 Acetaminophen 325 Mg Tablet PO 650 mg Q6H PRN Administration Mild Pain (1-3) or Fever Albuterol/Ipratropium 3 ml 05/28/23 08:00 05/29/23 07:45 Ipratropium 0.5 Mg/Albuterol Sulfate 2.5 Mg Ampul.Neb 3 Ml INHALATION 3 ml [id number] BRANT Administration Ascorbic Acid 500 mg 05/25/23 09:00 05/28/23 08:52 Ascorbic Acid 500 Mg Tablet PO 500 mg DAILY BRANT Administration Cyanocobalamin 1,000 mcg 05/25/23 09:00 05/28/23 08:52 Cyanocobalamin 1,000 Mcg Tablet PO 1,000 mcg DAILY BRANT Administration Dextrose 12.5 gm 05/22/23 17:43 Dextrose 50% 25 Gm/50 Ml Syringe IV PUSH PRN PRN Hypoglycemia Protocol Enoxaparin Sodium 40 mg 05/20/23 09:00 05/28/23 08:52 Enoxaparin 40 Mg/0.4 Ml Syringe SUB-Q 40 mg DAILY BRANT Administration Glucagon 1 mg 05/22/23 17:43 Glucagon For Inj 1 Mg Vial IM PRN PRN Hypoglycemia Protocol Glucose 15 gm 05/22/23 17:43 Glucose Oral Gel 15 Gm Of Glucse In 37.5 Gm Tube PO PRN PRN Hypoglycemia Protocol Guaifenesin 1,200 mg 05/26/23 09:00 05/28/23 22:07 Guaifenesin 12 Hr 600 Mg Tabcr PO 1,200 mg Q12HR BRANT Administration Dextrose 1,000 mls @ 100 mls/hr 05/22/23 17:43 Dextrose 5% 1,000 Ml IVPB PRN PRN Hypoglycemia Protocol Insulin Aspart 1 - 3 units 05/22/23 21:00 05/28/23 22:08 Insulin Aspart (*Bkc) 100 Units/Ml SUB-Q Not Given HS BRANT Protocol Insulin Aspart 3 - 6 units 05/23/23 08:00 05/29/23 07:55 Insulin Aspart (*Bkc) 100 Units/Ml SUB-Q Not Given TIDWM BRANT Protocol Latanoprost 1 drop 05/19/23 21:00 05/28/23 22:08 Latanoprost 0.005% Op Soln 2.5 Ml Btl EACH EYE 1 drop HS BRANT Administration Magnesium Gluconate 27 mg 05/20/23 09:00 05/28/23 08:52 Magnesium 27 Mg Tablet (500 Mg Mag Gluconate) PO 27 mg DAILY BRANT Administration Metoclopramide HCl 10 mg 05/26/23 18:00 05/29/23 04:54 Metoclopramide Hcl Inj 10 Mg/2 Ml Vial IV PUSH 10 mg Q6HR BRANT Administration Naloxone HCl 0.1 mg 05/19/23 17:56 Naloxone Hcl 0.4 Mg/Ml Vial IV PUSH Q2M PRN Opiate Reversal Ondansetron HCl 4 mg 05/19/23 17:56 05/22/23 21:58 Ondansetron Inj 4 Mg/2 Ml Vial IV PUSH 4 mg Q4H PRN Administration Nausea And Vomiting Pantoprazole Sodium 40 mg 05/20/23 09:00 05/28/23 08:53 Pantoprazole 40 Mg Tablet PO 40 mg QAM BRANT Administration Polyethylene Glycol 17 gm 05/20/23 09:00 05/28/23 08:52 Polyethylene Glycol 3350 17 Gm Powd.Pack PO 17 gm QAM BRANT Administration Pravastatin Sodium 20 mg 05/19/23 21:00 05/28/23 22:08 Pravastatin Sodium 20 Mg Tablet PO 20 mg QHS BRANT Administration Vitamin D 1,000 units 05/25/23 09:00 05/28/23 08:56 Cholecalciferol 1,000 Units Tablet PO 1,000 units SuWe@0900 BRANT Administration Radiology Results: ITS Impressions Head CT 05/22/23 09:50 IMPRESSION: 1. Moderate scattered white matter hypoattenuation consistent with chronic small vessel ischemic disease. No other acute intracranial process. Chest CTA 05/22/23 09:51 IMPRESSION: 1. No pulmonary embolus. Sensitivity is severely decreased by motion artifact. 2. Small lung volumes with moderate atelectasis bilaterally. Brain MRI 05/22/23 13:08 IMPRESSION: 1. No acute intracranial process or abnormally enhancing brain lesions. 2. Moderate scattered nonspecific periventricular predominant white matter T2 hyperintensity which is within normal limits for age and likely sequela of chronic small vessel ischemic disease. Head/Neck CTA 05/22/23 13:14 IMPRESSION: 1. 0% stenosis of the right and left carotid bulbs relative to normal distal artery lumen diameter (NASCET criteria). 2. Small amount of nonhemodynamically significant atherosclerotic plaque at the bilateral carotid siphons. Otherwise unremarkable cerebral CT angiogram with no hemodynamically significant stenosis or aneurysm. Brain MRA 05/22/23 13:36 IMPRESSION: 1. Normal cerebral MR angiogram. Neck MRA 05/22/23 13:37 IMPRESSION: 1. 0% stenosis of the right and left carotid bulbs relative to normal distal artery lumen diameter (NASCET criteria). 2. 20-30% stenosis along the cervical portion of the left vertebral artery immediately distal to the carotid bulb. Abdomen X-Ray 05/26/23 08:25 Impression: 1: Mildly dilated small bowel with moderate gas throughout the colon which may represent postoperative ileus or less likely partial obstruction. Abdomen/Pelvis CT 05/26/23 09:45 IMPRESSION: 1. Several fluid-filled but not frankly dilated loops of small bowel likely related to postoperative ileus given the postoperative change of recent infraumbilical ventral hernia repair. 2. Diffuse hepatic steatosis. 3. Diverticulosis. 4. Volume loss and lungs with scattered peripheral consolidation in all lobes of the/lower lungs with appearance favoring atelectasis over pneumonia. Chest X-Ray 05/27/23 05:49 Impression: Central congestive change and possible minimal pulmonary edema pattern. Discoid right basilar atelectasis. Labs Labs: Laboratory Results - last 24 hr 05/28/23 05/28/23 05/28/23 04:28 08:15 11:50 WBC RBC Hgb Hct MCV MCH MCHC RDW Plt Count MPV Immature Gran % (Auto) Neut % (Auto) Lymph % (Auto) [place] % (Auto) Eos % (Auto) Baso % (Auto) Lymph # (Auto) [place] # (Auto) Eos # (Auto) Baso # (Auto) Abs Immat Gran (auto) Absolute Neuts (auto) Absolute Nucleated RBC Nucleated RBC % % Immature Plt Fraction Sodium Potassium Chloride Carbon Dioxide Anion Gap BUN Creatinine Estim Creat Clear Calc Estimated GFR Glucose POC Capillary Glucose 140 H 221 H Calcium Magnesium Total Bilirubin AST ALT Alkaline Phosphatase NT-Pro-B Natriuret Pep 844 H Total Protein Albumin 05/28/23 05/28/23 05/29/23 16:02 19:50 04:47 WBC 19.6 H RBC 3.44 L Hgb 11.5 L Hct 35.0 L MCV 101.7 H MCH 33.4 MCHC 32.9 RDW 12.3 Plt Count 273 MPV 11.5 H Immature Gran % (Auto) 1.3 H Neut % (Auto) 72.8 Lymph % (Auto) 15.8 L [place] % (Auto) 6.5 Eos % (Auto) 3.2 Baso % (Auto) 0.4 Lymph # (Auto) 3.10 [place] # (Auto) 1.3 H Eos # (Auto) 0.6 H Baso # (Auto) 0.1 Abs Immat Gran (auto) 0.26 H Absolute Neuts (auto) 14.3 H Absolute Nucleated RBC 0.000 Nucleated RBC % 0.0 % Immature Plt Fraction 7.3 Sodium 134 L Potassium 3.4 Chloride 100 Carbon Dioxide 28 Anion Gap 6 BUN 25 H Creatinine 0.70 Estim Creat Clear Calc 67 Estimated GFR > 60 Glucose 147 H POC Capillary Glucose 208 H 164 H Calcium 8.5 Magnesium 2.1 Total Bilirubin 0.5 AST 32 ALT 28 Alkaline Phosphatase 66 NT-Pro-B Natriuret Pep Total Protein 6.0 L Albumin 3.2 L 05/29/23 07:36 WBC RBC Hgb Hct MCV MCH MCHC RDW Plt Count MPV Immature Gran % (Auto) Neut % (Auto) Lymph % (Auto) [place] % (Auto) Eos % (Auto) Baso % (Auto) Lymph # (Auto) [place] # (Auto) Eos # (Auto) Baso # (Auto) Abs Immat Gran (auto) Absolute Neuts (auto) Absolute Nucleated RBC Nucleated RBC % % Immature Plt Fraction Sodium Potassium Chloride Carbon Dioxide Anion Gap BUN Creatinine Estim Creat Clear Calc Estimated GFR Glucose POC Capillary Glucose 149 H Calcium Magnesium Total Bilirubin AST ALT Alkaline Phosphatase NT-Pro-B Natriuret Pep Total Protein Albumin Amg Follow-up [facility] Follow-up Hospital Follow-up: [id number] [facility]
[2023-05-29] MEDS: guaiFENesin 12 HR 600 MG TABCR 1200 MG PO ×2 (08:47→20:21)
[2023-05-29] MEDS: PANTOPRAZOLE 40 MG TABLET PO (08:47)
[2023-05-29] MEDS: ENOXAPARIN 40 MG/0.4 ML SYRINGE SUB-Q (08:47)
[2023-05-29] MEDS: ASCORBIC ACID 500 MG TABLET PO (08:47)
[2023-05-29] MEDS: MAGNESIUM 27 MG TABLET (500 MG MAG GLUCONATE) PO (08:48)
[2023-05-29] MEDS: CYANOCOBALAMIN 1,000 MCG TABLET 1000 MCG PO (08:48)
[2023-05-29] MEDS: FUROSEMIDE INJ 40 MG/4 ML VIAL 20 MG IV PUSH (08:51)
--- NOTE | 2023-05-29 11:35 | PCNFU ---
Nutrition Follow-Up Complete: Altered GI function as related hernia repair as evidenced by NPO. Goal:Meet estimated nutritional needs. Pt is progressing towards goal, continue with same goal Pt current nutrition is Diabetic consistent carb, Ensure Enlive TID. Nutrition recommendation: continue with current plan of care Last recorded weight is 91.5 kg. Bowel Motility: +BM 05/27 Labs Reviewed: Hgb:11.5, HCT:35, Alb:3.2, NA:134, BUN:25, Glu:147 Meds Noted: lovenox, novolog, reglan, protonix Skin: WNL Additional Notes: Pt advanced to a diabetic diet, intake 50% at this time. Ensure Enlive TID in place. Encourage po intake. Will monitor weight, labs, skin, diet orders, meds every 5 days.
[2023-05-29 11:52] LABS: Glucose Point of Care 223 mg/dl (65-105)
[2023-05-29] MEDS: POTASSIUM CHLORIDE 20 MEQ PACKET (FOR LIQUID) 40 MEQ PO (12:50)
[2023-05-29] MEDS: INSULIN ASPART (*BKC) 100 UNITS/ML SUB-Q ×2 (12:50→17:11)
--- NOTE | 2023-05-29 13:19 | P.PNIM_ITS ---
Progress Note: A&P Assessment and Plan (1) Incarcerated incisional hernia: Code(s): K43.0 - Incisional hernia with obstruction, without gangrene Status: Acute (2) Dyspnea: Code(s): R06.00 - Dyspnea, unspecified Status: Acute (3) Acute respiratory failure with hypoxia and hypercapnia: Code(s): J96.01 - Acute respiratory failure with hypoxia; J96.02 - Acute respiratory failure with hypercapnia Status: Acute (4) Diabetes: Qualifiers: Diabetes mellitus type: type 2 Diabetes mellitus penitentiary insulin use: without penitentiary use Diabetes mellitus complication status: with hyperglycemia Qualified Code(s): E11.65 - Type 2 diabetes mellitus with hyperglycemia Code(s): E11.9 - Type 2 diabetes mellitus without complications Status: Acute (5) Stroke-like symptoms: Code(s): R29.90 - Unspecified symptoms and signs involving the nervous system Status: Acute Plan 73 year old female admitted to the hospital by General surgery on 05/18 status post: 1. Open 12 cm incarcerated recurrent incisional hernia repair with mesh 2. Bilateral myofascial release (transversus abdominis release--5 cm on right and 5 cm on left) 3. Removal of mesh foreign body 4. Extensive adhesiolysis requiring greater than 50% of total operating time On 05/21/2023 patient developed shortness of breath and had not been using incentive spirometer.? Post operative course was complicated with AMS concerning for stroke? .?CT Brain, CTA chest, MRI Brain, MRA Brain and Neck were ordered and Neurology was consulted.?Stroke was ruled out. Neurology has signed off. 1.Incarcerated Incisional Hernia: Surgery is managing PT/OT 2. Acute hypoxic respiratory failure: Currently on room air Pulmonary following Plan for overnight pulse oximetry Lasix 20 mg IV once Incentive spirometry, DuoNebs Supplement potassium 3. Diabetes mellitus: Blood glucose checked t.i.d. a.c. and HS Continue with sliding scale insulin Adjust dose as needed 4. DVT prophylaxis: Lovenox 5. Code status: Full 6. Disposition: As per surgery/primary team ? Time Spent With Patient Time with patient: 15 - 25 minutes Subjective Date/time seen: 05/29/23 13:19 Interval history: no acute events overnight Review of Systems Review of Systems: All systems reviewed & are unremarkable except as noted in HPI and below Exam Narrative: General: In no acute distress, well nourished, weak appearing Head: atraumatic, no encephalopathy Eyes: EOMI, PERRLA, sclera clear ENT: moist mucous membranes, nasal passages clear Neck: supple, no JVD, no adenopathy, trachea midline Cardiac: Normal S1 and S2. No murmur, gallops or friction rubs, peripheral pulses intact. Respiratory: Coarse to auscultation bilaterally, Rhonchi, currently on room air Gastrointestinal: soft, distended, non-tender, normoactive bowel sounds. : voiding without difficulty. Extremities: moves all extremities well, no edema Skin: Midline incision with bhargavi,TAYE drain in situ Neuro: Alert to voice and oriented x3, cranial nerves intact, no neuro deficits. Psych: normal mood, normal affect, minimally interactive Objective Data Vital Signs Vital Signs: Vital Signs - 24 hr 05/28/23 15:53 05/28/23 16:06 05/28/23 16:00 Temperature 97.2 F L Pulse Rate 89 90 87 Respiratory Rate 20 28 H Blood Pressure 124/47 L Pulse Oximetry 96 Oxygen Delivery Oxygen Flow Rate 05/28/23 14:00 05/28/23 18:00 05/28/23 16:00 Temperature Pulse Rate 87 84 Respiratory Rate Blood Pressure Pulse Oximetry 96 Oxygen Delivery Nasal Cannula Oxygen Flow Rate 2 05/28/23 16:00 05/28/23 20:10 05/28/23 20:10 Temperature Pulse Rate 90 86 Respiratory Rate 18 Blood Pressure Pulse Oximetry 96 Oxygen Delivery Room Air Oxygen Flow Rate 05/28/23 20:16 05/28/23 20:17 05/28/23 21:55 Temperature 97.9 F Pulse Rate 85 86 86 Respiratory Rate 22 H 18 18 Blood Pressure 147/54 H Pulse Oximetry 90 90 Oxygen Delivery Nasal Cannula Oxygen Flow Rate 2 05/28/23 20:00 05/28/23 23:41 05/29/23 00:00 Temperature 97.5 F L Pulse Rate 82 82 86 Respiratory Rate 22 H Blood Pressure 142/50 H Pulse Oximetry 94 Oxygen Delivery Oxygen Flow Rate 05/29/23 04:00 05/29/23 07:45 05/29/23 07:45 Temperature Pulse Rate 76 85 Respiratory Rate 18 Blood Pressure Pulse Oximetry 95 Oxygen Delivery Nasal Cannula Oxygen Flow Rate 2 05/29/23 07:59 05/29/23 08:00 05/29/23 08:00 Temperature 97.9 F Pulse Rate 78 79 Respiratory Rate 20 24 H Blood Pressure 127/66 Pulse Oximetry 92 96 Oxygen Delivery Room Air Oxygen Flow Rate 05/29/23 08:21 05/29/23 08:00 05/29/23 11:25 Temperature Pulse Rate Respiratory Rate Blood Pressure Pulse Oximetry 92 95 Oxygen Delivery Room Air Room Air Room Air Oxygen Flow Rate 05/29/23 11:25 05/29/23 11:35 05/29/23 08:00 Temperature Pulse Rate 86 86 88 Respiratory Rate 20 20 Blood Pressure Pulse Oximetry Oxygen Delivery Oxygen Flow Rate 05/29/23 12:42 Temperature 96.7 F L Pulse Rate 78 Respiratory Rate 20 Blood Pressure 135/45 L Pulse Oximetry 95 Oxygen Delivery Oxygen Flow Rate Intake/Output Intake/Output: Intake & Output 05/26/23 05/27/23 05/28/23 05/29/23 23:59 23:59 23:59 23:59 Intake Total 700 1670 1320 590 Output Total 788 2290 501 360 Balance -88 -620 819 230 Meds/Results Medications: Active Medications Generic Name Dose Route Start Last Admin Trade Name Freq PRN Reason Stop Dose Admin Acetaminophen 650 mg 05/19/23 17:56 05/27/23 09:42 Acetaminophen 325 Mg Tablet PO 650 mg Q6H PRN Administration Mild Pain (1-3) or Fever Albuterol/Ipratropium 3 ml 05/28/23 08:00 05/29/23 11:25 Ipratropium 0.5 Mg/Albuterol Sulfate 2.5 Mg Ampul.Neb 3 Ml INHALATION 3 ml [id number] BRANT Administration Ascorbic Acid 500 mg 05/25/23 09:00 05/29/23 08:47 Ascorbic Acid 500 Mg Tablet PO 500 mg DAILY BRANT Administration Cyanocobalamin 1,000 mcg 05/25/23 09:00 05/29/23 08:48 Cyanocobalamin 1,000 Mcg Tablet PO 1,000 mcg DAILY BRANT Administration Dextrose 12.5 gm 05/22/23 17:43 Dextrose 50% 25 Gm/50 Ml Syringe IV PUSH PRN PRN Hypoglycemia Protocol Enoxaparin Sodium 40 mg 05/20/23 09:00 05/29/23 08:47 Enoxaparin 40 Mg/0.4 Ml Syringe SUB-Q 40 mg DAILY BRANT Administration Glucagon 1 mg 05/22/23 17:43 Glucagon For Inj 1 Mg Vial IM PRN PRN Hypoglycemia Protocol Glucose 15 gm 05/22/23 17:43 Glucose Oral Gel 15 Gm Of Glucse In 37.5 Gm Tube PO PRN PRN Hypoglycemia Protocol Guaifenesin 1,200 mg 05/26/23 09:00 05/29/23 08:47 Guaifenesin 12 Hr 600 Mg Tabcr PO 1,200 mg Q12HR BRANT Administration Dextrose 1,000 mls @ 100 mls/hr 05/22/23 17:43 Dextrose 5% 1,000 Ml IVPB PRN PRN Hypoglycemia Protocol Insulin Aspart 1 - 3 units 05/22/23 21:00 05/28/23 22:08 Insulin Aspart (*Bkc) 100 Units/Ml SUB-Q Not Given HS BRANT Protocol Insulin Aspart 3 - 6 units 05/23/23 08:00 05/29/23 12:50 Insulin Aspart (*Bkc) 100 Units/Ml SUB-Q 3 units TIDWM BRANT Administration Protocol Latanoprost 1 drop 05/19/23 21:00 05/28/23 22:08 Latanoprost 0.005% Op Soln 2.5 Ml Btl EACH EYE 1 drop HS BRANT Administration Magnesium Gluconate 27 mg 05/20/23 09:00 05/29/23 08:48 Magnesium 27 Mg Tablet (500 Mg Mag Gluconate) PO 27 mg DAILY BRANT Administration Metoclopramide HCl 10 mg 05/26/23 18:00 05/29/23 12:50 Metoclopramide Hcl Inj 10 Mg/2 Ml Vial IV PUSH 10 mg Q6HR BRANT Administration Naloxone HCl 0.1 mg 05/19/23 17:56 Naloxone Hcl 0.4 Mg/Ml Vial IV PUSH Q2M PRN Opiate Reversal Ondansetron HCl 4 mg 05/19/23 17:56 05/22/23 21:58 Ondansetron Inj 4 Mg/2 Ml Vial IV PUSH 4 mg Q4H PRN Administration Nausea And Vomiting Pantoprazole Sodium 40 mg 05/20/23 09:00 05/29/23 08:47 Pantoprazole 40 Mg Tablet PO 40 mg QAM BRANT Administration Polyethylene Glycol 17 gm 05/20/23 09:00 05/29/23 08:48 Polyethylene Glycol 3350 17 Gm Powd.Pack PO Not Given QAM BRANT Pravastatin Sodium 20 mg 05/19/23 21:00 05/28/23 22:08 Pravastatin Sodium 20 Mg Tablet PO 20 mg QHS [facility] Administration Vitamin D 1,000 units 05/25/23 09:00 05/28/23 08:56 Cholecalciferol 1,000 Units Tablet PO 1,000 units SuWe@0900 [facility] Administration Radiology Results: ITS Impressions Head CT 05/22/23 09:50 IMPRESSION: 1. Moderate scattered white matter hypoattenuation consistent with chronic small vessel ischemic disease. No other acute intracranial process. Chest CTA 05/22/23 09:51 IMPRESSION: 1. No pulmonary embolus. Sensitivity is severely decreased by motion artifact. 2. Small lung volumes with moderate atelectasis bilaterally. Brain MRI 05/22/23 13:08 IMPRESSION: 1. No acute intracranial process or abnormally enhancing brain lesions. 2. Moderate scattered nonspecific periventricular predominant white matter T2 hyperintensity which is within normal limits for age and likely sequela of chronic small vessel ischemic disease. Head/Neck CTA 05/22/23 13:14 IMPRESSION: 1. 0% stenosis of the right and left carotid bulbs relative to normal distal artery lumen diameter (NASCET criteria). 2. Small amount of nonhemodynamically significant atherosclerotic plaque at the bilateral carotid siphons. Otherwise unremarkable cerebral CT angiogram with no hemodynamically significant stenosis or aneurysm. Brain MRA 05/22/23 13:36 IMPRESSION: 1. Normal cerebral MR angiogram. Neck MRA 05/22/23 13:37 IMPRESSION: 1. 0% stenosis of the right and left carotid bulbs relative to normal distal artery lumen diameter (NASCET criteria). 2. 20-30% stenosis along the cervical portion of the left vertebral artery immediately distal to the carotid bulb. Abdomen X-Ray 05/26/23 08:25 Impression: 1: Mildly dilated small bowel with moderate gas throughout the colon which may represent postoperative ileus or less likely partial obstruction. Abdomen/Pelvis CT 05/26/23 09:45 IMPRESSION: 1. Several fluid-filled but not frankly dilated loops of small bowel likely related to postoperative ileus given the postoperative change of recent infraumbilical ventral hernia repair. 2. Diffuse hepatic steatosis. 3. Diverticulosis. 4. Volume loss and lungs with scattered peripheral consolidation in all lobes of the/lower lungs with appearance favoring atelectasis over pneumonia. Chest X-Ray 05/27/23 05:49 Impression: Central congestive change and possible minimal pulmonary edema pattern. Discoid right basilar atelectasis. Labs Labs: Laboratory Results - last 24 hr 05/28/23 05/28/23 05/29/23 16:02 19:50 04:47 WBC 19.6 H RBC 3.44 L Hgb 11.5 L Hct 35.0 L MCV 101.7 H MCH 33.4 MCHC 32.9 RDW 12.3 Plt Count 273 MPV 11.5 H Immature Gran % (Auto) 1.3 H Neut % (Auto) 72.8 Lymph % (Auto) 15.8 L [place] % (Auto) 6.5 Eos % (Auto) 3.2 Baso % (Auto) 0.4 Lymph # (Auto) 3.10 [place] # (Auto) 1.3 H Eos # (Auto) 0.6 H Baso # (Auto) 0.1 Abs Immat Gran (auto) 0.26 H Absolute Neuts (auto) 14.3 H Absolute Nucleated RBC 0.000 Nucleated RBC % 0.0 % Immature Plt Fraction 7.3 Sodium 134 L Potassium 3.4 Chloride 100 Carbon Dioxide 28 Anion Gap 6 BUN 25 H Creatinine 0.70 Estim Creat Clear Calc 67 Estimated GFR > 60 Glucose 147 H POC Capillary Glucose 208 H 164 H Calcium 8.5 Magnesium 2.1 Total Bilirubin 0.5 AST 32 ALT 28 Alkaline Phosphatase 66 Total Protein 6.0 L Albumin 3.2 L 05/29/23 05/29/23 07:36 11:30 WBC RBC Hgb Hct MCV MCH MCHC RDW Plt Count MPV Immature Gran % (Auto) Neut % (Auto) Lymph % (Auto) [place] % (Auto) Eos % (Auto) Baso % (Auto) Lymph # (Auto) [place] # (Auto) Eos # (Auto) Baso # (Auto) Abs Immat Gran (auto) Absolute Neuts (auto) Absolute Nucleated RBC Nucleated RBC % % Immature Plt Fraction Sodium Potassium Chloride Carbon Dioxide Anion Gap BUN Creatinine Estim Creat Clear Calc Estimated GFR Glucose POC Capillary Glucose 149 H 223 H Calcium Magnesium Total Bilirubin AST ALT Alkaline Phosphatase Total Protein Albumin Quality VTE Prophylaxis VTE prophylaxis: pharmacologic ordered
--- NOTE | 2023-05-29 15:35 | PCOTNOTE ---
Attempted to see pt 2 times today. At 1st attempt pt request for therapist to come back due to just getting done with physical therapy. At 2nd attempt, pt was returned to bed and was too tired to participate in session. Will continue per poc duration/frequency tomorrow.
[2023-05-29 15:58] LABS: Glucose Point of Care 146 mg/dl (65-105)
--- NOTE | 2023-05-29 18:25 | P.PNGS_ITS ---
Progress Note: A&P Assessment and Plan (1) Incarcerated incisional hernia: Code(s): K43.0 - Incisional hernia with obstruction, without gangrene Status: Acute Assessment and Plan: * Doing well surgically. Incision healing well. * Increase activity with PT. * TAYE drain output slowly decreasing, likely related to third spacing. * Possibly stable for discharge in next 1-2 days. (2) Acute respiratory failure with hypoxia and hypercapnia: Code(s): J96.01 - Acute respiratory failure with hypoxia; J96.02 - Acute respiratory failure with hypercapnia Status: Acute Assessment and Plan: * Continue pulmonary regimen, Pulmonology following. Off oxygen today. Subjective Subjective Date/Time Seen: 05/29/23 18:25 Interval history: Ambulation improving. Minimal abdominal pain. TAYE output continues to slow. Breathing on room air. Exam Const: General: comfortable and awake Resp: Effort & Inspection: no respiratory distress Auscultation: rhonchi and diminished lung sounds GI: Inspection: non-distended, incision (intact with bhargavi, no erythema) and other (JPs serous) GI Palp: Yes Soft to palpation and No Tenderness to palpation present (GI) Auscultation: normal bowel sounds Other: TAYE x 2 c s/s output Extrem: General: no calf tenderness and no edema Objective Data Vital Signs Vital Signs: Vital Signs - 24 hr 05/28/23 20:10 05/28/23 20:10 05/28/23 20:16 Temperature 36.6 C Pulse Rate 86 85 Respiratory Rate 18 22 H Blood Pressure 147/54 H Pulse Oximetry 96 90 Oxygen Delivery Room Air Oxygen Flow Rate 05/28/23 20:17 05/28/23 21:55 05/28/23 20:00 Temperature Pulse Rate 86 86 82 Respiratory Rate 18 18 Blood Pressure Pulse Oximetry 90 Oxygen Delivery Nasal Cannula Oxygen Flow Rate 2 05/28/23 23:41 05/29/23 00:00 05/29/23 04:00 Temperature 36.4 C L Pulse Rate 82 86 76 Respiratory Rate 22 H Blood Pressure 142/50 H Pulse Oximetry 94 Oxygen Delivery Oxygen Flow Rate 05/29/23 07:45 05/29/23 07:45 05/29/23 07:59 Temperature Pulse Rate 85 78 Respiratory Rate 18 20 Blood Pressure Pulse Oximetry 95 Oxygen Delivery Nasal Cannula Oxygen Flow Rate 2 05/29/23 08:00 05/29/23 08:00 05/29/23 08:21 Temperature 36.6 C Pulse Rate 79 Respiratory Rate 24 H Blood Pressure 127/66 Pulse Oximetry 92 96 92 Oxygen Delivery Room Air Room Air Oxygen Flow Rate 05/29/23 08:00 05/29/23 11:25 05/29/23 11:25 Temperature Pulse Rate 86 Respiratory Rate 20 Blood Pressure Pulse Oximetry 95 Oxygen Delivery Room Air Room Air Oxygen Flow Rate 05/29/23 11:35 05/29/23 08:00 05/29/23 12:42 Temperature 35.9 C L Pulse Rate 86 88 78 Respiratory Rate 20 20 Blood Pressure 135/45 L Pulse Oximetry 95 Oxygen Delivery Oxygen Flow Rate 05/29/23 15:20 05/29/23 15:29 05/29/23 16:00 Temperature 36.1 C L Pulse Rate 86 91 85 Respiratory Rate 20 20 20 Blood Pressure 141/52 H Pulse Oximetry 92 Oxygen Delivery Oxygen Flow Rate Intake/Output Intake/Output: Intake & Output 05/26/23 05/27/23 05/28/23 05/29/23 23:59 23:59 23:59 23:59 Intake Total 700 1670 1320 830 Output Total 788 2290 501 475 Balance -88 -620 819 355 Meds/Results Medications: Active Medications Generic Name Dose Route Start Last Admin Trade Name Freq PRN Reason Stop Dose Admin Acetaminophen 650 mg 05/19/23 17:56 05/27/23 09:42 Acetaminophen 325 Mg Tablet PO 650 mg Q6H PRN Administration Mild Pain (1-3) or Fever Albuterol/Ipratropium 3 ml 05/28/23 08:00 05/29/23 15:19 Ipratropium 0.5 Mg/Albuterol Sulfate 2.5 Mg Ampul.Neb 3 Ml INHALATION 3 ml [id number] BRANT Administration Ascorbic Acid 500 mg 05/25/23 09:00 05/29/23 08:47 Ascorbic Acid 500 Mg Tablet PO 500 mg DAILY BRANT Administration Cyanocobalamin 1,000 mcg 05/25/23 09:00 05/29/23 08:48 Cyanocobalamin 1,000 Mcg Tablet PO 1,000 mcg DAILY BRANT Administration Dextrose 12.5 gm 05/22/23 17:43 Dextrose 50% 25 Gm/50 Ml Syringe IV PUSH PRN PRN Hypoglycemia Protocol Enoxaparin Sodium 40 mg 05/20/23 09:00 05/29/23 08:47 Enoxaparin 40 Mg/0.4 Ml Syringe SUB-Q 40 mg DAILY BRANT Administration Glucagon 1 mg 05/22/23 17:43 Glucagon For Inj 1 Mg Vial IM PRN PRN Hypoglycemia Protocol Glucose 15 gm 05/22/23 17:43 Glucose Oral Gel 15 Gm Of Glucse In 37.5 Gm Tube PO PRN PRN Hypoglycemia Protocol Guaifenesin 1,200 mg 05/26/23 09:00 05/29/23 08:47 Guaifenesin 12 Hr 600 Mg Tabcr PO 1,200 mg Q12HR BRANT Administration Dextrose 1,000 mls @ 100 mls/hr 05/22/23 17:43 Dextrose 5% 1,000 Ml IVPB PRN PRN Hypoglycemia Protocol Insulin Aspart 1 - 3 units 05/22/23 21:00 05/28/23 22:08 Insulin Aspart (*Bkc) 100 Units/Ml SUB-Q Not Given HS BRANT Protocol Insulin Aspart 3 - 6 units 05/23/23 08:00 05/29/23 16:13 Insulin Aspart (*Bkc) 100 Units/Ml SUB-Q Not Given TIDWM BRANT Protocol Insulin Aspart 3 units 05/29/23 17:00 05/29/23 17:11 Insulin Aspart (*Bkc) 100 Units/Ml SUB-Q 3 units TIDWM BRANT Administration Latanoprost 1 drop 05/19/23 21:00 05/28/23 22:08 Latanoprost 0.005% Op Soln 2.5 Ml Btl EACH EYE 1 drop HS BRANT Administration Magnesium Gluconate 27 mg 05/20/23 09:00 05/29/23 08:48 Magnesium 27 Mg Tablet (500 Mg Mag Gluconate) PO 27 mg DAILY BRANT Administration Metoclopramide HCl 10 mg 05/26/23 18:00 05/29/23 17:11 Metoclopramide Hcl Inj 10 Mg/2 Ml Vial IV PUSH 10 mg Q6HR BRANT Administration Naloxone HCl 0.1 mg 05/19/23 17:56 Naloxone Hcl 0.4 Mg/Ml Vial IV PUSH Q2M PRN Opiate Reversal Ondansetron HCl 4 mg 05/19/23 17:56 05/22/23 21:58 Ondansetron Inj 4 Mg/2 Ml Vial IV PUSH 4 mg Q4H PRN Administration Nausea And Vomiting Pantoprazole Sodium 40 mg 05/20/23 09:00 05/29/23 08:47 Pantoprazole 40 Mg Tablet PO 40 mg QAM [facility] Administration Polyethylene Glycol 17 gm 05/20/23 09:00 05/29/23 08:48 Polyethylene Glycol 3350 17 Gm Powd.Pack PO Not Given QAM [facility] Pravastatin Sodium 20 mg 05/19/23 21:00 05/28/23 22:08 Pravastatin Sodium 20 Mg Tablet PO 20 mg QHS [facility] Administration Vitamin D 1,000 units 05/25/23 09:00 05/28/23 08:56 Cholecalciferol 1,000 Units Tablet PO 1,000 units SuWe@0900 [facility] Administration Radiology Results: ITS Impressions Head CT 05/22/23 09:50 IMPRESSION: 1. Moderate scattered white matter hypoattenuation consistent with chronic small vessel ischemic disease. No other acute intracranial process. Chest CTA 05/22/23 09:51 IMPRESSION: 1. No pulmonary embolus. Sensitivity is severely decreased by motion artifact. 2. Small lung volumes with moderate atelectasis bilaterally. Brain MRI 05/22/23 13:08 IMPRESSION: 1. No acute intracranial process or abnormally enhancing brain lesions. 2. Moderate scattered nonspecific periventricular predominant white matter T2 hyperintensity which is within normal limits for age and likely sequela of chronic small vessel ischemic disease. Head/Neck CTA 05/22/23 13:14 IMPRESSION: 1. 0% stenosis of the right and left carotid bulbs relative to normal distal artery lumen diameter (NASCET criteria). 2. Small amount of nonhemodynamically significant atherosclerotic plaque at the bilateral carotid siphons. Otherwise unremarkable cerebral CT angiogram with no hemodynamically significant stenosis or aneurysm. Brain MRA 05/22/23 13:36 IMPRESSION: 1. Normal cerebral MR angiogram. Neck MRA 05/22/23 13:37 IMPRESSION: 1. 0% stenosis of the right and left carotid bulbs relative to normal distal artery lumen diameter (NASCET criteria). 2. 20-30% stenosis along the cervical portion of the left vertebral artery immediately distal to the carotid bulb. Abdomen X-Ray 05/26/23 08:25 Impression: 1: Mildly dilated small bowel with moderate gas throughout the colon which may represent postoperative ileus or less likely partial obstruction. Abdomen/Pelvis CT 05/26/23 09:45 IMPRESSION: 1. Several fluid-filled but not frankly dilated loops of small bowel likely related to postoperative ileus given the postoperative change of recent infraumbilical ventral hernia repair. 2. Diffuse hepatic steatosis. 3. Diverticulosis. 4. Volume loss and lungs with scattered peripheral consolidation in all lobes of the/lower lungs with appearance favoring atelectasis over pneumonia. Chest X-Ray 05/27/23 05:49 Impression: Central congestive change and possible minimal pulmonary edema pattern. Discoid right basilar atelectasis. Labs Labs: Laboratory Results - last 24 hr 05/28/23 05/29/23 05/29/23 19:50 04:47 07:36 WBC 19.6 H RBC 3.44 L Hgb 11.5 L Hct 35.0 L MCV 101.7 H MCH 33.4 MCHC 32.9 RDW 12.3 Plt Count 273 MPV 11.5 H Immature Gran % (Auto) 1.3 H Neut % (Auto) 72.8 Lymph % (Auto) 15.8 L [place] % (Auto) 6.5 Eos % (Auto) 3.2 Baso % (Auto) 0.4 Lymph # (Auto) 3.10 [place] # (Auto) 1.3 H Eos # (Auto) 0.6 H Baso # (Auto) 0.1 Abs Immat Gran (auto) 0.26 H Absolute Neuts (auto) 14.3 H Absolute Nucleated RBC 0.000 Nucleated RBC % 0.0 % Immature Plt Fraction 7.3 Sodium 134 L Potassium 3.4 Chloride 100 Carbon Dioxide 28 Anion Gap 6 BUN 25 H Creatinine 0.70 Estim Creat Clear Calc 67 Estimated GFR > 60 Glucose 147 H POC Capillary Glucose 164 H 149 H Calcium 8.5 Magnesium 2.1 Total Bilirubin 0.5 AST 32 ALT 28 Alkaline Phosphatase 66 Total Protein 6.0 L Albumin 3.2 L 05/29/23 05/29/23 11:30 15:42 WBC RBC Hgb Hct MCV MCH MCHC RDW Plt Count MPV Immature Gran % (Auto) Neut % (Auto) Lymph % (Auto) [place] % (Auto) Eos % (Auto) Baso % (Auto) Lymph # (Auto) [place] # (Auto) Eos # (Auto) Baso # (Auto) Abs Immat Gran (auto) Absolute Neuts (auto) Absolute Nucleated RBC Nucleated RBC % % Immature Plt Fraction Sodium Potassium Chloride Carbon Dioxide Anion Gap BUN Creatinine Estim Creat Clear Calc Estimated GFR Glucose POC Capillary Glucose 223 H 146 H Calcium Magnesium Total Bilirubin AST ALT Alkaline Phosphatase Total Protein Albumin
[2023-05-29 20:05] LABS: Glucose Point of Care 167 mg/dl (65-105)
[2023-05-29] MEDS: PRAVASTATIN SODIUM 20 MG TABLET PO (20:21)
[2023-05-29] MEDS: ACETAMINOPHEN 325 MG TABLET 650 MG PO (20:22)
[2023-05-29] MEDS: LATANOPROST 0.005% OP SOLN 2.5 ML BTL 1 DROP EACH EYE (20:23)
--- NOTE | 2023-05-29 21:59 | PC.NURSE ---
This patient, Berenice Long, was transferred to [[id number]] on 05/29/23 at 2150. Personal belongings sent with patient. Report given to [May, RN]. Appropriate documentation sent with patient.
[2023-05-30] MEDS: METOCLOPRAMIDE HCL INJ 10 MG/2 ML VIAL IV PUSH ×2 (00:12→05:36)
[2023-05-30 04:01] VITALS: BP 126/48; PULSE 86; RESP 16; TEMP 36.3; O2SAT 91
[2023-05-30 06:11] LABS: Basophils Absolute Auto 0.1 K/mm3 (0.0-0.1); Basophils Percent Auto 0.5 % (0.2-1.2); Eosinophils Absolute Auto 0.7 K/mm3 (0-0.3); Eosinophils Percent Auto 3.4 % (0-4.4); Hematocrit 34.4 % (37.0-47.0); Hemoglobin 11.2 g/dL (12.0-15.0); Immature Granulocyte Absolute 0.22 K/mm3 (0.00-0.031); Immature Granulocyte Percent A 1.1 % (0-0.5); Lymphocytes Absolute Auto 3.09 K/mm3 (0.9-3.2); Mean Corpuscular HGB Conc 32.6 g/dl (32-36); Mean Corpuscular Hemoglobin 33.3 pg (26-34); Mean Corpuscular Volume 102.4 fl (80-100); Mean Platelet Volume 10.4 fl (7.4-10.4); Monocytes Absolute Auto 1.2 K/mm3 (0.1-0.6); Monocytes Percent Auto 6.3 % (2.6-8.5); Neutrophils Percent Auto 72.7 % (45.5-73.1); Platelet Count Result 335 k/mm3 (150-375); Red Blood Count 3.36 M/mm3 (4.2-5.4); Red Cell Distribution Width 12.3 % (11.5-14.5); White Blood Count 19.3 K/mm3 (4.5-10.0)
[2023-05-30 06:32] LABS: Alanine Aminotransferase 34 U/L (6-35); Albumin Level 3.1 g/dL (3.5-5.1); Alkaline Phosphatase 65 U/L (38-126); Anion Gap 5 mmol/L (4-12); Aspartate Amino Transferase 38 U/L (14-36); Bilirubin,Total 0.5 mg/dL (0.2-1.3); Blood Urea Nitrogen 23 mg/dL (7-17); Calcium 8.6 mg/dL (8.4-10.2); Carbon Dioxide 28 mmol/L (22-30); Chloride 101 mmol/L (98-107); Estimated CRCL calculation 66 ml/min; Estimated Glomerular Filt Rate > 60; Glucose 135 mg/dL (65-110); Magnesium 2.1 mg/dL (1.6-2.3); Potassium 3.5 mmol/L (3.4-5.0); Sodium 134 mmol/L (137-145)
[2023-05-30 07:57] VITALS: PULSE 84; RESP 18
[2023-05-30] MEDS: IPRATROPIUM 0.5 MG/ALBUTEROL SULFATE 2.5 MG AMPUL.NEB 3 ML INHALATION ×2 (07:57→12:13)
[2023-05-30 08:01] VITALS: PULSE 94; RESP 18; O2SAT 92
[2023-05-30 08:09] VITALS: PULSE 85; RESP 18
--- NOTE | 2023-05-30 08:17 | PM.IMPN ---
Progress Note: A&P Assessment and Plan (1) Incarcerated incisional hernia: Code(s): K43.0 - Incisional hernia with obstruction, without gangrene Status: Acute (2) Dyspnea: Code(s): R06.00 - Dyspnea, unspecified Status: Acute (3) Acute respiratory failure with hypoxia and hypercapnia: Code(s): J96.01 - Acute respiratory failure with hypoxia; J96.02 - Acute respiratory failure with hypercapnia Status: Acute (4) Diabetes: Qualifiers: Diabetes mellitus complication status: with hyperglycemia Diabetes mellitus jail insulin use: without buttermaker use Diabetes mellitus type: type 2 Qualified Code(s): E11.65 - Type 2 diabetes mellitus with hyperglycemia Code(s): E11.9 - Type 2 diabetes mellitus without complications Status: Acute (5) Stroke-like symptoms: Code(s): R29.90 - Unspecified symptoms and signs involving the nervous system Status: Acute Plan 73 year old female admitted to the hospital by General surgery on 05/18 status post: 1. Open 12 cm incarcerated recurrent incisional hernia repair with mesh 2. Bilateral myofascial release (transversus abdominis release--5 cm on right and 5 cm on left) 3. Removal of mesh foreign body 4. Extensive adhesiolysis requiring greater than 50% of total operating time On 05/21/2023 patient developed shortness of breath and had not been using incentive spirometer.? Post operative course was complicated with AMS concerning for stroke? .?CT Brain, CTA chest, MRI Brain, MRA Brain and Neck were ordered and Neurology was consulted.?Stroke was ruled out. Neurology has signed off. 1.Incarcerated Incisional Hernia: Surgery is managing PT/OT 2. Acute hypoxic respiratory failure: Currently on room air Pulmonary following Overnight oximetry with no hypoxia less than 89% was noted 05/29/2023 Intermittent diuresis Incentive spirometry, DuoNebs Supplement potassium 3. Diabetes mellitus: Blood glucose checked t.i.d. a.c. and HS Continue with sliding scale insulin Adjust dose as needed 4. DVT prophylaxis: Lovenox 5. Code status: Full 6. Disposition: As per surgery/primary team Albuterol p.r.n. at discharge ? Subjective Date/time seen: 05/30/23 08:17 Interval history: Overnight oximetry on room air evaluated performed. No hypoxia less than 89% noted. Labs reviewed. Medications were reviewed. Patient otherwise doing very well. Expected to be discharged soon. Review of Systems Review of Systems: All systems reviewed & are unremarkable except as noted in HPI and below Exam Narrative: General: In no acute distress, well nourished, weak appearing Head: atraumatic, no encephalopathy Eyes: EOMI, PERRLA, sclera clear ENT: moist mucous membranes, nasal passages clear Neck: supple, no JVD, no adenopathy, trachea midline Cardiac: Normal S1 and S2. No murmur, gallops or friction rubs, peripheral pulses intact. Respiratory: Coarse to auscultation bilaterally, Rhonchi, currently on room air Gastrointestinal: soft, distended, non-tender, normoactive bowel sounds. : voiding without difficulty. Extremities: moves all extremities well, no edema Skin: Midline incision with bhargavi,TAYE drain in situ Neuro: Alert to voice and oriented x3, cranial nerves intact, no neuro deficits. Psych: normal mood, normal affect, minimally interactive Objective Data Vital Signs Vital Signs: Vital Signs - 24 hr 05/29/23 08:21 05/29/23 11:25 05/29/23 11:25 Temperature Pulse Rate 86 Respiratory Rate 20 Blood Pressure Pulse Oximetry 92 95 Oxygen Delivery Room Air Room Air Fraction of Inspired Oxygen 05/29/23 11:35 05/29/23 12:42 05/29/23 15:20 Temperature 96.7 F L Pulse Rate 86 78 86 Respiratory Rate 20 20 20 Blood Pressure 135/45 L Pulse Oximetry 95 Oxygen Delivery Fraction of Inspired Oxygen 05/29/23 15:29 05/29/23 16:00 05/29/23 20:15 Temperature 97.0 F L Pulse Rate 91 85 85 Respiratory Rate 20 20 20 Blood Pressure 141/52 H Pulse Oximetry 92 92 Oxygen Delivery Room Air Fraction of Inspired Oxygen 32 05/29/23 20:20 05/29/23 20:30 05/29/23 20:30 Temperature 97.5 F L Pulse Rate 85 78 78 Respiratory Rate 20 20 Blood Pressure 125/45 L Pulse Oximetry 95 94 Oxygen Delivery Room Air Fraction of Inspired Oxygen 05/30/23 04:01 05/30/23 07:57 05/30/23 08:01 Temperature 97.4 F L Pulse Rate 86 84 94 Respiratory Rate 16 18 18 Blood Pressure 126/48 L Pulse Oximetry 91 92 Oxygen Delivery Room Air Fraction of Inspired Oxygen 05/30/23 08:09 Temperature Pulse Rate 85 Respiratory Rate 18 Blood Pressure Pulse Oximetry Oxygen Delivery Fraction of Inspired Oxygen Intake/Output Intake/Output: Intake & Output 05/27/23 05/28/23 05/29/23 05/30/23 23:59 23:59 23:59 23:59 Intake Total 1670 1320 1070 100 Output Total 2290 501 475 Balance -620 819 595 100 Meds/Results Medications: Active Medications Generic Name Dose Route Start Last Admin Trade Name Freq PRN Reason Stop Dose Admin Acetaminophen 650 mg 05/19/23 17:56 05/29/23 20:22 Acetaminophen 325 Mg Tablet PO 650 mg Q6H PRN Administration Mild Pain (1-3) or Fever Albuterol/Ipratropium 3 ml 05/28/23 08:00 05/30/23 07:57 Ipratropium 0.5 Mg/Albuterol Sulfate 2.5 Mg Ampul.Neb 3 Ml INHALATION 3 ml [id number] BRANT Administration Ascorbic Acid 500 mg 05/25/23 09:00 05/29/23 08:47 Ascorbic Acid 500 Mg Tablet PO 500 mg DAILY BRANT Administration Cyanocobalamin 1,000 mcg 05/25/23 09:00 05/29/23 08:48 Cyanocobalamin 1,000 Mcg Tablet PO 1,000 mcg DAILY BRANT Administration Dextrose 12.5 gm 05/22/23 17:43 Dextrose 50% 25 Gm/50 Ml Syringe IV PUSH PRN PRN Hypoglycemia Protocol Enoxaparin Sodium 40 mg 05/20/23 09:00 05/29/23 08:47 Enoxaparin 40 Mg/0.4 Ml Syringe SUB-Q 40 mg DAILY BRANT Administration Glucagon 1 mg 05/22/23 17:43 Glucagon For Inj 1 Mg Vial IM PRN PRN Hypoglycemia Protocol Glucose 15 gm 05/22/23 17:43 Glucose Oral Gel 15 Gm Of Glucse In 37.5 Gm Tube PO PRN PRN Hypoglycemia Protocol Guaifenesin 1,200 mg 05/26/23 09:00 05/29/23 20:21 Guaifenesin 12 Hr 600 Mg Tabcr PO 1,200 mg Q12HR BRANT Administration Dextrose 1,000 mls @ 100 mls/hr 05/22/23 17:43 Dextrose 5% 1,000 Ml IVPB PRN PRN Hypoglycemia Protocol Insulin Aspart 1 - 3 units 05/22/23 21:00 05/29/23 20:22 Insulin Aspart (*Bkc) 100 Units/Ml SUB-Q Not Given HS [facility] Protocol Insulin Aspart 3 - 6 units 05/23/23 08:00 05/29/23 16:13 Insulin Aspart (*Bkc) 100 Units/Ml SUB-Q Not Given TIDWM [facility] Protocol Insulin Aspart 3 units 05/29/23 17:00 05/29/23 17:11 Insulin Aspart (*Bkc) 100 Units/Ml SUB-Q 3 units TIDWM BRANT Administration Latanoprost 1 drop 05/19/23 21:00 05/29/23 20:23 Latanoprost 0.005% Op Soln 2.5 Ml Btl EACH EYE 1 drop HS [facility] Administration Magnesium Gluconate 27 mg 05/20/23 09:00 05/29/23 08:48 Magnesium 27 Mg Tablet (500 Mg Mag Gluconate) PO 27 mg DAILY BRANT Administration Metoclopramide HCl 10 mg 05/26/23 18:00 05/30/23 05:36 Metoclopramide Hcl Inj 10 Mg/2 Ml Vial IV PUSH 10 mg Q6HR BRANT Administration Naloxone HCl 0.1 mg 05/19/23 17:56 Naloxone Hcl 0.4 Mg/Ml Vial IV PUSH Q2M PRN Opiate Reversal Ondansetron HCl 4 mg 05/19/23 17:56 05/22/23 21:58 Ondansetron Inj 4 Mg/2 Ml Vial IV PUSH 4 mg Q4H PRN Administration Nausea And Vomiting Pantoprazole Sodium 40 mg 05/20/23 09:00 05/29/23 08:47 Pantoprazole 40 Mg Tablet PO 40 mg QAM BRANT Administration Polyethylene Glycol 17 gm 05/20/23 09:00 05/29/23 08:48 Polyethylene Glycol 3350 17 Gm Powd.Pack PO Not Given QAM BRANT Pravastatin Sodium 20 mg 05/19/23 21:00 05/29/23 20:21 Pravastatin Sodium 20 Mg Tablet PO 20 mg QHS [facility] Administration Vitamin D 1,000 units 05/25/23 09:00 05/28/23 08:56 Cholecalciferol 1,000 Units Tablet PO 1,000 units SuWe@0900 [facility] Administration Radiology Results: ITS Impressions Head CT 05/22/23 09:50 IMPRESSION: 1. Moderate scattered white matter hypoattenuation consistent with chronic small vessel ischemic disease. No other acute intracranial process. Chest CTA 05/22/23 09:51 IMPRESSION: 1. No pulmonary embolus. Sensitivity is severely decreased by motion artifact. 2. Small lung volumes with moderate atelectasis bilaterally. Brain MRI 05/22/23 13:08 IMPRESSION: 1. No acute intracranial process or abnormally enhancing brain lesions. 2. Moderate scattered nonspecific periventricular predominant white matter T2 hyperintensity which is within normal limits for age and likely sequela of chronic small vessel ischemic disease. Head/Neck CTA 05/22/23 13:14 IMPRESSION: 1. 0% stenosis of the right and left carotid bulbs relative to normal distal artery lumen diameter (NASCET criteria). 2. Small amount of nonhemodynamically significant atherosclerotic plaque at the bilateral carotid siphons. Otherwise unremarkable cerebral CT angiogram with no hemodynamically significant stenosis or aneurysm. Brain MRA 05/22/23 13:36 IMPRESSION: 1. Normal cerebral MR angiogram. Neck MRA 05/22/23 13:37 IMPRESSION: 1. 0% stenosis of the right and left carotid bulbs relative to normal distal artery lumen diameter (NASCET criteria). 2. 20-30% stenosis along the cervical portion of the left vertebral artery immediately distal to the carotid bulb. Abdomen X-Ray 05/26/23 08:25 Impression: 1: Mildly dilated small bowel with moderate gas throughout the colon which may represent postoperative ileus or less likely partial obstruction. Abdomen/Pelvis CT 05/26/23 09:45 IMPRESSION: 1. Several fluid-filled but not frankly dilated loops of small bowel likely related to postoperative ileus given the postoperative change of recent infraumbilical ventral hernia repair. 2. Diffuse hepatic steatosis. 3. Diverticulosis. 4. Volume loss and lungs with scattered peripheral consolidation in all lobes of the/lower lungs with appearance favoring atelectasis over pneumonia. Chest X-Ray 05/27/23 05:49 Impression: Central congestive change and possible minimal pulmonary edema pattern. Discoid right basilar atelectasis. Labs Labs: Laboratory Results - last 24 hr 05/29/23 05/29/23 05/29/23 11:30 15:42 19:59 WBC RBC Hgb Hct MCV MCH MCHC RDW Plt Count MPV Immature Gran % (Auto) Neut % (Auto) Lymph % (Auto) [place] % (Auto) Eos % (Auto) Baso % (Auto) Lymph # (Auto) [place] # (Auto) Eos # (Auto) Baso # (Auto) Abs Immat Gran (auto) Absolute Neuts (auto) Absolute Nucleated RBC Nucleated RBC % Sodium Potassium Chloride Carbon Dioxide Anion Gap BUN Creatinine Estim Creat Clear Calc Estimated GFR Glucose POC Capillary Glucose 223 H 146 H 167 H Calcium Magnesium Total Bilirubin AST ALT Alkaline Phosphatase Total Protein Albumin 05/30/23 05:56 WBC 19.3 H RBC 3.36 L Hgb 11.2 L Hct 34.4 L MCV 102.4 H MCH 33.3 MCHC 32.6 RDW 12.3 Plt Count 335 MPV 10.4 Immature Gran % (Auto) 1.1 H Neut % (Auto) 72.7 Lymph % (Auto) 16.0 L [place] % (Auto) 6.3 Eos % (Auto) 3.4 Baso % (Auto) 0.5 Lymph # (Auto) 3.09 [place] # (Auto) 1.2 H Eos # (Auto) 0.7 H Baso # (Auto) 0.1 Abs Immat Gran (auto) 0.22 H Absolute Neuts (auto) 14.0 H Absolute Nucleated RBC 0.000 Nucleated RBC % 0.0 Sodium 134 L Potassium 3.5 Chloride 101 Carbon Dioxide 28 Anion Gap 5 BUN 23 H Creatinine 0.70 Estim Creat Clear Calc 66 Estimated GFR > 60 Glucose 135 H POC Capillary Glucose Calcium 8.6 Magnesium 2.1 Total Bilirubin 0.5 AST 38 H ALT 34 Alkaline Phosphatase 65 Total Protein 6.0 L Albumin 3.1 L
[2023-05-30] MEDS: ASCORBIC ACID 500 MG TABLET PO (08:40)
[2023-05-30] MEDS: guaiFENesin 12 HR 600 MG TABCR 1200 MG PO (08:40)
[2023-05-30] MEDS: ENOXAPARIN 40 MG/0.4 ML SYRINGE SUB-Q (08:40)
[2023-05-30] MEDS: CYANOCOBALAMIN 1,000 MCG TABLET 1000 MCG PO (08:40)
[2023-05-30] MEDS: PANTOPRAZOLE 40 MG TABLET PO (08:40)
[2023-05-30 08:43] LABS: Glucose Point of Care 150 mg/dl (65-105)
[2023-05-30] MEDS: INSULIN ASPART (*BKC) 100 UNITS/ML SUB-Q (08:46)
--- NOTE | 2023-05-30 08:59 | P.PNPL_ITS ---
Progress Note: A&P Assessment and Plan (1) Acute respiratory failure with hypoxia and hypercapnia: Code(s): J96.01 - Acute respiratory failure with hypoxia; J96.02 - Acute respiratory failure with hypercapnia Status: Acute Assessment and Plan: May 23 moved to IMU, increased IPAP and decreased FiO2, mucolytic, Cornet valve. Still coughs, getting discolored sputum; she is able to sit up in a chair which is a good place to be for respiratory status. This is a combination of multiple factors, large abdominal incision which creates a restrictive impairment due to pain, pressure on the diaphragm, and she had underlying restrictive anatomy due to her dextroscoliosis, she has poor inspiratory effort, increasing atelectasis and she may have pulmonary vascular redistribution. Her chest x-ray from May 20 appears to have less cephalization. Her BUN and creatinine are increasing, BUN 36 and 1.1 however her chest x-ray appears wet. Her white blood cell count is lower, does not appear to have pneumonia but she definitely has atelectasis. We will aggressively treat this with mucolytics, expiratory vibratory valve, increase tidal volume on BiPAP, incentive spirometer. 05/24: better, more alert, lower O2 need, continue pulmonary hygiene measures. Plan Up in chair as long as she can tolerate. Scheduled Mucomyst 20% followed by Cornet valve use; she did respond to one dose yesterday, still has noisy lungs with secretions that need to be expectorated. Continue incentive spirometry to increase tidal volume and secretions clearance. Continue BiPAP IPAP 14, EPAP 6, with sleep. Continue PT. Add Ensure, she needs more oral intake. Consider modified barium swallow if this does not all clear in a few days, make sure she does not aspirate. 05/25: Patient received Mucomyst nebulizer last night and then vomited into her BiPAP mask which was removed approximately 3:00 a.m.. Blood gas at 5:40 a.m. with a pH of 7.45/40/83 on 3 L nasal cannula. The patient denies abdominal pain. She has a very weak cough and is unable to expectorate. Currently she is on 3 L nasal cannula saturations 96%. She is afebrile. White blood cell count 14.2, creatinine 0.7. The tells me she had a 1 cup size chocolate pudding bowel movement yesterday. Patient is scheduled to get a CT scan of the abdomen today per surgery team. she is receiving EzPAP, peep therapy and attempting incentive spirometry but she can only pole 100 mL Etiology of patient's current respiratory symptoms include postoperative atelectasis, scoliosis, morbid obesity, status post recent abdominal surgery and possible pneumonia. She is a never smoker with no history of asthma, COPD or chronic bronchitis. Plan: the patient was off BiPAP and had a blood gas this morning on after 3 hours on 3 L nasal cannula with pH of 7.45/40/83. There is no evidence of hypercarbic respiratory failure. At this time I will change the BiPAP to p.r.n.. I have told the nurse that she should only wear it if there is evidence of respiratory distress. Most importantly the patient should get out of bed to a chair if she is cleared by the surgical team. I talked to the nurse and explained that this may take multiple healthcare providers and a Leigha lift. She is scheduled to get a CT of the abdomen today for minimal bowel movements. We will continue aggressive measures for pulmonary toilet including DuoNebs q.6 hours. Increasing guaifenesin to 1200 mg p.o. b.i.d., continue cefepime day 6, and azithromycin, day 3 for possible pneumonia, EzPAP treatment q.6 hours, Cornet flutter valve q.4 hours while awake, and incentive spirometry q.2 hours while awake. 05/27/23: Patient said she slept well without the BiPAP last night. She feels pretty good. Overall she says she is breathing 50% back to her normal. She does have a cough with minimal phlegm production. She did incentive spirometry at 600 mL. When I entered the room she was on 3 L with saturations 96%. I decreased her to 2 L and her saturations were 95%. I decreased her to room air and her saturations were 93% after 8 minutes. Her white blood cell count is 18.2, creatinine 0.6. She walked 2 ft yesterday and sat up in the chair during the afternoon. Chest x-ray today shows decreased lung volumes with congestion. ABG this morning on 3 L nasal cannula 7.49/34/89. Plan: Stable off of BiPAP with no evidence of hypercarbic respiratory failure on 3 L nasal cannula. Wean oxygen for saturations 90-94%. Currently on room air with saturations 93%. Out of bed to chair and ambulation as tolerated. Continue DuoNebs q.6, guaifenesin 1200 p.o. b.i.d., incentive spirometry q.2 hours and Cornet flutter valve Q.4 hours and EzPAP Q 6 hours. patient is on cefepime day 7, azithromycin day 4 and Flagyl day 2 for possible pneumonia. If patient continues to improve from a respiratory perspective will consider discontinuation of antibiotics on 05/27 from a pulmonary perspective. 05/28/23: Patient slept poorly night on 2 L nasal cannula. she could not get comfortable. Yesterday she was out of the chair to the bed most of the day and was on room air until about 3 in the afternoon and then was placed on 2 L nasal cannula. Overall she still is short of breath at rest and with ambulation. She did walk to the bathroom yesterday x2. White blood cell count 19.1, creatinine 0.6, afebrile. Procalcitonin 0.2. When I entered the room she was on 2 L nasal cannula saturations 96%. I turned her to room air and after 13 minutes her saturations were 92%. Incentive spirometry while she is in bed is poor at 600 mL. Plan: Stable off of BiPAP for 48 hours. Oxygenation slowly improving, goal saturation 90-94% and wean oxygen as tolerated. Patient is afebrile with a leukocytosis and a procalcitonin that is 0.2 on cefepime day 8, azithromycin day 5 [address] scan more consistent with atelectasis. If the patient had pneumonia she should be adequately treated and recommend no antibiotics from a pulmonary perspective. Continue guaifenesin 1200 mg p.o. b.i.d. Continue DuoNebs and will change to q.4 hours while awake, continue EzPAP q.i.d., continue incentive spirometry and Cornet flutter valve q.2 hours while awake. out of bed and ambulation as tolerated. Lasix 20 given. 05/29/23: The patient said she got some sleep last night. Overall the patient is slowly improving. She has less cough and less congestion in the concurs. White blood cell count is 19.6, creatinine is 0.7. Patient is on 2 L nasal cannula saturations 95%. I decreased her to room air and her saturations were 92%. She is sitting up in a chair currently and is less congested. Her weight today is 91.5 kg down from 92.3 yesterday. incentive spirometry mildly improved to 700. Plan: Continue DuoNebs Q 4 while awake, continue guaifenesin 1200 p.o. b.i.d., incentive spirometry, EzPAP and Cornet flutter valve. I have written for 20 of Lasix IV. I will check an overnight oximetry tonight on room air. 05/30/23: patient continues to improve. Currently says she is breathing 95% back to her normal. She walked in the lim and had tired legs but no limitations from her breathing. Currently she is on room air with saturations 95%. Patient had an overnight oximetry on room air with recording duration 6 hours and 33 minutes. Average saturation 93%. Low saturation 89%. Time with saturation less than or equal to 88% was 0 minutes, oxygen desaturation index 1.4. incentive spirometry improved to 1000 mL today Plan: Patient says that she does get a benefit from the DuoNebs and I will continue these q.4 hours while awake. She has no difficulty expectorating her phlegm and I will discuss DC the guaifenesin. Continue out of bed, incentive spirometry, EzPAP and Cornet flutter valve. Patient has improved and is ready to be discharged from a pulmonary perspective on these pulmonary medications: Albuterol 2 puffs q.4 hours p.r.n. shortness of breath or wheezing No specific pulmonary outpatient follow-up needed. Discussed with Dr Farah, will sign off, call with questions. Subjective Date/time seen: 05/30/23 08:59 Interval history: 05/24/23: New consult Berenice Long is a 73-year-old woman who had an incarcerated incisional hernia repair FridayMay 18; this was an open incarcerated recurrent incisional hernia repair with mesh, Bilateral myofascial release, Removal of mesh foreign body, Extensive adhesiolysis; this lasted 5 hours which was longer than anticipated. She was fairly alert afterwards. 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 No occupational exposure, no asthma, recurrent pneumonias, no lung disease. Over the next few days, she has had worsening mentation, was agitated today with Ativan, was trying to get out of the bed, was kept in bed by . She is requiring more O2, now on BiPAP 6 with 40% with ABG at 14:54 today pH 7.318, pCO2 53, pO2 102, HC03 27.2 saturation 97%. ABG earlier today showed pH 7.272, pCO2 57, PO2 48.1 saturation 99% on room air. This might have been a mixed venous blood gas. She had a cough with little sputum production yesterday, less today. Her mentation is less than optimal. PMH : DM; hyperlipidemia, hypertension, glaucoma, 05/24 hospital follow up : 05/25/23 at 14:05, , sons and Ortega, the sitter are present. She was up in the chair several times today. Now, she is lying in bed on her left side, wants to get up to side of bed. Speaking more clearly, not completely oriented. Knows that she had surgery, on 3 L/min =94% saturation; wbc down 11.8 k. She is not taking much food, drinking is easier for her compared to eating. She told me she had a blood clot, not true. 05/25: Patient received Mucomyst nebulizer last night and then vomited into her BiPAP mask which was removed approximately 3:00 a.m.. Blood gas at 5:40 a.m. with a pH of 7.45/40/83 on 3 L nasal cannula. The patient denies abdominal pain. She has a very weak cough and is unable to expectorate. Currently she is on 3 L nasal cannula saturations 96%. She is afebrile. White blood cell count 14.2, creatinine 0.7. The tells me she had a 1 cup size chocolate pudding bowel movement yesterday. Patient is scheduled to get a CT scan of the abdomen today per surgery team. CT scan abdomen later in the day demonstrated no pleural effusions, decreased lung volumes, bibasilar infiltrates favoring atelectasis. No focal consol idations. Dilated were not distended small bowel with air in the rectum. 05/27/23: Patient said she slept well without the BiPAP last night. She feels pretty good. Overall she says she is breathing 50% back to her normal. She does have a cough with minimal phlegm production. She did incentive spirometry at 600 mL. When I entered the room she was on 3 L with saturations 96%. I decreased her to 2 L and her saturations were 95%. I decreased her to room air and her saturations were 93% after 8 minutes. Her white blood cell count is 18.2, creatinine 0.6. She walked 2 ft yesterday and sat up in the chair during the afternoon. Chest x-ray today shows decreased lung volumes with congestion. ABG this morning on 3 L nasal cannula 7.49/34/89. 05/28/23: Patient slept poorly night on 2 L nasal cannula. she could not get comfortable. Yesterday she was out of the chair to the bed most of the day and was on room air until about 3 in the afternoon and then was placed on 2 L nasal cannula. Overall she still is short of breath at rest and with ambulation. She did walk to the bathroom yesterday x2. White blood cell count 19.1, creatinine 0.6, afebrile. Procalcitonin 0.2. When I entered the room she was on 2 L nasal cannula saturations 96%. I turned her to room air and after 13 minutes her saturations were 92%. rs.lasix 20 IV given. 05/29/23: The patient said she got some sleep last night. Overall the patient is slowly improving. She has less cough and less congestion in the concurs. White blood cell count is 19.6, creatinine is 0.7. Patient is on 2 L nasal cannula saturations 95%. I decreased her to room air and her saturations were 92%. She is sitting up in a chair currently and is less congested. 05/30/23: patient continues to improve. Currently says she is breathing 95% back to her normal. She walked in the lim and had tired legs but no limitations from her breathing. Currently she is on room air with saturations 95%. Patient had an overnight oximetry on room air with recording duration 6 hours and 33 minutes. Average saturation 93%. Low saturation 89%. Time with saturation less than or equal to 88% was 0 minutes, oxygen desaturation index 1.4. DATA; 05/26/23: EXAMINATION: CT abdomen pelvis w con INDICATION: Nausea and vomiting COMPARISON: 04/01/2023 FINDINGS: Lung volumes are decreased with peripheral consolidation in all lobes in the visualized lower lungs with appearance favoring atelectasis over pneumonia. Heart size is normal. Atherosclerotic coronary artery calcifications. No pericardial or pleural effusion. Visualized portion of the thoracic aorta is normal in caliber with no dissection. Cholecystectomy clips the gallbladder fossa. There is relatively decreased attenuation the liver relative to the spleen consistent with diffuse hepatic steatosis although specificities decreased by the presence of intravenous contrast. Small splenic calcific location consistent with old granulomatous disease. Pancreas, bilateral adrenal glands and left kidney are normal. 1.7 cm exophytic cyst at the lower pole of the right kidney. Bladder is normal. The uterus is not identified and has likely been surgically resected. There is prominent colonic diverticulosis with a sigmoid descending colon predominance but without adjacent inflammatory change t o suggest diverticulitis. There multiple surgical clips in the right lower quadrant predominantly along the cecum potentially related to prior appendectomy. Interval infraumbilical ventral hernia repair with surgical drain within the subcutaneous fat at the operative bed in the anterior pelvic wall. There is an additional surgical drain extending into the anterior peritoneal cavity of the pelvis. Several fluid-filled loops of small bowel without candida dilation or transition point to suggest obstruction but which could be seen with postoperative ileus. There is a small amount of ascites in the deep pelvis and along the anterior liver. S-shaped thoracic and lumbar scoliosis with severe spondylosis. IMPRESSION: 1. Several fluid-filled but not frankly dilated loops of small bowel likely related to postoperative ileus given the postoperative change of recent infraumbilical ventral hernia repair. 2. Diffuse hepatic steatosis. 3. Diverticulosis. 4. Volume loss and lungs with scattered peripheral consolidation in all lobes of the/lower lungs with appearance favoring atelectasis over pneumonia. * 05/22/23 CTA- IMPRESSION: No pulmonary embolus. Sensitivity is severely decreased by motion artifact. Small lung volumes with moderate atelectasis bilaterally. * WBC initially on 05/20/23 was 19 k, lower now at 12 k on May 23. * 05/20/23 Initial BUN 19 with creatinine 0.7; May 23 BUN 36 creatinine 1.1 * 05/23/23 Complete two-dimensional, color flow and Doppler transthoracic echocardiogram is performed. 2. Left ventricular chamber dimension is normal. 3. Left ventricular systolic function is normal, estimated at 60-65%. 4. The left ventricular diastolic function is grade I diastolic dysfunction. 5. E/e' 13 is mildly elevated. 6. There is mild aortic valve sclerosis. 7. The mitral valve has mildly calcified annulus. 8. There is mild tricuspid valve regurgitation. 9. Mild pulmonary hypertension, estimated pulmonary arterial systolic pressure is 47 mmHg. 10. There is trace pulmonic regurgitation. * 05/24/23 pCXR 16:02 = Stable small lung volumes with airspace opacities in the mid and lower lung zones, consistent with atelectasis versus pneumonia. She has marked scoliosis and maybe right diaphragm elevation. This is contributing to her restrictive impairment, maybe was not appreciated before her surgery. * 05/21/23 CXR - Shallow inspiration. Bibasilar airspace disease. Cardiomegaly. No pneumothorax. No acute osseous abnormality. No significant effusion.Impression: IMPRESSION: Bibasilar airspace disease may represent pneumonia and/or atelectasis. Review of Systems Review of Systems: All systems reviewed & are unremarkable except as noted in HPI and below ROS unobtainable: Yes unobtainable due to mental status Constitutional: Constitutional: Reports no additional constitutional complaints Eyes: Eyes: Reports no additional eye complaints ENT: Reports system reviewed and no additional complaints, except as documented Cardiovascular: Cardiovascular: Reports no additional cardiovascular complaints Respiratory: Respiratory: Reports no additional respiratory complaints Gastrointestinal: Gastrointestinal: Reports no additional gastrointestinal complaints Musculoskeletal: Musculoskeletal: Reports no additional musculoskeletal complaints Neurologic: Reports system reviewed and no additional complaints, except as documented Psychiatric: Psychiatric: Reports no additional psychiatric complaints Endocrine: Endocrine: Reports no additional endocrine complaints Hematologic/Lymphatic: Hematologic/Lymphatic: Reports no additional hematologic/lymphatic complaints Allergic/Immunologic: Allergic/Immunologic: Reports no additional allergic/immunologic complaints Exam Const: General: cooperative, comfortable and no acute distress HENMT: Head: normal to inspection Ears: hearing grossly normal bilaterally Eyes: General: appearance normal, both eyes and all related structures Neck: Neck: normal visual inspection Chest: Chest palpation & inspection: normal inspection of the chest Resp: Effort & Inspection: normal respiratory effort and able to speak in complete sentences Auscultation: crackles, no rales, no rhonchi, no wheezes and lung sounds not diminished Other: few basilar crackles Cardio: Jugular venous distension: no JVD GI: Inspection: distended Skin: General skin exam: normal color Neuro: Other: Nonfocal Extrem: General: normal to inspection Psych: Appearance: grossly normal Objective Data Vital Signs Vital Signs: Vital Signs - 24 hr 05/29/23 11:25 05/29/23 11:25 05/29/23 11:35 Temperature Pulse Rate 86 86 Respiratory Rate 20 20 Blood Pressure Pulse Oximetry 95 Oxygen Delivery Room Air Fraction of Inspired Oxygen 05/29/23 12:42 05/29/23 15:20 05/29/23 15:29 Temperature 35.9 C L Pulse Rate 78 86 91 Respiratory Rate 20 20 20 Blood Pressure 135/45 L Pulse Oximetry 95 Oxygen Delivery Fraction of Inspired Oxygen 05/29/23 16:00 05/29/23 20:15 05/29/23 20:20 Temperature 36.1 C L 36.4 C L Pulse Rate 85 85 85 Respiratory Rate 20 20 20 Blood Pressure 141/52 H 125/45 L Pulse Oximetry 92 92 95 Oxygen Delivery Room Air Fraction of Inspired Oxygen 32 05/29/23 20:30 05/29/23 20:30 05/30/23 04:01 Temperature 36.3 C L Pulse Rate 78 78 86 Respiratory Rate 20 16 Blood Pressure 126/48 L Pulse Oximetry 94 91 Oxygen Delivery Room Air Fraction of Inspired Oxygen 05/30/23 07:57 05/30/23 08:01 05/30/23 08:09 Temperature Pulse Rate 84 94 85 Respiratory Rate 18 18 18 Blood Pressure Pulse Oximetry 92 Oxygen Delivery Room Air Fraction of Inspired Oxygen Intake/Output Intake/Output: Intake & Output 05/27/23 05/28/23 05/29/23 05/30/23 23:59 23:59 23:59 23:59 Intake Total 1670 1320 1070 100 Output Total 2290 501 475 Balance -620 819 595 100 Meds/Results Medications: Active Medications Generic Name Dose Route Start Last Admin Trade Name Freq PRN Reason Stop Dose Admin Acetaminophen 650 mg 05/19/23 17:56 05/29/23 20:22 Acetaminophen 325 Mg Tablet PO 650 mg Q6H PRN Administration Mild Pain (1-3) or Fever Albuterol/Ipratropium 3 ml 05/28/23 08:00 05/30/23 07:57 Ipratropium 0.5 Mg/Albuterol Sulfate 2.5 Mg Ampul.Neb 3 Ml INHALATION 3 ml [id number] BRANT Administration Ascorbic Acid 500 mg 05/25/23 09:00 05/30/23 08:40 Ascorbic Acid 500 Mg Tablet PO 500 mg DAILY BRANT Administration Cyanocobalamin 1,000 mcg 05/25/23 09:00 05/30/23 08:40 Cyanocobalamin 1,000 Mcg Tablet PO 1,000 mcg DAILY BRANT Administration Dextrose 12.5 gm 05/22/23 17:43 Dextrose 50% 25 Gm/50 Ml Syringe IV PUSH PRN PRN Hypoglycemia Protocol Enoxaparin Sodium 40 mg 05/20/23 09:00 05/30/23 08:40 Enoxaparin 40 Mg/0.4 Ml Syringe SUB-Q 40 mg DAILY BRANT Administration Glucagon 1 mg 05/22/23 17:43 Glucagon For Inj 1 Mg Vial IM PRN PRN Hypoglycemia Protocol Glucose 15 gm 05/22/23 17:43 Glucose Oral Gel 15 Gm Of Glucse In 37.5 Gm Tube PO PRN PRN Hypoglycemia Protocol Guaifenesin 1,200 mg 05/26/23 09:00 05/30/23 08:40 Guaifenesin 12 Hr 600 Mg Tabcr PO 1,200 mg Q12HR BRANT Administration Dextrose 1,000 mls @ 100 mls/hr 05/22/23 17:43 Dextrose 5% 1,000 Ml IVPB PRN PRN Hypoglycemia Protocol Insulin Aspart 1 - 3 units 05/22/23 21:00 05/29/23 20:22 Insulin Aspart (*Bkc) 100 Units/Ml SUB-Q Not Given HS BRANT Protocol Insulin Aspart 3 - 6 units 05/23/23 08:00 05/30/23 08:41 Insulin Aspart (*Bkc) 100 Units/Ml SUB-Q Not Given TIDWM [facility] Protocol Insulin Aspart 3 units 05/29/23 17:00 05/30/23 08:46 Insulin Aspart (*Bkc) 100 Units/Ml SUB-Q 3 units TIDWM BRANT Administration Latanoprost 1 drop 05/19/23 21:00 05/29/23 20:23 Latanoprost 0.005% Op Soln 2.5 Ml Btl EACH EYE 1 drop HS BRANT Administration Magnesium Gluconate 27 mg 05/20/23 09:00 05/29/23 08:48 Magnesium 27 Mg Tablet (500 Mg Mag Gluconate) PO 27 mg DAILY BRANT Administration Metoclopramide HCl 10 mg 05/26/23 18:00 05/30/23 05:36 Metoclopramide Hcl Inj 10 Mg/2 Ml Vial IV PUSH 10 mg Q6HR BRANT Administration Naloxone HCl 0.1 mg 05/19/23 17:56 Naloxone Hcl 0.4 Mg/Ml Vial IV PUSH Q2M PRN Opiate Reversal Ondansetron HCl 4 mg 05/19/23 17:56 05/22/23 21:58 Ondansetron Inj 4 Mg/2 Ml Vial IV PUSH 4 mg Q4H PRN Administration Nausea And Vomiting Pantoprazole Sodium 40 mg 05/20/23 09:00 05/30/23 08:40 Pantoprazole 40 Mg Tablet PO 40 mg QAM BRANT Administration Polyethylene Glycol 17 gm 05/20/23 09:00 05/30/23 08:46 Polyethylene Glycol 3350 17 Gm Powd.Pack PO Not Given QAM BRANT Pravastatin Sodium 20 mg 05/19/23 21:00 05/29/23 20:21 Pravastatin Sodium 20 Mg Tablet PO 20 mg QHS BRANT Administration Vitamin D 1,000 units 05/25/23 09:00 05/28/23 08:56 Cholecalciferol 1,000 Units Tablet PO 1,000 units SuWe@0900 [facility] Administration Radiology Results: ITS Impressions Head CT 05/22/23 09:50 IMPRESSION: 1. Moderate scattered white matter hypoattenuation consistent with chronic small vessel ischemic disease. No other acute intracranial process. Chest CTA 05/22/23 09:51 IMPRESSION: 1. No pulmonary embolus. Sensitivity is severely decreased by motion artifact. 2. Small lung volumes with moderate atelectasis bilaterally. Brain MRI 05/22/23 13:08 IMPRESSION: 1. No acute intracranial process or abnormally enhancing brain lesions. 2. Moderate scattered nonspecific periventricular predominant white matter T2 hyperintensity which is within normal limits for age and likely sequela of chronic small vessel ischemic disease. Head/Neck CTA 05/22/23 13:14 IMPRESSION: 1. 0% stenosis of the right and left carotid bulbs relative to normal distal artery lumen diameter (NASCET criteria). 2. Small amount of nonhemodynamically significant atherosclerotic plaque at the bilateral carotid siphons. Otherwise unremarkable cerebral CT angiogram with no hemodynamically significant stenosis or aneurysm. Brain MRA 05/22/23 13:36 IMPRESSION: 1. Normal cerebral MR angiogram. Neck MRA 05/22/23 13:37 IMPRESSION: 1. 0% stenosis of the right and left carotid bulbs relative to normal distal artery lumen diameter (NASCET criteria). 2. 20-30% stenosis along the cervical portion of the left vertebral artery immediately distal to the carotid bulb. Abdomen X-Ray 05/26/23 08:25 Impression: 1: Mildly dilated small bowel with moderate gas throughout the colon which may represent postoperative ileus or less likely partial obstruction. Abdomen/Pelvis CT 05/26/23 09:45 IMPRESSION: 1. Several fluid-filled but not frankly dilated loops of small bowel likely related to postoperative ileus given the postoperative change of recent infraumbilical ventral hernia repair. 2. Diffuse hepatic steatosis. 3. Diverticulosis. 4. Volume loss and lungs with scattered peripheral consolidation in all lobes of the/lower lungs with appearance favoring atelectasis over pneumonia. Chest X-Ray 05/27/23 05:49 Impression: Central congestive change and possible minimal pulmonary edema pattern. Discoid right basilar atelectasis. Labs Labs: Laboratory Results - last 24 hr 05/29/23 05/29/23 05/29/23 11:30 15:42 19:59 WBC RBC Hgb Hct MCV MCH MCHC RDW Plt Count MPV Immature Gran % (Auto) Neut % (Auto) Lymph % (Auto) [place] % (Auto) Eos % (Auto) Baso % (Auto) Lymph # (Auto) [place] # (Auto) Eos # (Auto) Baso # (Auto) Abs Immat Gran (auto) Absolute Neuts (auto) Absolute Nucleated RBC Nucleated RBC % Sodium Potassium Chloride Carbon Dioxide Anion Gap BUN Creatinine Estim Creat Clear Calc Estimated GFR Glucose POC Capillary Glucose 223 H 146 H 167 H Calcium Magnesium Total Bilirubin AST ALT Alkaline Phosphatase Total Protein Albumin 05/30/23 05/30/23 05:56 08:40 WBC 19.3 H RBC 3.36 L Hgb 11.2 L Hct 34.4 L MCV 102.4 H MCH 33.3 MCHC 32.6 RDW 12.3 Plt Count 335 MPV 10.4 Immature Gran % (Auto) 1.1 H Neut % (Auto) 72.7 Lymph % (Auto) 16.0 L [place] % (Auto) 6.3 Eos % (Auto) 3.4 Baso % (Auto) 0.5 Lymph # (Auto) 3.09 [place] # (Auto) 1.2 H Eos # (Auto) 0.7 H Baso # (Auto) 0.1 Abs Immat Gran (auto) 0.22 H Absolute Neuts (auto) 14.0 H Absolute Nucleated RBC 0.000 Nucleated RBC % 0.0 Sodium 134 L Potassium 3.5 Chloride 101 Carbon Dioxide 28 Anion Gap 5 BUN 23 H Creatinine 0.70 Estim Creat Clear Calc 66 Estimated GFR > 60 Glucose 135 H POC Capillary Glucose 150 H Calcium 8.6 Magnesium 2.1 Total Bilirubin 0.5 AST 38 H ALT 34 Alkaline Phosphatase 65 Total Protein 6.0 L Albumin 3.1 L Amg Follow[facility]up Billing [facility] Follow-up Hospital Follow-up: [id number] [facility] Mod
[2023-05-30] MEDS: MAGNESIUM 27 MG TABLET (500 MG MAG GLUCONATE) PO (10:29)
--- NOTE | 2023-05-30 11:44 | P.DS_ITS ---
DS: Admitting Diagnosis Discharge Date 05/30/2023 Admitting Diagnosis Incarcerated recurrent incisional hernia, type 2 diabetes DS: Discharge Diagnosis Discharge Diagnosis (1) Incarcerated incisional hernia: Code(s): K43.0 - Incisional hernia with obstruction, without gangrene Status: Acute (2) Acute respiratory failure with hypoxia and hypercapnia: Code(s): J96.01 - Acute respiratory failure with hypoxia; J96.02 - Acute respiratory failure with hypercapnia Status: Acute (3) Diabetes: Qualifiers: Diabetes mellitus complication status: with hyperglycemia Diabetes mellitus detention insulin use: without terminal clerk use Diabetes mellitus type: type 2 Qualified Code(s): E11.65 - Type 2 diabetes mellitus with hyperglycemia Code(s): E11.9 - Type 2 diabetes mellitus without complications Status: Acute DS: Summary Hospital Course Reason for hospitalization: Incarcerated recurrent incisional hernia Hospital Course: This is a 73-year-old woman who presented for open incarcerated recurrent incisional hernia repair on 05/20/2023. This was a complex surgery requiring bilateral component separation, extensive adhesiolysis, and removal of old mesh. Two drains were placed at the time surgery and she was admitted to the hospital postoperatively. She was started on clear liquids initially and then was gradually advanced as tolerated. Over the 1st couple days postoperatively, patient had very little energy to be up ambulating she was also not using her incentive spirometer. Physical therapy was ordered and hospitalist was consulted to help with medical management. Patient began having respiratory issues and was also having some mental status changes. Imaging showed atelectasis versus pneumonia and she was started on antibiotics to cover for potential pneumonia. She also a CT of her head followed by MRI of the brain to rule out any potential cerebrovascular accident. Neurology was also consulted. Her pulmonary function was not improving much therefore pulmonology was also consulted. She was requiring CPAP at times but a regimen of bronchodilators and mucolytics was also initiated. Her pulmonary function did gradually improve over the next several days. Her CPAP was able to be weaned off and she was then able to be weaned off of nasal cannula oxygen as well. Her activity gradually advanced as her breathing improved. She was moving her bowels and her abdominal exam was benign. She was having a large amount of serous output from her d rains, but this was likely secondary to 3rd spacing as well as significant chance of seroma formation due to the large size of the hernia sac. Her antibiotics were discontinued as the credentialing manager felt this was all related to postoperative respiratory failure and atelectasis. Her right-sided TAYE drain which was in the retrorectus space was removed on 05/29/2021. The left-sided drain that was within the subcutaneous space was left in place. She was discharged on 05/29/2021. Status at Discharge Functional status at discharge: uses cane/walker Overall status at discharge: patient is progressing back to baseline Time Spent with Patient Time attestation: Total time spent providing and/or coordinating discharge services: Time spent: Less than 30 minutes Exam Const: General: comfortable and no acute distress Orientation/consciousness: patient oriented x3 Cardio: Rate: regular rate Rhythm: regular rhythm Heart sounds: S1 normal heart sound present and S2 normal heart sound present GI: Inspection: incision (Intact with bhargavi) and other (TAYE serous) GI Palp: Yes Soft to palpation, No Tenderness to palpation present (GI) and No Guarding due to palpation present (GI) Auscultation: normal bowel sounds DS: Data Data Completed and Pending Completed studies during hospitalization: Pending at discharge 05/19/23 14:39 Surgical [PTH] Routine Labs on day of discharge: Labs from last 24 hours 05/30/23 05/30/23 05/29/23 08:40 05:56 19:59 WBC 19.3 H RBC 3.36 L Hgb 11.2 L Hct 34.4 L MCV 102.4 H MCH 33.3 MCHC 32.6 RDW 12.3 Plt Count 335 MPV 10.4 Immature Gran % (Auto) 1.1 H Neut % (Auto) 72.7 Lymph % (Auto) 16.0 L [place] % (Auto) 6.3 Eos % (Auto) 3.4 Baso % (Auto) 0.5 Lymph # (Auto) 3.09 [place] # (Auto) 1.2 H Eos # (Auto) 0.7 H Baso # (Auto) 0.1 Abs Immat Gran (auto) 0.22 H Absolute Neuts (auto) 14.0 H Absolute Nucleated RBC 0.000 Nucleated RBC % 0.0 Sodium 134 L Potassium 3.5 Chloride 101 Carbon Dioxide 28 Anion Gap 5 BUN 23 H Creatinine 0.70 Estim Creat Clear Calc 66 Estimated GFR > 60 Glucose 135 H POC Capillary Glucose 150 H 167 H Calcium 8.6 Magnesium 2.1 Total Bilirubin 0.5 AST 38 H ALT 34 Alkaline Phosphatase 65 Total Protein 6.0 L Albumin 3.1 L 05/29/23 05/29/23 15:42 11:30 WBC RBC Hgb Hct MCV MCH MCHC RDW Plt Count MPV Immature Gran % (Auto) Neut % (Auto) Lymph % (Auto) [place] % (Auto) Eos % (Auto) Baso % (Auto) Lymph # (Auto) [place] # (Auto) Eos # (Auto) Baso # (Auto) Abs Immat Gran (auto) Absolute Neuts (auto) Absolute Nucleated RBC Nucleated RBC % Sodium Potassium Chloride Carbon Dioxide Anion Gap BUN Creatinine Estim Creat Clear Calc Estimated GFR Glucose POC Capillary Glucose 146 H 223 H Calcium Magnesium Total Bilirubin AST ALT Alkaline Phosphatase Total Protein Albumin Discharge Plan Discharge Attending physician on discharge: Roberto Durham Consulting providers: Tereso Hamilton; Miriam Cruz; Jesusita Oliveros Discharging Clinician: Roberto Durham Patient Disposition: Home Health Service Activity: other - see discharge instructions Diet: diabetic Wound Care Instructions: other - see discharge instructions Discharge Instructions: Remove the Scopolamine patch that was placed behind your ear in 72 hours or less. Wash your hands after touching. Per Care Coordination. Patient to have [facility] for RN/PT/OT eval and treat . They will contact patient to schedule first visit. Postoperative instructions * No lifting greater than 10 lb for the next 4 weeks * Continue ambulating around the house and frequently throughout the day * Change bandage around incision and drain sites daily * Wear abdominal binder while up and active during the day, okay to take off at night * Sponge bathe around drain or may shower facing away from the shower head, no soaking underwater * Call office for worsening breathing problems, fevers, worsening abdominal pain, or problems with incisions. Patient Instructions: Antibiotic Form, Removal of a Central Line, PICC, or Midline Catheter (DC) Stand Alone Forms: General Discharge Information, General Discharge Instructions Follow-up/Referrals: Roberto Durham, DO [Physician] - 1 Week Discharge Medications: New hydrocodone-acetaminophen 10-325 mg tablet 1 tablet PO Q6H PRN (Reason: pain) Qty: 15 0RF albuterol sulfate 90 mcg/actuation HFA aerosol inhaler 2 puff inhalation QID PRN (Reason: shortness of breath or wheezing) Qty: 8.5 0RF Continued meloxicam 15 mg tablet 15 mg PO DAILY metformin 500 mg tablet extended release 24 hr 500 mg PO DAILY hydrocodone-acetaminophen 10-325 mg tablet 1 tablet PO Q8H PRN (Reason: Pain) pravastatin 20 mg tablet 20 mg PO QHS pantoprazole 40 mg tablet,delayed release (DR/EC) 40 mg PO QAM aptw-dpfww-EKW-wus-anfsngc-hju 100 mg-100 mcg- 100 mg-100 mg capsule 1 cap PO DAILY frtygbbk-ebs-ccgkqrh gluconate [Centrum] 9 mg iron/ 15 mL (15 mL) liquid 15 ml PO DAILY travoprost 0.004 % drops 1 drp EACH EYE HS alendronate 70 mg tablet 70 mg PO WEEKLY Osteo Bi-Flex Triple Strength 750 mg-644 mg- 30 mg-1 mg Tablet 1 tablet PO BID cyanocobalamin (vitamin B-12) 1,000 mcg Tablet 1,000 mcg PO DAILY ascorbic acid (vitamin C) 500 mg Tablet 500 mg PO DAILY cholecalciferol (vitamin D3) 25 mcg (1,000 unit) Tablet 25 mcg PO 2XW magnesium 500 mg Tablet 500 mg PO DAILY cranberry 400 mg Capsule 400 mg PO DAILY Rx Instructions: administer with a meal potassium 99 mg Tablet 99 mg PO DAILY Date of admission: 05/19/23 17:56 Primary Care Provider: Diomedes Ron Admitting Provider: Roberto Durham Attending physician on admission: Roberto Durham Condition: Improved
[2023-05-30 12:13] VITALS: PULSE 76; RESP 18
[2023-05-30 12:22] LABS: Glucose Point of Care 179 mg/dl (65-105)
[2023-05-30 12:25] VITALS: PULSE 79; RESP 18
== END 2023-05-30 14:50 | disposition home health service (06) | DRG 335 ==
LOC: ANH3MEDSUR 17:58 → ANHIMU 05-24 18:50 → ANH3MED 05-29 22:00
PROVIDERS: Internal Medicine; Internal Medicine Pulmonary Disease; Nurse Practitioner; Nurse Practitioner Acute Care; Nurse Practitioner Family; Student in an Organized Health Care Education/Training Program; Admitting Provider Surgery; PCP Internal Medicine; Visit Provider Surgery
PROC: 0WQF0ZZ Repair Abdominal Wall, Open Approach (ICD-10-PCS; principal; 2023-05-19 12:00)
DX: K43.0 Incisional hernia with obstruction, without gangrene (principal); J95.821 Acute postprocedural respiratory failure; G97.82 Other postprocedural complications and disorders of nervous system; G81.91 Hemiplegia, unspecified affecting right dominant side; J95.89 Other postprocedural complications and disorders of respiratory system, not elsewhere classified; J98.11 Atelectasis; K91.89 Other postprocedural complications and disorders of digestive system; K56.7 Ileus, unspecified; K66.0 Peritoneal adhesions (postprocedural) (postinfection); E11.65 Type 2 diabetes mellitus with hyperglycemia; E78.00 Pure hypercholesterolemia, unspecified; R00.0 Tachycardia, unspecified; G56.01 Carpal tunnel syndrome, right upper limb; M41.9 Scoliosis, unspecified; Z96.659 Presence of unspecified artificial knee joint
CPT/HCPCS: 36415; 36569; 36600; 70450; 70496; 70498; 70544; 70549; 70553; 71045; 71046; 71275; 74018; 74177; 80048; 80053; 80061; 81001; 82140; 82805; 82948; 83036; 83735; 83880; 84145; 84484; 85025; 85027; 85055; 85610; 85730; 87086; 87641; 88302; 93005; 93306; 94002; 94003; 94640; 94667; 94668; 94762; 96375; 97110; 97162; 97166; 97530; 97535; A9270; A9577; C1781; J0330; J0690; J0692; J1100; J1170; J1650; J1741; J1815; J1836; J1885; J1940; J2060; J2250; J2405; J2704; J2765; J2919; J3010; J3370; J3475; J3480; J7040; J7050; J7120; Q9967

== ENCOUNTER 2023-06-09 13:31 | Outpatient (CLI) | payer MEDICARE, SELFPAY ==
--- NOTE | ~2023-06-09 | US_ITS ---
EXAMINATION: US venous doppler [facility] DATE: 06/09/2023 14:11 INDICATION: Lower limb edema. TECHNIQUE: Grayscale ultrasound images without and with compression and Doppler ultrasound images of the bilateral lower extremity veins were obtained. COMPARISON: Ultrasound on 03/09/2019 FINDINGS: The visualized portions of right common femoral vein, profunda (deep) femoral vein, femoral vein, pop liteal vein, peroneal veins, posterior tibial veins, and greater saphenous vein outflow are patent. The visualized portions of left common femoral vein, profunda femoral vein, femoral vein, popliteal v ein, posterior tibial veins, and greater saphenous vein outflow are patent. There is thrombus in a le ft peroneal vein. IMPRESSION: 1. Deep vein thrombosis involving a left peroneal vein. I called this result to Brie Martin in the office of Dr. Ron. Reviewed, dictated and finalized at location A. IMPRESSION: 1. Deep vein thrombosis involving a left peroneal vein. I called this result t rosa isela Martin in the office of Dr. Ron.
[2023-06-09 13:56] LABS: Basophils Absolute Auto 0.08 K/mm3 (0.00-0.10); Basophils Percent Auto 0.8 % (0.0-1.0); Eosinophils Absolute Auto 0.64 K/mm3 (0.02-0.50); Eosinophils Percent Auto 6.3 % (1.0-6.0); Hematocrit 35.6 % (35.0-42.0); Hemoglobin 11.6 g/dL (11.7-13.8); Immature Granulocyte Absolute 0.02 K/mm3 (0.00-0.00); Immature Granulocyte Percent A 0.2 % (0.0-0.0); Lymphocytes Absolute Auto 2.52 K/mm3 (1.10-4.50); Lymphocytes Percent Auto 24.9 % (18.0-42.0); Mean Corpuscular HGB Conc 32.6 g/dL (32-36); Mean Corpuscular Hemoglobin 33.3 pg (27.0-31.0); Mean Corpuscular Volume 102.3 fL (78.0-102.0); Mean Platelet Volume 9.6 fl (9.2-11.8); Monocytes Absolute Auto 0.76 K/mm3 (0.10-0.90); Monocytes Percent Auto 7.5 % (2.0-11.0); Neutrophils Absolute Auto 6.12 K/mm3 (1.70-7.20); Neutrophils Percent Auto 60.3 % (50.0-70.0); Platelet Count Result 342 K/mm3 (150-420); Red Blood Count 3.48 M/mm3 (4.20-5.40); Red Cell Distribution Width 13.1 % (11.6-14.4); White Blood Count 10.1 K/mm3 (4.8-10.8)
[2023-06-09 14:21] LABS: Alanine Aminotransferase 29 U/L (14-59); Albumin Level 3.4 g/dL (3.4-5.0); Alkaline Phosphatase 75 U/L (46-116); Anion Gap 10 mmol/L (4-12); Aspartate Amino Transferase 21 U/L (15-37); Bilirubin,Total 0.3 mg/dL (0.00-1.00); Blood Urea Nitrogen 16 mg/dL (7-18); Calcium 9.1 mg/dL (8.5-10.1); Carbon Dioxide 29 mmol/L (21-32); Chloride 103 mmol/L (98-108); Estimated Glomerular Filt Rate > 60; Glucose 144 mg/dL (70-99); NT Pro B Type Natriuretic Pept 128 pg/mL (0-125); Osmolality Calculated 298 mOsm/kg (285-295); Potassium 4.1 mmol/L (3.5-5.1); Sodium 142 mmol/L (136-145); Total Protein 7.1 g/dL (6.4-8.2)
== END 2023-06-09 13:32 | disposition home or self-care (01) ==
LOC: CHSLAB 13:36
PROVIDERS: PCP Internal Medicine; Visit Provider Internal Medicine
DX: I82.452 Acute embolism and thrombosis of left peroneal vein (principal); M79.89 Other specified soft tissue disorders; I50.9 Heart failure, unspecified
CPT/HCPCS: 36415; 80053; 83880; 85025; 93970

== ENCOUNTER 2023-12-09 13:40 | Outpatient (CLI) | payer MEDICARE, SELFPAY ==
--- NOTE | ~2023-12-09 | US_ITS ---
LEFT LOWER EXTREMITY VENOUS ULTRASOUND Ordering provider: Diomedes Ron MD History: . DVT L Leg . Comparison: MRI FINDINGS: --COMMON FEMORAL: Patent and free of thrombus. Normal compressibility, phasic flow and augmentation. --PROXIMAL SUPERFICIAL FEMORAL: Patent and free of thrombus. Normal compressibility, phasic flow and augmentation. --DISTAL SUPERFICIAL FEMORAL: Patent and free of thrombus. Normal compressibility, phasic flow and au gmentation. --POPLITEAL: Patent and free of thrombus. Normal compressibility, phasic flow and augmentation. --POSTERIOR TIBIAL: Patent and free of thrombus. Normal compressibility, phasic flow and augmentation . IMPRESSION: Negative left lower extremity venous US. No deep vein thrombosis. Reviewed, dictated and finalized at location A.
--- NOTE | ~2023-12-09 | MM_ITS ---
EXAMINATION: MM screening elvin BI w kirt HISTORY: Screening mammogram TECHNIQUE: Craniocaudal and mediolateral oblique 3-D tomosynthesis images were obtained and synthetic 2-D images were generated. CAD analysis was submitted and interpreted. COMPARISON: 10/17/2022, 12/06/2020 BREAST PARENCHYMAL COMPOSITION:Not Dense. There are scattered areas of fibroglandular density. FINDINGS: No suspicious mass, calcification, or architectural distortion are identified in either briseida ast to suggest malignancy. There has been no suspicious interval change. IMPRESSION: No mammographic evidence of malignancy. Recommend routine screening mammography in one year. BI-RADS Category 1: Negative Reviewed, dictated and finalized at location .
== END 2023-12-09 13:41 | disposition home or self-care (01) ==
LOC: CHSIMG 13:42
PROVIDERS: PCP Internal Medicine; Visit Provider Internal Medicine
DX: I82.402 Acute embolism and thrombosis of unspecified deep veins of left lower extremity (principal); Z12.31 Encounter for screening mammogram for malignant neoplasm of breast
CPT/HCPCS: 77063; 77067; 93971

== ENCOUNTER 2024-03-09 10:54 | Outpatient (RCR) | payer MEDICARE, SELFPAY ==
--- NOTE | 2024-03-09 12:02 | PTOPEVAL1 ---
Assessment and note entered by Librado Levi Evaluation Information Assessment Status Evaluation ICD-10 Condition Codes (PT) Pain in low back M54.50,Radiculopathy, lumbar region M54.16,Dizziness and Giddiness R42,BPPV right ear H81.11 Onset 05/11/24 Subjective Information Pt. reports that in May she was hospitalized after hernia surgery. She states that she had a reaction after surgery and was incapacitated for 11-13 days after her surgery. She states that she was unable to communicate and states that she has become more emotional. She reports that her back pain is mild and notices more weakness. She reports that she can stand about long enough to do dishes before having to sit. She uses a cane in the community and has since her hospitalization. She states she has had a couple falls in the past year. She states that neither fall was her fault, one she missed the chair while attempting to sit. She states that she is nervous to get into her yard. She reports that she is also experiencing dizziness, which happens about 1x/week. She has been given Meclizine which has help. Pt. reports that when she has dizziness she feels the room is spinning. She reports that her goal is to be able to walk a further distance. Reported Pain Level Pain Score 0: Self Report Assessment PT Clinical Summary Pt. enters the clinic today with diagnoses of back pain and dizziness. Initiated treatment for BPPV on this date, as pt. dizziness limited her ability to participate in back exercises. She responds well to initiation of the Stephan maneuver to the right with reduced dizziness. Once dizziness is subsided Plan of Care Interventions Electrical Stimulation,Gait Training,Hot Pack/Cold Pack,Manual Therapy,Mechanical Traction,Neuro Re- education,Therapeutic Activities,Therapeutic Exercise Other Interventions canalith repositioning PT Services Indicated Yes Treatment Frequency and 2x/week x 10 visits Duration These treatments will address the objective and functional deficits as defined above. The patient will be advanced safely and appropriately in order for the patient to progress towards his/her prior level of function. Additional exercises will be introduced and as well as a comprehensive home exercise program upon discharge, if needed, ?to ensure carryover of functional gains achieved in the clinic. This treatment plan has been reviewed and agreement upon by the patient.
--- NOTE | 2024-03-09 12:03 | OPREHPOC ---
Outpatient Therapy Plan of Care This is a Multidisciplinary Plan of Care that may contain components documented by all disciplines (PT, OT, and ST.) PT Problem 1 PT Problem #1 Knowledge Deficit PT Goal 1 Goal / Goal Update pt. will be independent with the Stephan Maneuver Pt. will be independent with a HEP addressing core stability and trunk mobility. Target Visit 2 PT Problem 2 PT Problem #2 Impaired Vestibular System PT Goal 1 Goal / Goal Update Pt. will report no episode of dizziness in a 1 week period Target Visit 3 PT Problem 3 PT Problem #3 Impaired Gait PT Goal 1 Goal / Goal Update Pt. will improve Tinetti score to 24 or greater indicating low fall risk and improved gait mechanics. Target Visit 10 PT Problem 4 PT Problem #4 Impaired Functional Mobility PT Goal 1 Goal / Goal Update Pt. will present with less than 20% limitation on the Oswestry Pt. will be able to safely lift an object off the floor without upper extremity support Pt. will be able to stand for duration of 45 minutes without requesting rest due to pain. Target Visit 10
--- NOTE | 2024-04-20 14:57 | PTOPDC ---
Assessment and note entered by Yumiko Sewell DPT Evaluation Information Assessment Status Re-evaluation Diagnosis weakness ICD-10 Condition Codes (PT) Pain in low back M54.50,Radiculopathy, lumbar region M54.16,Dizziness and Giddiness R42,BPPV right ear H81.11 Onset 05/11/24 Subjective Information patient reports she has not had any dizziness lately. Reported Pain Level Pain Score 0: Self Report Assessment PT Clinical Summary Mrs. Long was seen for 10 visits of skilled PT with good progress towards goals. She has not had any dizziness since start of care. She has improved balance and met goal. She did not meet goal for standing tolerance but did demonstrate improvements. She is independent with HEP and is appropriate for DC at this time. Plan of Care PT Services Indicated No
== END 2024-04-20 15:32 | disposition home or self-care (01) ==
LOC: CHSPT 10:54
PROVIDERS: PCP Internal Medicine; Visit Provider Internal Medicine
DX: H81.11 Benign paroxysmal vertigo, right ear (principal); M54.50 Low back pain, unspecified; M54.16 Radiculopathy, lumbar region
CPT/HCPCS: 95992; 97014; 97110; 97112; 97150; 97161; 97530; G0283

== ENCOUNTER 2024-04-01 09:12 | Outpatient (CLI) | payer MEDICARE, SELFPAY ==
--- NOTE | ~2024-04-01 | MR_ITS ---
MRI of the lumbar spine Clinical History: Spondylolisthesis Technique: Axial T2-weighted images, and sagittal T1-weighted, T2-weighted, and T2 fat-sat images wer e acquired. COMPARISON: 10/17/2022 Findings: Stable levoscoliosis noted. No fracture or subluxation evident. No suspicious bone marrow s ignal abnormality. At L1-L2, there is moderate to advanced degenerative disc narrowing, with minimal disc bulge. There i s moderate to advanced facet arthropathy. No central canal stenosis. There is minimal right neural fo raminal narrowing. Left neural foramen preserved. At L2-L3, there is advanced degenerative disc narrowing. There is moderate to advanced facet arthropa thy. No candida central canal stenosis. Neural foramina are preserved. At L3-L4, there is advanced degenerative disc narrowing. There is diffuse disc bulge with severe face t arthropathy, resulting in moderate central canal stenosis/thecal sac compression. There is severe r ight neural foraminal narrowing. Left neural foramen preserved. At L4-L5, there is advanced degenerative disc narrowing. Disc bulge and mild facet arthropathy are pr esent. Minimal central canal stenosis present. There is moderate to advanced left neural foraminal na rrowing. Right neural foramen preserved. At L5-S1, there is diffuse disc bulge with severe facet arthropathy. There is minimal central canal s tenosis. There is moderate left neural foraminal narrowing, and minimal right neural foraminal narrow ing. Paravertebral soft tissues are unremarkable. Impression: Multilevel moderate to advanced degenerative spondylosis of the lumbar spine, as above. Levoscoliosis. Reviewed, dictated and finalized at location M. DIPPER Impression: Multilevel moderate to advanced degenerative spondylosis of the lumbar spine, a s above. Levoscoliosis.
--- OUTSIDE RECORDS SUMMARY | 2024-04-01 09:25 | XMS_ITS | Clinical Summary ---
Author Organization [facility] Address [address] [place] [address] Care Team Providers Care Merchandise Flow Team Leader Name Role Phone Diomedes Ron MD Primary Care Provider [phone] Source Comments [facility],non-owned Affiliates and Associated Physician Practices is amultiple site organization consisting of ambulatory clinics and hospital sitesin [place], [place], [place] and [place]. This disclosure is being madepursuant to the Care Everywhere program and may not contain all information available regarding this patient. Last updated 17.[facility] Applimation Allergies No known active allergies Medications * Be aware that medications may not be up to date on this document. Alwaysverify current medications with the patient. Medication Sig Dispensed Refills Start Date End Date Status ACCU-CHEK SMARTVIEW test strip USE TO TEST BLOOD SUGAR LEVELS EVERY DAY 5 02/27/2018 Active meloxicam (MOBIC) 15 MG tablet once daily 05/01/2018 Active metFORMIN ER 24hr (GLUCOPHAGE XR) 500 MG tablet Take 500 mg by mouth once daily 04/29/2018 Active pravastatin (PRAVACHOL) 20 MG tablet once daily 05/02/2018 Active TRAVATAN Z 0.004 % ophthalmic solution INSTILL 1 DROP INTO BOTH EYES AT BEDTIME DIRECTED 8 05/20/2018 Active Multiple Vitamins-Minerals (KP WOMENS 50+ DAILY FORMULA PO) Take by mouth once daily 03/27/2015 Active Misc Natural Products (OSTEO BI-FLEX ADV DOUBLE ST) TABS Take by mouth once daily 03/27/2015 Active cyanocobalamin (VITAMIN B-12) 1000 MCG tablet Take by mouth once daily 03/27/2015 Active Ascorbic Acid (VITAMIN C) 500 MG Take by mouth once daily 03/27/2015 Active Vitamin D3, cholecalciferol, 2000 units tablet Take by mouth once daily 03/27/2015 Active potassium gluconate 595 MG capsule Take by mouth once daily 03/27/2015 Active Cranberry-Vitamin C (AZO CRANBERRY URINARY TRACT) 250-60 MG Take by mouth once daily 03/27/2015 Active Red Yeast Rice 600 MG Take by mouth once daily 03/27/2015 Active Multiple Vitamin (HEALTHY HAIR/SKIN/NAILS) TABS Take by mouth once daily Active magnesium 500 MG tablet Take 500 mg by mouth once daily Active Cranberry-Cholecalcif michael (SUPER CRANBERRY/VITAMIN D3) 4200-500 MG-UNIT CAPS Act quyen mirabegron ER 24hr (MYRBETRIQ) 50 MG tablet Take 50 mg by mouth at bedtime Active cephalexin (KEFLEX) 250 MG capsule Take 250 mg by mouth at bedtime 4 10/13/2018 Active Active Problems Problem Noted Date Diagnosed Date Primary osteoarthritis of both knees 06/09/2018 Social History Tobacco Use Types Packs/Day Years Used Date Smoking Tobacco: Never Smokeless Tobacco: Never Alcohol Use Standard Drinks/Week Comments No 0 (1 standard drink = 0.6 oz pur e alcohol) Sex and Gender Information Value Date Recorded Sex Assigned at Not on file Gender Identity Not on file Sexual Orientation Not on file Last Filed Vital Signs Vital Sign Reading Time Taken Comments Blood Pressure 131/57 09/03/2018 7:32 AM CDT Pulse 96 09/03/2018 7:32 AM CDT Temperature 36.9 C (98.4 F) 09/03/2018 7:32 AM CDT Respiratory Rate 18 09/03/2018 7:32 AM CDT Oxygen Saturation 91% 09/03/2018 7:32 AM CDT Inhaled Oxygen Concentration - - Weight 83.9 kg (185 lb) 08/31/2018 9:17 AM CDT Height 162.6 cm (5' 4 ) 08/31/2018 9:17 AM CDT Body Mass Index 31.76 08/31/2018 9:17 AM CDT Plan of Treatment Health Maintenance Due Date Last Done Comments BONE DENSITY TESTING 1950 COLOGUARD (AGES 45-75) - COLON CA SCREENING 1950 COLON MONITORING 1950 COLONOSCOPY - COLON CA SCREENING 1950 CT COLONOGRAPHY - COLON CA SCREENING 1950 Colorectal Cancer Screening 1950 FIT - COLON CA SCREENING 1950 FLEX SIG - COLON CA SCREENING 1950 MAMMOGRAM 1950 MEDICARE AWV 12 MONTHS 1950 HEPATITIS C SCREENING 04/01/1968 DTAP/TDAP/TD VACCINES (1 - Tdap) 1969 PNEUMOCOCCAL VACCINE 50+ (1 of 1 - PCV) 2000 ZOSTER VACCINE (1 of 2) 2000 SCREENING FOR DIABETES 09/03/2021 9, 09/03/2018, 09/02/2018, Additional history exists COVID-19 VACCINE ( - season) 2023 INFLUENZA VACCINE (#1) 2023 DEPRESSION SCREENING 02/11/2024 MEDICARE AWV CALENDAR YEAR 2024 Respiratory Syncytial Virus (RSV) Vaccine Pt: or over 60 yrs (1 - 1-dose 75+ series) 2025 HEPATITIS B VACCINE Aged Out No longe r eligible based on patient's age to complete this topic HIB VACCINE Aged Out No longer eligi ble based on patient's age to complete this topic HPV VACCINE Aged Out No longer eligi ble based on patient's age to complete this topic MENINGOCOCCAL (Group B) VACCINE Aged Out No longer eligible based on patient's age to complete this topic MENINGOCOCCAL VACCINE Aged Out No galindo jenna eligible based on patient's age to complete this topic Medical Devices Implanted Type Area Technical Assoc Device Identifier Shelf Expiration Date Model / Serial / Lot Cmnt Bone Cblt 40gm Hvisc Strl Implanted:Qty: 1 on 08/31/2018 by Eulogio Lin MD at [facility] Right: Knee [employer] 08/06/2019 600-15-000 / / [id number] Cmpnt Fem Kn Rt Cr Cmnt Prm Vngrd Intlk Implanted:Qty: 1 on 08/31/2018 by Eulogio Lin MD at [facility] Right: Knee [employer] 07/30/2028 [id number] / / [id number] Cmpnt Ptlr 28mm 1 Pg Wire Ascnt Arcm Kn Implanted:Qty: 1 on 08/31/2018 by Eulogio Lin MD at [facility] Right: Knee [employer] 07/14/2023 [id number] / / [id number] Tray Tib 71mm Kn Cocr I Beam Implanted:Qty: 1 on 08/31/2018 by Eulogio Lin MD at [facility] Right: Knee [employer] 06/16/2028 [id number] / / [id number] Brng [id number] Vngrd Arcm Kn Ant Stab Implanted:Qty: 1 on 08/31/2018 by Eulogio Lin MD at [facility] Right: Knee [employer] 05/31/2023 [id number] / / [id number] Procedures Procedure Name Priority Date/Time Associated Diagnosis Comments GLUCOSE - POINT OF CARE Routine 09/03/2018 11:28 AM CDT from Last 3 Months or Most Recently Relevant to Health Maintenance Results * (ABNORMAL) GLUCOSE - POINT OF CARE (09/03/2018 11:28 AM CDT) Glucose WB/POC 208(H) 70 - 106 mg/dL 09/03/2018 11:38 AM CDT [facility] Specimen Type Arterial/C apillary 09/03/2018 11:38 AM CDT [facility] Blood BLOOD SPECIMEN / Unknown 09/03/2018 11:28 AM CDT 09/03/2018 11:38 AM CDT Eulogio Lin MD LAB - POINT OF CARE ORDERABLES [facility] [address] [place] [address] from Last 3 Months or Most Recently Relevant to Health Maintenance Advance Directives * Full Code (Latest Code Status on File) Date Activated Date Inactivated Comments 08/31/2018 2:20 PM 09/03/2018 2:26 PM Care Teams Merchandise Flow Team Leader Relationship Specialty Start Date End Date Diomedes Ron MD PCP - General Internal Medicine 06/09/18
--- OUTSIDE RECORDS SUMMARY | 2024-04-01 09:25 | XMS_ITS | Patient Health Summary ---
Author Organization [facility] Address [address] [place] [address] Care Team Providers Care Commercial Airplane Pilot Name Role Phone Diomedes Ron MD Primary Care Provider Note from [facility],non-owned Affiliates and Associated Physician Practices is amultiple site organization consisting of ambulatory clinics and hospital sitesin [place], [place], [place] and [place]. This disclosure is being madepursuant to the Care Everywhere program and may not contain all information available regarding this patient. Last updated 17.[facility] Allergies No known active allergies Medications * Be aware that medications may not be up to date on this document. Alwaysverify current medications with the patient. * ACCU-CHEK SMARTVIEW test strip(Started 02/27/2018) USE TO TEST BLOOD SUGAR LEVELS EVERY DAY 5 refills left * meloxicam (MOBIC) 15 MG tablet(Started 05/01/2018) once daily * metFORMIN ER 24hr (GLUCOPHAGE XR) 500 MG tablet(Started 04/29/2018) Take 500 mg by mouth once daily * pravastatin (PRAVACHOL) 20 MG tablet(Started 05/02/2018) once daily * TRAVATAN Z 0.004 % ophthalmic solution(Started 05/20/2018) INSTILL 1 DROP INTO BOTH EYES AT BEDTIME DIRECTED 8 refills left * Multiple Vitamins-Minerals (KP WOMENS 50+ DAILY FORMULA PO)(Started 03/27/2015) Take by mouth once daily * Misc Natural Products (OSTEO BI-FLEX ADV DOUBLE ST) TABS(Started 03/27/2015) Take by mouth once daily * cyanocobalamin (VITAMIN B-12) 1000 MCG tablet(Started 03/27/2015) Take by mouth once daily * Ascorbic Acid (VITAMIN C) 500 MG(Started 03/27/2015) Take by mouth once daily * Vitamin D3, cholecalciferol, 2000 units tablet(Started 03/27/2015) Take by mouth once daily * potassium gluconate 595 MG capsule(Started 03/27/2015) Take by mouth once daily * Cranberry-Vitamin C (AZO CRANBERRY URINARY TRACT) 250-60 MG(Started 03/27/2015) Take by mouth once daily * Red Yeast Rice 600 MG(Started 03/27/2015) Take by mouth once daily * Multiple Vitamin (HEALTHY HAIR/SKIN/NAILS) TABS Take by mouth once daily * magnesium 500 MG tablet Take 500 mg by mouth once daily * Cranberry-Cholecalciferol (SUPER CRANBERRY/VITAMIN D3) 4200-500 MG-UNIT CAPS * mirabegron ER 24hr (MYRBETRIQ) 50 MG tablet Take 50 mg by mouth at bedtime * cephalexin (KEFLEX) 250 MG capsule(Started 10/13/2018) Take 250 mg by mouth at bedtime 4 refills left Active Problems Problem Noted Date Diagnosed Date [...] Mass Index 31.76 08/31/2018 9:17 AM CDT Medical Devices Implanted Type Area Stem Lead Former Device Identifier Shelf Expiration Date Model / Serial / Lot Cmnt Bone Cblt 40gm Hvisc Strl Implanted:Qty: 1 on 08/31/2018 by Eulogio Lin MD at [facility] Right: Knee [employer] 08/06/2019 600-15-000 / / [id number] Cmpnt Fem Kn Rt Cr Cmnt Prm Vngrd Intlk Implanted:Qty: 1 on 08/31/2018 by Eulogio Lin MD at [facility] Right: Knee [employer] 07/30/2028 [id number] / / [id number] Cmpnt Ptlr 28mm 1 Pg Wire Ascnt Arcm Kn Implanted:Qty: 1 on 08/31/2018 by Eulogio Lin MD at [facility] Right: Knee [employer] 07/14/2023 [id number] / / [id number] Tray Tib 71mm Kn Cocr I Beam Implanted:Qty: 1 on 08/31/2018 by Eulogio Lin MD at [facility] Right: Knee [employer] 06/16/2028 [id number] / / [id number] Brng [id number] Vngrd Arcm Kn Ant Stab Implanted:Qty: 1 on 08/31/2018 by Eulogio Lin MD at [facility] Right: Knee [employer] 05/31/2023 [id number] / / [id number] Procedures * DERMATOPATHOLOGY(Performed 04/09/2019) * XR KNEE RIGHT 3VW(Performed 10/20/2018) Performed for Chronic pain of right knee * GLUCOSE - POINT OF CARE(Performed 09/03/2018) * GLUCOSE - POINT OF CARE(Performed 09/03/2018) * GLUCOSE - POINT OF CARE(Performed 09/02/2018) * GLUCOSE - POINT OF CARE(Performed 09/02/2018) * GLUCOSE - POINT OF CARE(Performed 09/02/2018) * GLUCOSE - POINT OF CARE(Performed 09/02/2018) * HGB HCT PANEL(Performed 09/02/2018) * GLUCOSE - POINT OF CARE(Performed 09/01/2018) * GLUCOSE - POINT OF CARE(Performed 09/01/2018) * GLUCOSE - POINT OF CARE(Performed 09/01/2018) * GLUCOSE - POINT OF CARE(Performed 09/01/2018) * HGB HCT PANEL(Performed 09/01/2018) * GLUCOSE - POINT OF CARE(Performed 08/31/2018) * GLUCOSE - POINT OF CARE(Performed 08/31/2018) * GLUCOSE - POINT OF CARE(Performed 08/31/2018) * NEURAXIAL BLOCK(Performed 08/31/2018) * ARTHROPLASTY TOTAL KNEE(Performed 08/31/2018) * GLUCOSE - POINT OF CARE(Performed 08/31/2018) * EKG 12-LEAD(Performed 08/05/2018) Performed for Preop examination * HEMOGLOBIN A1C(Performed 08/05/2018) Performed for Preop examination * CBC W AUTO DIFFERENTIAL(Performed 08/05/2018) Performed for Preop examination * CULTURE MSSA/MRSA(Performed 08/05/2018) Performed for Preop examination * DERMATOPATHOLOGY(Performed 10/22/2016) Results * DERMATOPATHOLOGY (04/09/2019 12:00 AM TABLET MAKING MACHINE OPERATOR) Only the most recent of2 resultswithin the time period is included. Case Report Dermatopathology Report Case: [id number] Authorizing Provider: Marley Helms MD Collected: 04/09/2019 12:00 AM Ordering Location: [facility] DermPath Lab Received: 04/12/2019 09:54 AM Pathologist: Garland Clark MD Specimen: Skin, left eyelid margin 0 11:35 AM TABLET MAKING MACHINE OPERATOR DERMATOPATHOLOGY LABORATORY Final Diagnosis Specimen A. SKIN, left eyelid margin: MILIUM (L72.8) (see microscopic description) 0 11:35 AM TABLET MAKING MACHINE OPERATOR DERMATOPATHOLOGY LABORATORY Clinical History Cyst vs BCC 0 11:35 AM TABLET MAKING MACHINE OPERATOR DERMATOPATHOLOGY LABORATORY Gross Description Specimen A: Received is one formalin filled container labeled with the patient's name and designated left eyelid margin. The specimen consists of a shave biopsy measuring 2x1x1,2x1x1, and 1x1x1 mm. Jar 0. 0 11:35 AM [facility] DERMATOPATHOLOGY [facility]ORATORY Microscopic Description Specimen A. SKIN, left eyelid margin: There is a space that contains loosely aggregated cornified cells surrounded by epithelium that resembles normal epidermis. There is no evidence of epithelial dysplasia or malignancy in multiple deeper sections examined. 0 11:35 AM [facility] DERMATOPATHOLOGY LABORATORY Disclaimer An external and internal positive and negative controls are appropriate for the histochemical, immunohistochemical and immunofluorescence stain(s) in this case (if any), except where stated explicitly. The performance characteristics of the stain(s) cited in this report were developed and its performance characteristic determined by the Dermatopathology Laboratory at [facility], directed by Dr. Emerita Clark. These tests need not be, and therefore are not, approved by the [place] Food and Drug Administration. The tests are used for clinical purposes. Billing Codes Specimen Charges Stain Charges 79202 1 0 11:35 AM [facility] DERMATOPATHOLOGY LABORATORY Embedded Images 0 11:35 AM [facility] DERMATOPATHOLOGY [facility]ORY Pathology/Cytolog y TISSUE SPECIMEN FROM SKIN / Unknown 04/09/2019 04/12/2019 9:54 AM TABLET MAKING MACHINE OPERATOR Marley Helms MD LAB - PATHOLOGY/CYTO LOGY ORDERABLES DERMATOPATHOLOGY LABORATORY [facility] - Department of Dermatology [address] [place] [address], [address] Floor Lab [address] [phone] * XR KNEE RIGHT 3VW (10/20/2018 11:26 AM CDT) Anatomical Region Laterality Modality Lower Extremity Computed Radiogr aphy Narrative 10/20/2018 11:28 AM CDT Jesenia Short, RT(R) 10/21/2018 5:13 PM See progress notes for results Eulogio Lin MD DIAGNOSTIC IMAGING O RDERABLES * (ABNORMAL) GLUCOSE - POINT OF CARE (09/03/2018 11:28 AM CDT) Only the most recent of14 resultswithin the time period is included. Glucose WB/POC 208(H) 70 - 106 mg/dL 09/03/2018 11:38 AM CDT [facility] Specimen Type Arterial/C apillary 09/03/2018 11:38 AM CDT [facility] Blood BLOOD SPECIMEN / Unknown 09/03/2018 11:28 AM CDT 09/03/2018 11:38 AM CDT Eulogio Lin MD LAB - POINT OF CARE ORDERABLES Performing Organization Address [facility] de Phone Number [facility] [id number] [place] [address] * (ABNORMAL) HGB HCT PANEL (09/02/2018 3:36 AM CDT) Only the most recent of2 resultswithin the time period is included. [facility] Hemoglobin 11.4(L) 12.0 - 15.6 gm/dL 09/02/2018 4:07 AM CDT [facility] Hematocrit 33.9(L) 35.9 - 45.5 % 09/02/2018 4:07 AM CDT [facility] Blood BLOOD SPECIMEN / Unknown Venipuncture / Unknown 09/02/2018 3:36 AM CDT 09/02/2018 3:53 AM CDT Eulogio Lin MD LAB - HEMATOLOGY ORD ERABLES Performing Organization Address [facility] de Phone Number [facility] [id number] [place] [id number] * EKG 12-LEAD (08/05/2018 8:57 AM CDT) [facility] Ventricular Rate 86 BPM [facility] Atrial Rate 86 BPM [facility] P-R Interval 142 ms [facility] QRS Duration ms 126 ms [facility] Q-T Interval ms 402 ms [facility] QTC Calculation (Bezet) 481 ms [facility] Calculated P [place] 28 degrees [facility] Calculated R [place] -27 degrees [facility] Calculated T [place] 0 degrees [facility] Interpretation EKG Normal sinus rhythm Right bundle branch block Abnormal ECG No previous ECGs available Confirmed by ÁNGEL HOYT MD ([id number]) on 08/07/2018 12:44:13 PM [facility] 08/05/2018 8:57 AM CDT 08/07/2018 12:44 PM CDT Sarah Stover DO ECG ORDERABLES Performing Organization Address [facility] Co de Phone Number [facility] * CULTURE MSSA/MRSA (08/05/2018 8:34 AM CDT) Culture Negative for Staphylococcus aureus (MRSA/MSSA) SANTOS 08/06/2018 2:55 PM CDT [facility] Microbiology SPECIMEN FROM NASAL FOSSAE / Unknown Collection / Unknown 08/05/2018 8:34 AM CDT 08/05/2018 8:44 AM CDT Marline Linares APRN-BARK SCALER LAB - MICR OBIOLOGY ORDERABLES Performing Organization Address [facility] de Phone Number [facility] [address] [place] [phone] * HEMOGLOBIN A1C (08/05/2018 8:34 AM CDT) Hemoglobin A1c 5.9 4.0 - 6.1 % 08/05/2018 9:00 AM CDT [facility] Estimated Average Glucose 123 mg/dL 08/05/2018 9:00 AM CDT [facility] Blood BLOOD SPECIMEN / Unknown Venipuncture / Unknown 08/05/2018 8:34 AM CDT 08/05/2018 8:44 AM CDT Narrative [facility] - 08/05/2018 9:00 AM CDT Attention clinician: Reference Range has changed. Marline Linares TILT WALL SUPERVISOR-BARK SCALER LAB - CHEM ISTRY ORDERABLES Performing Organization Address [facility] Co de Phone Number [facility] [address] [place] [address] * (ABNORMAL) CBC W AUTO DIFFERENTIAL (08/05/2018 8:34 AM CDT) WBC 15.1(H) 4.4 - 10.7 x10E9/L 08/05/2018 8:48 AM CDT [facility] WBC Corrected x10E9/L 08/05/2018 8:48 AM CDT [facility] RBC 4.15 3.80 - 5.20 x10E12/L 08/05/2018 8:48 AM CDT [facility] Hemoglobin 13.9 12.0 - 15.6 gm/dL 08/05/2018 8:48 AM CDT [facility] Hematocrit 41.4 35.9 - 45.5 % 08/05/2018 8:48 AM CDT [facility] MCV 99.8(H) 80.7 - 98.3 fl 08/05/2018 8:48 AM CDT [facility] MCH 33.5 26.7 - 34.0 pg 08/05/2018 8:48 AM CDT [facility] MCHC 33.6 30.8 - 35.9 gm/dL 08/05/2018 8:48 AM CDT [facility] Platelet Count 278 153 - 416 x10E9/L 08/05/2018 8:48 AM CDT [facility] RDW-CV 12.2 12.1 - 14.9 % 08/05/2018 8:48 AM CDT [facility] MPV 9.8 9.4 - 12.9 fl 08/05/2018 8:48 AM CDT [facility] Neutrophils % 84.3(H) 44.0 - 73.0 % 08/05/2018 8:48 AM CDT [facility] Lymphocytes % 10.2(L) 20.0 - 43.0 % 08/05/2018 8:48 AM CDT [facility] Monocytes % 4.1(L) 5.0 - 13.0 % 08/05/2018 8:48 AM CDT [facility] Eosinophils % 0.6 0.0 - 6.0 % 08/05/2018 8:48 AM CDT [facility] Basophils % 0.5 0.0 - 2.0 % 08/05/2018 8:48 AM CDT [facility] Immature Granulocytes 0.3 0 - 1 % 08/05/2018 8:48 AM CDT [facility] Neutrophil Absolute 12.70(H) 2.01 - 7.14 x10E9/L 08/05/2018 8:48 AM CDT [facility] Lymphocytes Absolute 1.53 1.07 - 3.94 x10E9/L 08/05/2018 8:48 AM CDT [facility] Monocytes Absolute 0.62 0.26 - 1.07 x10E9/L 08/05/2018 8:48 AM CDT [facility] Eosinophils Absolute 0.09 0 - 0.47 x10E9/L 08/05/2018 8:48 AM CDT [facility] Basophils Absolute 0.07 0 - 0.08 x10E9/L 08/05/2018 8:48 AM CDT [facility] Immature Granulocytes Absolute 0.05 0.00 - 0.06 x10E9/L 08/05/2018 8:48 AM CDT [facility] nRBC Auto 0 /100 WBC 08/05/2018 8:48 AM CDT [facility] Blood BLOOD SPECIMEN / Unknown Venipuncture / Unknown 08/05/2018 8:34 AM CDT 08/05/2018 8:44 AM CDT Marline Linares TILT WALL SUPERVISOR-BARK SCALER LAB - ACE TOLOGY ORDERABLES [facility] [address] [place] [address] Care Teams Commercial Airplane Pilot Relationship Specialty Start Date End Date Diomedes Ron MD PCP - General Internal Medicine 06/09/18
--- OUTSIDE RECORDS SUMMARY | 2024-04-01 09:25 | XMS_ITS | Clinical Summary ---
Author Organization [facility] Address [facility] [place] [address] Care Team Providers Care Door Paneler Name Role Phone Diomedes Ron MD Primary Care Provider [phone] Allergies No known active allergies Medications hydrocodone-aceta minophen 10-325 MG tabletIndications :Pain Take 0.5 tablets by mouth every 6 (six) hours as needed for Pain. 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 Active Cyanocobalamin 1000 MCG CapIndications:Vi tamin B12 Malabsorption Take 1 tablet by mouth daily. Active Multiple Vitamin (HEALTHY HAIR/SKIN/NAILS) TabIndications:Ot her vitamin deficiencies Take 1 tablet by mouth daily. Active Multiple Vitamins-Minerals (KP WOMENS 50+ DAILY FORMULA) TabIndications:Ot her vitamin deficiencies Take 1 tablet by mouth daily. Active Magnesium 500 MG TabIndications:Ma gnesium Deficiency Take 1 tablet by mouth daily. Active meloxicam 15 MG tabletIndications :Arthritis Take 1 tablet (15 mg total) by mouth daily. Indications: Arthritis Active metFORMIN ER, MOD, 500 MG TABLET SR 24 HR 24 hr tabletIndications :Diabetes Mellitus Take 1 tablet (500 mg total) by mouth daily with breakfast. Indications: Diabetes Active Misc Natural Products (OSTEO BI-FLEX ADV DOUBLE ST OR)Indications:Os teoarthritis Take 1 tablet by mouth daily. 07/26/201 9 Active Potassium Gluconate 595 (99 K) MG TabIndications:Po tass Supplement or Potass-Sparing Diuretic Tx (Inactive) Take 1 tablet by mouth daily. 9 Active pravastatin 20 MG tabletIndications :Hypercholesterol emia Take 1 tablet (20 mg total) by mouth daily. Indications: High Amount of Cholesterol in the Blood 9 Active Red Yeast Rice 600 MG TabIndications:Hy percholesterolemi a Take 1 tablet by mouth daily. 9 Active Cranberry-Choleca lciferol 4200-500 MG-UNIT CapIndications:UT I, recurrent/complic ated (Female) Take 1 tablet by mouth daily. 9 Active travoprost, TRAVATAN Z, (TRAVATAN Z) 0.004 % opthalamic solutionIndicatio ns:Glaucoma Place 1 drop into both eyes daily. Indications: Glaucoma 9 Active vitamin C 500 MG tabletIndications :Vitamin C Imbalance Take 1 tablet (500 mg total) by mouth daily. Indications: Excess or Deficiency of Vitamin C 9 Active Cholecalciferol (VITAMIN D3) 2000 units CapIndications:Vi tamin D deficiency Take 1 tablet by mouth daily. 9 Active pantoprazole EC (PROTONIX) 40 MG tablet Take 1 tablet (40 mg total) by mouth daily. 3 Active Active Problems No known active problems Immunizations Name Administration Dates Next Due Influenza Adult (Generic) 11/16/2020,04/2019,11/30/2018,2017,12/11/2016 MODERNA COVID-19 (12+) MRNA, LNP-S, PF, 100 MCG/ 0.5 ML DOSE 05/26/2020,04/28/2020 MODERNA COVID-19 (STOCKROOM SELECTOR TRISTAN TERRELL), MRNA, LNP-S, PF, 50 MCG/ 0.25 ML DOSE 03/07/2021 Pneumococcal (Pneumovax 23) 04/01/2018, 3 Pneumococcal (Prevnar 13) 12/11/2016 Shingrix 05/30/2022 Tdap (Boostrix) 04/01/2018 Tdap (Generic) 05/30/2022 Zoster (Zostavax) 07905 Unt/0.65Ml 03/09/2012 Social History Tobacco Use Types Packs/Day Years Used Date Smoking Tobacco: Never Passive Smoke Exposure: Never Smokeless Tobacco: Never Alcohol Use Standard Drinks/Week Comments Yes 0 (1 standard drink = 0.6 oz pur e alcohol) Yearly PHQ-2 Answer Date Recorded Patient Health Questionnaire-2 Score 0 08/05/2022 Comments No Sex and Gender Information Value Date Recorded Sex Assigned at Not on file Legal Sex Female 7:53 PM CDT Gender Identity Not on file Sexual Orientation Not on file Last Filed Vital Signs Vital Sign Reading Time Taken Comments Blood Pressure 135/87 08/05/2022 10:39 AM CDT Pulse 85 08/05/2022 10:39 AM CDT Temperature 36.4 C (97.5 F) 08/05/2022 10:39 AM CDT Respiratory Rate 20 08/05/2022 10:39 AM CDT Oxygen Saturation 97% 08/05/2022 10:39 AM CDT Inhaled Oxygen Concentration - - Weight 84.8 kg (187 lb) 08/05/2022 10:39 AM CDT Height 162.6 cm (5' 4 ) 08/05/2022 10:39 AM CDT Body Mass Index 32.1 08/05/2022 10:39 AM CDT Plan of Treatment Health Maintenance Due Date Last Done Comments Colorectal Cancer Screening Colonoscopy (10 Years) 1950 Hepatitis C 1968 Mammogram Screening 1990 Annual Medicare Wellness Visit 2015 Dexa Scan (General) 2015 Zoster Vaccines (3 of 3) 07/25/2022 05/30/2022, 02/11 PHQ-2 (Physician Viejas) 08/06/2023 08/05/2022 COVID-19 Vaccine ( season) 2023 07/22/2022, 03/07/2021, 05/26/2020, Additional history exists Influenza Adult (#1) 2023 11/16/2020, 12/14/2019, 11/30/2018, Additional history exists PHQ-2 (Physician [place]iejas) 02/11/2024 08/05/2022 RSV Immunization or 60+ Years (1 - 1-dose 75+ series) 2025 DTaP, Tdap and Td Vaccines (3 - Td or Tdap) 05/30/2032 05/30/2022, 04/01/2018 Pneumococcal Vaccine: 65+ Years Completed 04/01/2018, 12/11/2016, 03/09/2012 Meningococcal B Vaccine Aged Out No l onger eligible based on patient's age to complete this topic Meningococcal Vaccine Aged Out No galindo jenna eligible based on patient's age to complete this topic RSV Immunizations Under 20 Months Aged Out No longer eligible based on patient's age to complete this topic Insurance [facility] Care Teams Door Paneler Relationship Specialty Start Date End Date Diomedes Ron MD [address] [place] [address] PCP - General INTERNAL MEDICINE 09/03/18
--- OUTSIDE RECORDS SUMMARY | 2024-04-01 09:25 | XMS_ITS | Encounter Summary ---
Author Organization [facility] Address [address] [place] [address] Care Team Providers Care Instrument Technologist Name Role Phone Diomedes Ron MD Primary Care Provider [phone] Encounter Details Date Type Department Care Team (Late st Contact Info) Description 04/12/2019 Lab Requisition [facility] [address] [place] [address] Marley Helms MD [address] [facility] [address] [place] [address] Social History Tobacco Use Types Packs/Day Years Used Date Smoking Tobacco: Never Smokeless Tobacco: Never Alcohol Use Standard Drinks/Week Comments No 0 (1 standard drink = 0.6 oz pur e alcohol) Sex and Gender Information Value Date Recorded Sex Assigned at Not on file Gender Identity Not on file Sexual Orientation Not on file documented as of this encounter Functional Status Functional Status Response Date of Assess ment Is person deaf or have serious hearing difficult y? No 09/03/2018 Is person blind or have serious difficulty seein g? No 09/03/2018 Does person have serious dif ficulty walking/climbing stairs? No 09/03/2018 Does person have difficulty dressing/bathing? No 09/03/2018 Does person have difficulty doing errands alone? No 09/03/2018 Cognitive Status Response Date of Assessm ent Does person have difficulty concentrating/remembering/making decisions? No 09/03/2018 documented as of this encounter Plan of Treatment Not on file documented as of this encounter Procedures Procedure Name Priority Date/Time Associated Diagnosis Comments DERMATOPATHOLOGY Routine 04/09/2019 12:0 0 AM MEDICAL IMAGING TECHNICIAN documented in this encounter Results * DERMATOPATHOLOGY (04/09/2019 12:00 AM MEDICAL IMAGING TECHNICIAN) Case Report Dermatopathology Report Case: [id number] Authorizing Provider: Marley Helms MD Collected: 04/09/2019 12:00 AM Ordering Location: [facility] Received: 04/12/2019 09:54 AM Pathologist: Garland Clark MD Specimen: Skin, left eyelid margin 0 11:35 AM MEDICAL IMAGING TECHNICIAN DERMATOPATHOLOGY LABORATORY Final Diagnosis Specimen A. SKIN, left eyelid margin: MILIUM (L72.8) (see microscopic description) 0 11:35 AM [facility] DERMATOPATHOLOGY LABORATORY Clinical History Cyst vs BCC 0 11:35 AM MEDICAL IMAGING TECHNICIAN DERMATOPATHOLOGY LABORATORY Gross Description Specimen A: Received is one formalin filled container labeled with the patient's name and designated left eyelid margin. The specimen consists of a shave biopsy measuring 2x1x1,2x1x1, and 1x1x1 mm. Jar 0. 0 11:35 AM [facility] DERMATOPATHOLOGY LABORATORY Microscopic Description Specimen A. SKIN, left eyelid margin: There is a space that contains loosely aggregated cornified cells surrounded by epithelium that resembles normal epidermis. There is no evidence of epithelial dysplasia or malignancy in multiple deeper sections examined. 0 11:35 AM MEDICAL IMAGING TECHNICIAN DERMATOPATHOLOGY LABORATORY Disclaimer An external and internal positive and negative controls are appropriate for the histochemical, immunohistochemical and immunofluorescence stain(s) in this case (if any), except where stated explicitly. The performance characteristics of the stain(s) cited in this report were developed and its performance characteristic determined by the Dermatopathology Laboratory at [facility], directed by Dr. Emerita Clark. These tests need not be, and therefore are not, approved by the [place] Food and Drug Administration. The tests are used for clinical purposes. Billing Codes Specimen Charges Stain Charges 03113 1 0 11:35 AM MEDICAL IMAGING TECHNICIAN DERMATOPATHOLOGY LABORATORY Embedded Images 0 11:35 AM MEDICAL IMAGING TECHNICIAN DERMATOPATHOLOGY LABORATORY Pathology/Cytolog y TISSUE SPECIMEN FROM SKIN / Unknown 04/09/2019 04/12/2019 9:54 AM MEDICAL IMAGING TECHNICIAN Marley Helms MD LAB - PATHOLOGY/CYTO LOGY ORDERABLES DERMATOPATHOLOGY LABORATORY [facility] - Department of Dermatology [address] [place] [address], 5th Floor Lab [address] [phone] documented in this encounter Visit Diagnoses Not on filedocumented in this encounter Care Teams Instrument Technologist Relationship Specialty Start Date End Date Diomedes Ron MD PCP - General Internal Medicine 06/09/18 documented as of this encounter
--- OUTSIDE RECORDS SUMMARY | 2024-04-01 09:25 | XMS_ITS | Referral Summary ---
Author Organization [facility] Address [address] [facility] [place] [address] Care Team Providers Care Stencil Cutter Machine Name Role Phone Diomedes Ron MD Primary Care Provider Source Comments [facility],non-owned Affiliates and Associated Physician Practices is amultiple site organization consisting of ambulatory clinics and hospital sitesin [place], [place], [place] and [place]. This disclosure is being madepursuant to the Care Everywhere program and may not contain all information available regarding this patient. Last updated 17.[facility] [employer] Allergies No known active allergies Medications * [...] Mass Index 31.76 08/31/2018 9:17 AM CDT Functional Status Functional Status Response Date of [...] person have difficulty concentrating/remembering/making decisions? No 09/03/2018 Plan of Treatment Not on file Medical Devices Implanted Type Area Slag Motor Operator Device Identifier Shelf Expiration Date Model / Serial / Lot Cmnt Bone Cblt 40gm Hvisc Strl Implanted:Qty: 1 on 08/31/2018 by Eulogio Lin MD at [facility] Right: Knee [employer] 08/06/2019 600-15-000 / / [id number] Cmpnt Fem Kn Rt Cr Cmnt Prm Vngrd Intlk Implanted:Qty: 1 on 08/31/2018 by Eulogio Lin MD at [facility] Right: Knee [employer] 07/30/2028 [id number] / / [id number] Cmpnt Ptlr 28mm 1 Pg Wire Ascnt Arcm Kn Implanted:Qty: 1 on 08/31/2018 by Eulogio Lin MD at [facility] Right: Knee [employer] 07/14/2023 [id number] / / [id number] Tray Tib 71mm Kn Cocr I Beam Implanted:Qty: 1 on 08/31/2018 by Eulogio Lin MD at [facility] Right: Knee [employer] 06/16/2028 [id number] / / [id number] Brng [id number] Vngrd Arcm Kn Ant Stab Implanted:Qty: 1 on 08/31/2018 by Eulogio Lin MD at [facility] Right: Knee [employer] 05/31/2023 [id number] / / [id number] Procedures Procedure Name Priority Date/Time Associated Diagnosis Comments GLUCOSE - POINT OF CARE Routine 09/03/2018 11:28 AM CDT from Last 3 Months or Most Recently Relevant to Health Maintenance Results * (ABNORMAL) GLUCOSE - POINT OF CARE (09/03/2018 11:28 AM CDT) [facility] Glucose WB/POC 208(H) 70 - 106 mg/dL 09/03/2018 11:38 AM CDT [facility] Specimen Type Arterial/C apillary 09/03/2018 11:38 AM CDT [facility] Blood BLOOD SPECIMEN / Unknown 09/03/2018 11:28 AM CDT 09/03/2018 11:38 AM CDT Eulogio Lin MD LAB - POINT OF CARE ORDERABLES Performing Organization Address City/State/[facility] Co de Phone Number [facility]IATRIC LABORATORY [address] [place] [address] from Last 3 Months or Most Recently Relevant to Health Maintenance Advance Directives * Full Code (Latest Code Status on File) Date Activated Date Inactivated Comments 08/31/2018 2:20 PM 09/03/2018 2:26 PM Care Teams Stencil Cutter Machine Relationship Specialty Start Date End Date Diomedes Ron MD PCP - General Internal Medicine 06/09/18
== END 2024-04-01 09:13 | disposition home or self-care (01) ==
PROVIDERS: PCP Internal Medicine; Visit Provider Nurse Practitioner Adult Health
DX: M43.16 Spondylolisthesis, lumbar region (principal); M41.56 Other secondary scoliosis, lumbar region
CPT/HCPCS: 72148

== ENCOUNTER 2024-06-10 10:41 | Outpatient (CLI) | payer MEDICARE, SELFPAY ==
--- NOTE | ~2024-06-10 | XR_ITS ---
Left Knee Technique: AP and lateral views were obtained. Clinical History: Pain Findings: No fracture or dislocation is seen. Osseous alignment is anatomic. Moderate to advanced med ial compartment degenerative change present. There is moderate degenerative change of the lateral and patellofemoral compartments. Soft tissues are unremarkable. No joint effusion is seen. Impression: Moderate to advanced tricompartmental degenerative change, as detailed above. Reviewed, dictated and finalized at location M. Impression: Moderate to advanced tricompartmental degenerative change, as detailed above.
--- OUTSIDE RECORDS SUMMARY | 2024-06-10 11:41 | XMS_ITS | Clinical Summary ---
Author Organization [facility] Address [facility] [place] [address] Care Team Providers Care Internet Marketing Manager Name Role Phone Diomedes Ron MD Primary Care Provider [phone] Allergies No known active allergies Medications hydrocodone-aceta [...] Active Problems No known active problems Immunizations Immunization Administration Dates Next Due Influenza Adult (Generic) 11/16/2020,04/2019,11/30/2018,2017,12/11/2016 MODERNA COVID-19 (12+) MRNA, LNP-S, PF, 100 MCG/ 0.5 ML DOSE 05/26/2020,04/28/2020 MODERNA COVID-19 (SIGNAL MAINTENANCE TECHNICIAN TRISTAN TERRELL), MRNA, LNP-S, PF, 50 MCG/ 0.25 ML DOSE 03/07/2021 Pneumococcal (Pneumovax 23) 04/01/2018, 3 Pneumococcal (Prevnar 13) 12/11/2016 Shingrix 05/30/2022 Tdap (Boostrix) 04/01/2018 Tdap (Generic) 05/30/2022 Zoster (Zostavax) 11748 Unt/0.65Ml 03/09/2012 Social History Tobacco Use Types [...] Vaccines (3 of 3) 07/25/2022 05/30/2022, 02/11 COVID-19 Vaccine ( season) 2023 07/22/2022, 03/07/2021, 05/26/2020, Additional history exists PHQ-2 (Physician Merlin) 02/11/2024 08/05/2022 RSV Immunization or 60+ Years (1 - 1-dose 75+ series) 2025 DTaP, Tdap and Td Vaccines (3 - Td or Tdap) 05/30/2032 05/30/2022, 04/01/2018 Pneumococcal Vaccine: 50+ Years Completed 04/01/2018, 12/11/2016, 03/09/2012 Meningococcal B Vaccine Aged Out No l onger eligible based on patient's age to complete this topic Meningococcal Vaccine Aged Out No galindo jenna eligible based on patient's age to complete this topic RSV Immunizations Under 20 Months Aged Out No longer eligible based on patient's age to complete this topic Insurance [facility] Care Teams Internet Marketing Manager Relationship Specialty Start Date End Date Diomedes Ron MD [address] [place] [address] PCP - General INTERNAL MEDICINE 09/03/18
--- OUTSIDE RECORDS SUMMARY | 2024-06-10 11:41 | XMS_ITS | Clinical Summary ---
Author Organization [facility] Address [address] [facility] [place] [address] Care Team Providers Care Brush And Broom Clipper Name Role Phone Diomedes Ron MD Primary Care Provider Source Comments [facility],non-owned Affiliates and Associated Physician Practices is amultiple site organization consisting of ambulatory clinics and hospital sitesin [place], [place], [place] and [place]. This disclosure is being madepursuant to the Care Everywhere program and may not contain all information available regarding this patient. Last updated 17.[facility] [employer] Allergies No known active allergies Medications * Be aware that medications may not be up to date on this document. Alwaysverify current medications with the patient. ACCU-CHEK SMARTVIEW test strip USE TO TEST [...] AT BEDTIME DIRECTED 8 05/20/2018 Active Multiple Vitamins-Minera ls (KP WOMENS 50+ DAILY FORMULA PO) Take by mouth once daily 03/27/2015 Active Misc Natural Products (OSTEO BI-FLEX ADV DOUBLE ST) TABS Take by mouth once daily 03/27/2015 Active cyanocobalamin (VITAMIN B-12) 1000 MCG tablet Take by mouth once daily 03/27/2015 Active Ascorbic Acid (VITAMIN C) 500 MG Take by mouth once daily 03/27/2015 Active Vitamin D3, cholecalciferol , 2000 units tablet Take by mouth once daily 03/27/2015 Active potassium gluconate 595 MG capsule Take by mouth once daily 03/27/2015 Active Cranberry-Vitam in C (AZO CRANBERRY URINARY TRACT) 250-60 MG Take by mouth once daily 03/27/2015 Active Red Yeast Rice 600 MG Take by mouth once daily 03/27/2015 Active Multiple Vitamin (HEALTHY HAIR/SKIN/NAILS ) TABS Take by mouth once daily Active magnesium 500 MG tablet Take 500 mg by mouth once daily Active Cranberry-Gila calciferol (SUPER CRANBERRY/VITAM IN D3) 4200-500 MG-UNIT CAPS Active mirabegron ER 24hr (MYRBETRIQ) 50 MG tablet [...] drink = 0.6 oz pur e alcohol) Comments Unknown Sex and Gender Information Value Date Recorded Sex Assigned at Not on file Legal Sex Female 5:28 PM EGG BREAKER Gender Identity Not on file Sexual Orientation [...] - COLON CA SCREENING 1950 MAMMOGRAM 1950 HEPATITIS C SCREENING 04/01/1968 DTAP/TDAP/TD VACCINES (1 - Tdap) 1969 PNEUMOCOCCAL VACCINE 50+ (1 of 1 - PCV) 2000 ZOSTER VACCINE (1 of 2) 2000 SCREENING FOR DIABETES 09/03/2021 9, 09/03/2018, 09/02/2018, Additional history exists COVID-19 VACCINE ( - 2023- season) 2023 DEPRESSION SCREENING 02/11/2024 MEDICARE AWV CALENDAR YEAR 2024 INFLUENZA VACCINE (Season Ended) 2024 Respiratory Syncytial Virus (RSV) Vaccine Pt: [...] complete this topic MENINGOCOCCAL (Group B) VACCINE SHARED DECISION-MAKING Aged Out No longer eligible based on patient's age to complete this topic MENINGOCOCCAL GROUPS A/C/Y/W VACCINE Aged Out No longer eligible based on patient's age to complete this topic Medical Devices Implanted Type Area School Supervisor Device Identifier Shelf Expiration Date Model / Serial / Lot Cmnt Bone Cblt 40gm Hvisc Strl Implanted:Qty: 1 on 08/31/2018 by Eulogio Lin MD at [facility] Right: Knee [employer] 08/06/2019 600-15-000 / / [id number] Cmpnt Fem Kn Rt Cr Cmnt Prm Vngrd Intlk Implanted:Qty: 1 on 08/31/2018 by Eulogio Lin MD at [facility] Right: Knee [employer] 07/30/2028 [id number] / / [id number] Cmpnt Ptlr 28mm 1 Pg Wire Ascnt Arcm Kn Implanted:Qty: 1 on 08/31/2018 by Eulogio Lin MD at [facility] Right: Knee [employer] 07/14/2023 [id number] / / [id number] Tray Tib 71mm Kn Cocr I Beam Implanted:Qty: 1 on 08/31/2018 by Eulogio Lin MD at [facility] Right: Knee [employer] 06/16/2028 [id number] / / [id number] Brng [id number] Vngrd Arcm Kn Ant Stab Implanted:Qty: 1 on 08/31/2018 by Eulogio Lin MD at [facility] Right: Knee [employer] 05/31/2023 [id number] / / [id number] Procedures Procedure Name Priority Date/Time Associated Diagnosis Comments GLUCOSE - POINT OF CARE Routine 09/03/2018 11:28 AM CDT from Last 3 Months or Most Recently Relevant to Health Maintenance Results * (ABNORMAL) GLUCOSE - POINT OF CARE (09/03/2018 11:28 AM CDT) Pathologist [facility] Glucose WB/POC 208(H) 70 - 106 mg/dL 09/03/2018 11:38 AM CDT [facility] Specimen Type Arterial/C apillary 09/03/2018 11:38 AM CDT [facility] Blood BLOOD SPECIMEN / Unknown 09/03/2018 11:28 AM CDT 09/03/2018 11:38 AM CDT Eulogio Lin MD LAB - POINT OF CARE ORDERABLE S Final Result [facility] [address] [place] [address] from Last 3 Months or Most Recently Relevant to Health Maintenance Insurance MEDICARE [facility] MANAGED MEDICARE ADV MEDICARE [employer] SELF PAY NO INSURANCE Member Subscriber Plan / Payer (Ef fective for All Dates) Name:Chrissiehaknakaruna Berenice L Member ID:Not on file Relation to Subscriber:Not on file Name:EULALIOSRIBERENICE Subscriber ID:Not on file (Home) Address: [address] [place] [address] Payer ID:Not on file Group ID:Not on file Type:Self Pay Address: [place], [place] [employer] MANAGED MEDICARE ADV SELF PAY NO INSURANCE Member Subscriber Plan / Payer (Ef fective for All Dates) Name:Berenice Long Member ID:Not on file Relation to Subscriber:Not on file Name:BERENICE LONG Subscriber ID:Not on file (Home) [facility] [place] [address] Payer ID:Not on file Group ID:Not on file Type:Self Pay Address: [facility] MANAGED MEDICARE ADV SELF PAY NO INSURANCE Member Subscriber Plan / Payer (Ef fective for All Dates) Name:Berenice Long Member ID:Not on file Relation to Subscriber:Not on file Name:BERENICE LONG Subscriber ID:Not on file (Home) Address: [place] [address] Payer ID:Not on file Group ID:Not on file Type:Self Pay Address: [facility] MANAGED MEDICARE ADV Advance Directives * Full Code (Latest Code Status on File) Date Activated Date Inactivated Comments 08/31/2018 2:20 PM 09/03/2018 2:26 PM Care Teams Brush And Broom Clipper Relationship Specialty Start Date End Date Diomedes Ron MD PCP - General Internal Medicine 06/09/18
--- OUTSIDE RECORDS SUMMARY | 2024-06-10 11:41 | XMS_ITS | Encounter Summary ---
Author Organization [facility] Address [address] [facility] [place] [address] Care Team Providers Care Carpentry Foreman Name Role Phone Diomedes Ron MD Primary Care Provider Encounter Details Date Type Department Care Team (Late st Contact Info) Description 04/12/2019 Lab Requisition [facility] [address] [facility], [place] [address] Marley Helms MD [address] [facility] 3 [place] [address] Social History Tobacco Use Types Packs/Day Years Used Date Smoking Tobacco: Never Smokeless Tobacco: Never Alcohol Use Standard Drinks/Week Comments No 0 (1 standard drink = 0.6 oz pur e alcohol) Comments Unknown Sex and Gender Information Value Date Recorded Sex Assigned at Not on file Legal Sex Female 5:28 PM OIL SPECULATOR Gender Identity Not on file Sexual Orientation Not on file documented as of this encounter Functional Status * Is person deaf or have serious hearing difficulty? Answer Date of Assessment Author No 09/03/2018 10:55 AM Fernanda Martins RN * Is person blind or have serious difficulty seeing? Answer Date of Assessment Author No 09/03/2018 10:55 AM Fernanda Martins RN * Does person have serious difficulty walking/climbing stairs? Answer Date of Assessment Author No 09/03/2018 10:55 AM Fernanda Martins RN * Does person have difficulty dressing/bathing? Answer Date of Assessment Author No 09/03/2018 10:55 AM Fernanda Martins RN * Does person have difficulty doing errands alone? Answer Date of Assessment Author No 09/03/2018 10:55 AM Fernanda Martins RN documented as of this encounter Mental Status * Does person have difficulty concentrating/remembering/making decisions? Answer Entry Date Author No 09/03/2018 10:55 AM Fernanda Martins RN documented in this encounter Plan of Treatment Not on file documented as of this encounter Procedures Procedure Name Priority Date/Time Associated Diagnosis Comments DERMATOPATHOLOGY Routine 04/09/2019 12:0 0 AM OIL SPECULATOR documented in this encounter Results * DERMATOPATHOLOGY (04/09/2019 12:00 AM OIL SPECULATOR) Case Report Dermatopathology Report Case: [id number] Authorizing Provider: Marley Helms MD Collected: 04/09/2019 12:00 AM Ordering Location: [facility] DermPath Lab Received: 04/12/2019 09:54 AM Pathologist: Garland Clark MD Specimen: Skin, left eyelid margin 0 11:35 AM OIL SPECULATOR DERMATOPATHOLOGY LABORATORY Final Diagnosis Specimen A. SKIN, left eyelid margin: MILIUM (L72.8) (see microscopic description) 0 11:35 AM [facility] DERMATOPATHOLOGY LABORATORY Clinical History Cyst vs BCC 0 11:35 AM OIL SPECULATOR DERMATOPATHOLOGY LABORATORY Gross Description Specimen A: Received is one formalin filled container labeled with the patient's name and designated left eyelid margin. The specimen consists of a shave biopsy measuring 2x1x1,2x1x1, and 1x1x1 mm. Jar 0. 0 11:35 AM OIL SPECULATOR DERMATOPATHOLOGY LABORATORY Microscopic Description Specimen A. SKIN, left eyelid margin: There is a space that contains loosely aggregated cornified cells surrounded by epithelium that resembles normal epidermis. There is no evidence of epithelial dysplasia or malignancy in multiple deeper sections examined. 0 11:35 AM [facility] DERMATOPATHOLOGY LABORATORY Disclaimer An external and internal positive and negative controls are appropriate for the histochemical, immunohistochemical and immunofluorescence stain(s) in this case (if any), except where stated explicitly. The performance characteristics of the stain(s) cited in this report were developed and its performance characteristic determined by the Dermatopathology Laboratory at [facility], directed by Dr. Emerita Clark. These tests need not be, and therefore are not, approved by the [place] Food and Drug Administration. The tests are used for clinical purposes. Billing Codes Specimen Charges Stain Charges 40994 1 0 11:35 AM OIL SPECULATOR DERMATOPATHOLOGY LABORATORY Embedded Images 0 11:35 AM [facility] DERMATOPATHOLOGY LABORATORY Pathology/Cytolog y TISSUE SPECIMEN FROM SKIN / Unknown 04/09/2019 04/12/2019 9:54 AM OIL SPECULATOR Marley Helms MD LAB - PATHOLOGY/CYTOLOGY ORD ERABLES Final Result DERMATOPATHOLOGY LABORATORY [facility] - Department of Dermatology [address] [place] [address], 5th Floor Lab [address] [phone] documented in this encounter Visit Diagnoses Not on filedocumented in this encounter Care Teams Carpentry Foreman Relationship Specialty Start Date End Date Diomedes Ron MD PCP - General Internal Medicine 06/09/18 documented as of this encounter
== END 2024-06-10 10:42 | disposition home or self-care (01) ==
LOC: CHSIMG 10:44
PROVIDERS: PCP Internal Medicine; Visit Provider Nurse Practitioner Family
DX: M25.562 Pain in left knee (principal)
CPT/HCPCS: 73560

== ENCOUNTER 2024-06-28 16:18 | Outpatient (CLI) | payer MEDICARE, SELFPAY ==
--- NOTE | ~2024-06-28 | XR_ITS ---
HISTORY: ankle and foot redness and swelling, nki COMPARISON: None TECHNIQUE: 3 VIEWS OF THE LEFT ANKLE WERE PERFORMED FINDINGS: No acute fracture or dislocation. Medial and lateral soft tissue swelling. The ankle mortise is preserved. Bone mineralization is age advanced. Large calcaneal spur is present. IMPRESSION: Degenerative disease with significant soft tissue swelling, without acute fracture. Reviewed, dictated and finalized at location A. IMPRESSION: Degenerative disease with significant soft tissue swelling, withou t acute fracture.
--- NOTE | ~2024-06-28 | XR_ITS ---
HISTORY: ankle and foot redness and swelling, nki COMPARISON: None TECHNIQUE: 3 views of the left foot were performed FINDINGS: No acute fracture or dislocation is appreciated. Moderate degenerative disease is noted. The base of the fifth metatarsal is intact. A large calcaneal spur is noted. Ossification of the insertion of the Achilles tendon is noted. Soft tissue swelling of the left ankle and forefoot are present. IMPRESSION: Degenerative disease with soft tissue swelling, without acute fracture. Reviewed, dictated and finalized at location A. IMPRESSION: Degenerative disease with soft tissue swelling, without acute frac ture.
--- OUTSIDE RECORDS SUMMARY | 2024-06-28 16:22 | XMS_ITS | Encounter Summary ---
Author Organization [facility] Address [address] [facility] [place] [address] Care Team Providers Care Remote Control Mirror Installer Name Role Phone Diomedes Ron MD Primary Care Provider [phone] Encounter Details Date Type Department Care Team (Late st Contact Info) Description 04/12/2019 Lab Requisition [facility] [address] [facility], [place] [address] Marley Helms MD [address] [facility] 3 [place] [address] Social History Tobacco Use Types Packs/Day Years Used Date Smoking Tobacco: Never Smokeless Tobacco: Never Alcohol Use Standard Drinks/Week Comments No 0 (1 standard drink = 0.6 oz pur e alcohol) Comments Unknown Sex and Gender Information Value Date Recorded Sex Assigned at Not on file Legal Sex Female 5:28 PM SIGNAL OPERATOR LINGUIST Gender Identity Not on file Sexual Orientation [...] Comments DERMATOPATHOLOGY Routine 04/09/2019 12:0 0 AM SIGNAL OPERATOR LINGUIST documented in this encounter Results * DERMATOPATHOLOGY (04/09/2019 12:00 AM SIGNAL OPERATOR LINGUIST) Case Report Dermatopathology Report Case: [id number] Authorizing Provider: Marley Helms MD Collected: 04/09/2019 12:00 AM Ordering Location: [facility] DermPath Lab Received: 04/12/2019 09:54 AM Pathologist: Garland Clark MD Specimen: Skin, left eyelid margin 0 11:35 AM SIGNAL OPERATOR LINGUIST DERMATOPATHOLOGY LABORATORY Final Diagnosis Specimen A. SKIN, left eyelid margin: MILIUM (L72.8) (see microscopic description) 0 11:35 AM [facility] DERMATOPATHOLOGY LABORATORY at 1135 SIGNAL OPERATOR LINGUIST Clinical History Cyst vs BCC 0 11:35 AM SIGNAL OPERATOR LINGUIST DERMATOPATHOLOGY LABORATORY Gross Description Specimen A: Received is one formalin filled container labeled with the patient's name and designated left eyelid margin. The specimen consists of a shave biopsy measuring 2x1x1,2x1x1, and 1x1x1 mm. Jar 0. 0 11:35 AM SIGNAL OPERATOR LINGUIST DERMATOPATHOLOGY LABORATORY Microscopic Description Specimen A. SKIN, left eyelid margin: There is a space that contains loosely aggregated cornified cells surrounded by epithelium that resembles normal epidermis. There is no evidence of epithelial dysplasia or malignancy in multiple deeper sections examined. 0 11:35 AM [facility] DERMATOPATHOLOGY LABORATORY Disclaimer An external and internal positive and negative controls are appropriate for the histochemical, immunohistochemical and immunofluorescence stain(s) in this case (if any), except where stated explicitly. The performance characteristics of the stain(s) cited in this report were developed and its performance characteristic determined by the Dermatopathology Laboratory at [facility], directed by Dr. Emerita Clark. These tests need not be, and therefore are not, approved by the [place] Food and Drug Administration. The tests are used for clinical purposes. Billing Codes Specimen Charges Stain Charges 80027 1 0 11:35 AM SIGNAL OPERATOR LINGUIST DERMATOPATHOLOGY LABORATORY Embedded Images 0 11:35 AM SIGNAL OPERATOR LINGUIST DERMATOPATHOLOGY LABORATORY Pathology/Cytolog y TISSUE SPECIMEN FROM SKIN / Unknown 04/09/2019 04/12/2019 9:54 AM SIGNAL OPERATOR LINGUIST Marley Helms MD LAB - PATHOLOGY/CYTOLOGY ORD ERABLES Final Result DERMATOPATHOLOGY LABORATORY [facility] - Department of Dermatology [address] [place] [address], 5th Floor Lab [address] [phone] documented in this encounter Visit Diagnoses Not on filedocumented in this encounter Care Teams Remote Control Mirror Installer Relationship Specialty Start Date End Date Diomedes Ron MD PCP - General Internal Medicine 06/09/18 documented as of this encounter
--- OUTSIDE RECORDS SUMMARY | 2024-06-28 16:22 | XMS_ITS | Clinical Summary ---
Author Organization [facility] Address [address] [place] [address] Care Team Providers Care Woods Boss Name Role Phone Diomedes Ron MD Primary Care Provider [phone] Source Comments [facility],non-owned Affiliates and Associated Physician Practices is amultiple site organization consisting of ambulatory clinics and hospital sitesin [place], [place], [place] and [place]. This disclosure is being madepursuant to the Care Everywhere program and may not contain all information available regarding this patient. Last updated 17.[facility] [employer] Allergies No known active allergies Medications * [...] on file Legal Sex Female 5:28 PM METAL STAMPER Gender Identity Not on file Sexual Orientation [...] this topic Medical Devices Implanted Type Area Membership Sales Advisor Device Identifier Shelf Expiration Date Model / Serial / Lot Cmnt Bone Cblt 40gm Hvisc Strl Implanted:Qty: 1 on 08/31/2018 by Eulogio Lin MD at [facility] Right: Knee [employer] 08/06/2019 [id number] / / [id number] Cmpnt Fem Kn Rt Cr Cmnt Prm Vngrd Intlk Implanted:Qty: 1 on 08/31/2018 by Eulogio Lin MD at [facility] Right: Knee [employer] 07/30/2028 [id number] / / [id number] Cmpnt Ptlr 28mm 1 Pg Wire Ascnt Arcm Kn Implanted:Qty: 1 on 08/31/2018 by Eulogio Lin MD at [facility] Right: Knee [employer] 07/14/2023 [id number] / / [id number] Tray Tib 71mm Kn Cocr I Beam Implanted:Qty: 1 on 08/31/2018 by Eulogio Lin MD at [facility] Right: Knee [employer] 06/16/2028 [id number] / / [id number] Brng [id number] Vngrd Arcm Kn Ant Stab Implanted:Qty: 1 on 08/31/2018 by Eulogio Lin MD at [facility] Right: Knee [employer] 05/31/2023 [id number] / / [id number] Procedures Procedure Name Priority Date/Time Associated Diagnosis Comments GLUCOSE - POINT OF CARE Routine 09/03/2018 11:28 AM CDT from Last 3 Months or Most Recently Relevant to Health Maintenance Results * (ABNORMAL) GLUCOSE - POINT OF CARE (09/03/2018 11:28 AM CDT) Pathologist [facility] Glucose WB/POC 208(H) 70 - 106 mg/dL 09/03/2018 11:38 AM CDT [facility] Specimen Type Arterial/C apillary 09/03/2018 11:38 AM CDT [facility] Blood BLOOD SPECIMEN / Unknown 09/03/2018 11:28 AM CDT 09/03/2018 11:38 AM CDT Eulogio Lin MD LAB - POINT OF CARE ORDERABLE S Final Result [facility] [address] [place] [address] from Last 3 Months or Most Recently Relevant to Health Maintenance Insurance [facility]IC[facility] MANAGED MEDICARE ADV MEDICARE [employer] SELF PAY NO INSURANCE Member Subscriber Plan / Payer (Ef fective for All Dates) Name:Chrissiehakankaruna Berenice L Member ID:Not on file Relation to Subscriber:Not on file Name:EULALIOSRIBERENICE Subscriber ID:Not on file (Home) Address: [address] [place] [address] Payer ID:Not on file Group ID:Not on file Type:Self Pay Address: [place], [place] [employer] MANAGED MEDICARE ADV SELF PAY NO INSURANCE Member Subscriber Plan / Payer (Ef fective for All Dates) Name:Berenice Long Member ID:Not on file Relation to Subscriber:Not on file Name:BERENICE LONG Subscriber ID:Not on file (Home) [place] [place] [address] Payer ID:Not on file Group ID:Not on file Type:Self Pay Address: [facility] MANAGED MEDICARE ADV SELF PAY NO INSURANCE Member Subscriber Plan / Payer (Ef fective for All Dates) Name:Berenice Long Member ID:Not on file Relation to Subscriber:Not on file Name:BERENICE LONG Subscriber ID:Not on file (Home) Address: [place] [address] Payer ID:Not on file Group ID:Not on file Type:Self Pay Address: [facility] MANAGED MEDICARE ADV Advance Directives * Full Code (Latest Code Status on File) Date Activated Date Inactivated Comments 08/31/2018 2:20 PM 09/03/2018 2:26 PM Care Teams Woods Boss Relationship Specialty Start Date End Date Diomedes Ron MD PCP - General Internal Medicine 06/09/18
--- OUTSIDE RECORDS SUMMARY | 2024-06-28 16:22 | XMS_ITS | Clinical Summary ---
Author Organization [facility] Address [facility] [place] [address] Care Team Providers Care Licensed Funeral Director And Embalmer Name Role Phone Diomedes Ron MD Primary Care Provider [phone] Allergies No known active allergies Medications hydrocodone-aceta [...] MCG/ 0.5 ML DOSE 05/26/2020,04/28/2020 MODERNA COVID-19 ([facility] ENABLEMENT SPECIALIST TRISTAN TERRELL), MRNA, LNP-S, PF, 50 MCG/ 0.25 ML DOSE 03/07/2021 Pneumococcal (Pneumovax 23) 04/01/2018, 3 Pneumococcal (Prevnar 13) 12/11/2016 Shingrix 05/30/2022 Tdap (Boostrix) 04/01/2018 Tdap (Generic) 05/30/2022 Zoster (Zostavax) 11209 Unt/0.65Ml 03/09/2012 Social History Tobacco Use Types [...] 03/07/2021, 05/26/2020, Additional history exists PHQ-2 (Physician [place]) 02/11/2024 08/05/2022 RSV Immunization or 60+ Years [...] patient's age to complete this topic Insurance [facility] Care Teams Licensed Funeral Director And Embalmer Relationship Specialty Start Date End Date Diomedes Ron MD [address] [place] [address] PCP - General INTERNAL MEDICINE 09/03/18
== END 2024-06-28 16:19 | disposition home or self-care (01) ==
LOC: CHSIMG 16:20
PROVIDERS: PCP Internal Medicine; Visit Provider Nurse Practitioner Family
DX: M25.572 Pain in left ankle and joints of left foot (principal); M79.89 Other specified soft tissue disorders
CPT/HCPCS: 73610; 73630

== ENCOUNTER 2024-07-22 11:22 | Outpatient (CLI) | payer MEDICARE, SELFPAY ==
--- NOTE | ~2024-07-22 | MR_ITS ---
MRI of the cervical spine Clinical History: Myelopathy Technique: Axial T2-weighted and gradient images, and sagittal T1-weighted, T2-weighted, and STIR alec ges were acquired. Findings: No fracture or subluxation seen. There is straightening of the normal cervical lordosis. No suspicious bone marrow signal abnormality seen. At C2-C3, there is no disc bulge or herniation. There is minimal facet arthropathy. No central canal stenosis, cord compression, or neural foraminal narrowing. At C3-C4, there is minimal disc bulge with left facet arthropathy. Probable minimal left neural duarte inal narrowing. Right neural foramen preserved. No canal stenosis or cord compression. At C4-C5, there is degenerative disc narrowing with disc osteophyte complex. No candida canal stenosis or cord compression. There is left neural foraminal narrowing. Right neural foramen preserved. At C5-C6, there is advanced degenerative disc narrowing. There is disc osteophyte complex without can al stenosis or cord compression. There is mild left neural foraminal narrowing. Right neural foramen probably preserved. At C6-C7, there is advanced degenerative disc narrowing. No disc bulge or herniation. No spinal canal stenosis, cord compression, or neural foraminal narrowing. No abnormal signal seen in the spinal cord. Paravertebral soft tissues are unremarkable. Impression: [id number] degenerative spondylosis, as above. Reviewed, dictated and finalized at [facility]. Impression: [id number] degenerative spondylosis, as above.
--- OUTSIDE RECORDS SUMMARY | 2024-07-22 12:24 | XMS_ITS | Encounter Summary ---
Author Organization [facility] Address [address] [facility] [place] [address] Care Team Providers Care Mortgage Servicing Specialist Name Role Phone Diomedes Ron MD Primary Care Provider Encounter Details Date Type Department Care Team (Late st Contact Info) Description 04/12/2019 Lab Requisition [facility] [address] [facility], [place] [address] Marley Helms MD [address] [facility] 3 [place] [address] Social History Tobacco Use Types Packs/Day Years Used Date Smoking Tobacco: Never Smokeless Tobacco: Never Alcohol Use Standard Drinks/Week Comments No 0 (1 standard drink = 0.6 oz pur e alcohol) Comments Unknown Sex and Gender Information Value Date Recorded Sex Assigned at Not on file Legal Sex Female 5:28 PM PLAN REP Gender Identity Not on file Sexual Orientation [...] Comments DERMATOPATHOLOGY Routine 04/09/2019 12:0 0 AM PLAN REP documented in this encounter Results * DERMATOPATHOLOGY (04/09/2019 12:00 AM PLAN REP) Case Report Dermatopathology Report Case: [id number] Authorizing Provider: Marley Helms MD Collected: 04/09/2019 12:00 AM Ordering Location: [facility] DermPath Lab Received: 04/12/2019 09:54 AM Pathologist: Garland Clark MD Specimen: Skin, left eyelid margin 0 11:35 AM PLAN REP DERMATOPATHOLOGY LABORATORY Final Diagnosis Specimen A. SKIN, left eyelid margin: MILIUM (L72.8) (see microscopic description) 0 11:[address] [facility] DERMATOPATHOLOGY LABORATORY at 1135 PLAN REP Clinical History Cyst vs BCC 0 11:35 AM PLAN REP DERMATOPATHOLOGY LABORATORY Gross Description Specimen A: Received is one formalin filled container labeled with the patient's name and designated left eyelid margin. The specimen consists of a shave biopsy measuring 2x1x1,2x1x1, and 1x1x1 mm. Jar 0. 0 11:35 AM PLAN REP DERMATOPATHOLOGY LABORATORY Microscopic Description Specimen A. SKIN, left eyelid margin: There is a space that contains loosely aggregated cornified cells surrounded by epithelium that resembles normal epidermis. There is no evidence of epithelial dysplasia or malignancy in multiple deeper sections examined. 0 11:[address] [facility] DERMATOPATHOLOGY LABORATORY Disclaimer An external and internal positive and negative controls are appropriate for the histochemical, immunohistochemical and immunofluorescence stain(s) in this case (if any), except where stated explicitly. The performance characteristics of the stain(s) cited in this report were developed and its performance characteristic determined by the Dermatopathology Laboratory at [facility], directed by Dr. Emerita Clark. These tests need not be, and therefore are not, approved by the [place] Food and Drug Administration. The tests are used for clinical purposes. Billing Codes Specimen Charges Stain Charges 93664 1 0 11:35 AM PLAN REP DERMATOPATHOLOGY LABORATORY Embedded Images 0 11:35 AM PLAN REP DERMATOPATHOLOGY LABORATORY Pathology/Cytolog y TISSUE SPECIMEN FROM SKIN / Unknown 04/09/2019 04/12/2019 9:54 AM PLAN REP Marley Helms MD LAB - PATHOLOGY/CYTOLOGY ORD ERABLES Final Result DERMATOPATHOLOGY LABORATORY [facility] - Department of Dermatology [address] [place] [address], 5th Floor Lab B [address] [phone] documented in this encounter Visit Diagnoses Not on filedocumented in this encounter Care Teams Mortgage Servicing Specialist Relationship Specialty Start Date End Date Diomedes Ron MD PCP - General Internal Medicine 06/09/18 documented as of this encounter
--- OUTSIDE RECORDS SUMMARY | 2024-07-22 12:24 | XMS_ITS | Referral Summary ---
Author Organization [facility] [address] [facility] Address [address] [place] [address] Care Team Providers Care Drug Counselor Name Role Phone Diomedes Ron MD Primary Care Provider Encounters Date Type Department Care Team Description 07/02/2024 2:33 PM CDT - 07/02/2024 11:59 PM CDT Hospital Encounter [facility] [address] [place] [address] Discharge Disposition: Discharge to home or self care 07/02/2024 9:27 AM CDT - 07/02/2024 11:59 PM CDT Hospital Encounter [id number] [address] [place] [phone] Lumbar pain Discharge Disposition: Discharge to home or self care 07/02/2024 10:30 AM CDT Office Visit [facility] Neurosurgery [address] [place] [address] Office [place] [address] [place] [phone] Yevgeniy Rodríguez PA Severe low back pain; Gait abnormality 06/23/2024 Orders Only [facility] Neurosurgery [address] [place] [phone] Yevgeniy Rodríguez PA Lumbar pain (Primary Dx) 06/11/2024 Telephone [facility] Scheduling [address] [place] [address] Zonia Key from Last 3 Months Allergies No known active allergies Medications alendronate (FOSAMAX) 70 mg tablet TAKE 1 TABLET BY MOUTH ONCE WEEKLY IN THE MORNING, 30 MIN BEFORE FIRST FOOD/BEVERAGE /MEDICATION 05/25/2024 Active cranberry extract-vitamin C 250-60 mg capsule Take by mouth daily 03/27/2015 Active HYDROcodone-luba taminophen (NORCO) 10-325 mg per tablet Take by mouth Ac tive escitalopram (LEXAPRO) 10 mg tablet Take 1 tablet (10 mg total) by mouth daily 06/09/2024 Active metFORMIN XR (GLUCOPHAGE XR) 500 mg 24 hr tablet Take 1 tablet (500 mg total) by mouth every morning Active pantoprazole DR (PROTONIX) 40 mg EC tablet Take 1 tablet (40 mg total) by mouth daily Active pravastatin (PRAVACHOL) 20 mg tablet Take 1 tablet (20 mg total) by mouth nightly Active travoprost (TRAVATAN Z) 0.004 % drops INSTILL 1 DROP INTO BOTH EYES AT BEDTIME DIRECTED Active Active Problems Problem Noted Date Diagnosed Date Primary osteoarthritis of both knees 06/09/2018 Immunizations Immunization Administration Dates Next Due Influenza, Quadrivalent, Spl it, Preservative Free, Intramuscular 11/16/2020,12/14/2019,11/30/2018,01/12,12/11/2016 Pneumococcal Conjugate PCV 13 12/11/2016 Pneumococcal Polysaccharide PPV23 04/01/2018, Tdap 05/30/2022,04/01/2018 ZOSTER LIVE 03/09/2012 ZOSTER Recombinant 05/30/2022 Social History Tobacco Use Types Packs/Day Years Used Date Smoking Tobacco: Never Assessed Comments Unknown Sex and Gender Information Value Date Recorded Sex Assigned at Not on file Legal Sex Female 4:57 PM CDT Gender Identity Not on file Sexual Orientation Not on file Last Filed Vital Signs Vital Sign Reading Time Taken Comments Blood Pressure - - Pulse - - Temperature - - Respiratory Rate - - Oxygen Saturation - - Inhaled Oxygen Concentration - - Weight 84.4 kg (186 lb) 07/02/2024 10:08 AM CDT Height 162.6 cm (5' 4) 07/02/2024 10:08 AM CDT Body Mass Index 31.93 07/02/2024 10:08 AM CDT Plan of Treatment Not on file Procedures Procedure Name Priority Date/Time Associated Diagnosis Comments NEURO MR OUTSIDE REFERENCE Routine 07/02/2024 2:33 PM CDT XR SCOLIOSIS 6 OR MORE VIEWS Schedule Routine, Read Routine (OP Routine) 07/02/2024 9:50 AM CDT Lumbar pain from Last 3 Months Results * Neuro MR Outside Reference (07/02/2024 2:33 PM CDT) Impressions [facility] - 07/02/2024 2:33 PM CDT These images are for Reference purposes only and have not been reviewed by [facility]. There will be no report generated by a [facility] Radiologist. Narrative [facility]_P[facility] - 07/02/2024 2:33 PM CDT EXAMINATION: Images For Reference Purposes Only us Yevgeniy SCHREIBER IMG MRI PROCEDURES Fin al Result [facility] * XR Scoliosis 6 or More Views (07/02/2024 9:50 AM CDT) Anatomical Region Laterality Modality Spine N/A Computed Radiogr aphy 07/02/2024 11:0 5 AM CDT Impressions 07/02/2024 12:46 PM CDT 1. Moderate thoracic dextroscoliosis and moderate lumbar levoscoliosis with truncal imbalance. 2. Multilevel degenerative disc disease, greatest and severe at L3-L4. Dictated by: Rod Espitia M.D. The radiology attending physician has personally reviewed this study, and had reviewed and/or edited this written report and agrees with it. Electronically signed by: Librado Barbour D.O. Narrative 07/02/2024 12:46 PM CDT EXAMINATION: XR SCOLIOSIS 6 OR MORE VIEWS HISTORY: Scoliosis FINDINGS: 8 radiographs of the spine are submitted for evaluation. No prior for comparison. Moderate dextroscoliosis of the thoracic spine with apex at T9-T10 and moderate levoscoliosis of the lumbar spine centered at L2-L3. Mild leftward coronal imbalance. No pelvic obliquity. Mild anterior sagittal imbalance. Straightening of the cervical spine with moderate disc height loss at C5-C6. Grade 1 adynamic anterolisthesis of L5 on S1. Multilevel lumbar disc height loss, greatest and severe at L3-L4 along the levocurvature. Multilevel lower lumbar facet arthropathy. No compression fracture. Right knee arthroplasty is seen. Surgical clips project over the right abdomen and right pelvis. Procedure Note Librado Barbour, DO - 07/02/2024 EXAMINATION: XR SCOLIOSIS 6 OR MORE VIEWS HISTORY: Scoliosis FINDINGS: 8 radiographs of the spine are submitted for evaluation. No prior for comparison. Moderate dextroscoliosis of the thoracic spine with apex at T9-T10 and moderate levoscoliosis of the lumbar spine centered at L2-L3. Mild leftward coronal imbalance. No pelvic obliquity. Mild anterior sagittal imbalance. Straightening of the cervical spine with moderate disc height loss at C5-C6. Grade 1 adynamic anterolisthesis of L5 on S1. Multilevel lumbar disc height loss, greatest and severe at L3-L4 along the levocurvature. Multilevel lower lumbar facet arthropathy. No compression fracture. Right knee arthroplasty is seen. Surgical clips project over the right abdomen and right pelvis. IMPRESSION: 1. Moderate thoracic dextroscoliosis and moderate lumbar levoscoliosis with truncal imbalance. 2. Multilevel degenerative disc disease, greatest and severe at L3-L4. Dictated by: Rod Espitia M.D. The radiology attending physician has personally reviewed this study, and had reviewed and/or edited this written report and agrees with it. Electronically signed by: Librado Barbour D.O. Yevgeniy SCHREIBER IMG XR PROCEDURES Carol l Result from Last [address] [facility] MEDICARE ADVANTAGE [facility] MEDICARE ADVANTAGE Care Teams Drug Counselor Relationship Specialty Start Date End Date Diomedes Ron MD [address] [place] [address] PCP - General Internal Medicine 06/09/24
--- OUTSIDE RECORDS SUMMARY | 2024-07-22 12:24 | XMS_ITS | Clinical Summary ---
Author Organization [facility] Address [address] [facility] [place] [address] Care Team Providers Care Chief Sustainability Officer Name Role Phone Diomedes Ron MD Primary Care Provider [phone] Source Comments [facility],non-owned Affiliates and Associated Physician Practices is amultiple site organization consisting of ambulatory clinics and hospital sitesin [place], [place], [place] and [place]. This disclosure is being madepursuant to the Care Everywhere program and may not contain all information available regarding this patient. Last updated 17.[facility] [employer] Allergies No known active allergies Medications * [...] on file Legal Sex Female 5:28 PM TALENT ACQUISITION PROGRAM MANAGER Gender Identity Not on file Sexual Orientation [...] 9:17 AM CDT Height 162.6 cm (5' 4) 08/31/2018 9:17 AM CDT Body Mass Index [...] this topic Medical Devices Implanted Type Area Home Theater Expert Device Identifier Shelf Expiration Date Model / Serial / Lot Cmnt Bone Cblt 40gm Hvisc Strl Implanted:Qty: 1 on 08/31/2018 by Eulogio Lin MD at [facility] Right: Knee [employer] 08/06/2019 [id number] / / [id number] Cmpnt Fem Kn Rt Cr Cmnt Prm Vngrd Intlk Implanted:Qty: 1 on 08/31/2018 by Eulogio Lin MD at [facility] Right: Knee [employer] 07/30/2028 [id number] / / [id number] Cmpnt Ptlr 28mm 1 Pg Wire Ascnt Arcm Kn Implanted:Qty: 1 on 08/31/2018 by Eulogio Lin MD at [facility] Right: Knee [employer] 07/14/2023 [id number] / / [id number] Tray Tib 71mm Kn Cocr I Beam Implanted:Qty: 1 on 08/31/2018 by Eulogio Lin MD at [facility] Right: Knee [employer] 06/16/2028 [id number] / / [id number] Brng [id number] Vngrd Arcm Kn Ant Stab Implanted:Qty: 1 on 08/31/2018 by Eulogio Lin MD at [facility] Right: Knee [employer] 05/31/2023 [id number] / / [id number] Procedures Procedure Name Priority Date/Time Associated Diagnosis Comments GLUCOSE - POINT OF CARE Routine 09/03/2018 11:28 AM CDT from Last 3 Months or Most Recently Relevant to Health Maintenance Results * (ABNORMAL) GLUCOSE - POINT OF CARE (09/03/2018 11:28 AM CDT) Pathologist [facility] Glucose WB/POC 208(H) 70 - 106 mg/dL 09/03/2018 11:38 AM CDT [facility] Specimen Type Arterial/C apillary 09/03/2018 11:38 AM CDT [facility] Blood BLOOD SPECIMEN / Unknown 09/03/2018 11:28 AM CDT 09/03/2018 11:38 AM CDT Eulogio Lin MD LAB - POINT OF CARE ORDERABLE S Final Result [facility] [address] [place] [address] from Last 3 Months or Most Recently Relevant to Health Maintenance Insurance MEDICARE [facility] MANAGED MEDICARE ADV MEDICARE [employer] SELF PAY NO INSURANCE Member Subscriber Plan / Payer (Ef fective for All Dates) Name:Chrissiehakankaruna Berenice L Member ID:Not on file Relation to Subscriber:Not on file Name:EULALIOSRIBERENICE Subscriber ID:Not on file (Home) Address: [address] [place] [address] Payer ID:Not on file Group ID:Not on file Type:Self Pay Address: [place], [place] [employer] MANAGED MEDICARE ADV SELF PAY NO INSURANCE Member Subscriber Plan / Payer (Ef fective for All Dates) Name:Berenice Long Member ID:Not on file Relation to Subscriber:Not on file Name:BERENICE LONG Subscriber ID:Not on file (Home) Address[address] [facility] [place] [place] [address] Payer ID:Not on file Group ID:Not on file Type:Self Pay Address: [facility] MANAGED MEDICARE ADV SELF PAY NO INSURANCE Member Subscriber Plan / Payer (Ef fective for All Dates) Name:Berenice Long Member ID:Not on file Relation to Subscriber:Not on file Name:BERENICE LONG Subscriber ID:Not on file (Home) Address: [place] [address] Payer ID:Not on file Group ID:Not on file Type:Self Pay Address: [facility] MANAGED MEDICARE ADV Advance Directives * Full Code (Latest Code Status on File) Date Activated Date Inactivated Comments 08/31/2018 2:20 PM 09/03/2018 2:26 PM Care Teams Chief Sustainability Officer Relationship Specialty Start Date End Date Diomedes Ron MD PCP - General Internal Medicine 06/09/18
--- OUTSIDE RECORDS SUMMARY | 2024-07-22 12:25 | XMS_ITS | Clinical Summary ---
Author Organization [place] [id number] [facility] Address [address] [place] [address] Care Team Providers Care Yarn Inspector Name Role Phone Diomedes Ron MD Primary Care Provider Allergies No known active allergies Medications alendronate [...] Date Primary osteoarthritis of both knees 06/09/2018 Encounters Date Type Department Care Team Description 07/02/2024 2:33 PM CDT - 07/02/2024 11:59 PM CDT Hospital Encounter [facility] [address] [place] [address] Discharge Disposition: Discharge to home or self care 07/02/2024 10:30 AM CDT Office Visit [facility] Neurosurgery [address] [place] [address] Medical Office Building [address] [place] [phone] Yevgeniy Rodríguez PA Severe low back pain; Gait abnormality 07/02/2024 9:27 AM CDT - 07/02/2024 11:59 PM CDT Hospital Encounter [id number] Radiology [address] [place] [address] [address] [place] [address] Lumbar pain Discharge Disposition: Discharge to home or self care 06/23/2024 Orders Only [facility] Neurosurgery [address] [place] [address] Medical Office Building [address] [place] [phone] Yevgeniy Rodríguez PA Lumbar pain (Primary Dx) 06/11/2024 Telephone [facility] Scheduling [address] [place] [address] Zonia Key from Last 3 Months Immunizations Immunization Administration Dates Next Due Influenza, Quadrivalent, Spl it, Preservative Free, Intramuscular 11/16/2020,12/14/2019,11/30/2018,01/12,12/11/2016 Pneumococcal Conjugate PCV 13 12/11/2016 Pneumococcal Polysaccharide PPV23 04/01/2018, Tdap 05/30/2022,04/01/2018 ZOSTER LIVE 03/09/2012 ZOSTER Recombinant 05/30/2022 Medical History Medical History Date Comments Anxiety Type 2 diabetes mellitus (HCC) Family History Medical History Relation Name Comments Heart disease Father Relation Name Status Comments Father Social History Tobacco Use Types Packs/Day Years Used Date Smoking Tobacco: Never Assessed Comments Unknown Sex and Gender Information Value Date Recorded Sex Assigned at Not on file Legal Sex Female 4:57 PM CDT Gender Identity Not on file Sexual Orientation Not on file Obstetrics History Last Filed Vital Signs Vital Sign Reading Time Taken Comments Blood Pressure - - Pulse - - Temperature - - Respiratory Rate - - Oxygen Saturation - - Inhaled Oxygen Concentration - - Weight 84.4 kg (186 lb) 07/02/2024 10:08 AM CDT Height 162.6 cm (5' 4) 07/02/2024 10:08 AM CDT Body Mass Index 31.93 07/02/2024 10:08 AM CDT Plan of Treatment Health Maintenance Due Date Last Done Comments Breast Cancer Screening-Mammogram 1950 Colon Cancer Screening-Colonoscopy 1950 Depression Screening 1950 Fall Risk Assessment 1950 Hepatitis C Screening 1950 Osteoporosis Screening-Bone Density Scan 1950 Hepatitis B Screening 1968 Well Visit 65+ 2015 Zoster Vaccine (3 of 3) 07/25/2022 05/30/2022, 03/09 Covid-19 Vaccine (2023- 5 season) 2023 07/22/2022, 03/07/2021, 05/26/2020, Additional history exists Influenza Vaccine (Season Ended) 2024 11/16/2020, 12/14/2019, 11/30/2018, Additional history exists DTaP/Tdap/Td Vaccine (3 - Td or Tdap) 05/30/2032 05/30/2022, 04/01/2018 Pneumococcal vaccine 65+ Completed 019, 12/11/2016, 03/09/2012 Procedures Procedure Name Priority Date/Time Associated Diagnosis Comments NEURO MR OUTSIDE REFERENCE Routine 07/02/2024 2:33 PM CDT XR SCOLIOSIS 6 OR MORE VIEWS Schedule Routine, Read Routine (OP Routine) 07/02/2024 9:50 AM CDT Lumbar pain from Last 3 Months Results * Neuro MR Outside Reference (07/02/2024 2:33 PM CDT) Impressions [facility] - 07/02/2024 2:33 PM CDT These images are for Reference purposes only and have not been reviewed by [facility]. There will be no report generated by a [facility] Radiologist. Narrative RAD_PACS[facility] - 07/02/2024 2:33 PM CDT EXAMINATION: Images For Reference Purposes Only us Yevgeniy Selwyn Rodríguez PA IMG MRI PROCEDURES Fin al Result [facility] [...] and right pelvis. Procedure Note Librado Barbour, - 07/02/2024 EXAMINATION: XR SCOLIOSIS 6 OR [...] l Result from Last 3 Months Insurance [facility] MEDICARE ADVANTAGE [facility] Address: [address] [address] [facility] MEDICARE ADVANTAGE [facility]ICARE Address: [facility] [address] [place] [address] Care Teams Yarn Inspector Relationship Specialty Start Date End Date Diomedes Ron MD [address] [place] [address] PCP - General Internal Medicine 06/09/24
== END 2024-07-22 11:23 | disposition home or self-care (01) ==
LOC: CHSIMG 11:23
PROVIDERS: PCP Internal Medicine; Visit Provider Physician Assistant
DX: M54.50 Low back pain, unspecified (principal); R26.9 Unspecified abnormalities of gait and mobility
CPT/HCPCS: 72141

== ENCOUNTER 2024-08-18 13:57 | Outpatient (RCR) | payer MEDICARE, SELFPAY ==
--- NOTE | 2024-08-18 16:03 | OPREHPOC ---
Outpatient Therapy Plan of Care This is a Multidisciplinary Plan of Care that may contain components documented by all disciplines (PT, OT, and ST.) PT Problem 1 PT Problem #1 Knowledge Deficit PT Goal 1 Goal / Goal Update pt to independent and compliant with HEP Target Visit 3 PT Problem 2 PT Problem #2 Impaired Strength PT Goal 1 Goal / Goal Update pt to have 4/5 strength in bilateral LE Target Visit 12 PT Problem 3 PT Problem #3 Impaired Functional Mobility PT Goal 1 Goal / Goal Update Pt to be able to walk 700ft or more during 6MWT with a single point cane Pt to score 20s or better on TUG Pt to complete 5x STS in 14s Target Visit 12
--- NOTE | 2024-08-18 16:04 | PTOPEVAL1 ---
Assessment and note entered by JT File, PT Evaluation Information Assessment Status Evaluation ICD-10 Condition Codes (PT) Difficulty Walking R26.2,Abnormalities of gait and mobility R26.9,Weakness R53.1 Onset 02/28/22 Subjective Information Pt reports that her emotions are bad today. Pt reports that she has been using a walker because she feels more confident with it. Pt reports that she wants to just get better at walking. Pt reports that she had imagining of her spine and it showed she has an S shape. Pt denies having any pain. Pt denies having any falls. Pt reports that she uses the walker most places. Pt reports that at Easter her legs and feet would not move. pt reports that she has a hard time starting walking when she uses the cane. Pt reports she has a hard time going through a door like she gets stuck. Pt reports that she still drives. Pt reports that she has stairs in her home to get into the basement. She reports that she goes down the stairs sideways holding on to the railing. Assessment PT Clinical Summary Berenice is 74 y/o female who present to skilled PT with the diagnosis of lumbar stenosis and unsteady gait. Pt has deficits in bilateral LE strength, balance, endurance, and ambulation. Pt is a fall risk per the Tinetti and TUG. She has a goal to be able to walk with her cane again. The pt would benefit from skilled PT to work on deficits, reduce fall risk, and work on functional daily tasks/goals to improve quality of life. Plan of Care Interventions Gait Training,Neuro Re-education,Patient/Caregiver Education,Therapeutic Activities,Therapeutic Exercise PT Services Indicated Yes Treatment Frequency and 2x a week for 12 visits Duration These treatments will address the objective and functional deficits as defined above. The patient will be advanced safely and appropriately in order for the patient to progress towards his/her prior level of function. Additional exercises will be introduced and as well as a comprehensive home exercise program upon discharge, if needed, ?to ensure carryover of functional gains achieved in the clinic. This treatment plan has been reviewed and agreement upon by the patient.
--- NOTE | 2024-09-28 10:19 | OPREHPOC ---
Outpatient Therapy Plan of Care This is a Multidisciplinary Plan of Care that may contain components documented by all disciplines (PT, OT, and ST.) PT Problem 1 PT Problem #1 Knowledge Deficit PT Goal 1 Goal / Goal Update pt to independent and compliant with HEP Target Visit 3 Progress Met PT Problem 2 PT Problem #2 Impaired Strength PT Goal 1 Goal / Goal Update pt to have 4/5 strength in bilateral LE Target Visit 12 Progress Not Met PT Goal 2 Goal / Goal Update continue PT Problem 3 PT Problem #3 Impaired Functional Mobility PT Goal 1 Goal / Goal Update Pt to be able to walk 700ft or more during 6MWT with a single point cane -not met Pt to score 20s or better on TUG -not assessed Pt to complete 5x STS in 14s -not met Target Visit 12 Progress Not Met PT Goal 2 Goal / Goal Update continue
--- NOTE | 2024-09-28 10:20 | PTOPPROGNS ---
Assessment and note entered by Aneta Titus, PT Evaluation Information Assessment Status Progress ICD-10 Condition Codes (PT) Difficulty Walking R26.2,Abnormalities of gait and mobility R26.9,Weakness R53.1 Onset 02/28/22 Subjective Information Berenice Long reports she continues to not have pain but still uses her walker. She notes she gets stiff after long car rides and recently has been on vacation and noted difficulty with getting out of the car. She denies falls recently. Assessment PT Clinical Summary Berenice is 74 y/o female who has completed 10 out of 12 skilled PT visits with the diagnosis of lumbar stenosis and unsteady gait. She reports that she feels a little stronger and she has not had any falls. She continues to use her rollator walker and notes stiffness after prolonged sitting in the car. She demonstrates improved gait and is progressing with her strength and endurance. She continues to have limitations with LE strength, core strength, gait, balance, and endurance. She will continue to benefit from skilled PT to further address these limitations. Plan of Care Interventions Gait Training,Neuro Re-education,Patient/Caregiver Education,Therapeutic Activities,Therapeutic Exercise PT Services Indicated Yes Treatment Frequency and Continue original POC for 2 additional visits Duration These treatments will address the objective and functional deficits as defined above. The patient will be advanced safely and appropriately in order for the patient to progress towards his/her prior level of function. Additional exercises will be introduced and as well as a comprehensive home exercise program upon discharge, if needed, ?to ensure carryover of functional gains achieved in the clinic. This treatment plan has been reviewed and agreement upon by the patient.
--- NOTE | 2024-10-05 10:15 | OPREHPOC ---
Outpatient Therapy Plan of Care This is a Multidisciplinary Plan of Care that may contain components documented by all disciplines (PT, OT, and ST.) PT Problem 1 PT Problem #1 Knowledge Deficit PT Goal 1 Goal / Goal Update pt to independent and compliant with HEP Target Visit 3 Progress Met PT Problem 2 PT Problem #2 Impaired Strength PT Goal 1 Goal / Goal Update pt to have 4/5 strength in bilateral LE Target Visit 12 Progress Not Met PT Goal 2 Goal / Goal Update continue Target Visit 22 PT Problem 3 PT Problem #3 Impaired Functional Mobility PT Goal 1 Goal / Goal Update Pt to be able to walk 700ft or more during 6MWT with a single point cane -not met Pt to score 20s or better on TUG -not met Pt to complete 5x STS in 14s -not met Target Visit 12 Progress Not Met PT Goal 2 Goal / Goal Update continue Target Visit 22
--- NOTE | 2024-10-05 10:16 | PTOPPROG ---
Assessment and note entered by Aneta Titus, PT Evaluation Information Assessment Status Evaluation ICD-10 Condition Codes (PT) Difficulty Walking R26.2,Abnormalities of gait and mobility R26.9,Weakness R53.1 Onset 02/28/22 Subjective Information Berenice Long reports she is doing better overall. She is not having back pain and denies falls. She continues to use her walker for ambulation and reports she used to use a cane. She uses the walker due to fear of falling and because she walk faster with it versus the cane. She states she is not walking much or exercising at home. She is supposed to see an correctional program specialist for her left knee in the middle of October and another specialist at the end of October. She is unsure what the other specialist is for but states she was referred to them by a neurologist and that she will have tests done. Assessment PT Clinical Summary Berenice is 74 y/o female who has completed 12 skilled PT visits with the diagnosis of lumbar stenosis and unsteady gait. She reports that she feels a little stronger and she has not had any falls. She continues to use her rollator walker and has a fear of falling preventing her from going back to using her cane. She continues to have limitations with LE strength, core strength, gait, balance, and endurance. She will continue to benefit from skilled PT to further address these limitations. Plan of Care Interventions Gait Training,Neuro Re-education,Patient/Caregiver Education,Therapeutic Activities,Therapeutic Exercise PT Services Indicated Yes Treatment Frequency and Continue 2 times a week for 10 visits Duration These treatments will address the objective and functional deficits as defined above. The patient will be advanced safely and appropriately in order for the patient to progress towards his/her prior level of function. Additional exercises will be introduced and as well as a comprehensive home exercise program upon discharge, if needed, ?to ensure carryover of functional gains achieved in the clinic. This treatment plan has been reviewed and agreement upon by the patient.
== END 2024-11-16 23:59 | disposition home or self-care (01) ==
LOC: CHSPT 13:57
PROVIDERS: PCP Internal Medicine; Visit Provider Internal Medicine
DX: R26.81 Unsteadiness on feet (principal); M48.061 Spinal stenosis, lumbar region without neurogenic claudication
CPT/HCPCS: 97110; 97112; 97150; 97161; 97530; 97750

== ENCOUNTER 2024-12-16 13:23 | Outpatient (CLI) | payer MEDICARE, SELFPAY ==
--- OUTSIDE RECORDS SUMMARY | 2023-04-03 05:51 | XMS_ITS | Continuity of Care Document ---
Author Organization [facility] Address [address] [place] [address] Phone Care Team Providers Care Phone Screener Name Role Phone Enrique CAMERON, Niko Unavailable Unavailable Allergies, Adverse Reactions, Alerts Substance Reaction Status Criticality sodium sulfate Hypertensive disorde r, systemic arterial Active No Information sodium chloride Hypertensive disorde r, systemic arterial Active No Information POTASSIUM CHLORIDE Hypertensive disorde r, systemic arterial Active No Information polyethylene glycol 3350 Hypertensive di sorder, systemic arterial Active No Information ascorbic acid Hypertensive disorde r, systemic arterial Active No Information ASCORBATE SODIUM Hypertensive disorde r, systemic arterial Active No Information WARNIN allergy(ies) could not be collected because the type is not supported. Please contact the source practice for further details. Medications Medication Instructions Dosage Effective Dates (start - stop) Status Comments Sutab 1.479-0.188-0.225 gram tablet take by oral route Per RGA prep instructions. - Active prior auth approved through 12/06/2025 peg 3350-electrolytes 236 gram-22.74 gram-6.74 gram-5.86 gram solution take per colonoscopy prep instructions - Active ok to substitute any brand or generic Plenvu 140 gram-9 gram-5.2 gram powder packs take by oral route as directed per package instructions for colonoscopy prep - Active Valtrex 1 gram tablet take 1 tablet by oral route every 12 hours as needed 1000 MG - Active amlodipine 10 mg tablet take 1 tablet by oral route every day 10 MG - Active cholecalciferol (vitamin D3) 125 mcg (5,000 unit) tablet take 1 tablet by oral route every day 1 tablet - Active aspirin 81 mg tablet,delayed release take 1 tablet by oral route every day 81 MG - Active Basaglar KwikPen U-100 Insulin 100 unit/mL (3 mL) subcutaneous inject 42 units by subcutaneous route as per insulin protocol - Active Centrum Silver Women 8 mg iron-400 mcg-300 mcg tablet take once a day - Active Vitamin D3 125 mcg (5,000 unit) tablet take 1 tablet by oral route every day 1 tablet - Active lisinopril 20 mg tablet take 2 tablet by oral route 2 times every day 40 MG - Active milk thistle 500 mg capsule take 2 capsules daily - Active Zoloft 100 mg tablet take 1.5 tablet by oral route every day - Active rosuvastatin 5 mg tablet take 1 Tablet by oral route every day 5 MG - Active carvedilol 6.25 mg tablet take 1 tablet by oral route 2 times every day with food 6.25 MG - Active Vitamin B-12 1,000 mcg tablet take 1 tablet by oral route every day 1 tablet - Active Ozempic 1 mg/dose (2 mg/1.5 mL) subcutaneous pen injector inject (1MG) by subcutaneous route every week on the same day of each week, in the abdomen, thighs, or upper arm rotating injection sites - Active Novolog Flexpen U-100 Insulin aspart 100 unit/mL (3 mL) subcutaneous inject by subcutaneous route per prescriber's instructions. Insulin dosing requires individualization. 0.00 - Active Procedures Procedure Date Colonoscopy Flex; W/remov Les- 24 Moderate Sedation - Same Physician Offic/outpt E&m Estab Mod-hi 2 23 Offic/outpt E&m Estab Mod-hi 2 22 Offic/outpt E&m Estab Mod-hi 2 21 Ugi Endo; W/us Guid Asp/bx Ugi Endo; W/bx 1/mx Offic/outpt E&m Estab Offic/outpt E&m Estab Offic/outpt E&m Estab Mod-hi 2 21 Offic/outpt E&m Estab Offic/outpt E&m Estab Mod-hi 2 Level Iv-surg Path Gross/t, Lvl IV Colonoscopy Flex; W/remov Les- 21 Moderate Sedation - Endoscopy [facility] Facility Charge No Burn, Fall, Wrong Event, Or Hospital Transfer Offic/outpt E&m Estab Liver Elastography Offic/outpt E&m New Mod-hi 45 1 Ugi Endo; Dx W/wo Collec Specm 17 Moderate Sedation - Same Physician [facility] Facility Charge Ugi Endo; W/bx 1/mx [facility] Facility Charge Level Iv-surg Path Gross/micro 13 Offic Cons New/estab Mod Colonoscopy Flex; Dx (sep Pro) 09 [facility] Facility Charge Advance Directives Directive Yes / No Effective Date File Name No Information Encounters Encounter Description Practice Location Reason(s) For Visit Diagnoses Date Provider Providers Copied on Encounter [facility], [address] [place] [address], [place], [place], [id number] tel:[phone] [facility] No Information 4 Enrique Pope. [address] [place] [address], [id number], [place]. tel:[phone] [facility], [address] [place] [address], [place], [place], [id number] tel:[phone] [facility] No Information 4 Kevin Pritchard. [address] [place] [address], [id number], [place]. tel:[phone] Referring Provider: Guru Burrell, [address] [facility], [place], [address]. tel:[phone] Offic/outpt E&m Estab Mod-hi 2 [facility], [address] [place] [address], [id number] tel:[phone] [facility] NAFLD (chief complaint) NAFLD (nonalcoholi c fatty liver disease)Irri table bowel syndrome with both constipation and diarrheaPers onal history of colonic polyps 3 Kevin CAMERON Macho. [address] [place] [address], [id number], [place]. tel:[phone] Referring Provider: Guru Tellez MD [facility], [address] [place], [address]. tel:[phone] [facility], [address] [place] [address], [id number] tel:[phone] [facility] No Information 3 Kevin CAMERON Macho. [address] [place] [address], [id number], [place]. tel:[phone] [facility], [address] [place] [address], [id number] tel:[phone] [facility] No Information 2 Agapito Rod. [address] [place] [address], [id number], [place]. tel:[phone] Offic/outpt E&m Estab Mod-hi 2 [facility], [address] [place] [address], [id number] tel:[phone] [facility] nonalcoholic fatty liver disease (chief complaint) NAFLD (nonalcoholi c fatty liver disease)Pers onal history of colonic polypsIrrita ble bowel syndrome with both constipation and diarrhea 2 Kevin CAMERON Mahco. [address] [place] [address], [id number], [place]. tel:[phone] Offic/outpt E&m Estab Mod-hi 2 [facility], [address] [place] [address], [id number] tel:[phone] [facility] nonalcoholic fatty liver disease (chief complaint) NAFLD (nonalcoholi c fatty liver disease)Pers onal history of colonic polypsAltere d bowel habits 1 Kevin CAMERON Macho. [address] [place] [address], [id number], [place]. tel:[phone] [facility], [address] [place] [address], [id number] tel:[phone] [facility] No Information 1 Rajesh Shah. [address] [place] [address], [id number], [place]. tel:[phone] Offic/outpt E&m Estab [facility], [address] [place] [address], [id number] tel:[phone] [facility] No Information 1 Kevin CAMERON Macho. [address] [place] [address], [id number], [place]. tel:[phone] Offic/outpt E&m Estab [facility], [address] [place] [address], [id number] tel:[phone] [facility] No Information 1 Rajesh Shah. [address] [place] [address], [id number], [place]. tel:[phone] Offic/outpt E&m Estab Mod-hi 2 [facility], [address] [place] [address], [id number] tel:[phone] [facility] nonalcoholic fatty liver disease (chief complaint) NAFLD (nonalcoholi c fatty liver disease)Abdo shanon crampingLoos e stoolsAdenom atous polyp of ascending colon 1 Kevin Pritchard. [address] [place] [address], [id number], [place]. tel:[phone] Offic/outpt E&m Estab [facility], [address] [place] [address], [id number] tel:[phone] [facility] No Information 1 Kevin Pritchard. [address] [place] [address], [id number], [place]. tel:[phone] Offic/outpt E&m Estab Mod-hi 2 [facility], [address] [place] [address], [id number] tel:[phone] [facility] nonalcoholic fatty liver disease (chief complaint) NAFLD (nonalcoholi c fatty liver disease)Othe r cirrhosis of liverAdenoma tous polyp of ascending colon 1 Kevin Pritchard. [address] [place] [address], [id number], [place]. tel:[phone] [facility], [address] [place] [address], [id number] tel:[phone] [facility] No Information 1 Kevin Pritchard. [address] [place] [address], [id number], [place]. tel:[phone] Referring Provider: Macho Brown MD S, [address] [place] [address], [id number] . tel:[phone] [facility], [address] [place] [address], [id number] tel:[phone] [facility] Benign neoplasm of ascending colonBenign neoplasm of transverse colonDvrtclo s of lg int w/o perforation or abscess w/o bleedingResi dual hemorrhoidal skin tagsEncounte r for screening for malignant neoplasm of colon 1 Kevin Pritchard. [address] [place] [address], [id number], [place]. tel:[phone] [facility], [address] [place] [address], [id number] tel:[phone] [facility] No Information 1 [facility]. [address] [place] [address], [id number], [place]. tel:[phone] Referring Provider: Macho Brown MD S, [address] [place] [address], [id number] . tel:[phone] Offic[facility]pt [facility] Estab [facility], [address] [place] [address], [id number] tel:[phone] [facility] No Information 1 Kevin Pritchard. [address] [place] [address], [id number], [place]. tel:[phone] [facility], [address] [place] [address], [id number] tel:[phone] [facility] Fatty (change of) liver, not elsewhere classified 1 Kevin Pritchard. [address] [place] [address], [id number], [place]. tel:[phone] Offic/outpt E&m New Mod-hi 45 [facility], [address] [place] [address], [id number] tel:[phone] [facility] right flank pain (chief complaint) Altered bowel habitsNAFLD (nonalcoholi c fatty liver disease)Abno rmal finding on imaging of liverColon cancer screening 1 Kevin Pritchard. [address] [place] [address], [id number], [place]. tel:[phone] [facility], [address] [place] [address], [id number] tel:[phone] [facility] Fatty (change of) liver, not elsewhere classified 7 Kevin Pritchard. [address] [place] [address], [id number], [place]. tel:[phone] [facility], [address] [place] [address], [id number] tel:[phone] [facility] No Information 7 [facility]. [address] [place] [address], [id number], [place]. tel:[phone] Referring Provider: Macho Brown MD S, [address] [place] [address], [id number] . tel:[phone] [facility], [address] [place] [address], [id number] tel:[phone] [facility] Diarrhea bile saltDysphagi aReflux, esophageal 3 No Information [facility], [address] [place] [address], [id number] tel:[phone] [facility] No Information 3 [facility]. [address] [place] [address], [id number], [place]. tel:[phone] [facility], [address] [place] [address], [id number] tel:[phone] [facility] No Information 3 No Information Offic Cons New/estab Mod [facility], [address] [place] [address], [id number] tel:[phone] [facility] Diabetes Mellitus, uncomplicate d, type IICholestero losis, gallbladderA pnea, sleep NOSDysphagia 3 No Information [facility], [address] [place] [address], [id number] tel:[phone] [facility] Diverticulos isFamily history of colon cancer Gary Wolf. [address] [place] [address], [id number], [place]. tel:[phone] [facility], [address] [place] [address], [id number] tel:[phone] [facility] No Information 9 [facility]. [address] [place] [address], [id number], [place]. tel:[phone] Referring Provider: Luciano Haque, [address] [place] [address], [id number] . tel:[phone] Family History Family Member Type Diagnosis Age At Onset Sister Problem Colon polyps Paternal uncle Problem cancer of colon (Cause Of ) 60 Mother Problem ulcerative colitis Problem (finding) No family history of Ca ncer, colon Problem (finding) No family history of Co galindo polyps Immunizations Vaccine Date Status Comments SARS-COV-2 COVID-19 Viral Ve ctor Non-replicating Non-[place] Vaccine Product (Sputnik Light) administered Source: Other Provid er Flu (split) (3 yrs or older) administered Source: Other Provider SARS-COV-2 COVID-19 Inactiva juan Virus Non-US Vaccine Product (QAZCOVID-IN) administered Source: Ot her Provider Flu (split) (3 yrs or older) administered Source: Other Provider hepatitis A vaccine, adult dosage adminis tered Source: Other Provider SARS-COV-2 (COVID-19) vaccin e, mRNA, spike protein, LNP, preservative free, 100 mcg/0.5mL dose administered Source: Other Provid er SARS-COV-2 (COVID-19) vaccin e, mRNA, spike protein, LNP, preservative free, 30 mcg/0.3mL dose administered Source: Other Provid er Zoster administered Source: Other P rovider Pneumo (2 yrs or older)(PPV) administered Source: Other Provider Flu (split) (3 yrs or older) administered Source: Other Provider Payers Payer name Insurance type Covered constitution party ID Authoriza tion(s) Medicare [employer] MB [id number] [facility] Health Benefit Plan CI [id number] Social History Type Description Quantity Date Captured Comments Sex Female Smoking Status No Information Chief Complaint And Reason For Visit No Information Reason For Referral Reason For Referral No Information Plan Of Treatment Date Type Action Status Patient Education Using Your Medicines: C are Instructions completed Patient Education Colonoscopy: Before You r Procedure completed Patient Education Using Your Medicines: C are Instructio~ completed Patient Education Using Your Medicines: C are Instructio~ completed Patient Education Colonoscopy: Before You r Procedure completed Patient Education Percutaneous Liver Biop sy: Before You~ completed Patient Education Endoscopic Ultrasound ( Oral): What to~ completed Patient Education Using Your Medicines: C are Instructio~ completed Patient Education Upper GI Endoscopy: Bef ore Your Proce~ completed Patient Education Colonoscopy: Before You r Procedure completed Patient Education Learning About Low-Fat Eating completed Patient Education Hemorrhoids: Care Instr uctions completed Patient Education Colon Polyps: Care Inst ructions completed Patient Education Using Your Medicines: C are Instructio~ completed Patient Education Colonoscopy: Before You r Procedure completed Future Order: Lab Order ROSARIO Fib roSURE ([id number]), Ordered on: Ordered History Of Present Illness Encounter Date Complaint History Of Prese nt Illness NAFLD Comments: The andra flores is a 72-year-old woman with nonalcoholic fatty liver disease who returns for a followup visit. Previous Fibroscan and Fibrosure in 2020 were suggestive of F3 fibrosis. Previous CT imaging commented on a nodular contour to the liver. She underwent a EUS and liver biopsy in 2020. The EUS showed no evidence of portal hypertension. It did reveal fatty liver. Biopsies from the esophagus showed reflux esophagitis. Liver biopsy showed steatosis, grade 1-2 inflammation, as well as stage I-II fibrosis.She mentions that her previous irritable bowel syndrome symptoms have improved with Metamucil, IBgard, and dietary modification. Otherwise, her gastrointestinal review of systems is unremarkable. Her weight has decreased 15 lbs from one year ago. She has metabolic syndrome risk factors including diabetes, hypertension, hypercholesterolemia, and obesity.Recent labs showed normal CBC, creatinine, and liver enzymes as well as hemoglobin A1c 6.9. 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 Surveillance colonoscopy in 2021 showed 2 small areas of residual tubular adenoma as well as diverticulosis. nonalcoholic fatty liver disease Comments: The andra flores is a 70-year-old woman with nonalcoholic fatty liver disease who returns for a followup visit. Previous Fibroscan and Fibrosure were suggestive of F3 fibrosis. Previous CT imaging commented on a nodular contour to the liver. She underwent a EUS and liver biopsy in 2020. The EUS showed no evidence of portal hypertension. It did reveal fatty liver. Biopsies from the esophagus showed reflux esophagitis. Liver biopsy showed steatosis, grade 1-2 inflammation, as well as stage I-II fibrosis.She mentions that her previous irritable bowel syndrome symptoms have improved with fiber supplementation, IBgard, and dietary modification. Otherwise, her gastrointestinal review of systems is unremarkable. Her weight is up 6 pounds from one year ago. She has metabolic syndrome risk factors including diabetes, hypertension, hypercholesterolemia, and obesity.Recent labs showed normal hemoglobin, platelets 135, albumin 3.4, normal liver enzymes, and normal creatinine. nonalcoholic fatty liver disease nonalcoholic fatty l iver disease (comments) The patient is a 70-year-old woman with nonalcoholic fatty liver disease who returns for a followup visit. Previous Fibroscan and Fibrosure were suggestive of F3 fibrosis. Previous CT imaging commented on a nodular contour to the liver. She underwent a recent EUS and liver biopsy. The EUS showed no evidence of portal hypertension. It did reveal fatty liver. Biopsies from the esophagus showed reflux esophagitis. Liver biopsy showed steatosis, grade 1-2 inflammation, as well as stage I-II fibrosis.She continues to experience alternating loose stools and constipation as well as abdominal cramping. She has noted improvement with dietary modification including avoidance of greasy/fatty foods, Citrucel, as well as a probiotics. Otherwise, her gastrointestinal review of systems is unremarkable. nonalcoholic fatty liver disease nonalcoholic fatty l iver disease (comments) The patient is a 70-year-old woman with nonalcoholic fatty liver disease. Renal protocol CT from 2019 showed fatty liver and mildly cirrhotic morphology. Subsequent Fibroscan was suggestive of F4 fibrosis and Fibrosure was suggestive of F3 fibrosis. Recent liver serologies were unremarkable. INR and alpha-fetoprotein were normal.She underwent recent EGD and colonoscopy. EGD was normal. Colonoscopy showed a 3.5 cm laterally spreading polyp within the ascending colon and diverticulosis. Pathology showed a tubulovillous adenoma with focal high-grade dysplasia.She reports postprandial abdominal cramping and loose-watery stools after eating breakfast in the morning. She has noticed some association to eating greasy/fatty foods. She is status post cholecystectomy. She has noticed some improvement with dietary modification as well as the use of Citrucel along with a probiotic. Otherwise, her gastrointestinal review of systems is unremarkable.Recent labs showed a normal creatinine, liver enzymes, and TSH. Hemoglobin A1c was 6.4 and total cholesterol was 155. nonalcoholic fatty liver disease nonalcoholic fatty l iver disease (comments) The patient is a 70-year-old woman who returns for a followup visit. Recent imaging showed fatty liver with possible cirrhotic morphology. She underwent a ROSARIO Fibrosure which was suggestive of F3 fibrosis. Subsequent Fibrosccan showed F4 fibrosis. She underwent a recent colonoscopy which was notable for 4 smaller polyps as well as a 2.5 cm ascending colon polyp which was not removed.She reports doing very well from a gastrointestinal perspective. She had previous diarrhea which has improved with Citrucel. She has metabolic syndrome risk factors including obesity, hypertension, hypercholesterolemia, as well as diabetes. She does not exercise regularly. She does not drink alcohol. Her weight is up 7 pounds from her initial consultation. right flank pain (comments) The patient is a 69-year-old woman who was referred for evaluation of right flank pain. She has a history of nephrolithiasis. She experienced right flank pain reminiscent of her kidney stones in January and underwent CT scan of the abdomen/pelvis. The scan showed no acute abnormalities or urolithiasis. It did comment on marked colonic stool burden especially within the ascending colon, diverticulosis without diverticulitis, fatty liver with mildly cirrhotic morphology, as well as splenomegaly.She was given 2 bottles of magnesium citrate by her primary care physician with good stool output and resolution of her right flank pain. She reports generally having regular bowel movements. She experiences intermittent postprandial diarrhea and urgency along with abdominal cramping. These episodes can be precipitated by increased stress/emotion. She takes IBgard with some improvement. She reports long-standing intermittent dysphagia for liquids when she drinks too quickly. Otherwise, her gastrointestinal review of systems is unremarkable.She has metabolic syndrome risk factors including obesity, diabetes, hypertension, as well as hypercholesterolemia. She does not drink alcohol. She denies a personal or family history of liver disease.Recent labs showed a normal CBC, creatinine, albumin, liver enzymes, and TSH. A Cologuard test in 2019 was normal. She last underwent EGD in 2016 which was normal. She last underwent colonoscopy in 2008 that showed diverticulosis. right flank pain Functional Status Date Functional Assessmen t No Information Instructions Date Instruction Additional Infor flakita Miralax BID x 3 days then Plenvu prep for upcoming colonoscopy Related to Personal history of colonic polyps RTC 2 weeks after EU S/liver biopsy--make sure pathology report is available Related to Adenomatous polyp of ascending colon repeat colonoscopy i n 3 months (rather than 6 months) with directions per rounds card Related to Adenomatous polyp of ascending colon right upper quadrant ultrasound in July 2020 and every 6 months thereafter Related to Other cirrhosis of liver NAFLD literature Related to NAFL D (nonalcoholic fatty liver disease) Fibroscan Related to NAFLD (nonalcoholic fatty liver disease) NAFLD literature Related to NAFL D (nonalcoholic fatty liver disease) Weight loss via prop er dieting and exercise Related to Fatty (change of) liver, not elsewhere classified Tight glycemic control Related t o Fatty (change of) liver, not elsewhere classified Continue to f/u with PCP re: aggressive management of the metabolic syndrome Related to Fatty (change of) liver, not elsewhere classified Obtain recent CBC and CMP from [facility] Related to Fatty (change of) liver, not elsewhere classified Assessments Type Assessment Date No Information Patient Care Teams Name Effective Dates (start - stop) Status Members No Information
--- OUTSIDE RECORDS SUMMARY | 2023-07-02 06:40 | XMS_ITS | Continuity of Care Document ---
Author Organization [facility] Address [facility] [place] [address] Phone Care Team Providers Care Blow Mold Machine Operator Name Role Phone MICAH CAMERON, OCTAVIANO Unavailable Unavailable Allergies, Adverse Reactions, Alerts Substance Reaction Status Criticality morphine Active No Information Medications Medication Instructions Dosage Effective Dates (start - stop) Status Comments GLIPIZIDE (unknown strength) take 1 tablet by oral route 2 times every day before meals Not Available - Active lisinopril 5 mg tablet take 1 tablet by oral route every day 5 MG - Active Norvasc 5 mg tablet take 1 tablet by oral route every day 5 MG - Active Basaglar KwikPen U-100 Insulin 100 unit/mL (3 mL) subcutaneous inject by subcutaneous route as per insulin protocol 0.00 - Active Novolog FlexPen U-100 Insulin aspart 100 unit/mL (3 mL) subcutaneous inject by subcutaneous route per prescriber's instructions. Insulin dosing requires individualization. 0.00 - Active Ozempic 0.25 mg or 0.5 mg (2 mg/3 mL) subcutaneous pen injector inject (0.5MG) by subcutaneous route every week on the same day of each week 0.5 MG - Active calcitriol 0.5 mcg capsule take 1 capsule by oral route every day 0.5 MCG - Active Procedures Procedure Date OFFICE VISIT, EST REFRACTION POSTOP FOLLOW-UP VISIT POSTOP FOLLOW-UP VISIT POSTOP FOLLOW-UP VISIT CATARACT SURG W/IOL, 1 STAGE POSTOP FOLLOW-UP VISIT CATARACT SURG W/IOL, 1 STAGE OPHTHALMIC BIOMETRY Oct OPHTHALMIC BIOMETRY REFRACTION Oct CORNEAL TOPOGRAPHY Oct OFFICE/OUTPATIENT VISIT, NEW Advance Directives Directive Yes / No Effective Date File Name No Information Encounters Encounter Description Practice Location Reason(s) For Visit Diagnoses Date Provider Providers Copied on Encounter OFFICE VISIT, EST [facility], [address] [place] [address], [id number], [place] tel:[phone] [facility] redness (chief complaint) Conjunctival hemorrhage of right eye 4 VAKHARIA OCTAVIANO. [address] [facility], [place], [place], [id number]. tel:[phone] [facility], [address] [place] [address], [id number], [place] tel:[phone] [facility] 1 month IOL OD: 02/17 OS: 03/03 (chief complaint) Age-related nuclear cataract, bilateral 4 VAKHARIA OCTAVIANO. [address] [facility], [place], [place], [id number]. tel:[phone] [facility], [address] [place] [address], [id number], [place] tel:[phone] [facility] redness (chief complaint) Age-related nuclear cataract, left eye 4 VAKHARIA OCTAVIANO. [address] [facility], [place], [place], [id number]. tel:[phone] [facility], [address] [place] [address], [id number], [place] tel:[phone] [facility] 1 day PO Phaco w/ PC IOL OS (2nd eye) (chief complaint) Age-related nuclear cataract, left eye 4 VAKHARIA OCTAVIANO. [address] [facility], [place], [place], [id number]. tel:[phone], [id number], [place] tel:[phone] [facility] No Information 4 VAKHARIA OCTAVIANO. [address], [place], [place], [id number]. tel:[phone] [facility], [address] [place] [address], [place], [place], [id number], tel:[phone] [facility] 1 day PO OD (1st Eye) (chief complaint) Age-related nuclear cataract, right eye 4 VAKHARIA OCTAVIANO. [address], [place], [place], [id number]. tel:[phone] [facility], [address] [place] [address], [place], [place], [id number], [place] tel:[phone] [facility] No Information 4 VAKHARIA OCTAVIANO. [address], [place], [place], [id number]. tel:[phone] OFFICE/OUTPAT IENT VISIT, [facility], [address] [place] [address], [place], [place], [id number], tel:[phone] [facility] blurry vision (chief complaint) Age-related nuclear cataract, bilateral 3 VAKHARIA OCTAVIANO. [address], [place], [place], [id number]. tel:[phone] Family History Family Member Type Diagnosis Age At Onset Problem No family history of Blindne ss Payers Payer name Insurance type Covered libertarian ID Foster parnell(s) [place] MB [id number] Cigna CI [id number] Social History Type Description Quantity Date Captured Comments Alcohol Use Details Unknown Caffeine Use Details Unknown Tobacco Use Status No Information Smoking Status No Information Sex Female Chief Complaint And Reason For Visit From encounter dated '07/02/2023 12:40'. redness (chief complaint). Description: The 73 year old patient presents for evaluation of redness in the right eye. It occurs with no pattern. The onset was sudden. Per pt since surgery felt like right eye was not right. Per pt since surgery noticed changes in VA OD. This morning wake up with painin right eye. Pt noticed her right eye is all red. Declines tearing, crusting or discharge. Pt declines picking up anything heavy. Declines having a hard coughing. Taking Systane QAM OU. No trouble with left eye per pt. Reason For Referral Reason For Referral No Information History Of Present Illness Encounter Date Complaint History Of Prese nt Illness redness The 73 year old patient presents for evaluation of redness in the right eye. It occurs with no pattern. The onset was sudden. Per pt since surgery felt like right eye was not right. Per pt since surgery noticed changes in VA OD. This morning wake up with pain in right eye. Pt noticed her right eye is all red. Declines tearing, crusting or discharge. Pt declines picking up anything heavy. Declines having a hard coughing. Taking Systane QAM OU. No trouble with left eye per pt. 1 month IOL OD: 02/17 OS: 03/03 The 72 year old patient presents for evaluation of 1 month IOL OD: 02/17 OS: 03/03 in the right eye and left eye. Per pt over happy with result of surgery. Would like MRx updated today. redness The 72 year old patient presents for evaluation of redness in the right eye. It occurs with no pattern. The onset was gradual. It affects both near and far vision. On Friday03/14/23 noticed her right eye was very itchy. Pressure feeling around right eye. welder fitter increased crusting/tearing/discharge. Can happen during the day. Per pt taking Pred BID OU/Prolensa QD OU 1 day PO Phaco w/ PC IOL OS (2nd eye) OS doing well, no complaints. Patient states OD still irritated and vision still blurry. 1 day PO OD (1st Eye) The 72 yea r old patient presents for evaluation of 1 day PO OD (1st Eye). Phaco w/PC IOL OD: Doing well, No Complaints blurry vision The 72 year old patient presents for evaluation of blurry vision in the right > left. Patient states vision progressively has gotten worse over the past year. Patient unable to drive at night due to glare and halos. Trouble seeing the print on the TV screen, and reading small print. Patient feels like there is a film over everything. Functional Status Date Functional Assessmen t No Information Instructions Date Instruction Additional Infor flakita Impression/Plan Related to Conju nctival hemorrhage of right eye Impression/Plan Related to Age-r elated nuclear cataract, bilateral Impression/Plan Related to Age-r elated nuclear cataract, left eye Impression/Plan Related to Age-r elated nuclear cataract, left eye Impression/Plan Related to Age-r elated nuclear cataract, right eye Impression/Plan Related to Age-r elated nuclear cataract, bilateral Assessments Type Assessment Date assessment Conjunctival hemorrhage of right eye impression Conjunctival hemorrhage of right eye: H11.31 Patient Care Teams Name Effective Dates (start - stop) Status Members No Information
--- NOTE | ~2024-12-16 | MR_ITS ---
EXAMINATION: MR brain/brain stem wo con DATE: 12/16/2024 13:59 INDICATION: Gait disorder TECHNIQUE: Magnetic resonance imaging (MRI) of the brain and brainstem was performed without intravenous contrast. Sequences included sagittal and axial T1-weighted SE, axial diffusion-weighted FS SE, axial T2*-weighted GRE, axial T2-weighted FLAIR, and axial T2-weighted FSE. Apparent diffusion coefficient (ADC) maps were created. COMPARISON: Brain MR dated 05/22/2023 FINDINGS: There are no areas of restricted diffusion to suggest acute infarction. Small focus of susceptibility artifact in the left thalamus consistent with sequela of chronic microhemorrhage. No acute intracranial hemorrhage or abnormal intracranial mass lesion. There are scattered areas of nonspecific increased T2- weighted signal intensity in the cerebral and pontine white matter, predominantly involving the deep and periventricular white matter. There are no intraparenchymal signal abnormalities seen on the other pulse sequences. The ventricles are symmetric and normal in size. There are no abnormal extra-axial fluid collections. Flow voids are seen in the cerebral arteries on the T2- weighted sequences consistent with their expected patency. Complete filling of the right maxillary sinus and multiple anterior right ethmoid air cells suspicious for acute sinusitis. Visualized orbits and soft tissues are unremarkable. IMPRESSION: 1. No acute intracranial process. 2. Moderate scattered white matter T2 hyperintensity consistent with chronic small vessel ischemic disease. 3. Small focus of susceptibility artifact at the left thalamus consistent with sequela of chronic microhemorrhage as could be seen with hypertension. 4. Complete opacification of the right maxillary sinus and anterior right ethmoid air cells. Correlate clinically for acute sinusitis. Reviewed, dictated and finalized at location A. GER E [facility]ARNING IMPRESSION: 1. No acute intracranial process. 2. Moderate scattered white matter T2 hyperintensity consistent with chronic sm all vessel ischemic disease. 3. Small focus of susceptibility artifact at the left thalamus consistent with sequela of chronic microhemorrhage as could be seen with hypertension. 4. Complete opacification of the right maxillary sinus and anterior right ethmo id air cells. Correlate clinically for acute sinusitis.
--- OUTSIDE RECORDS SUMMARY | 2024-12-16 20:03 | XMS_ITS | Clinical Summary ---
Author Organization [facility] Address [facility] [place] [address] Care Team Providers Care Upper Leather Sorter Name Role Phone Diomedes Ron MD Primary Care Provider [phone] Allergies No known active allergies Medications hydrocodone-aceta [...] Potassium Gluconate 595 (99 K) MG TabIndications:Po tassium Supplement or Potassium-Sparing Diuretic Therapy Take 1 tablet by mouth daily. 9 [...] C 500 MG tabletIndications :Vitamin C Imbalance (Inactive) Take 1 tablet (500 mg total) by [...] MCG/ 0.5 ML DOSE 05/26/2020,04/28/2020 MODERNA COVID-19 (OIL BURNER TECHNICIAN TRISTAN TERRELL), MRNA, LNP-S, PF, 50 MCG/ 0.25 ML DOSE 03/07/2021 Pneumococcal (Pneumovax 23) 04/01/2018, 3 Pneumococcal (Prevnar 13) 12/11/2016 Shingrix 05/30/2022 Tdap (Boostrix) 04/01/2018 Tdap (Generic) 05/30/2022 Zoster (Zostavax) 86103 Unt/0.65Ml 03/09/2012 Social History Tobacco Use Types [...] 10:39 AM CDT Height 162.6 cm (5' 4) 08/05/2022 10:39 AM CDT Body Mass Index 32.1 08/05/2022 10:39 AM CDT Plan of Treatment Health Maintenance Due Date Last Done Comments Colorectal Cancer Screening Colonoscopy (10 Years) 1950 Hepatitis C 1968 Mammogram Screening 1990 Annual Medicare Wellness Visit 2015 Dexa Scan (General) 2015 Zoster Vaccines (3 of 3) 07/25/2022 05/30/2022, 02/11 COVID-19 Vaccine ( season) 2024 07/22/2022, 03/07/2021, 05/26/2020, Additional history exists Influenza Adult (#1) 2024 11/16/2020, 12/14/2019, 11/30/2018, Additional history exists RSV Immunization or 60+ Years (1 - 1-dose 75+ series) 2025 DTaP, Tdap and Td Vaccines (3 - Td or Tdap) 05/30/2032 05/30/2022, 04/01/2018 Pneumococcal Vaccine: 50+ Years Completed 04/01/2018, 12/11/2016, 03/09/2012 Hepatitis A Vaccines Aged Out No long er eligible based on patient's age to complete this topic Meningococcal B Vaccine Aged Out No l onger eligible based on patient's age to complete this topic Meningococcal Vaccine Aged Out No galindo jenna eligible based on patient's age to complete this topic RSV Immunizations Under 20 Months Aged Out No longer eligible based on patient's age to complete this topic Insurance [facility] MEDICARE Care Teams Upper Leather Sorter Relationship Specialty Start Date End Date Diomedes Ron MD [address] [place] [address] PCP - General INTERNAL MEDICINE 09/03/18
--- OUTSIDE RECORDS SUMMARY | 2024-12-16 20:03 | XMS_ITS | Patient Health Record ---
Author Organization [facility] Address [address] [place], [place] [id number] Care Team Providers Care Optical Effects Layout Person Name Role Phone REENA MATSON Unavailable [phone] Diomedes Ron Unavailable Unavailable Reason For Referral No Information Medications Medication SIG (Take, Route, Frequency, Duration) Notes Start Date End Date Status Meloxicam 15 MG Oral Tablet ORAL meloxicam 15 MG Oral TabletOriginal Medicationmeloxicam 15 MG Oral Tablet *Reorder from ALTHIA for eRx and Interaction Alerts* 12/21/2012 Active Nabumetone 500 MG Oral Tablet ORAL nabumetone 500 MG Oral TabletOriginal Medicationnabumetone 500 MG Oral Tablet *Reorder from ALTHIA for eRx and Interaction Alerts* 12/18/2012 Active Social History Social History Additional Details Category Social Info Options Details Migrated Social History Migrated Social History History of tobacco use : , Smoking Status : Never smoked Plan Of Treatment No Information Insurance Providers Payer Name Payer Address Payer Phone Subscriber Number Group Number Insured Name Patient Relationship to Insured Coverage Start Date Coverage End Date [facility] ATTN CLAIMS [address] [place] [address] [id number] XAVIER COHEN PT Self - patient is the insured
--- OUTSIDE RECORDS SUMMARY | 2024-12-16 20:03 | XMS_ITS | Clinical Summary ---
Author Organization [facility] Address [address] [place] [address] Care Team Providers Care Environmental Consultant Name Role Phone Diomedes Ron MD Primary Care Provider [phone] Source Comments [facility],non-owned Affiliates and Associated Physician Practices is amultiple site organization consisting of ambulatory clinics and hospital sitesin [place], [place], [place] and [place]. This disclosure is being madepursuant to the Care Everywhere program and may not contain all information available regarding this patient. Last updated 17.[facility] [place] Allergies No known active allergies Medications * [...] Encounters Date Type Department Care Team Description 11/16/2024 9:40 AM CDT - 11/16/2024 11:59 PM CDT Hospital Encounter [facility] - Outside Imaging Discharge Disposition: Home or Self Care 11/16/2024 9:40 AM CDT - 11/16/2024 11:59 PM CDT Hospital Encounter [facility] - Outside Imaging Discharge Disposition: Home or Self Care 11/16/2024 9:39 AM CDT Hospital Encounter [facility] - Outside Imaging Discharge Disposition: Home or Self Care 11/15/2024 3:10 PM CDT Office Visit [facility] [address] [place] [address], [address] [phone] Eulogio Lin MD Primary osteoarthritis of both knees (Primary Dx) 09/15/2024 Telephone [facility] [address] [place] [address], [address] [phone] Eulogio Lin MD Appointment from Last 3 Months Social History Tobacco Use Types Packs/Day Years Used Date Smoking Tobacco: Never Smokeless Tobacco: Never Alcohol Use Standard Drinks/Week Comments No 0 (1 standard drink = 0.6 oz pur e alcohol) Comments Unknown Sex and Gender Information Value Date Recorded Sex Assigned at Not on file Legal Sex Female 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 Gender Identity Not on file Sexual Orientation Not on file Last Filed Vital Signs Vital Sign Reading Time Taken Comments Blood Pressure 131/57 09/03/2018 7:32 AM CDT Pulse 96 09/03/2018 7:32 AM CDT Temperature 36.9 C (98.4 F) 09/03/2018 7:32 AM CDT Respiratory Rate 18 09/03/2018 7:32 AM CDT Oxygen Saturation 91% 09/03/2018 7:32 AM CDT Inhaled Oxygen Concentration - - Weight 81.6 kg (180 lb) 11/15/2024 3:11 PM CDT Height 162.6 cm (5' 4) 11/15/2024 3:11 PM CDT Body Mass Index 30.9 11/15/2024 3:11 PM CDT Plan of Treatment Health Maintenance Due Date Last Done Comments BONE DENSITY TESTING 1950 COLON MONITORING 1950 COLONOSCOPY - COLON CA SCREENING 1950 CT COLONOGRAPHY - COLON CA SCREENING 1950 FIT - COLON CA SCREENING 1950 FLEX SIG - COLON CA SCREENING 1950 MAMMOGRAM 1950 HEPATITIS C SCREENING 04/01/1968 DTAP/TDAP/TD VACCINES (1 - Tdap) 1969 PNEUMOCOCCAL VACCINE 50+ (1 of 1 - PCV) 2000 ZOSTER VACCINE (1 of 2) 2000 DEPRESSION SCREENING 02/11/2024 MEDICARE AWV CALENDAR YEAR 2024 COVID-19 VACCINE (5 - 2024- season) 2024 07/22/2022, 03/07/2021, 05/26/2020, Additional history exists INFLUENZA VACCINE (#1) 2024 , 12/14/2019, 11/30/2018, Additional history exists Respiratory Syncytial Virus (RSV) Vaccine Pt: or over 60 yrs (1 - 1-dose 75+ series) 2025 COLOGUARD (AGES 45-75) - COLON CA SCREENING 04/22/2027 04/21/2024 Colorectal Cancer Screening 04/22/2027 HEPATITIS B VACCINE Aged Out No longe [...] this topic Medical Devices Implanted Type Area Supervisor Shuttle Veneering Device Identifier Shelf Expiration Date Model / Serial / Lot Cmnt Bone Cblt 40gm Hvisc Strl Implanted:Qty: 1 on 08/31/2018 by Eulogio Lin MD at [facility] Right: Knee [employer] 08/06/2019 [id number] / / [id number] Cmpnt Fem Kn Rt Cr Cmnt Prm Vngrd Intlk Implanted:Qty: 1 on 08/31/2018 by Eulogio Lin MD at [facility] Right: Knee [employer] 07/30/2028 [id number] / / [id number] Cmpnt Ptlr 28mm 1 Pg Wire Ascnt Arcm Kn Implanted:Qty: 1 on 08/31/2018 by Eulogio Lin MD at [facility] Right: Knee [employer] 07/14/2023 [id number] / / [id number] Tray Tib 71mm Kn Cocr I Beam Implanted:Qty: 1 on 08/31/2018 by Eulogio Lin MD at [facility] Right: Knee [employer] 06/16/2028 [id number] / / [id number] Vngrd Arcm Kn Ant Stab Implanted:Qty: 1 on 08/31/2018 by Eulogio Lin MD at [facility] Right: Knee [employer] 05/31/2023 [id number] / / [id number] Insurance [facility] [place] [address] MEDICARE [facility] * Guarantor: XAVIER LONG Account Type Relation to Patient Date of Phone Billing Address Personal/Family Spouse Advance Directives * Full Code (Latest Code Status on File) Date Activated Date Inactivated Comments 08/31/2018 2:20 PM 09/03/2018 2:26 PM Care Teams Environmental Consultant Relationship Specialty Start Date End Date Diomedes Ron MD PCP - General Internal Medicine 06/09/18
--- OUTSIDE RECORDS SUMMARY | 2024-12-16 20:04 | XMS_ITS | Encounter Summary ---
Author Organization [facility] Address [address] [address] Care Team Providers Care Tier Lift Operator Name Role Phone Diomedes Ron MD Primary Care Provider [phone] Encounter Details Date Type Department Care Team (Late st Contact Info) Description 04/12/2019 Lab Requisition [facility] [address] [facility] [place] [address] Marley Helms MD [address] [facility] [address] [place] [address] Social History Tobacco Use Types Packs/Day Years Used Date Smoking Tobacco: Never Smokeless Tobacco: Never Alcohol Use Standard Drinks/Week Comments No 0 (1 standard drink = 0.6 oz pur e alcohol) Comments Unknown Sex and Gender Information Value Date Recorded Sex Assigned at Not on file Legal Sex Female 5:28 PM TESTING COORDINATOR Gender Identity Not on file Sexual Orientation [...] Comments DERMATOPATHOLOGY Routine 04/09/2019 12:0 0 AM TESTING COORDINATOR documented in this encounter Results * DERMATOPATHOLOGY (04/09/2019 12:00 AM TESTING COORDINATOR) Case Report Dermatopathology Report Case: [id number] Authorizing Provider: Marley Helms MD Collected: 04/09/2019 12:00 AM Ordering Location: [facility] Lab Received: 04/12/2019 09:54 AM Pathologist: Garland Clark MD Specimen: Skin, left eyelid margin 0 11:35 AM TESTING COORDINATOR DERMATOPATHOLOGY LABORATORY Final Diagnosis Specimen A. SKIN, left eyelid margin: MILIUM (L72.8) (see microscopic description) 0 11:35 AM [facility] DERMATOPATHOLOGY LABORATORY at 1135 TESTING COORDINATOR Clinical History Cyst vs BCC 0 11:35 AM TESTING COORDINATOR DERMATOPATHOLOGY LABORATORY Gross Description Specimen A: Received is one formalin filled container labeled with the patient's name and designated left eyelid margin. The specimen consists of a shave biopsy measuring 2x1x1,2x1x1, and 1x1x1 mm. Jar 0. 0 11:35 AM TESTING COORDINATOR DERMATOPATHOLOGY LABORATORY Microscopic Description Specimen A. SKIN, left eyelid margin: There is a space that contains loosely aggregated cornified cells surrounded by epithelium that resembles normal epidermis. There is no evidence of epithelial dysplasia or malignancy in multiple deeper sections examined. 0 11:35 AM [facility] DERMATOPATHOLOGY LABORATORY Disclaimer An external and internal positive and negative controls are appropriate for the histochemical, immunohistochemical and immunofluorescence stain(s) in this case (if any), except where stated explicitly. The performance characteristics of the stain(s) cited in this report were developed and its performance characteristic determined by the Dermatopathology Laboratory at [facility], directed by Dr. Emeriat Clark. These tests need not be, and therefore are not, approved by the [place] Food and Drug Administration. The tests are used for clinical purposes. Billing Codes Specimen Charges Stain Charges 91977 1 0 11:35 AM TESTING COORDINATOR DERMATOPATHOLOGY LABORATORY Embedded Images 0 11:35 AM TESTING COORDINATOR DERMATOPATHOLOGY LABORATORY Pathology/Cytolog y TISSUE SPECIMEN FROM SKIN / Unknown 04/09/2019 04/12/2019 9:54 AM TESTING COORDINATOR Marley Helms MD LAB - PATHOLOGY/CYTOLOGY ORD ERABLES Final Result DERMATOPATHOLOGY LABORATORY [facility] - Department of Dermatology [address] [place] [address], 5th Floor Lab [address] [phone] documented in this encounter Visit Diagnoses Not on filedocumented in this encounter Care Teams Tier Lift Operator Relationship Specialty Start Date End Date Diomedes Ron MD PCP - General Internal Medicine 06/09/18 documented as of this encounter
--- OUTSIDE RECORDS SUMMARY | 2024-12-16 20:04 | XMS_ITS | Clinical Summary ---
Author Organization [place] [id number] Address [address] [place] [address] Care Team Providers Care Operations Logistics Analyst Name Role Phone Diomedes Ron MD Primary Care Provider [phone] Allergies No known active allergies Medications alendronate [...] INTO BOTH EYES AT BEDTIME DIRECTED Active travoprost (TRAVATAN Z) 0.004 % drops BEDTIME 05/08/2023 Activ e meloxicam (MOBIC) 15 mg tablet Take 1 tablet (15 mg total) by mouth daily 09/11/2024 Active Active Problems Problem Noted Date Diagnosed Date Primary osteoarthritis of both knees 06/09/2018 Encounters Date Type Department Care Team Description 11/09/2024 1:00 PM CDT [facility] Visit [facility] [address] [facility] [address] [place] [phone] Jennifer Taylor MD Gait disorder (Primary Dx); Gait apraxia; Spinal stenosis of lumbar region, unspecified whether neurogenic claudication present from Last 3 Months Immunizations Immunization Administration Dates Next Due Influenza, Quadrivalent, Spl it, Preservative Free, Intramuscular 11/16/2020,12/14/2019,11/30/2018,01/12,12/11/2016 Pneumococcal Conjugate PCV 13 12/11/2016 Pneumococcal Polysaccharide PPV23 04/01/2018, Tdap 05/30/2022,04/01/2018 ZOSTER LIVE 03/09/2012 ZOSTER Recombinant 05/30/2022 Surgical History Surgery Date Site/Laterality Comments REPLACEMENT TOTAL KNEE HERNIA REPAIR CHOLECYSTECTOMY SECTION Medical History Medical History Date Comments Anxiety Type 2 diabetes mellitus Family History Medical History Relation Name Comments Heart attack Father Heart disease Father Parkinsonism Mother Stroke Mother Relation Name Status Comments Father Mother Social History Tobacco Use Types Packs/Day Years Used Date Smoking Tobacco: Never Smokeless Tobacco: Never Tobacco Cessation:Counseling Given: Not Answered AUDIT-C Answer Date Recorded Q1: How often do you have a drink containing alc ohol? Never 11/09/2024 Average Number of Drinks Not on file 025 Frequency of Binge Drinking Not on file 10/13 Comments Unknown Sex and Gender Information Value Date Recorded Sex Assigned at Not on file Legal Sex Female 4:57 PM CDT Gender Identity Not on file Sexual Orientation Not on file Last Filed Vital Signs Vital Sign Reading Time Taken Comments Blood Pressure 158/72 11/09/2024 12:47 PM CDT Pulse 89 11/09/2024 12:47 PM CDT Temperature - - Respiratory Rate 16 11/09/2024 12:47 PM CDT Oxygen Saturation 95% 11/09/2024 12:47 PM CDT Inhaled Oxygen Concentration - - Weight 81.6 kg (180 lb) 11/09/2024 12:47 PM CDT Height 162.6 cm (5' 4) 11/09/2024 12:47 PM CDT Body Mass Index 30.9 11/09/2024 12:47 PM CDT Plan of Treatment Health Maintenance Due Date Last Done Comments Breast Cancer Screening-Mammogram 1950 Colon Cancer Screening-Colonoscopy 1950 Depression Screening 1950 Fall Risk Assessment 1950 Hepatitis C Screening 1950 Osteoporosis Screening-Bone Density Scan 1950 Hepatitis B Screening 1968 Well Visit 65+ 2015 Zoster Vaccine (3 of 3) 07/25/2022 05/30/2022, 03/09 Covid-19 Vaccine (5 - 2024-2 6 season) 2024 07/22/2022, 03/07/2021, 05/26/2020, Additional history exists Influenza Vaccine (#1) 2024 , 12/14/2019, 11/30/2018, Additional history exists DTaP/Tdap/Td Vaccine (3 - Td or Tdap) 05/30/2032 05/30/2022, 04/01/2018 Pneumococcal vaccine 65+ Completed 019, 12/11/2016, 03/09/2012 Insurance [facility] MEDICARE ADVANTAGE [facility] MEDICARE ADVANTAGE Care Teams Operations Logistics Analyst Relationship Specialty Start Date End Date Diomedes Ron MD [address] [place] [place] [id number] PCP - General Internal Medicine 06/09/24
== END 2024-12-16 13:24 | disposition home or self-care (01) ==
LOC: CHSIMG 13:25
PROVIDERS: PCP Internal Medicine; Visit Provider Psychiatry & Neurology Neurology
DX: R26.9 Unspecified abnormalities of gait and mobility (principal); R90.89 Other abnormal findings on diagnostic imaging of central nervous system
CPT/HCPCS: 70551